=== PATIENT | female | born 1970 | race Caucasian/White ===

== ENCOUNTER 2024-08-07 17:44 | Inpatient (IN) | payer OTHER, SELFPAY ==
[2024-08-07] VITALS (12 sets, daily range): BP systolic 91–170; BP diastolic 65–100; BMI 37.6
[2024-08-07 11:23] LABS: % Basophils 0.5 % (0-2); % Eosinophils 1.3 % (0-6); % Immature Granulocytes 0.8 % (0-0.5); % Lymphocytes 18.7 % (20.5-51.1); % Monocytes 8.3 % (1.7-9.3); % Neutrophils 70.4 % (42.2-75.2); Absolute Basophils 0.1 10^3/uL (0-0.2); Absolute Eosinophils 0.2 10^3/uL (0-0.7); Absolute Immature Granulocytes 0.1 10^3/uL (0-0.05); Absolute Lymphocytes 2.8 10^3/uL (1.2-3.4); Absolute Monocytes 1.2 10^3/uL (0.1-0.6); Absolute Neutrophils 10.4 10^3/uL (1.4-6.5); Hematocrit 41.1 % (37.0-47.0); Hemoglobin 13.2 g/dL (12.0-16.0); Mean Corp Hgb Conc. 32.1 g/dL (33.0-37.0); Mean Corpuscular Hgb 23.7 pg (27.0-31.0); Mean Corpuscular Volume 73.8 fL (81.0-99.0); Mean Platelet Volume 9.9 fL (7.4-10.4); Nucleated Red Blood Cells % 0 %; Platelet Count 348 10^3/uL (130-400); Red Blood Cell Count 5.57 10^6/uL (4.20-5.40); Red Cell Dist. Width 19.2 % (11.5-14.5); White Blood Cell Count 14.7 10^3/uL (4.8-10.8)
[2024-08-07 11:26] LABS: Urine Albumin Trace (Neg - Trace); Urine Bilirubin Negative (Negative); Urine Character Clear (Clear); Urine Color Yellow; Urine Glucose 3+ (Negative); Urine Ketone Negative (Negative); Urine Leukocyte 2+ (Negative); Urine Nitrite Negative (Negative); Urine Occult Blood 4+ (Negative); Urine Urobilinogen Negative (Neg - 1+)
[2024-08-07 11:38] LABS: ALT (SGPT) 52 U/L (0-35); AST (SGOT) 41 U/L (14-36); Albumin 4.7 g/dl (3.5-5.0); Alkaline Phosphatase 131 U/L (38-126); Blood Urea Nitrogen 25 mg/dl (7-17); Calcium 10.3 mg/dl (8.4-10.2); Carbon Dioxide 25 mmol/L (22-30); Chloride 101 mmol/L (98-107); Glucose 160 mg/dl (70-99); Lipase 39 U/L (23-300); Potassium 4.7 mmol/L (3.5-5.1); Sodium 139 mmol/L (135-145); Total Bilirubin 0.6 mg/dl (0.2-1.3); Total Protein 7.4 g/dl (6.3-8.2); eGFR > 60.00
[2024-08-07 11:50] LABS: Urine Red Blood Cell 70-80 /HPF (0-2); Urine White Cell 30-40 /HPF (0-5)
[2024-08-07 11:51] LABS: Urine Bacteria Few (Negative)
--- NOTE | 2024-08-07 12:08 | ED.GENMED ---
History of Present Illness
General
Chief Complaint: Abdominal Symptoms
Source: patient
Exam Limitations: none
Time Seen by Provider: 08/07/24 11:25
Nursing documentation reviewed up to this point in time: agreed with
History of Present Illness
History of Present Illness:
pt is a 53 y/o F with h/o chronic pain on opiates, uti/kidney stones, gallstones
here with RLQ pain for a few days, low grade temp, nauesa, anorexia
says that she doesn't think this feels [facility]
it does wrap around tot he back but is in the RLQ and not RUQ
no vomiting, diarrhea
some mild dysuria/frequency
generalized fatigue, lack of energy, sleeping more
Past History
Past History
ED Past Medical History: CVA (X 2), HTN, Hypercholesterolemia, IDDM, Psychiatric (Anxiety), Other (MS, optic neuritis, uvetitis, GI bleeding, UTI, Chronic pain, chronic abd pain), Other (Trigeminal Neuralgia) and Other (Alkalosic spondylitis with
HlA B27 positive, Achilles tendinitis, positive JOHN)
ED Past Surgical History: Tonsilectomy
Social History
Tobacco: Non-smoker
Alcohol: None
Drug: None
Personal:
Living: with family
Employment: Not employed
Family History
Family History: Other (reviewed and non-contributory)
Review of Systems
Review of Systems
Allergies reviewed?: Yes
All Other Systems: Not applicable
Phy Exam
Physical Exam
Physical Exam:
GENERAL: Alert , in no apparent distress
EYE: pupils equal and reactive
NECK: Supple
ENT: o/p clr, mmm.
CARDIAC: Regular rate and rhythm .
LUNGS: Clear breath sounds bilaterally, no acute respiratory distress, no wheezes/rales/rhonchi
ABDOMEN: Soft, obese, RLQ and right flank mild tedner; RUQ not tender but then she had martinez's sign; no guarding, no rebound, mild cvat, normal bowel sounds
NEUROLOGICAL: Alert and oriented, no focal neuro deficits
SKIN: Warm and dry, skin intact.
MUSCULOSKELETAL: No edema, well perfused. neg brian's sign
PSYCH: Normal and appropriate interaction.
Course
Orders/Labs/Results
Orders:
Orders
08/07/24
RF Fluoroscopy, C-arm Routine
08/07/24 11:10
Complete Blood Count/With Diff Urgent
Comprehensive Metabolic Panel Urgent
Lipase Urgent
Urinalysis Reflex To Culture Urgent
Date Specimen was Collected: 08/07/24
Time Specimen was Collected: 11:00
Urine Microscopic Reflex Cult Urgent
Urine Culture Urgent
MAKENNA Source: U
Specimen Description:
Date Specimen was Collected: 08/07/24
Time Specimen was Collected: 11:00
08/07/24 12:02
CT Abd/Pel (IV only)-DH only Urgent
Comment:
Reason For Exam: RLQ pain, fever, nausea
0.9% Sodium Chloride 1000 ml [Nss] 1,000 ml IV BOLUS
HYDROmorphone [Dilaudid] 1 mg IV NOW STA
08/07/24 12:21
Ondansetron Injectable [Zofran] 4 mg IV NOW STA
08/07/24 13:23
Ketorolac [Toradol] 30 mg IV NOW STA
08/07/24 14:58
CefTRIAXone [Rocephin] 1,000 mg IV NOW STA
08/07/24 14:59
HYDROmorphone [Dilaudid] 1 mg IV NOW STA
08/07/24 Dinner
2000 calorie (17 carb) Diabetic
At Your Request: Full Participation
Does patient need a safe tray?: No
08/07/24 15:09
Sterile Water [Sterile Water For Injection] 10 ml .ROUTE .STK-MED ONE
08/07/24 15:43
HYDROmorphone [Dilaudid] 0.25 mg IV PACU-Q5MPRN PRN
HYDROmorphone [Dilaudid] 0.5 mg IV PACU-Q5MPRN PRN
Lidocaine HCl/Pf [Xylocaine-Mpf 1% Vial] 50 mg .ROUTE .STK-MED ONE
Meperidine [Demerol] 12.5 mg IV PACU-Q5MPRN PRN
Ondansetron Injectable [Zofran] 4 mg IV PACU-ONCEPRN PRN
Prochlorperazine [Compazine] 5 mg IV PACU-ONCEPRN PRN
Propofol [Diprivan] 20 ml .ROUTE .STK-MED
Notify MD As Directed
Notify physician if: for SDS patients with known or suspected sleep obstructive sleep apnea, monitor in the
PACU.
Notify MD for any apneic/desaturation episodes
O2 Therapy [RESP] Urgent
Titrate/Wean O2 to maintain O2 sat greater than (%): 92
Special Instructions: -Provide supplemental oxygen to achieve O2 sat of 92% or greater.
-After 15 min, may wean O2 and discontinue if patient is able to maintain O2 sat of 92%
or greater during recovery period.
If patient is a discharge home, without oxygen therapy, notify anestheiologist if
unable to maintain O2 SAT of 92% or greater on room air for MD clearance.
08/07/24 15:45
Fentanyl Citrate/Pf [Sublimaze] 100 mcg .ROUTE .STK-MED ONE
Midazolam HCl [Versed] 2 mg .ROUTE .STK-MED ONE
Normosol (Mult Electrolytes) [Normosol-R/Plasmalyte-A] 1,000 ml IV PER PROTOCOL
08/07/24 16:02
Succinylcholine Chloride [Succinylcholine] 200 mg .ROUTE .STK-MED ONE
08/07/24 16:10
Urinalysis Routine
Date Specimen was Collected: 08/07/24
Time Specimen was Collected: 16:19
Comment: URINE
Urine Microscopic Routine
Date Specimen was Collected: 08/07/24
Time Specimen was Collected: 16:19
Urine Culture Routine
MAKENNA Source: Urine
Specimen Description:
Obtained by: Cysto
Date Specimen was Collected: 08/07/24
Time Specimen was Collected: 16:19
Comment: URINE
08/07/24 16:17
Ondansetron Injectable [Zofran] 4 mg .ROUTE .STK-MED ONE
Rocuronium [place] [Rocuronium] 50 mg .ROUTE .STK-MED ONE
08/07/24 17:31
Admit/Transfer Patient As Directed
Co-Sign Provider:
Level of Care: Inpatient admission
Assign to:: Medical/Surgical
Physician / Group: derek driscoll
Diagnosis: uti,obstructin R ureter w mod R hydrurteronephrosis
Reason for Hospitalization: uti,obstructin R ureter w mod R hydrurteronephrosis
Expected length of stay greater than two midnights?: Yes
ELOS- Estimated Length of Stay in days: 3
I certify the patient meets the requirements for IP care: Yes
Code Status As Directed
Resuscitation Status: Full Code
08/07/24 17:37
PRN Pain Medication Management As Directed
May give lesser potent ordered pain med per pt: Yes
preference::
Protocol:: Medication orders for pain may be administered in a
manner that supports deferring to patient preference
when the pt is:
- Requesting an ordered lesser potent pain medication.
Least to most potent pain medications are defined
as: acetaminophen < NSAID < tramadol < opioids
(morphine, oxycodone, hydromorphone).
- Requesting a lesser dose of the same medication IF
ORDERED.
- Requesting a less intrusive route of administration
if both routes are prescribed by the provider (PO <
IV).
08/07/24 18:09
0.9% Sodium Chloride 1000 ml [Nss] 1,000 ml IV 100 mls/hr
Albuterol Nebs [Ventolin Nebules] 2.5 mg INH R Q4HPRN PRN
Alprazolam [Xanax] 1 mg PO BIDPRN PRN
CefTRIAXone [Rocephin] 1,000 mg IV Q24H
Dextrose 50%-Water [Dextrose 50% Syringe] 12.5 grams IV [id number] PRN
Diphenhydramine [Benadryl] 25 mg IV Q4HPRN PRN
Glucagon [GlucaGen] 1 mg IM PRN PRN
HYDROmorphone [Dilaudid] 1 mg IV Q4HPRN PRN
HydrALAZINE [Apresoline] 10 mg PO .BID-TID
Ondansetron Injectable [Zofran] 4 mg IV Q6HPRN PRN
Phenazopyridine HCl [Pyridium] 200 mg PO NOW STA
Phenazopyridine HCl [Pyridium] 200 mg PO TIDPRN PRN
oxycodone-acetaminophen 1 tablet PO QID
08/07/24 18:09
Activity As Directed
Activity Level: As Tolerated
Bedside Glucose Monitoring As Directed
Frequency: AC&HS
Additional Instructions:: Change to q6h if pt on TPN, tube feeding or not eating
Intake/ Output As Directed
Frequency: Per unit guidelines
Pneumatic Compression Sleeves As Directed
Type: Knee high
Vital Signs As Directed
Frequency: Per unit guidelines
DX Deep Vein Thrombosis Video Routine
08/07/24 20:00
Docusate W/Senna [Senokot-S] 1 tablet PO BID
Metoprolol Xl [Toprol Xl] 100 mg PO BID
08/07/24 22:00
Alprazolam [Xanax] 1 mg PO HS
Amlodipine [Norvasc] 10 mg PO HS
Aspirin Low Dose EC [Aspir Low (Enteric Coated)] 81 mg PO HS
Clopidogrel Bisulfate [Plavix] 75 mg PO HS
Duloxetine Delayed Release [Cymbalta Delayed Release] 60 mg PO HS
Losartan [Cozaar] 100 mg PO HS
Trazodone [Desyrel] 300 mg PO HS
08/08/24 06:00
Complete Blood Count/With Diff IN AM
Comprehensive Metabolic Panel IN AM
Glycohemoglobin (HgbA1c) IN AM
08/08/24 07:30
Insulin Aspart Corrective Low [Novolog Flexpen-Low Resistance] See Protocol SC AC
08/08/24 08:00
Polyethylene Glycol Powder [Miralax] 17 grams PO DAILY
08/09/24 06:00
Complete Blood Count/With Diff IN AM
Comprehensive Metabolic Panel IN AM
08/10/24 06:00
Complete Blood Count/With Diff IN AM
Comprehensive Metabolic Panel IN AM
Abnormal Lab Results
08/07/24 08/07/24 08/07/24
11:10 16:10 17:32
WBC 14.7 H 10^3/uL
(4.8-10.8)
RBC 5.57 H 10^6/uL
(4.20-5.40)
MCV 73.8 L fL
(81.0-99.0)
MCH 23.7 L pg
(27.0-31.0)
MCHC 32.1 L g/dL
(33.0-37.0)
RDW 19.2 H %
(11.5-14.5)
Abs Immat Gran (auto) 0.1 H 10^3/uL
(0-0.05)
Absolute Neuts (auto) 10.4 H 10^3/uL
(1.4-6.5)
Absolute Monos (auto) 1.2 H 10^3/uL
(0.1-0.6)
Immature Gran % 0.8 H %
(0-0.5)
Lymphocytes % 18.7 L %
(20.5-51.1)
BUN 25 H mg/dl
(7-17)
Glucose 160 H mg/dl
(70-99)
Calcium 10.3 H mg/dl
(8.4-10.2)
AST 41 H U/L
(14-36)
ALT 52 H U/L
(0-35)
Alkaline Phosphatase 131 H U/L
(38-126)
Urine Occult Blood 4+ A
(Negative)
Ur Occult Blood Reflex 4+ A
(Negative)
Ur Leukocyte Esterase 2+ A
(Negative)
Leukocyte Esterase Rfl 2+ A
(Negative)
Urine RBC 70-80 A /HPF 26-30 A /HPF
(0-2) (0-2)
Urine WBC 30-40 A /HPF
(0-5)
Urine WBC (Reflex) 30-40 A /HPF
(0-5)
Urine Bacteria Few A
(Negative)
Urine Bacteria (Reflex) Few A
(Negative)
Urine Glucose 3+ A Trace A
(Negative) (Negative)
POC Glucose 131 H mg/dl
(70-99)
08/07/24 11:10
08/07/24 11:10
Vital Signs
Initial and Last Documented VS:
Initial Vital Signs
Temp Pulse Resp BP Pulse Ox
99.2 F 80 16 170/100 98
08/07/24 10:57 08/07/24 10:57 08/07/24 10:57 08/07/24 10:57 08/07/24 10:57
Last Documented Vital Signs
Temp Pulse Resp BP Pulse Ox
97.7 F 78 18 149/78 96
08/07/24 18:03 08/07/24 18:03 08/07/24 18:03 08/07/24 18:03 08/07/24 18:03
MDM/Problems Addressed
Differential Diagnosis Includes:
appe, deacon, kidney infection
MDM/Problems Addressed:
carlos galina h/o MS, chornic pain on opiates, h/o kidney stones
RLQ pain to back for a few days, low grade temp, nausea
borderline temp 99.2, wbc 14.7, cr normal, urine leuk, blood, whites, bacteria; neg nitrite; ct shows 5 mm stone with mod hydro (mid right ureter stone);
pt in a fair amount of pain but not in septic shock
abx started
dr. gama from uro will take pt to OR
admit
*Critical Care Note
Total Time (30-74mins, 75-104mins- exclusive of procedures): Not Applicable
ED Attending Note
-
Portions of this chart may have been created with voice recognition software.� Occasional wrong word or��sound alike� substitutions may have occurred due to the inherent limitations of voice recognition software.
Discharge Plan
Departure
Patient Disposition: Admit
Date of Disposition: 08/07/24
Time of Disposition: 15:04
Admit to: Med/Surg
Presentation/result/management discussed w/ accepting MD/DO: Hospitalist
Condition: Fair
Covid-19: Not Applicable
Discharge Problem:
Obstruction, uropathy
Interventions
Interventions:
*Risk Screen - Suicide Last Done: 08/07/24 10:57
*General Assessment Last Done: 08/07/24 10:57
*Neglect/Abuse Screening Last Done: 08/07/24 10:57
ED- Fall Risk Assessment Last Done: 08/07/24 15:52
*ED COVID-19 Vaccine History Last Done: 08/07/24 15:52
*Nursing Disposition Last Done: 08/07/24 15:52
BD-Uqpzfi-Sndustafvo Assessment Last Done: 08/07/24 11:53
Discharge Date and Time
Discharge Date/Time: 08/07/24 15:53
[2024-08-07] MEDS: NSS 1000 IV ×2 (12:12→18:23)
[2024-08-07] MEDS: DILAUDID 1 MG IV ×3 (12:12→20:13)
[2024-08-07] MEDS: ZOFRAN 4 MG IV (12:25)
[2024-08-07] MEDS: TORADOL 30 MG IV (13:39)
[2024-08-07] MEDS: ROCEPHIN 1000 MG IV (15:12)
[2024-08-07 16:45] LABS: Urine Albumin Negative (Neg - Trace); Urine Bilirubin Negative (Negative); Urine Character Slightly Cloudy (Clear); Urine Color Straw; Urine Glucose Trace (Negative); Urine Ketone Negative (Negative); Urine Leukocyte 2+ (Negative); Urine Nitrite Negative (Negative); Urine Occult Blood 4+ (Negative); Urine Specific Gravity 1.005 (<1.030); Urine Urobilinogen Negative (Neg - 1+)
--- NOTE | 2024-08-07 16:46 | CONS.URO ---
Consultation
-
Performing Provider: Peffer
Reason for Consultation: ureteral stone, UTI, fever
Medical History
History of Present Illness
53F prior history of kidney stones, prior hx of needing operative intervention
here with RLQ pain for a few days, low grade temp and subj fever at home, nausea, anorexia
no vomiting, diarrhea
some mild dysuria/frequency
generalized fatigue, lack of energy, sleeping more
No hematuria
CT showed a 5mm mid ureteral stone
UA, low grade elevated temp, and leukocytosis concerning for possible associated UTI and developing sepsis
Taken to OR 08/07 for ureteral stent placement
Past Medical History
Past Medical History: Other (CVA (X 2), HTN, Hypercholesterolemia, IDDM, Psychiatric (Anxiety), Other (MS, optic neuritis, uvetitis, GI bleeding, UTI, Chronic pain, chronic abd pain), Other (Trigeminal Neuralgia) (Alkalosic spondylitis with HlA B27
positive, Achilles tendinitis, positive JOHN)
Past Surgical History: Tonsilectomy and Urological
Social History
Tobacco: Non-smoker
Alcohol: None
Drug: None
Personal:
Living: With Family
Family History
Family History: Reviewed & Not Pertinent
Allergies/Home Medications
Allergies
Allergy/AdvReac Type Severity Reaction Status Date / Time
phenytoin [From Dilantin] Allergy blood Verified 08/07/24 10:59
clots;pt
states 'i
can get it
but it has
to be
diluted
Quinolones Allergy Hives Verified 08/07/24 10:59
Home Medications
�Medication �Instructions �Recorded �Confirmed �Type
metoprolol succinate 100 mg 100 mg PO BID Blood pressure ##0 10/26/16 08/07/24 History
tablet,extended release 24 hr
alprazolam 1 mg tablet 1 mg PO HS Mental Health/Anxiety 11/27/18 08/07/24 History
duloxetine 60 mg capsule,delayed 60 mg PO HS Mental Health/Anxiety 11/27/18 08/07/24 History
release
metformin 1,000 mg tablet 1,000 mg PO BIDWMEAL Diabetes 11/27/18 08/07/24 History
hydralazine 10 mg tablet 10 mg PO .BID-TID 03/29/21 08/07/24 History
trazodone 150 mg tablet 300 mg PO HS Mental Health/Anxiety 03/29/21 08/07/24 History
amlodipine 10 mg tablet 10 mg PO HS 03/07/22 08/07/24 History
clopidogrel 75 mg tablet 75 mg PO HS 03/07/22 08/07/24 History
albuterol sulfate 2.5 mg/3 mL 2.5 mg inhalation R Q4HPRN PRN 08/07/24 08/07/24 History
(0.083 %) solution for nebulization sob/wheezing
alprazolam 1 mg tablet 1 mg PO BIDPRN PRN anxiety 08/07/24 08/07/24 History
aspirin 81 mg tablet,delayed 81 mg PO HS 08/07/24 08/07/24 History
release
docusate sodium 100 mg capsule 100 mg PO BID 08/07/24 08/07/24 History
(Stool Softener)
glipizide 10 mg tablet 10 mg PO BIDWMEAL 08/07/24 08/07/24 History
losartan 100 mg tablet 100 mg PO HS 08/07/24 08/07/24 History
qrkvqzvk-huo-SF 0.4 mg-calcium 162 1 tab PO DAILY 08/07/24 08/07/24 History
mg-iron 18 hv-jmncqcm-whesxn tablet
nitrofurantoin macrocrystal 50 mg 50 mg PO Q48H 08/07/24 08/07/24 History
capsule
oxycodone-acetaminophen 10 mg-325 1 tab PO Q6HPRN PRN moderate pain 08/07/24 08/07/24 History
mg tablet
polyethylene glycol 3350 17 gram 17 g PO DAILY 08/07/24 08/07/24 History
oral powder packet (Miralax)
semaglutide 2 mg/dose (8 mg/3 mL) 2 mg SC TH 08/07/24 08/07/24 History
subcutaneous pen injector (Ozempic)
Physical Exam
Vital Signs
Vital Signs
Temp Pulse Resp BP Pulse Ox
97.9 F 84 10 120/68 93
08/07/24 15:16 08/07/24 16:34 08/07/24 16:34 08/07/24 16:34 08/07/24 16:34
Lab / Testing Results
Laboratory Results
08/07/24 11:10
08/07/24 11:10
Physical Exam
General: Well Developed, Well Nourished and Other (mild discomfort)
Respiratory: Clear and Non Labored Respirations
GI: Soft and Non Tender
Genito-urinary: No Costovertebral Tend
Skin: Warm and Dry
Neuro: AO x 3
Psych: Calm and Intact Judgement
Assessment / Plan
-
53F with 5mm mid R ureteral stone
subjective fevers and leukocytosis, positive UA
- Taken to OR 08/07 for cystoscopy, R ureteral stent placement
- Significant purulent urine above stone was collected and sent for culture
- Continue IV abx pending culture
- Will need outpatient follow up for ureteroscopy to remove stone after discharge
[2024-08-07 16:57] LABS: Urine Bacteria Few (Negative); Urine Squamous Cell 0-2 /LPF (Few)
[2024-08-07 16:58] LABS: Urine Red Blood Cell 26-30 /HPF (0-2); Urine White Cell 30-40 /HPF (0-5)
--- NOTE | 2024-08-07 17:03 | HPS.HSE ---
Family Physician
-
Family Physician: Donald Plaza
Chief Complaint
-
Right lower quadrant abdominal pain, intermittent chills
History of Present Illness
53-year-old female from home complaining of right lower quadrant abdominal pain for the past week along with intermittent chills. The patient told the registered pharmacy technician she had just finished Keflex. She was noted to have an obstructing 5 mm
calculus in the mid right ureter with moderate right hydroureteronephrosis on CT. She is currently in PACU states she does feel very drowsy but she is oriented x 3. She complains of mild right lower quadrant abdominal pain and some mild itching
although there is no appreciated rash. She denies headache, fever, chills, chest pain, palpitations, shortness breath, cough, nausea, vomiting, diarrhea. She has past medical history of UTIs, renal calculi, chronic lumbar pain on chronic oral
opiates, multiple sclerosis, trigeminal neuralgia, HTN, obesity, DM 2, CVA x 2, anxiety, optic neuritis, uveitis, GI bleed, ankylosing spondylitis
Medical History
Past Medical History
Past Medical History: Reports Other
Additional Past Medical History:
UTIs renal calculi
chronic lumbar pain on chronic oral opiates
multiple sclerosis
trigeminal neuralgia
Hepatic steatosis, hepatomegaly
HTN
obesity
DM 2
CVA x 2
anxiety
optic neuritis
uveitis
GI bleed
ankylosing spondylitis
Past Surgical History: Reports Other
Additional Past Surgical History:
History of renal calculi with removals
Neuroma to foot removal
Tonsillectomy adenoidectomy
Social History
Tobacco: Non-smoker
Alcohol: None
Drug: None
Personal: Single
Living: With Family (Children)
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
Family History
Family History: Not pertinent
Allergies / Home Medications
Allergies reflects when Allergies were last updated in [employer].
Home Medications with original date entered in [employer]
Allergy/Medication List:
Allergies
Allergy/AdvReac Type Severity Reaction Status Date / Time
phenytoin [From Dilantin] Allergy blood Verified 08/07/24 10:59
clots;pt
states 'i
can get it
but it has
to be
diluted
Quinolones Allergy Hives Verified 08/07/24 10:59
Home Medications
metoprolol succinate 100 mg tablet,extended release 24 hr 100 mg PO BID Blood pressure ##0 10/26/16
alprazolam 1 mg tablet 1 mg PO HS Mental Health/Anxiety 11/27/18
duloxetine 60 mg capsule,delayed release 60 mg PO HS Mental Health/Anxiety 11/27/18
metformin 1,000 mg tablet 1,000 mg PO BIDWMEAL Diabetes 11/27/18
hydralazine 10 mg tablet 10 mg PO .BID-TID 03/29/21
trazodone 150 mg tablet 300 mg PO HS Mental Health/Anxiety 03/29/21
amlodipine 10 mg tablet 10 mg PO HS 03/07/22
clopidogrel 75 mg tablet 75 mg PO HS 03/07/22
albuterol sulfate 2.5 mg/3 mL (0.083 %) solution for nebulization 2.5 mg inhalation R Q4HPRN PRN sob/wheezing 08/07/24
alprazolam 1 mg tablet 1 mg PO BIDPRN PRN anxiety 08/07/24
aspirin 81 mg tablet,delayed release 81 mg PO HS 08/07/24
docusate sodium 100 mg capsule (Stool Softener) 100 mg PO BID 08/07/24
glipizide 10 mg tablet 10 mg PO BIDWMEAL 08/07/24
losartan 100 mg tablet 100 mg PO HS 08/07/24
gndjowib-xhn-XK 0.4 mg-calcium 162 mg-iron 18 zu-ycpyjvv-txzamu tablet 1 tab PO DAILY 08/07/24
nitrofurantoin macrocrystal 50 mg capsule 50 mg PO Q48H 08/07/24
oxycodone-acetaminophen 10 mg-325 mg tablet 1 tab PO QID 08/07/24
polyethylene glycol 3350 17 gram oral powder packet (Miralax) 17 g PO DAILY 08/07/24
semaglutide 2 mg/dose (8 mg/3 mL) subcutaneous pen injector (Ozempic) 2 mg SC TH 08/07/24
Review of Systems
-
History Source: Patient
A 12 point ROS was completed and negative except as noted: Yes
Constitutional: Denies Fever or Chills
EENT: Denies Sore Throat or Runny Nose
Respiratory: Denies Cough or Trouble Breathing
Cardiac: Denies Chest Pain or Palpitations
Abdomen/GI: Reports Abdominal Pain (Right lower quadrant) and Constipated; Denies Nausea, Vomiting or Diarrhea
: Denies Dysuria, Frequency, Flank Pain, Incontinence or Difficulty Voiding
Musculoskeletal: Denies Joint Pain or Edema
Skin: Reports Itching; Denies Rash
Neurological: Denies Dizzy, Headache or Weakness
Endocrine: Reports No Symptoms
Hematologic/Lymphatic: Reports No Symptoms
Psych: Reports Calm
Physical Exam
Vital Signs
Vital Signs
Temp Pulse Resp BP Pulse Ox
97.4 F 78 17 91/71 91
08/07/24 16:45 08/07/24 17:00 08/07/24 17:00 08/07/24 17:00 08/07/24 17:00
Physical Exam
General: Comfortable, Conversant, Pain (Mild pain right lower quadrant postop) and Obese; No Fever or Chills
HEENT: NormoCephalic, Anicteric, PERRLA and No Ptosis
Respiratory: Clear; No Wheezes, Rales or Rhonchi
Cardiac: S1/S2 and Regular Rhythm; No Murmur, Rub, Gallop or Peripheral Edema
Breast: Deferred by me
GI: Soft, Non Distended, Normal Bowel Sounds and Tender (Mild tenderness right lower quadrant)
Genito-urinary: Deferred by me
Musculoskeletal: No Clubbing, No Cyanosis and No Edema
Skin: Warm and Dry; No Rash or Jaundice
Neuro: AO x 3, No Motor Deficits, Nonfocal/grossly intact and No Sensory Deficits; No Slurred Speech, Facial Droop, Tremors or Sedated
Psych: Calm
Laboratory Results
-
08/07/24 11:10
08/07/24 11:10
Laboratory Results
Total Bilirubin 0.6 mg/dl (0.2-1.3) 08/07/24 11:10
AST 41 U/L (14-36) H 08/07/24 11:10
ALT 52 U/L (0-35) H 08/07/24 11:10
Alkaline Phosphatase 131 U/L (38-126) H 08/07/24 11:10
Lipase 39 U/L (23-300) 08/07/24 11:10
Data Reviewed
-
CT Scan: Report Reviewed by me
Lab Data: Labs Reviewed by me
Impression/Plan
-
Impression/plan:
Admit to [facility]
#UTI/obstructive uropathy 2/2 FIVE mm calculus mid right ureter with moderate right hydroureteronephrosis
#Hx UTIs, renal calculi with cystoscopies and removal
WBC 14.7, afebrile 97.4, 131/70
-Plan OR today for cystoscopy removal /ureteral stent placement
Stone was unable to be removed due to pus in the ureter per Dr. Camp patient will follow-up as outpatient for additional procedure
-Follow urine culture
-IV NSS 1 L given ER, continue IV NSS 100 cc an hour
-IV Rocephin
-Follow CBC, BMP
CT abdomen pelvis IV contrast only
1. Obstructive uropathy secondary to a 5 mm calculus in the mid right ureter causing moderate right hydroureteronephrosis.
2. Hepatosplenomegaly.
3. Hepatic steatosis.
4. Cholelithiasis.
5. Colonic diverticulosis
#Reported constipation
-Will place patient on MiraLAX daily and Senokot
#Transaminitis likely secondary to hepatomegaly on CT
#Hx hepatosplenomegaly on CT, hepatic steatosis
-Follow CMP
#HTN�benign multidrug regimen
BP 156/78 in PACU
-cont amlodipine 10 mg at bedtime, hydralazine 10 mg twice daily, losartan 100 mg p.o. at bedtime, metoprolol succinate 100 mg p.o. twice daily
#Multiple sclerosis hx
#DM 2
Accu-Cheks with SSI, check HgbA1c
-Hold metformin at 1000 mg twice daily patient was given IV contrast
-Patient takes Ozempic 2 mg subcu on
#CVA x 2
-Continue aspirin 81 mg at bedtime, Plavix 75 mg at bedtime
#Anxiety
-Continue duloxetine 60 mg at bedtime, alprazolam 1 mg twice daily as needed and 1 mg p.o. at bedtime
-Continue trazodone
#Chronic pain on chronic oral opiates/ trigeminal neuralgia
Takes as needed oxycodone/acetaminophen 10 mg�325 every 6 hours scheduled
-Patient follows with Dr. Marco Mccray pain management
#Obesity due to excess calorie consumption�BMI 37.6
Affects all aspects of care
Weight loss recommended, continue Ozempic outpatient
1800 ADA low-fat diet
#Psoriatic arthritis
-Patient states she follows with outpatient rheumatology she was due to start unknown injectable this past week but held it due to her flank pain and UTI
Other PMH:
Optic neuritis
Uveitis
GI bleed
Ankylosing spondylitis
DVT prophylaxis
SCDs
Full code
[2024-08-07 17:35] LABS: Glucose - Point of Care 131 mg/dl (70-99)
--- NOTE | 2024-08-07 17:57 | W.PN.UPDATE ---
Update Note
Progress Note Update
This is an addendum to the H&P written by Samantha Justice on 08/07/2024.� Patient seen and examined independently with NURSE'S ASSISTANT.
53-year-old female past medical history of chronic pain, nephrolithiasis, gallstones, CVA, hypertension, hypercholesteremia, diabetes, anxiety/depression, multiple sclerosis, optic neuritis, uveitis, general neurology, ankylosing spondylitis,
presenting for right lower quadrant pain for the past week associate with chills.
CT abdomen pelvis showed obstructive uropathy secondary to 5 mm calculus in the mid right ureter and moderate right hydroureteronephrosis.� Labs show leukocytosis.� Patient underwent right ureteral stent placement.
IV fluids.� Urine culture pending.� Ceftriaxone.� Pyridium for urinary symptoms.
--- NOTE | 2024-08-07 18:04 | PTCARENOTE ---
Patient admitted from Pacu post cystoscopy and right stent placement.The patient is alert and oriented but drowsy.She used the bathroom shortly after arrival and was able to void a moderate amount of urine without difficulty.After she returned to
her bed she requested pain medication and Pyridium.She is in her bed with the call jim in reach.
[2024-08-07] MEDS: TYLENOL 325 MG PO ×2 (18:22→21:28)
[2024-08-07] MEDS: ROXICODONE 10 MG PO ×2 (18:22→21:27)
[2024-08-07] MEDS: Pyridium 200 MG PO ×2 (18:25→18:47)
[2024-08-07] MEDS: TOPROL XL 100 MG PO (20:00)
[2024-08-07] MEDS: SENOKOT-S 1 TABLET PO (20:05)
[2024-08-07] MEDS: APRESOLINE 10 MG PO (20:05)
[2024-08-07] MEDS: XANAX 1 MG PO ×2 (21:26→22:33)
[2024-08-07] MEDS: CYMBALTA DELAYED RELEASE 60 MG PO (21:26)
[2024-08-07] MEDS: NORVASC 10 MG PO (21:26)
[2024-08-07] MEDS: DESYREL 300 MG PO (21:27)
[2024-08-07] MEDS: PLAVIX 75 MG PO (21:27)
[2024-08-07] MEDS: COZAAR 100 MG PO (21:27)
[2024-08-07] MEDS: ASPIR LOW (ENTERIC COATED) 81 MG PO (21:27)
[2024-08-07 21:28] LABS: Glucose - Point of Care 294 mg/dl (70-99)
[2024-08-08 04:10] VITALS: BP 109/67
[2024-08-08] MEDS: NSS 1000 IV ×2 (04:18→14:51)
[2024-08-08] MEDS: Pyridium 200 MG PO ×3 (04:19→22:03)
[2024-08-08] MEDS: DILAUDID 1 MG IV ×5 (04:19→22:57)
[2024-08-08] MEDS: DILAUDID 0.5 MG IV (05:51)
[2024-08-08 06:33] LABS: % Basophils 0.3 % (0-2); % Eosinophils 0.1 % (0-6); % Immature Granulocytes 0.7 % (0-0.5); % Lymphocytes 17.6 % (20.5-51.1); % Monocytes 7.6 % (1.7-9.3); % Neutrophils 73.7 % (42.2-75.2); Absolute Immature Granulocytes 0.1 10^3/uL (0-0.05); Absolute Lymphocytes 1.9 10^3/uL (1.2-3.4); Absolute Monocytes 0.8 10^3/uL (0.1-0.6); Absolute Neutrophils 8.1 10^3/uL (1.4-6.5); Hematocrit 34.8 % (37.0-47.0); Hemoglobin 11.2 g/dL (12.0-16.0); Mean Corp Hgb Conc. 32.2 g/dL (33.0-37.0); Mean Corpuscular Hgb 24.9 pg (27.0-31.0); Mean Corpuscular Volume 77.3 fL (81.0-99.0); Mean Platelet Volume 10.2 fL (7.4-10.4); Nucleated Red Blood Cells % 0 %; Platelet Count 299 10^3/uL (130-400); Red Cell Dist. Width 18.4 % (11.5-14.5)
[2024-08-08 07:05] LABS: ALT (SGPT) 35 U/L (0-35); AST (SGOT) 23 U/L (14-36); Albumin 3.8 g/dl (3.5-5.0); Alkaline Phosphatase 95 U/L (38-126); Blood Urea Nitrogen 26 mg/dl (7-17); Calcium 9.2 mg/dl (8.4-10.2); Carbon Dioxide 23 mmol/L (22-30); Chloride 104 mmol/L (98-107); Estimated Creatinine Clearance 84 ml/min; Glucose 158 mg/dl (70-99); Potassium 4.8 mmol/L (3.5-5.1); Sodium 138 mmol/L (135-145); Total Bilirubin 0.3 mg/dl (0.2-1.3); Total Protein 6.1 g/dl (6.3-8.2); eGFR > 60.00
[2024-08-08 07:08] LABS: Glucose - Point of Care 80 mg/dl (70-99)
[2024-08-08 07:16] VITALS: BP 127/59
[2024-08-08] MEDS: NOVOLOG FLEXPEN-LOW RESISTANCE SC (08:23)
[2024-08-08] MEDS: MIRALAX 17 GRAMS PO (08:25)
[2024-08-08] MEDS: TYLENOL 325 MG PO ×4 (08:26→21:54)
[2024-08-08] MEDS: ROXICODONE 10 MG PO ×4 (08:30→21:54)
[2024-08-08] MEDS: SENOKOT-S 1 TABLET PO ×2 (08:30→19:42)
[2024-08-08] MEDS: APRESOLINE 10 MG PO ×2 (08:30→19:49)
[2024-08-08] MEDS: TOPROL XL 100 MG PO ×2 (08:31→19:50)
[2024-08-08] MEDS: VENTOLIN NEBULES 2 MG INH (09:44)
[2024-08-08 11:32] VITALS: BP 122/72
--- NOTE | 2024-08-08 11:32 | W.PN.URO.CBU ---
Today's Communication / Plan
-
Continue abx
Tolterodine for bladder spasm
Assessment / Plan
-
53F with 5mm mid R ureteral stone
subjective fevers and leukocytosis, positive UA
- Taken to OR 08/07 for cystoscopy, R ureteral stent placement
- Significant purulent urine above stone was collected and sent for culture
- Continue IV abx pending culture
- Will need outpatient follow up for ureteroscopy to remove stone after discharge
- Added tolterodine for bladder spasms
- Continue pyridium TID PRN dysuria
Diagnosis
-
Date of Service: August 08, 2024
-
Patient Diagnosis:
R ureteral stone
Pyuria
UTI
Post Op s/p cystoscopy, R ureteral stent 08/07
Subjective
-
c/o bladder spasm when voiding
chronic back pain moderately controlled
Objective
-
Vital Signs
Temp Pulse Resp BP Pulse Ox
97.6 F 68 16 127/59 95
08/08/24 07:16 08/08/24 09:40 08/08/24 09:40 08/08/24 07:16 08/08/24 09:40
Intake and Output
08/07/24 08/08/24 08/09/24
06:59 06:59 06:59
Output Total 15
Balance -15 / -15
Output:
Urine, Voided
Other:
Number of approximated MODERATE 2
amounts of urine
Laboratory Results
08/08/24 05:52
08/08/24 05:52
Physical Exam
-
General - well developed, well nourished, no acute distress
Chest - unlabored
Neuro - AOx3
[2024-08-08 11:52] LABS: Glucose - Point of Care 177 mg/dl (70-99)
[2024-08-08] MEDS: DETROL LA 4 MG PO (12:46)
[2024-08-08 12:59] LABS: Glycohemoglobin (HgbA1c) 8.6 % (4.0-5.6)
[2024-08-08] MEDS: NOVOLOG FLEXPEN-LOW RESISTANCE 1 UNITS SC (13:14)
[2024-08-08] MEDS: XANAX 1 MG PO ×2 (13:21→21:54)
--- NOTE | 2024-08-08 13:25 | CHAP ---
Aparna TidwellKhang was gracious - said she's doing okay. Emotional support provided.
--- NOTE | 2024-08-08 14:57 | W.PN.HOSP.TC ---
Today's Communication/Plan
-
strep agalactiae uti
Discharge planning per Urology
Assessment / Plan
Assessment / Plan
53-year-old female with right lower quadrant pain and chills.
CT abdomen and pelvis-obstructive uropathy secondary to 5 mm calculus in the right mid ureter causing moderate right hydroureteronephrosis. Hepatosplenomegaly. Hepatic steatosis. Cholelithiasis. Colonic diverticulosis
CVS: S1-S2 normal
Chest: CTA B/L
Abdomen: Soft, mild lumbar area tenderness, right, Bowel sounds present
Extremities: No edema, normal pulses
ASSISTANT EDUCATION DIRECTOR: Non focal exam
# UTI/obstructive uropathy secondary to 5 mm calculus in the right mid ureter with moderate right hydronephrosis.
History of nephrolithiasis with cystoscopy and removal in the past
Status post cystoscopy and right ureteral stent placement by Dr. Camp 08/07/24
Follow urine cultures- Strep Agalactiae
Continue ceftriaxone
IV fluids
# Multidrug-resistant hypertension-amlodipine 10 Mg, hydralazine 10 mg BID, losartan 100 mg HS, metoprolol 100 mg BID
# Diabetes
Hold metformin given IV contrast
She is also on Ozempic 2 mg on
Glipizide 10 mg BID and metformin 100 bid as OP
Check hemoglobin A1c
Accu-Cheks and sliding scale coverage
restart lower dose of Glipizide 2.5 BID
# Chronic pain, opiate dependent. Also history of trigeminal neuralgia
As needed Percocet
Follows up with Dr. Mccray for pain management
# History of CVA in the past-continue aspirin, Plavix
# Constipation-bowel regimen
# Transaminitis hepatosplenomegaly and hepatic steatosis-Needs outpatient GI follow-up
# Cholelithiasis
# Diverticulosis
# Multiple sclerosis- Not o treatment
# Psoriatic arthritis/ankylosing spondylitis-Follows with rheumatology was due to start biologic-unclear details
# Anxiety-continue as needed Alprazolam, Duloxetine, Trazodone
# History of optic neuritis/History of uveitis
# Obesity with a BMI of 37.6-On Ozempic as outpatient
# History of GI bleed
# DVT prophylaxis-Lovenox
# Full code
Anticipated Discharge: Within 24 hours
Subjective/Interval History
-
Date of Service: August 08, 2024
Objective Data
-
Labs:
Laboratory Results
08/08/24
05:52
WBC 11.0 H
Hgb 11.2 L
Hct 34.8 L
Plt Count 299
Sodium 138
Potassium 4.8
Chloride 104
Carbon Dioxide 23
BUN 26 H
Creatinine 1.0
Glucose 158 H
Calcium 9.2
Total Bilirubin 0.3
AST 23
ALT 35
Alkaline Phosphatase 95
Vital Signs:
Vital Signs
Temp Pulse Resp BP Pulse Ox
98.3 F 72 16 122/72 95
08/08/24 11:32 08/08/24 11:32 08/08/24 11:32 08/08/24 11:32 08/08/24 11:32
I&O
08/07/24 08/08/24 08/09/24
06:59 06:59 06:59
Output Total 15 / 15
Balance -15 / -15
[2024-08-08 15:45] VITALS: BP 134/68
[2024-08-08] MEDS: ROCEPHIN 1000 MG IV (15:46)
[2024-08-08] MEDS: STERILE WATER FOR INJECTION 10 ML IV (15:46)
[2024-08-08 16:47] LABS: Glucose - Point of Care 206 mg/dl (70-99)
[2024-08-08] MEDS: GLUCOTROL 2.5 MG PO (18:28)
[2024-08-08] MEDS: LOVENOX 40 MG SC (18:29)
[2024-08-08] MEDS: NOVOLOG FLEXPEN-LOW RESISTANCE 2 UNITS SC (18:30)
[2024-08-08] MEDS: BENADRYL 25 MG IV ×2 (19:42→22:20)
[2024-08-08] MEDS: ZOFRAN 4 MG IV (20:04)
[2024-08-08 21:40] LABS: Glucose - Point of Care 158 mg/dl (70-99)
[2024-08-08] MEDS: CYMBALTA DELAYED RELEASE 60 MG PO (21:54)
[2024-08-08] MEDS: ASPIR LOW (ENTERIC COATED) 81 MG PO (21:54)
[2024-08-08] MEDS: NORVASC 10 MG PO (21:54)
[2024-08-08] MEDS: PLAVIX 75 MG PO (21:54)
[2024-08-08] MEDS: COZAAR 100 MG PO (21:54)
[2024-08-08] MEDS: DESYREL 300 MG PO (21:54)
[2024-08-08 23:05] VITALS: BP 157/81
[2024-08-09] MEDS: NSS 1000 IV (00:55)
[2024-08-09] MEDS: DILAUDID 1 MG IV ×2 (05:17→21:02)
[2024-08-09] MEDS: Pyridium 200 MG PO ×3 (05:17→22:14)
[2024-08-09 06:14] LABS: % Basophils 0.7 % (0-2); % Eosinophils 2.6 % (0-6); % Immature Granulocytes 0.9 % (0-0.5); % Lymphocytes 44.8 % (20.5-51.1); % Monocytes 7.1 % (1.7-9.3); % Neutrophils 43.9 % (42.2-75.2); Absolute Basophils 0.1 10^3/uL (0-0.2); Absolute Eosinophils 0.3 10^3/uL (0-0.7); Absolute Immature Granulocytes 0.1 10^3/uL (0-0.05); Absolute Lymphocytes 4.5 10^3/uL (1.2-3.4); Absolute Monocytes 0.7 10^3/uL (0.1-0.6); Absolute Neutrophils 4.4 10^3/uL (1.4-6.5); Hematocrit 37.2 % (37.0-47.0); Hemoglobin 11.6 g/dL (12.0-16.0); Mean Corp Hgb Conc. 31.2 g/dL (33.0-37.0); Mean Corpuscular Hgb 23.9 pg (27.0-31.0); Mean Corpuscular Volume 76.7 fL (81.0-99.0); Mean Platelet Volume 10.5 fL (7.4-10.4); Nucleated Red Blood Cells % 0 %; Platelet Count 323 10^3/uL (130-400); Red Blood Cell Count 4.85 10^6/uL (4.20-5.40); White Blood Cell Count 10.1 10^3/uL (4.8-10.8)
[2024-08-09 06:48] LABS: ALT (SGPT) 45 U/L (0-35); AST (SGOT) 35 U/L (14-36); Albumin 4.2 g/dl (3.5-5.0); Alkaline Phosphatase 93 U/L (38-126); Blood Urea Nitrogen 23 mg/dl (7-17); Calcium 9.7 mg/dl (8.4-10.2); Carbon Dioxide 25 mmol/L (22-30); Chloride 104 mmol/L (98-107); Estimated Creatinine Clearance 93 ml/min; Glucose 132 mg/dl (70-99); Potassium 5.1 mmol/L (3.5-5.1); Sodium 142 mmol/L (135-145); Total Bilirubin 0.4 mg/dl (0.2-1.3); Total Protein 6.6 g/dl (6.3-8.2); eGFR > 60.00
[2024-08-09] MEDS: NOVOLOG FLEXPEN-LOW RESISTANCE SC (07:40)
[2024-08-09 07:41] VITALS: BP 128/72
[2024-08-09 07:47] LABS: Glucose - Point of Care 134 mg/dl (70-99)
[2024-08-09] MEDS: TOPROL XL 100 MG PO ×2 (07:49→20:21)
[2024-08-09] MEDS: GLUCOTROL 2.5 MG PO (07:49)
[2024-08-09] MEDS: DETROL LA 4 MG PO (07:49)
[2024-08-09] MEDS: APRESOLINE 10 MG PO ×2 (07:49→20:21)
[2024-08-09] MEDS: TYLENOL 325 MG PO ×4 (07:49→22:14)
[2024-08-09] MEDS: SENOKOT-S 1 TABLET PO ×2 (07:50→20:21)
[2024-08-09] MEDS: ROXICODONE 10 MG PO ×4 (07:50→22:14)
[2024-08-09] MEDS: MIRALAX 17 GRAMS PO ×2 (07:50→17:47)
--- NOTE | 2024-08-09 08:58 | W.PN.URO.CBU ---
Today's Communication / Plan
-
Continue antibiotic course
Stopped tolterodine due to constipation
Follow up for ureteroscopy
Assessment / Plan
-
53F with 5mm mid R ureteral stone
subjective fevers and leukocytosis, positive UA
- Taken to OR 08/07 for cystoscopy, R ureteral stent placement
- Significant purulent urine above stone was collected and sent for culture
- Cultures growing strep - okay to transition to appropriate PO antibiotic for total 10 day course
- Will need outpatient follow up for ureteroscopy to remove stone after discharge - plan is for Aug 19
- Continue pyridium TID PRN dysuria
-Currently concerned about constipation and no BM for past 2 weeks - on bowel regimen
- Added tolterodine for bladder spasms yesterday but will stop this due to possibly exacerbating the constipation
Stable for discharge from [facility] when otherwise stable
Diagnosis
-
Date of Service: August 09, 2024
-
Patient Diagnosis:
R ureteral stone
Pyuria
UTI
Post Op s/p cystoscopy, R ureteral stent 08/07
Subjective
-
Constipation persistent
Some R flank pain
Objective
-
Vital Signs
Temp Pulse Resp BP Pulse Ox
98.4 F 68 15 128/72 92
08/09/24 07:41 08/09/24 07:41 08/09/24 07:41 08/09/24 07:41 08/09/24 07:41
Intake and Output
08/08/24 08/09/24 08/10/24
06:59 06:59 06:59
Intake Total 4120 / 4120
Output Total 15 15 800 / 800
Balance -15 / -15 3320 / 3320
Intake:
Oral fluids 1919 / 1919
IV fluids (Total) 2199 / 2199
Output:
Urine, Voided 800 / 800
Other:
Number of approximated SMALL 6
amounts of urine
Number of approximated MODERATE 2 4
amounts of urine
Laboratory Results
08/09/24 05:04
08/09/24 05:04
Physical Exam
-
General - well developed, well nourished, no acute distress
Chest - clear
Abdomen - soft, non-tender
Skin - warm & dry with no rash
Neuro - AOx3
[2024-08-09] MEDS: TORADOL 10 MG IV ×2 (10:33→20:20)
[2024-08-09] MEDS: DULCOLAX 10 MG RECTAL (10:33)
[2024-08-09] MEDS: NSS IV (11:39)
[2024-08-09] MEDS: CITROMA 300 ML PO (11:40)
--- NOTE | 2024-08-09 11:40 | W.PN.HOSP.TC ---
Today's Communication/Plan
-
Bowel regimen ordered
Stop IV Dilaudid-reviewed with the patient that it can make constipation worse
Stop IV fluids
Toradol ordered for pain as needed she is already on oxycodone
Assessment / Plan
Assessment / Plan
53-year-old female with right lower quadrant pain and chills.
CT abdomen and pelvis-obstructive uropathy secondary to 5 mm calculus in the right mid ureter causing moderate right hydroureteronephrosis. Hepatosplenomegaly. Hepatic steatosis. Cholelithiasis. Colonic diverticulosis
CVS: S1-S2 normal
Chest: CTA B/L
Abdomen: Soft, mild lumbar area tenderness, right, Bowel sounds present
Extremities: No edema, normal pulses
DRUM TESTER: Non focal exam
# UTI/obstructive uropathy secondary to 5 mm calculus in the right mid ureter with moderate right hydronephrosis.
History of nephrolithiasis with cystoscopy and removal in the past
Status post cystoscopy and right ureteral stent placement by Dr. Camp 08/07/24
Follow urine cultures- Strep Agalactiae
Continue ceftriaxone and switch to Augmentin at discharge
Stop IV fluids
10 more days of antibiotics per discussion with urology
# Multidrug-resistant hypertension-amlodipine 10 Mg, hydralazine 10 mg BID, losartan 100 mg HS, metoprolol 100 mg BID
# Diabetes
Hold metformin given IV contrast
She is also on Ozempic 2 mg on
Glipizide 10 mg BID and metformin 100 bid as OP
Check hemoglobin A1c
Accu-Cheks and sliding scale coverage
Now on lower dose of Glipizide 5 BID
# Constipation reported by the patient-on bowel regimen. Added mag citrate and also a suppository.
CT scan reviewed. No constipation reported there
# Chronic pain, opiate dependent. Also history of trigeminal neuralgia
On Percocet as outpatient.
Follows up with Dr. Mccray for pain management
# History of CVA in the past-continue aspirin, Plavix
# Constipation-bowel regimen
# Transaminitis hepatosplenomegaly and hepatic steatosis-Needs outpatient GI follow-up
# Cholelithiasis
# Diverticulosis
# Multiple sclerosis- Not o treatment
# Psoriatic arthritis/ankylosing spondylitis-Follows with rheumatology was due to start biologic-unclear details
# Anxiety-continue as needed Alprazolam, Duloxetine, Trazodone
# History of optic neuritis/History of uveitis
# Obesity with a BMI of 37.6-On Ozempic as outpatient
# History of GI bleed
# DVT prophylaxis-Lovenox
# Full code
Discussed with urology
Discussed with nursing
Anticipated Discharge: Within 24 hours
Subjective/Interval History
-
Date of Service: August 09, 2024
Objective Data
-
Labs:
Laboratory Results
08/09/24
05:04
WBC 10.1
Hgb 11.6 L
Hct 37.2
Plt Count 323
Sodium 142
Potassium 5.1
Chloride 104
Carbon Dioxide 25
BUN 23 H
Creatinine 0.9
Glucose 132 H
Calcium 9.7
Total Bilirubin 0.4
AST 35
ALT 45 H
Alkaline Phosphatase 93
Vital Signs:
Vital Signs
Temp Pulse Resp BP Pulse Ox
98.4 F 68 15 128/72 92
08/09/24 07:41 08/09/24 07:41 08/09/24 07:41 08/09/24 07:41 08/09/24 07:41
I&O
08/08/24 08/09/24 08/10/24
06:59 06:59 06:59
Intake Total 4120 / 4120
Output Total 800 / 800
Balance -15 15 3320 / 3320
--- NOTE | 2024-08-09 12:13 | CM ---
Met with pt at bedside
Pt reports she lives with her children (19yo, 2 16yo) in a 2 story home; 2 steps to enter, 10 steps to 2nd fl
Working FT, drives, independent
DME - none
SNF - denies past hx
HH - has had in past, unsure of agency
Has ride at discharge
PCP - [facility]
Pharm - [facility]
Plan - anticipate home no needs
[2024-08-09 12:19] LABS: Glucose - Point of Care 207 mg/dl (70-99)
[2024-08-09] MEDS: NOVOLOG FLEXPEN-LOW RESISTANCE 2 UNITS SC (13:15)
[2024-08-09] MEDS: XANAX 1 MG PO ×2 (13:21→22:13)
[2024-08-09] MEDS: ROCEPHIN 1000 MG IV (14:55)
[2024-08-09] MEDS: STERILE WATER FOR INJECTION 10 ML IV (14:55)
[2024-08-09 15:43] VITALS: BP 159/87
[2024-08-09 17:13] LABS: Glucose - Point of Care 154 mg/dl (70-99)
[2024-08-09] MEDS: NOVOLOG FLEXPEN-LOW RESISTANCE 1 UNITS SC (17:46)
[2024-08-09] MEDS: GLUCOTROL 5 MG PO (17:47)
[2024-08-09] MEDS: LOVENOX 40 MG SC (17:47)
[2024-08-09 20:20] VITALS: BP 178/110
[2024-08-09] MEDS: FLEET PHOSPHATE ENEMA-ADULT 135 ML RECTAL (21:00)
[2024-08-09 22:02] LABS: Glucose - Point of Care 177 mg/dl (70-99)
[2024-08-09] MEDS: PLAVIX 75 MG PO (22:13)
[2024-08-09] MEDS: NORVASC 10 MG PO (22:13)
[2024-08-09] MEDS: CYMBALTA DELAYED RELEASE 60 MG PO (22:13)
[2024-08-09] MEDS: ASPIR LOW (ENTERIC COATED) 81 MG PO (22:14)
[2024-08-09] MEDS: DESYREL 300 MG PO (22:14)
[2024-08-09] MEDS: COZAAR 100 MG PO (22:15)
[2024-08-09] MEDS: BENADRYL 25 MG IV (22:31)
--- NOTE | 2024-08-09 22:40 | PTCARENOTE ---
Around 1999 tech reports patient had called, tearful, stating she wanted to leave the hospital and felt as though no one cared about her pain. Spoke with patient shortly after and pt. stated she was in a lot of pain and asked why she was staying in
the hospital when she could 'manage the pain better at home,' and stated that the doctor had taken away 'all' of her pain medication. She also stated she was told she'd be given an enema for constipation. Pt. educated that her chronic pain
medications, Oxycodone, was still active and she had been receiving it throughout the day. Educated patient about current pain medication and plan of care. PRN Toradol utilized as ordered for 10 R flank pain without success, pt. still tearful and
hypertensive at 178/110 manual RUE. Scheduled BP medications give, house [facility] contacted, one time order for pain medication given and enema given with successful results. Pt. feeling much better ~1 hour later stating pain was bearable and felt
relieved at having a BM. Pt. did state that her medications can make her itchy at times and usually takes diphenhydramine 25mg PO PRN when it occurs. Red scratch mendez noted along LFA and B/L neck, house provider contacted and Benadryl given - see
JAN. BP rechecked @2330 and resulted at 138/75. Pt. comfortable and resting at time of writing, will monitor.
[2024-08-09 23:30] VITALS: BP 138/75
[2024-08-10] MEDS: TORADOL 10 MG IV ×2 (02:24→08:29)
[2024-08-10] MEDS: FLUSH (NSS) 2 FLUSH IV (02:24)
[2024-08-10 03:09] VITALS: BP 170/96
[2024-08-10 07:10] VITALS: BP 160/92
[2024-08-10 07:10] LABS: Glucose - Point of Care 139 mg/dl (70-99)
[2024-08-10 07:59] LABS: % Basophils 0.6 % (0-2); % Eosinophils 2.6 % (0-6); % Immature Granulocytes 0.8 % (0-0.5); % Lymphocytes 43.6 % (20.5-51.1); % Monocytes 8.1 % (1.7-9.3); % Neutrophils 44.3 % (42.2-75.2); Absolute Basophils 0.1 10^3/uL (0-0.2); Absolute Eosinophils 0.2 10^3/uL (0-0.7); Absolute Immature Granulocytes 0.1 10^3/uL (0-0.05); Absolute Lymphocytes 3.8 10^3/uL (1.2-3.4); Absolute Monocytes 0.7 10^3/uL (0.1-0.6); Absolute Neutrophils 3.9 10^3/uL (1.4-6.5); Hematocrit 37.4 % (37.0-47.0); Mean Corp Hgb Conc. 32.1 g/dL (33.0-37.0); Mean Corpuscular Hgb 24.4 pg (27.0-31.0); Mean Platelet Volume 10.3 fL (7.4-10.4); Nucleated Red Blood Cells % 0 %; Platelet Count 324 10^3/uL (130-400); Red Blood Cell Count 4.92 10^6/uL (4.20-5.40); Red Cell Dist. Width 18.8 % (11.5-14.5); White Blood Cell Count 8.8 10^3/uL (4.8-10.8)
[2024-08-10] MEDS: ROXICODONE 10 MG PO ×2 (08:21→12:33)
[2024-08-10] MEDS: TYLENOL 325 MG PO ×2 (08:21→12:34)
[2024-08-10] MEDS: TOPROL XL 100 MG PO (08:21)
[2024-08-10] MEDS: GLUCOTROL 5 MG PO (08:21)
[2024-08-10] MEDS: SENOKOT-S 1 TABLET PO (08:21)
[2024-08-10] MEDS: NOVOLOG FLEXPEN-LOW RESISTANCE SC (08:22)
[2024-08-10] MEDS: APRESOLINE 10 MG PO (08:22)
[2024-08-10] MEDS: MIRALAX PO (08:24)
[2024-08-10 08:43] LABS: ALT (SGPT) 40 U/L (0-35); AST (SGOT) 30 U/L (14-36); Albumin 3.9 g/dl (3.5-5.0); Alkaline Phosphatase 109 U/L (38-126); Blood Urea Nitrogen 22 mg/dl (7-17); Calcium 9.5 mg/dl (8.4-10.2); Carbon Dioxide 23 mmol/L (22-30); Chloride 103 mmol/L (98-107); Estimated Creatinine Clearance 105 ml/min; Glucose 149 mg/dl (70-99); Potassium 4.7 mmol/L (3.5-5.1); Sodium 140 mmol/L (135-145); Total Bilirubin 0.3 mg/dl (0.2-1.3); Total Protein 6.3 g/dl (6.3-8.2); eGFR > 60.00
--- NOTE | 2024-08-10 10:25 | W.PN.URO.CBU ---
Today's Communication / Plan
-
PO antibiotics
Follow up for ureteroscopy
Assessment / Plan
-
53F with 5mm mid R ureteral stone
subjective fevers and leukocytosis, positive UA
- Taken to OR 08/07 for cystoscopy, R ureteral stent placement
- Significant purulent urine above stone was collected and sent for culture
- Cultures growing strep/mixed - okay to transition to appropriate PO antibiotic for total 10 day course
- Will need outpatient follow up for ureteroscopy to remove stone after discharge - plan is for Aug 19
- Reviewed with patient the ureteroscopy procedure, post op course, and recovery. Reviewed benefits of surgery vs alternatives and risks including bleeding, infection, damage to ureter or nearby structures, need for further operations, incomplete
stone removal, UTI, and stent issues
- Can continue pyridium outpatient PRN - let her know about OTC formulation
Stable for discharge from [facility]
Follow up next week for ureteroscopy
Diagnosis
-
Date of Service: August 10, 2024
-
Patient Diagnosis:
R ureteral stone
Pyuria
UTI
Post Op s/p cystoscopy, R ureteral stent 08/07
Subjective
-
had BM yesterday
tolerating stent
Objective
-
Vital Signs
Temp Pulse Resp BP Pulse Ox
98.5 F 76 16 160/92 98
08/10/24 07:10 08/10/24 08:22 08/10/24 07:10 08/10/24 08:22 08/10/24 08:20
Intake and Output
08/09/24 08/10/24 08/11/24
06:59 06:59 06:59
Intake Total 4120 / 4120 2039
Output Total 800 / 800
Balance 3320 / 3320 2039
Intake:
Oral fluids 1919
IV fluids (Total) 2199
Output:
Urine, Voided 800 / 800
Other:
Number of approximated SMALL 6
amounts of urine
Number of approximated MODERATE 4 2
amounts of urine
Number of unmeasured liquid
stools
Rectum 1
Laboratory Results
08/10/24 05:15
08/10/24 05:15
Physical Exam
-
General - well developed, well nourished, no acute distress
Chest - unlabored
Skin - warm & dry
--- NOTE | 2024-08-10 11:47 | W.PN.HOSP.TC ---
Today's Communication/Plan
-
Discharge
Assessment / Plan
Assessment / Plan
53-year-old female with right lower quadrant pain and chills.
CT abdomen and pelvis-obstructive uropathy secondary to 5 mm calculus in the right mid ureter causing moderate right hydroureteronephrosis. Hepatosplenomegaly. Hepatic steatosis. Cholelithiasis. Colonic diverticulosis
CVS: S1-S2 normal
Chest: CTA B/L
Abdomen: Soft, mild lumbar area tenderness, right, Bowel sounds present
Extremities: No edema, normal pulses
# UTI/obstructive uropathy secondary to 5 mm calculus in the right mid ureter with moderate right hydronephrosis.
History of nephrolithiasis with cystoscopy and removal in the past
Status post cystoscopy and right ureteral stent placement by Dr. Camp 08/07/24
Follow urine cultures- Strep Agalactiae
Continue ceftriaxone and switch to Augmentin at discharge
Antibiotics per discussion with urology
# Multidrug-resistant hypertension-amlodipine 10 Mg, hydralazine 10 mg BID, losartan 100 mg HS, metoprolol 100 mg BID
# Diabetes
Hold metformin given IV contrast
She is also on Ozempic 2 mg on
Glipizide 10 mg BID and metformin 1000 bid as OP
Hemoglobin A1c 8.6
Accu-Cheks and sliding scale coverage
Now on lower dose of Glipizide 5 BID
# Constipation reported by the patient- Resolved. Had a BM after fleets
# Chronic pain, opiate dependent. Also history of trigeminal neuralgia
On Percocet as outpatient.
Follows up with Dr. Mccray for pain management
# History of CVA in the past-continue aspirin, Plavix
# Constipation-bowel regimen
# Transaminitis hepatosplenomegaly and hepatic steatosis-Needs outpatient GI follow-up
# Cholelithiasis
# Diverticulosis
# Multiple sclerosis- Not o treatment
# Psoriatic arthritis/ankylosing spondylitis-Follows with rheumatology was due to start biologic-unclear details
# Anxiety-continue as needed Alprazolam, Duloxetine, Trazodone
# History of optic neuritis/History of uveitis
# Obesity with a BMI of 37.6-On Ozempic as outpatient
# History of GI bleed
# DVT prophylaxis-Lovenox
# Full code
Discussed with urology, OK for discharge on AB
Discussed with nursing
Discharge time 37 min
Anticipated Discharge: Today
Subjective/Interval History
-
Date of Service: August 10, 2024
Objective Data
-
Labs:
Laboratory Results
08/10/24
05:15
WBC 8.8
Hgb 12.0
Hct 37.4
Plt Count 324
Sodium 140
Potassium 4.7
Chloride 103
Carbon Dioxide 23
BUN 22 H
Creatinine 0.8
Glucose 149 H
Calcium 9.5
Total Bilirubin 0.3
AST 30
ALT 40 H
Alkaline Phosphatase 109
Vital Signs:
Vital Signs
Temp Pulse Resp BP Pulse Ox
98.5 F 76 16 160/92 98
08/10/24 07:10 08/10/24 08:22 08/10/24 07:10 08/10/24 08:22 08/10/24 08:20
I&O
08/09/24 08/10/24 08/11/24
06:59 06:59 06:59
Intake Total 4120 / 4120 2039
Output Total 800 / 800
Balance 3320 / 3320 2039
--- NOTE | 2024-08-10 11:59 | W.DS.TRANS ---
Addendum entered and electronically signed by Teresa Laureano MD 08/10/24 15:54:
Dictation- [id number]
Original Note:
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
-
Discharge Instructions:
Discharge Diagnosis/Procedures UTI
Kidney stone
Hypertension
Diabetes
Constipation
Chronic pain
Fatty liver
Multiple sclerosis
Psoriatic arthritis
Anxiety
Diet Diabetic, Carb Controlled
Activity As tolerated
Driving Restrictions As prior to admission
Instructions:
Stand-Alone Forms:
Changes to Home Medications: Yes
Discharge Medications:
DC Medications w/original date entered in [employer]
metoprolol succinate 100 mg tablet,extended release 24 hr 100 mg PO BID Blood pressure ##0 10/26/16
alprazolam 1 mg tablet 1 mg PO HS Mental Health/Anxiety 11/27/18
duloxetine 60 mg capsule,delayed release 60 mg PO HS Mental Health/Anxiety 11/27/18
metformin 1,000 mg tablet 1,000 mg PO BIDWMEAL Diabetes 11/27/18
hydralazine 10 mg tablet 10 mg PO .BID-TID Blood Pressure 03/29/21
trazodone 150 mg tablet 300 mg PO HS Mental Health/Anxiety 03/29/21
amlodipine 10 mg tablet 10 mg PO HS Blood Pressure 03/07/22
clopidogrel 75 mg tablet 75 mg PO HS Blood Clot Prevention/Tx 03/07/22
albuterol sulfate 2.5 mg/3 mL (0.083 %) solution for nebulization 2.5 mg inhalation R Q4HPRN PRN sob/wheezing 08/07/24
alprazolam 1 mg tablet 1 mg PO BIDPRN PRN anxiety 08/07/24
aspirin 81 mg tablet,delayed release 81 mg PO HS Blood Clot Prevention/Tx 08/07/24
docusate sodium 100 mg capsule (Stool Softener) 100 mg PO BID Constipation 08/07/24
glipizide 10 mg tablet 10 mg PO BIDWMEAL Diabetes 08/07/24
losartan 100 mg tablet 100 mg PO HS Blood Pressure 08/07/24
jfmyboab-rex-KT 0.4 mg-calcium 162 mg-iron 18 tb-oggjwbn-okhufu tablet 1 tab PO DAILY Supplement 08/07/24
nitrofurantoin macrocrystal 50 mg capsule 50 mg PO Q48H Infection 08/07/24
oxycodone-acetaminophen 10 mg-325 mg tablet 1 tab PO QID Pain 08/07/24
polyethylene glycol 3350 17 gram oral powder packet (Miralax) 17 g PO DAILY Constipation 08/07/24
semaglutide 2 mg/dose (8 mg/3 mL) subcutaneous pen injector (Ozempic) 2 mg SC TH Diabetes 08/07/24
amoxicillin 875 mg-potassium clavulanate 125 mg tablet 1 tab PO Q12 Urinary issue #20 tabs 08/10/24
Home Medication Changes
Pending Results: No
--- NOTE | 2024-08-10 12:09 | CM ---
Pt for discharge today
Has ride home
Plan - home no needs
[2024-08-10] MEDS: AUGMENTIN 875 MG/125 MG 1 TABLET PO (12:33)
[2024-08-10 12:48] VITALS: BP 168/98
== END 2024-08-10 14:08 | disposition home or self-care (01) | DRG 661 ==
LOC: 2 SOUTH 17:44
PROVIDERS: Clinical Nurse Specialist Family Health; ADMITTING PHYSICIAN Hospitalist; ATTENDING PHYSICIAN Hospitalist; EMERGENCY PHYSICIAN Emergency Medicine; FAMILY PHYSICIAN Family Medicine; OTHER PHYSICIAN Urology
PROC: 0T768DZ Dilation of Right Ureter with Intraluminal Device, Via Natural or Artificial Opening Endoscopic (ICD-10-PCS; 2024-08-07)
DX: N13.6 Pyonephrosis (principal); B95.1 Streptococcus, group B, as the cause of diseases classified elsewhere; I10 Essential (primary) hypertension; E11.9 Type 2 diabetes mellitus without complications; K59.00 Constipation, unspecified; G89.29 Other chronic pain; K76.0 Fatty (change of) liver, not elsewhere classified; G35 Multiple sclerosis; L40.50 Arthropathic psoriasis, unspecified; F41.9 Anxiety disorder, unspecified; E66.09 Other obesity due to excess calories; N81.6 Rectocele; K80.20 Calculus of gallbladder without cholecystitis without obstruction; N81.10 Cystocele, unspecified; R16.2 Hepatomegaly with splenomegaly, not elsewhere classified; K57.30 Diverticulosis of large intestine without perforation or abscess without bleeding; I1A.0 Resistant hypertension; Z68.37 Body mass index [BMI] 37.0-37.9, adult; Z86.73 Personal history of transient ischemic attack (TIA), and cerebral infarction without residual deficits; Z79.82 Long term (current) use of aspirin; Z79.891 Long term (current) use of opiate analgesic
CPT/HCPCS: 74177; 76000; 80053; 81003; 81015; 82962; 83036; 83690; 85025; 87086; 94640; 96361; 96374; 96375; 96376; 99285; C2617; Q9967

== ENCOUNTER 2024-08-15 20:35 | Inpatient (IN) | payer OTHER, SELFPAY ==
[2024-08-15] VITALS (8 sets, daily range): BP systolic 129–209; BP diastolic 70–147; BMI 40.4
--- NOTE | 2024-08-15 16:38 | ED.GENMED ---
History of Present Illness
General
Chief Complaint: Fever
Source: patient
Exam Limitations: none
Time Seen by Provider: 08/15/24 16:37
Nursing documentation reviewed up to this point in time: agreed with
History of Present Illness
History of Present Illness:
53 yr old female with past medical history of MS chronic UTIs diabetes hypertension hyperlipidemia trigeminal neuralgia presents to the ER for evaluation. Patient was recently at August 07 and discharged 5 days ago on August 10 for
obstructive uropathy. Patient was seen by urology at that time had a cystoscopy with right stent placement. Incidentally she also had infection at that time with purulent urine. Pt was d/c home on Augmentin.
Patient reports since yesterday however she has had a lot of pain in her right flank that radiates to her right groin. She is very nauseous and was vomiting. She does have a children low-grade temperature and feels very cold.
Past History
Past History
ED Past Medical History: CVA (X 2), HTN, Hypercholesterolemia, IDDM, Psychiatric (Anxiety), Other (MS, optic neuritis, uvetitis, GI bleeding, UTI, Chronic pain, chronic abd pain), Other (Trigeminal Neuralgia) and Other (Alkalosic spondylitis with
HlA B27 positive, Achilles tendinitis, positive JOHN)
ED Past Surgical History: Tonsilectomy
Social History
Tobacco: Non-smoker
Alcohol: None
Drug: None
Personal:
Living: with family
Employment: Not employed
Family History
Family History: Other (reviewed and non-contributory)
Review of Systems
Review of Systems
Allergies reviewed?: Yes
All Other Systems: ROS reviewed and negative except as documented in HPI and ROS
Constitutional: Reports fever and chills
EENT: Reports no symptoms
Respiratory: Reports no symptoms
Cardiac: Reports no symptoms
ABD/GI: Reports nausea, vomiting and other (pt radiating from right flank to right groin )
: Reports flank pain
Musculoskeletal: Reports back pain (right flank pain )
Skin: Reports no symptoms
Neurological: Reports no symptoms
Psychiatric: Reports no symptoms
Phy Exam
General Physical Exam
General Presentation: mild distress
General age: appears stated age
General Skin: warm and dry
General Habitus: normal
Sepsis
Sepsis Screening
Sepsis Assessment: Sepsis
Sepsis Screen
Sepsis Screen: Sepsis
Date: 08/15/24
Time: 20:19
Course
Orders/Labs/Results
Orders:
Orders
08/15/24 16:45
IV Insert/Care/Rem.- Treatment PRN
0.9% Sodium Chloride 1000 ml [Nss] 1,000 ml IV BOLUS
08/15/24 16:57
HYDROmorphone [Dilaudid] 1 mg IV NOW STA
08/15/24 17:16
Complete Blood Count/With Diff Urgent
Comprehensive Metabolic Panel Urgent
Lactic Acid Q4H
Comment: CANCEL 2nd LACTIC ACID IF 1st LACTIC ACID IS LESS THAN 2
Blood Culture Routine
MAKENNA Source: Blood/Venous
Specimen Description:
Blood Culture Urgent
MAKENNA Source: Blood/Venous
Specimen Description:
08/15/24 17:24
UA Reflex to Culture [Urinalysis Reflex To Culture] Urgent
Date Specimen was Collected: 08/15/24
Time Specimen was Collected: 17:19
Urine Microscopic Reflex Cult Urgent
Urine Culture Urgent
MAKENNA Source: U
Specimen Description:
Date Specimen was Collected: 08/15/24
Time Specimen was Collected: 17:19
08/15/24 18:11
CT Abd/pel Without Iv Or Oral Urgent
Comment:
Reason For Exam: right flank pain +stent fever
08/15/24 18:16
Cefepime HCl [Maxipime] 1,000 mg IV NOW STA
09/29/24 18:19
0.9% Sodium Chloride 1000 ml [Nss] 1,000 ml IV BOLUS
Acetaminophen [Tylenol] 1,000 mg PO NOW STA
08/15/24 18:38
Sterile Water [Sterile Water For Injection] 10 ml .ROUTE .STK-MED ONE
08/15/24 18:48
HYDROmorphone [Dilaudid] 1 mg IV NOW STA
08/15/24 20:12
Howard [Howard Placement- Treatment] ONCE
Reason for insertion: Outlet obstruction
08/15/24 20:45
Lactic Acid Q4H
Comment: CANCEL 2nd LACTIC ACID IF 1st LACTIC ACID IS LESS THAN 2
Abnormal Lab Results
08/15/24 08/15/24
17:16 17:24
WBC 19.7 H 10^3/uL
(4.8-10.8)
MCV 73.0 L fL
(81.0-99.0)
MCH 24.0 L pg
(27.0-31.0)
MCHC 32.9 L g/dL
(33.0-37.0)
RDW 18.7 H %
(11.5-14.5)
Abs Immat Gran (auto) 0.2 H 10^3/uL
(0-0.05)
Absolute Neuts (auto) 14.8 H 10^3/uL
(1.4-6.5)
Absolute Monos (auto) 2.0 H 10^3/uL
(0.1-0.6)
Immature Gran % 1.1 H %
(0-0.5)
Lymphocytes % 12.5 L %
(20.5-51.1)
Monocytes % 10.0 H %
(1.7-9.3)
Carbon Dioxide 19 L mmol/L
(22-30)
Glucose 214 H mg/dl
(70-99)
Lactic Acid 2.2 H mmol/L
(0.7-2.0)
Ur Occult Blood Reflex 4+ A
(Negative)
Leukocyte Esterase Rfl 2+ A
(Negative)
Urine WBC (Reflex) >100 A /HPF
(0-5)
Urine Glucose 2+ A
(Negative)
Urine Albumin (Reflex) 2+ A
(Neg - Trace)
08/15/24 17:16
08/15/24 17:16
Vital Signs
Initial and Last Documented VS:
Initial Vital Signs
Temp Pulse Resp BP Pulse Ox
99.0 F 109 21 209/127 99
08/15/24 16:27 08/15/24 16:27 08/15/24 16:27 08/15/24 16:27 08/15/24 16:27
Last Documented Vital Signs
Temp Pulse Resp BP Pulse Ox
99.0 F 110 18 171/81 96
08/15/24 16:27 08/15/24 18:35 08/15/24 18:35 08/15/24 18:35 08/15/24 17:45
Job Interviewer consulted with Physician
Job Interviewer consulted with physician?: Yes
Name of Physician Consulted: william
MDM/Problems Addressed
Differential Diagnosis Includes:
Not limited to pyelonephritis sepsis
MDM/Problems Addressed:
Patient as discussed is a 53-year-old female status post obstructive uropathy with stent placement, just discharged August 10. She had purulent urine at the time of stent placement was discharged on Augmentin. Since yesterday patient complains
of fever chills right flank pain rating to right groin. Patient arrives febrile tachycardic with an elevated white count 19.7 lactic acid 2.2.
Patient was given septic fluids along with IV cefepime. Case reviewed with ED physician along with DR Pendleton will need to be admitted.
CAT scan shows that the right ureteral stent is present with superior pigtail at the right UVJ and inferior pigtail of the left inferior bladder lumen there is a 4.5 mm calculus adjacent to the proximal pigtail. There is moderate diffuse right
calyceal dilatation with dilation of the right renal pelvis and right ureter extending to the level of the distal right ureter. There is perinephric fat stranding edema which is slightly increased on previous CT
As discussed with urology Dr. Pendleton will place a howard catheter. Will keep n.p.o. for possible re- position of stent tomorrow. Pt admitted to the hospital service. Discussed with patient findings and plan. HR improved , pt feeling better.
Chronic conditions affecting care:
Recent renal stone
*Radiology
Radiology exam reviewed: radiology read reviewed
*Pulse Oximetry
Patient hypoxic: no
*Critical Care Note
Total Time (30-74mins, 75-104mins- exclusive of procedures): Not Applicable
Patient Management
Discussion with other providers: Information Assurance Manager (DR Pendleton )
ED Attending Note
-
Portions of this chart may have been created with voice recognition software.� Occasional wrong word or��sound alike� substitutions may have occurred due to the inherent limitations of voice recognition software.
Discharge Plan
Departure
Patient Disposition: Admit
Date of Disposition: 08/15/24
Time of Disposition: 20:06
Admit to: Med/Surg
Admit to doctor: hospitalist
Presentation/result/management discussed w/ accepting MD/DO: Hospitalist
Discharge Problem:
Pyelonephritis, infected stone, urosepsis
Prescriptions:
No Action
metoprolol succinate 100 MG tablet extended release 24 hr
100 mg PO BID Qty: 0
alprazolam 1 MG tablet
1 mg PO HS
Patient Comments:
08/15/2024: last filled 07/26/24, 90 tabs for 30 days from [facility]
metformin 1,000 MG tablet
1,000 mg PO BIDWMEAL
duloxetine 60 MG capsule,delayed release(/EC)
60 mg PO HS
trazodone 150 MG tablet
300 mg PO HS
clopidogrel 75 MG tablet
75 mg PO HS
amlodipine 10 MG tablet
10 mg PO HS
polyethylene glycol 3350 [Miralax] 17 gram Powder In Packet
17 g PO DAILY
alprazolam 1 mg tablet
1 mg PO BIDPRN PRN (Reason: anxiety)
Patient Comments:
08/15/2024: last filled 07/26/24, 90 tabs for 30 days from [facility]
glipizide 10 mg tablet
10 mg PO BIDWMEAL
aspirin 81 mg Tablet,Delayed Release (Dr/Ec)
81 mg PO HS
oxycodone-acetaminophen 10-325 mg tablet
1 tab PO QID
Patient Comments:
08/15/2024: last filled 07/15/24, 120 tabs for 30 days from [facility]
docusate sodium [Stool Softener] 100 mg Capsule
100 mg PO BID
losartan 100 mg tablet
100 mg PO HS
eo-hey-CO-Xw-Dh-qgvoity-lutein 0.4-162-18 mg Tablet
1 tab PO DAILY
Ozempic 2 mg/dose (8 mg/3 mL) pen injector
2 mg SC TH
albuterol sulfate 2.5 mg /3 mL (0.083 %) solution for nebulization
2.5 mg inhalation R Q4HPRN PRN (Reason: sob/wheezing)
hydralazine 25 mg Tablet
25 mg PO TID
amoxicillin-pot clavulanate 875-125 mg tablet
1 tab PO Q12H
Referrals:
Donald Plaza DO [Family Provider] -
Interventions
Interventions:
*Risk Screen - Suicide Last Done: 08/15/24 17:27
*General Assessment Last Done: 08/15/24 17:27
*Neglect/Abuse Screening Last Done: 08/15/24 17:27
ED- Fall Risk Assessment Last Done: 08/15/24 20:08
*ED COVID-19 Vaccine History Last Done: 08/15/24 17:27
ED- Neurological Assessment Last Done: 08/15/24 17:53
ED-Skin Assessment Last Done: 08/15/24 18:06
Discharge Date and Time
Print Language: GRENADIAN
[2024-08-15] MEDS: DILAUDID 1 MG IV ×2 (17:17→19:02)
[2024-08-15] MEDS: NSS 1000 IV ×2 (17:18→18:36)
[2024-08-15 17:29] LABS: % Basophils 0.3 % (0-2); % Immature Granulocytes 1.1 % (0-0.5); % Lymphocytes 12.5 % (20.5-51.1); % Neutrophils 75.1 % (42.2-75.2); Absolute Basophils 0.1 10^3/uL (0-0.2); Absolute Eosinophils 0.2 10^3/uL (0-0.7); Absolute Immature Granulocytes 0.2 10^3/uL (0-0.05); Absolute Lymphocytes 2.5 10^3/uL (1.2-3.4); Absolute Neutrophils 14.8 10^3/uL (1.4-6.5); Hematocrit 37.1 % (37.0-47.0); Hemoglobin 12.2 g/dL (12.0-16.0); Mean Corp Hgb Conc. 32.9 g/dL (33.0-37.0); Mean Platelet Volume 9.8 fL (7.4-10.4); Nucleated Red Blood Cells % 0 %; Platelet Count 328 10^3/uL (130-400); Red Blood Cell Count 5.08 10^6/uL (4.20-5.40); Red Cell Dist. Width 18.7 % (11.5-14.5); White Blood Cell Count 19.7 10^3/uL (4.8-10.8)
[2024-08-15 17:36] LABS: Urine Albumin 2+ (Neg - Trace); Urine Bilirubin Negative (Negative); Urine Character Clear (Clear); Urine Color Yellow; Urine Glucose 2+ (Negative); Urine Ketone Negative (Negative); Urine Leukocyte 2+ (Negative); Urine Nitrite Negative (Negative); Urine Occult Blood 4+ (Negative); Urine Specific Gravity 1.015 (<1.030); Urine Urobilinogen Negative (Neg - 1+)
[2024-08-15 17:50] LABS: Lactic Acid 2.2 mmol/L (0.7-2.0)
[2024-08-15 17:51] LABS: Urine White Cell >100 /HPF (0-5)
[2024-08-15 17:52] LABS: ALT (SGPT) 31 U/L (0-35); AST (SGOT) 24 U/L (14-36); Albumin 4.5 g/dl (3.5-5.0); Alkaline Phosphatase 121 U/L (38-126); Blood Urea Nitrogen 17 mg/dl (7-17); Calcium 9.9 mg/dl (8.4-10.2); Carbon Dioxide 19 mmol/L (22-30); Chloride 104 mmol/L (98-107); Estimated Creatinine Clearance 105 ml/min; Glucose 214 mg/dl (70-99); Potassium 4.5 mmol/L (3.5-5.1); Sodium 139 mmol/L (135-145); Total Bilirubin 0.6 mg/dl (0.2-1.3); Total Protein 7.3 g/dl (6.3-8.2); eGFR > 60.00
[2024-08-15] MEDS: TYLENOL 1000 MG PO (18:40)
[2024-08-15] MEDS: MAXIPIME 1000 MG IV (18:41)
--- NOTE | 2024-08-15 19:00 | EDRN ---
Report received, patient asking for more pain meds, had some ordered and gave so patient could go to CT
--- NOTE | 2024-08-15 20:09 | EDRN ---
Patient feeling warm, asked for me to set up her fan she has in her bag
[2024-08-15] MEDS: DILAUDID 0.5 MG IV (20:30)
--- NOTE | 2024-08-15 20:31 | HPS.HSE ---
Family Physician
-
Family Physician: Donald Plaza
Chief Complaint
-
Flank pain / Chills
History of Present Illness
Patient is a 53y F with PMH significant for chronic pain syndrome, hypertension and recent hospitalization for ureteral stone requiring R ureteral stent placement who presents to ED complaining of R flank pain, fevers / chills and N/V. Patient
was recently admitted to 08/07 - 08/10. On 08/07 she underwent ureteroscopy with stent placement to the R ureter. She was treated with abx and transitioned to PO Augmentin on discharge - which she remains on at present. Her urine culture from
08/07 grew Group B strep.
Patient states that she was having some R flank discomfort at the time of discharge; however, her symptoms have significantly increased over the past 2-3 days.
Patient reports increased pain in the R flank and abdomen. She has mild dysuria. She has developed shaking chills and N/V in the past 24 hours - prompting her to present to the ED for further evaluation.
Medical History
Past Medical History
Past Medical History: Reports Other
Additional Past Medical History:
UTIs renal calculi
Chronic lumbar pain on chronic oral opiates
Multiple sclerosis
Trigeminal neuralgia
Hepatic steatosis, hepatomegaly
Hypertension
Obesity
DM 2
ASCVD / CVA x 2
Anxiety
Optic neuritis / Uveitis
Ankylosing spondylitis
Past Surgical History: Reports Other
Additional Past Surgical History:
History of renal calculi with removals
Neuroma to foot removal
Tonsillectomy adenoidectomy
Social History
Tobacco: Non-smoker
Alcohol: None
Drug: None
Personal: Single
Living: With Family (Children)
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
Family History
Family History: Not pertinent
Allergies / Home Medications
Allergies reflects when Allergies were last updated in [facility].
Home Medications with original date entered in [facility]
Allergy/Medication List:
Allergies
Allergy/AdvReac Type Severity Reaction Status Date / Time
phenytoin [From Dilantin] Allergy blood Verified 08/07/24 10:59
clots;pt
states 'i
can get it
but it has
to be
diluted
Quinolones Allergy Hives Verified 08/07/24 10:59
Home Medications
metoprolol succinate 100 mg tablet,extended release 24 hr 100 mg PO BID Blood pressure ##0 10/26/16
alprazolam 1 mg tablet 1 mg PO HS Mental Health/Anxiety 11/27/18
duloxetine 60 mg capsule,delayed release 60 mg PO HS Mental Health/Anxiety 11/27/18
metformin 1,000 mg tablet 1,000 mg PO BIDWMEAL Diabetes 11/27/18
trazodone 150 mg tablet 300 mg PO HS Mental Health/Anxiety 03/29/21
amlodipine 10 mg tablet 10 mg PO HS Blood Pressure 03/07/22
clopidogrel 75 mg tablet 75 mg PO HS Blood Clot Prevention/Tx 03/07/22
albuterol sulfate 2.5 mg/3 mL (0.083 %) solution for nebulization 2.5 mg inhalation R Q4HPRN PRN sob/wheezing 08/07/24
alprazolam 1 mg tablet 1 mg PO BIDPRN PRN anxiety 08/07/24
aspirin 81 mg tablet,delayed release 81 mg PO HS Blood Clot Prevention/Tx 08/07/24
docusate sodium 100 mg capsule (Stool Softener) 100 mg PO BID Constipation 08/07/24
glipizide 10 mg tablet 10 mg PO BIDWMEAL Diabetes 08/07/24
losartan 100 mg tablet 100 mg PO HS Blood Pressure 08/07/24
mcnwdpzb-uhd-IM 0.4 mg-calcium 162 mg-iron 18 ia-jnxgbly-qnujhd tablet 1 tab PO DAILY Supplement 08/07/24
oxycodone-acetaminophen 10 mg-325 mg tablet 1 tab PO QID Pain 08/07/24
polyethylene glycol 3350 17 gram oral powder packet (Miralax) 17 g PO DAILY Constipation 08/07/24
semaglutide 2 mg/dose (8 mg/3 mL) subcutaneous pen injector (Ozempic) 2 mg SC TH Diabetes 08/07/24
amoxicillin 875 mg-potassium clavulanate 125 mg tablet 1 tab PO Q12H Urinary issue 08/15/24
hydralazine 25 mg tablet 25 mg PO TID 08/15/24
Review of Systems
-
History Source: Patient
A 12 point ROS was completed and negative except as noted: Yes
Constitutional: Reports Fever, Fatigue and Chills
EENT: Denies Sore Throat
Respiratory: Denies Cough or Trouble Breathing
Cardiac: Denies Chest Pain or Palpitations
Abdomen/GI: Reports Abdominal Pain, Nausea and Vomiting; Denies Diarrhea or Constipated
: Reports Dysuria and Flank Pain; Denies Frequency
Musculoskeletal: Denies Joint Pain or Edema
Neurological: Denies Dizzy or Headache
Psych: Denies Depression or Anxiety
Physical Exam
Vital Signs
Vital Signs
Temp Pulse Resp BP Pulse Ox
99.0 F 110 18 171/81 96
08/15/24 16:27 08/15/24 18:35 08/15/24 18:35 08/15/24 18:35 08/15/24 17:45
Physical Exam
General: Other (53y F in mild distress due to pain / discomfort.)
HEENT: Moist mucous membranes, PERRLA and Other (Thick neck.)
Respiratory: Clear; No Wheezes, Rales or Rhonchi
Cardiac: S1/S2 and Tachycardia; No Murmur
GI: Other (Obese. Pos R sided tenderness and voluntary guarding. Pos BS.)
Genito-urinary: Other (Pos R CVAT)
Musculoskeletal: No Clubbing, No Cyanosis and No Edema
Neuro: AO x 3
Laboratory Results
-
08/15/24 17:16
08/15/24 17:16
Laboratory Results
Lactic Acid 2.2 mmol/L (0.7-2.0) H 08/15/24 17:16
Total Bilirubin 0.6 mg/dl (0.2-1.3) 08/15/24 17:16
AST 24 U/L (14-36) 08/15/24 17:16
ALT 31 U/L (0-35) 08/15/24 17:16
Alkaline Phosphatase 121 U/L (38-126) 08/15/24 17:16
Impression/Plan
-
A/P: Patient is a 53y F with PMH significant for chronic pain syndrome, hypertension and DM-II who presents to ED complaining of R abdominal pain and flank pain with fever / chills, N/V at home.
Right Pyelonephritis
Sepsis secondary to the above
- Admit for further evaluation and treatment.
- Patient presents with leukocytosis and tachycardia with UA, symptoms and imaging c/w urinary infection.
- CT shows stent in good position - though some hydronephrosis is appreciated.
- IV abx with cefepime pending repeat culture data.
- IVFs, Flomax, supportive care including pain control and antiemetics.
- Urology evaluation for additional recommendations.
- Follow for clinical improvement.
Chronic Pain Syndrome
Chronic Opioid Dependence
- Chronic source of pain is reportedly lumbar DDD.
- Followed as an outpatient by Dr. Mccray.
- Continue oxycodone PRN moderate pain.
- Add Dilaudid for acute / severe pain.
- Titrate to lowest effective dosing as acute issues improve.
Benign Hypertension
- Multidrug regimen for hypertension.
- BP elevated in the ED - likely due to pain / discomfort.
- Continue usual outpatient medications with holding parameters.
DM-II
- Stable. Hold PO medication acutely.
- Follow glucose and cover with SSI as needed.
- A1C during recent admission was 8.6%.
ASCVD / Prior CVA
- No current focal symptoms or complaints.
- Continue ASA daily - hold Plavix acutely in the event that she requires additional Urologic intervention.
- Continue BP control as noted above.
Multiple Sclerosis
- Chronic / stable. Not on active treatment.
- Follow-up with Neurology as an outpatient.
Anxiety / Depression
- Stable. Continue HS trazodone and duloxetine.
- Ativan PRN for now. Caution with chronic combination of opioids and BZDs.
- Follow-up with outpatient providers aftert discharge.
Obesity due to excess calories
- Affects all aspects of care.
- Encourage healthy diet and increased activity with goal of weight loss.
DVT Prophylaxis: SCDs
Code Status: Full
--- NOTE | 2024-08-15 20:41 | EDRN ---
Dr. Baker in at bedside working on admission, talked to patient about Howard, she requested pain meds prior to the howard going in, Dr. Baker ordered more pain medication which was ordered and given prior to Howard. Howard placed without difficulty and
draining. Dr. Baker did not feel patient needed repeat lactic at 2044 and states can be re-checked in the morning, orders in and waiting on bed assignment
--- NOTE | 2024-08-15 22:16 | EDRN ---
Patient called the maintenance shop clerk from her cell phone because she couldn't find her call jim, went into room, showed her where call jim was and made sure she could find it so she can call, patient asking about going upstairs, informed her not sure
when she will move, waiting on a room to be ready, she also asked about night time meds and pain meds, informed her this RN would look into her admitting orders to see if we can get her the night time meds ordered.
[2024-08-15] MEDS: ASPIR LOW (ENTERIC COATED) 81 MG PO (22:56)
[2024-08-15] MEDS: ROXICODONE 10 MG PO (22:56)
[2024-08-15] MEDS: NORVASC 10 MG PO (22:56)
[2024-08-15] MEDS: DESYREL 300 MG PO (22:57)
[2024-08-15] MEDS: XANAX 1 MG PO (23:30)
--- NOTE | 2024-08-15 23:40 | EDRN ---
Gave patient what was ordered for night time meds along with PRN pain medication, she is very upset by that is all she is getting, states she got more meds last time she was here and we needed to talk to Dr. Baker about this. Explained to her that
there is other pain meds however they are ordered at a certain time and it isn't time for the Dilaudid, however I gave her 10mg Oxycodone and 300mg of trazadone as ordered at night and for prn pain, I spoke with Dr. Baker, states he ordered her pain
meds for PRN and her normal pain meds, which should cover. Patient insisting on getting her xanax, so patient was provided with the 1mg Xanax that was ordered. Patient had been upset again due to the door being closed, which is done for patient
privacy, and asked to speak to charge nurse, charge nurse spoke to patient as did myself again, patient aware they are working on cleaning her room upstairs.
[2024-08-16] VITALS (8 sets, daily range): BP systolic 117–173; BP diastolic 63–91; BMI 37.8
[2024-08-16] MEDS: CYMBALTA DELAYED RELEASE 60 MG PO ×2 (00:51→20:53)
[2024-08-16] MEDS: COZAAR 100 MG PO ×2 (00:52→20:55)
[2024-08-16] MEDS: NSS 1000 IV ×3 (00:53→15:37)
[2024-08-16] MEDS: ZOFRAN 4 MG IV ×2 (00:53→22:21)
[2024-08-16] MEDS: DILAUDID 0.5 MG IV ×2 (00:54→06:03)
[2024-08-16 00:59] LABS: Glucose - Point of Care 179 mg/dl (70-99)
--- NOTE | 2024-08-16 01:47 | PTCARENOTE ---
pt is aaox3, pt had howard placed in ed. ivf and pain meds administered. pt oriented to room w/ call jim in reach.
[2024-08-16 02:03] LABS: Lactic Acid 0.8 mmol/L (0.7-2.0)
[2024-08-16] MEDS: STERILE WATER FOR INJECTION 10 ML IV ×3 (02:53→18:45)
[2024-08-16] MEDS: MAXIPIME 2000 MG IV ×3 (02:54→18:45)
[2024-08-16 05:55] LABS: Glucose - Point of Care 196 mg/dl (70-99)
--- NOTE | 2024-08-16 06:00 | PTCARENOTE ---
pt given pain meds when she arrived to the floor last night. pt slept all night woke up c/p pain gave prn Dilaudid 0.5mg and fell back asleep/
[2024-08-16] MEDS: NOVOLOG FLEXPEN-LOW RESISTANCE 1 UNITS SC (06:37)
[2024-08-16 07:39] LABS: Glucose - Point of Care 183 mg/dl (70-99)
[2024-08-16 07:59] LABS: Hematocrit 34.8 % (37.0-47.0); Mean Corp Hgb Conc. 31.6 g/dL (33.0-37.0); Mean Platelet Volume 10.3 fL (7.4-10.4); Platelet Count 277 10^3/uL (130-400); Red Blood Cell Count 4.58 10^6/uL (4.20-5.40); Red Cell Dist. Width 18.9 % (11.5-14.5); White Blood Cell Count 16.1 10^3/uL (4.8-10.8)
[2024-08-16 08:22] LABS: Blood Urea Nitrogen 14 mg/dl (7-17); Carbon Dioxide 20 mmol/L (22-30); Chloride 104 mmol/L (98-107); Estimated Creatinine Clearance 93 ml/min; Glucose 188 mg/dl (70-99); Potassium 4.2 mmol/L (3.5-5.1); Sodium 138 mmol/L (135-145); eGFR > 60.00
[2024-08-16] MEDS: FLOMAX 0.4 MG PO (08:48)
[2024-08-16] MEDS: MIRALAX 17 GRAMS PO (08:48)
[2024-08-16] MEDS: COLACE 100 MG PO ×2 (08:48→20:54)
[2024-08-16] MEDS: TOPROL XL 100 MG PO ×2 (08:56→20:53)
[2024-08-16] MEDS: TORADOL 30 MG IV ×3 (08:56→23:48)
[2024-08-16] MEDS: DILAUDID 1 MG IV ×5 (09:15→22:15)
--- NOTE | 2024-08-16 10:53 | W.PN.HOSP.TC ---
Today's Communication/Plan
-
c/w IVF for sepsis
c/w cefepime, add IV ampicillin ( based on prior cultures)
Add probiotics
f/w cultures
NPO on 08/17 for OR by urology
Add PRN hydralazine
Assessment / Plan
Assessment / Plan
Physical Exam
General: Other (53y F in mild distress due to pain / discomfort.)
HEENT: dry mucous membranes, PERRLA and Other (Thick neck.)
Respiratory: Clear; No Wheezes, Rales or Rhonchi
Cardiac: S1/S2
GI: not distended. Pos R sided tenderness)
Genito-urinary: Other (Pos R CVAT)
Musculoskeletal: No Clubbing, No Cyanosis and No Edema
Neuro: AO x 3, she followed commands
Psych: calm , no agitation
Patient is a 53y F with PMH significant for chronic pain syndrome, hypertension and DM-II who presents to ED complaining of R abdominal pain and flank pain with fever / chills, N/V at home.
# Acute right Pyelonephritis
Sepsis with UTI, tachycardia, lactic acidosis, leukocytosis. No hypotension
No fevers this morning, Lactic acid normalized
c/w IV Cefepime
f/w blood and urine cultures
Last urine culture was streptococcus agalactiae, will add ampicillin
ok to c/w empiric cefepime
d/w Urology , plan to take to OR after treating acute septic phase
Appreciate urology help
# Chronic Pain Syndrome
Chronic Opioid Dependence
- Chronic source of pain is reportedly lumbar DDD.
- Followed as an outpatient by Dr. Mccray.
- Continue oxycodone PRN moderate pain.
- Add Dilaudid for acute / severe pain.
- Titrate to lowest effective dosing as acute issues improve.
Benign Hypertension
HTN urgency
- Multidrug regimen for hypertension.
- BP elevated in the ED - likely due to pain / discomfort.
- Continue usual outpatient medications with holding parameters. Will add PRN oral hydralazine
DM-II
- Stable. Hold PO medication acutely.
- Follow glucose and cover with SSI as needed.
- A1C during recent admission was 8.6%.
ASCVD / Prior CVA
- No current focal symptoms or complaints.
- Continue ASA daily - hold Plavix acutely in the event that she requires additional Urologic intervention.
- Continue BP control as noted above.
Multiple Sclerosis
- Chronic / stable. Not on active treatment.
- Follow-up with Neurology as an outpatient.
Anxiety / Depression
- Stable. Continue HS trazodone and duloxetine.
- Ativan PRN for now. Caution with chronic combination of opioids and BZDs.
- Follow-up with outpatient providers aftert discharge.
Obesity due to excess calories
- Affects all aspects of care.
- Encourage healthy diet and increased activity with goal of weight loss.
DVT Prophylaxis: SCDs
Code Status: Full
Total time spent to see the patient, examine the patient on the floor, review data and lab results, discuss treatment plan with patient, nursing staff around 55 minutes
Anticipated Discharge: > 48 hours
Subjective/Interval History
-
Date of Service: August 16, 2024
No sob
No chest pain less flank pain
Objective Data
-
Labs:
Laboratory Results
08/16/24
06:49
WBC 16.1 H
Hgb 11.0 L
Hct 34.8 L
Plt Count 277
Sodium 138
Potassium 4.2
Chloride 104
Carbon Dioxide 20 L
BUN 14
Creatinine 0.9
Glucose 188 H
Calcium 9.0
Vital Signs:
Vital Signs
Temp Pulse Resp BP Pulse Ox
100.2 F 104 16 117/65 91
08/16/24 08:00 08/16/24 08:00 08/16/24 08:00 08/16/24 08:00 08/16/24 08:00
I&O
08/15/24 08/16/24 08/17/24
06:59 06:59 06:59
Intake Total 750 / 750
Output Total 800 / 800
Balance -50 / -50
--- NOTE | 2024-08-16 11:02 | CON.MD ---
Consultation - Medical
-
see dictated note
pt presented last week with stone and UTI/bacteremia
stent placed
has had recurrent pain and low grade fevers at home
presented to ER- no fevers- but elevated WBC
ct showed persistent hydro and ureteral dilation
this am- still with pain
low grade temp
wbc down
cx's pending
ct shows stent at upj or prox ureter
plan
reviewed with dr gama
reviewed options with pt
plan to continue hydration/iv antibx and proceed to OR tomorrow for possible stone removal and stent replacement
risks of delay/possibly not being able to get stone if sig infx seen intra-op etc all reviewed- other risks and benefits reviewed
pt would like to proceed with this plan
[2024-08-16 11:28] LABS: Glucose - Point of Care 144 mg/dl (70-99)
[2024-08-16] MEDS: NOVOLOG FLEXPEN-LOW RESISTANCE SC (11:32)
[2024-08-16] MEDS: AMPICILLIN 104 MG IV ×3 (12:21→23:48)
--- NOTE | 2024-08-16 15:03 | CM ---
partnership development manager reviewed patient's chart and met with patient and patient lives with her children in a 2 story home, with 2 steps to enter, patient is independent with adl's and ambulation, no dme. Patient drives.
Pharmacy: [facility]
PCP: Dr Plaza
Plan; Home with family when stable.
[2024-08-16] MEDS: XANAX 1 MG PO (15:38)
[2024-08-16 17:04] LABS: Glucose - Point of Care 212 mg/dl (70-99)
[2024-08-16] MEDS: NOVOLOG FLEXPEN-LOW RESISTANCE 2 UNITS SC ×2 (18:43→23:49)
[2024-08-16] MEDS: FLUSH (NSS) 1 FLUSH IV (18:46)
[2024-08-16] MEDS: ASPIR LOW (ENTERIC COATED) 81 MG PO (20:52)
[2024-08-16] MEDS: DESYREL 300 MG PO (20:54)
[2024-08-16] MEDS: NORVASC 10 MG PO (20:55)
[2024-08-16] MEDS: TYLENOL 650 MG PO (21:06)
[2024-08-16] MEDS: ROXICODONE 10 MG PO (21:06)
[2024-08-16 21:44] LABS: Glucose - Point of Care 206 mg/dl (70-99)
[2024-08-16 23:48] LABS: Glucose - Point of Care 204 mg/dl (70-99)
[2024-08-17] VITALS (14 sets, daily range): BP systolic 95–165; BP diastolic 36–95
[2024-08-17] MEDS: MAXIPIME 2000 MG IV ×2 (02:37→19:59)
[2024-08-17] MEDS: STERILE WATER FOR INJECTION 10 ML IV ×2 (02:37→19:59)
--- NOTE | 2024-08-17 03:19 | PTCARENOTE ---
pt c/o pain - administered see JAN. pt will be alseep wake up ask for pain meds then go right back to sleep.
[2024-08-17] MEDS: DILAUDID 1 MG IV ×5 (03:41→22:28)
[2024-08-17] MEDS: NSS 1000 IV ×2 (05:56→17:56)
[2024-08-17] MEDS: AMPICILLIN 104 MG IV (05:56)
[2024-08-17] MEDS: TORADOL 30 MG IV ×3 (06:02→22:28)
[2024-08-17 06:31] LABS: Glucose - Point of Care 162 mg/dl (70-99)
[2024-08-17] MEDS: NOVOLOG FLEXPEN-LOW RESISTANCE 1 UNITS SC ×2 (06:33→15:45)
[2024-08-17] MEDS: XANAX 1 MG PO (06:35)
--- NOTE | 2024-08-17 07:40 | W.PN.UPDATE ---
Update Note
Progress Note Update
pt re-evaluated this am
afebrile/blood cx's negative
plan for OR today for stent excahnge and possible ureteroscopy/stone extraction
risks (including inability to treat stone and post op sepsis), benefits and alternatives reviewed
consent signed
[2024-08-17 07:55] LABS: Hematocrit 32.6 % (37.0-47.0); Hemoglobin 10.3 g/dL (12.0-16.0); Mean Corp Hgb Conc. 31.6 g/dL (33.0-37.0); Mean Corpuscular Hgb 24.2 pg (27.0-31.0); Mean Corpuscular Volume 76.7 fL (81.0-99.0); Mean Platelet Volume 10.8 fL (7.4-10.4); Platelet Count 256 10^3/uL (130-400); Red Blood Cell Count 4.25 10^6/uL (4.20-5.40); Red Cell Dist. Width 18.9 % (11.5-14.5)
[2024-08-17] MEDS: FLOMAX 0.4 MG PO (08:13)
[2024-08-17] MEDS: TOPROL XL 100 MG PO ×2 (08:13→20:06)
[2024-08-17 08:41] LABS: ALT (SGPT) 33 U/L (0-35); AST (SGOT) 32 U/L (14-36); Albumin 3.4 g/dl (3.5-5.0); Alkaline Phosphatase 135 U/L (38-126); Blood Urea Nitrogen 20 mg/dl (7-17); Calcium 8.9 mg/dl (8.4-10.2); Carbon Dioxide 20 mmol/L (22-30); Chloride 106 mmol/L (98-107); Estimated Creatinine Clearance 84 ml/min; Glucose 159 mg/dl (70-99); Magnesium 1.7 mg/dl (1.6-2.3); Potassium 4.4 mmol/L (3.5-5.1); Sodium 139 mmol/L (135-145); Total Bilirubin 0.5 mg/dl (0.2-1.3); Total Protein 5.8 g/dl (6.3-8.2); eGFR > 60.00
--- NOTE | 2024-08-17 09:52 | W.PN.HOSP.TC ---
Addendum entered and electronically signed by Roge Schilling MD 08/17/24 12:57:
Addendum
Discussed with Dr. Pendleton. Successful stone extraction today. Urine was sent from the ER for repeat culture. Last urine culture showed yeast. Given Diflucan intravenously. Discussed with urology, recommended ID consultation, appreciate ID input.
End
Original Note:
Today's Communication/Plan
-
plan for OR today for stent exchange and possible ureteroscopy/stone extraction
c/w IVF, IV ABx
Assessment / Plan
Assessment / Plan
Physical Exam
General: Other (53y F in mild distress due to pain / discomfort.)
HEENT: dry mucous membranes, PERRLA and Other (Thick neck.)
Respiratory: Clear; No Wheezes, Rales or Rhonchi
Cardiac: S1/S2
GI: not distended. Pos R sided tenderness)
Genito-urinary: Other (Pos R CVAT)
Musculoskeletal: No Clubbing, No Cyanosis and No Edema
Neuro: AO x 3, she followed commands
Psych: calm , no agitation
Patient is a 53y F with PMH significant for chronic pain syndrome, hypertension and DM-II who presents to ED complaining of R abdominal pain and flank pain with fever / chills, N/V at home.
# Acute right Pyelonephritis
Sepsis with UTI, tachycardia, lactic acidosis, leukocytosis. No hypotension
No fevers this morning, Lactic acid normalized
c/w IV Cefepime
No growth on blood and urine cultures
Last urine culture was streptococcus agalactiae, added IV ampicillin
ok to c/w empiric cefepime
WBC is coming down
d/w Urology , plan for OR today for stent exchange and possible ureteroscopy/stone extraction
Appreciate urology help
# Chronic Pain Syndrome
Chronic Opioid Dependence
- Chronic source of pain is reportedly lumbar DDD.
- Followed as an outpatient by Dr. Mccray.
- Continue oxycodone PRN moderate pain.
- Added Dilaudid for acute / severe pain.
- Titrate to lowest effective dosing as acute issues improve.
Benign Hypertension
HTN urgency
- Multidrug regimen for hypertension.
- BP elevated in the ED - likely due to pain / discomfort.
- Continue usual outpatient medications with holding parameters. Will add PRN oral hydralazine
DM-II
- Stable. Hold PO medication acutely.
- Follow glucose and cover with SSI as needed.
- A1C during recent admission was 8.6%.
ASCVD / Prior CVA
- No current focal symptoms or complaints.
- Continue ASA daily - hold Plavix acutely in the event that she requires additional Urologic intervention.
- Continue BP control as noted above.
Multiple Sclerosis
- Chronic / stable. Not on active treatment.
- Follow-up with Neurology as an outpatient.
Anxiety / Depression
- Stable. Continue HS trazodone and duloxetine.
- Ativan PRN for now. Caution with chronic combination of opioids and BZDs.
- Follow-up with outpatient providers aftert discharge.
Obesity due to excess calories
- Affects all aspects of care.
- Encourage healthy diet and increased activity with goal of weight loss.
DVT Prophylaxis: SCDs
Code Status: Full
Total time spent to see the patient, examine the patient on the floor, review data and lab results, discuss treatment plan with patient, urologist, nursing staff around 55 minutes
Anticipated Discharge: 24 - 48 hours
Subjective/Interval History
-
Date of Service: August 17, 2024
No chest pain
No sob
Right flank pain
Objective Data
-
Labs:
Laboratory Results
08/17/24
06:29
WBC 14.0 H
Hgb 10.3 L
Hct 32.6 L
Plt Count 256
Sodium 139
Potassium 4.4
Chloride 106
Carbon Dioxide 20 L
BUN 20 H
Creatinine 1.0
Glucose 159 H
Calcium 8.9
Total Bilirubin 0.5
AST 32
ALT 33
Alkaline Phosphatase 135 H
Vital Signs:
Vital Signs
Temp Pulse Resp BP Pulse Ox
98.2 F 90 20 113/89 90
08/17/24 07:15 08/17/24 07:15 08/17/24 07:15 08/17/24 07:15 08/17/24 07:15
I&O
08/16/24 08/17/24 08/18/24
06:59 06:59 06:59
Intake Total 750 / 750 3952 / 3952
Output Total 800 / 800 1200 / 1200
Balance -50 / -50 2752 / 2752
[2024-08-17] MEDS: MAXIPIME IV (10:53)
[2024-08-17] MEDS: STERILE WATER FOR INJECTION IV (11:00)
[2024-08-17] MEDS: AMPICILLIN IV (11:00)
--- NOTE | 2024-08-17 11:25 | CM ---
Home no needs when stable.
Plan; Home at discharge.
[2024-08-17 11:36] LABS: Glucose - Point of Care 162 mg/dl (70-99)
--- NOTE | 2024-08-17 11:37 | W.IMMPOSTOP ---
Surgical Immed Post Op Note
-
Primary Surgeon:
pilo
Assisting Surgeon:
Pre-op Diagnosis:
right ureteral stone/UTI
Post-op Diagnosis:
same
Procedure Performed:
cysto/right retrograde/stone extraction/stent
Anesthesia Type:
gen
Specimen / Cultures:
stone and right renal pelvis cx submitted
Estimated Blood Loss:
2cc
Complications:
none
Operative Findings:
stent and howard replaced
[2024-08-17] MEDS: NSS IV ×2 (14:26→14:27)
[2024-08-17] MEDS: COLACE 100 MG PO ×2 (14:28→20:04)
[2024-08-17] MEDS: MIRALAX 17 GRAMS PO (14:28)
[2024-08-17 14:40] LABS: Glucose - Point of Care 184 mg/dl (70-99)
--- NOTE | 2024-08-17 14:47 | CON.ID ---
Addendum entered and electronically signed by Jaki Sheridan MD 08/17/24 17:37:
I personally performed a history and physical exam of the patient and discussed management with the resident. I reviewed the resident's note and agree with the documented findings and plan of care HPI/CC with the following additions/corrections:
agree with HPI, histories and ROS
Physical Exam
Constitutional: Mild distress and Obese
Cardiovascular: Regular Rate and S1/S2; Negative Murmur, Rub or Gallop
Pulmonary: Clear to asucultation BL; Negative Wheezes, Rales or Rhonchi
Gastrointestinal: Soft, Non Tender, Nondistended
Genito-Urinary: Hsu with hematuria, no suprapubic Tenderness, + CVA Tenderness
Extremities: Negative Edema
Psychological: Calm
Labs reviewed as below:
A&P
Pyelonephritis
Recent UTI due to GBS
S/p Cystoscopy, right retrograde pyelogram, right ureteroscopy with stone extraction, stent replacement
- urine culture from after removal/replacement of obstructing stone may be more revealing
- 25K yeast in the urine noted, lab to ID the isolate
- EKG to reassess qtc
- agree with fluconazole - adjusted doses of xanaz and trazodone - decreased by about 1/2, explained to patient that she will still have about the same effective dose
- agree with cefepime which also covers GBS, no need for ampicillin - stopped
- patient asks about candidemia, even if she is candidemic her prognosis is good, reassurance given
AW
Original Note:
Consultation
-
Date/Time Consultation Requested: 08/17/2024, 12:53 PM
Date/Time Consultation Performed: 07/18/2024, 4:45 PM
Requesting Provider: Roge Schilling MD
Performing Provider: Jennifer Gray MD for Jaki Sheridan MD
Reason for Consultation: UTI/pyelonephritis.
Chief Complaint / Past History
Chief Complaint
Flank pain, nausea, vomiting x 3 days
History of Present Illness
53 yr old F with PMHx significant for of MS, chronic UTIs, diabetes, hypertension, hyperlipidemia, trigeminal neuralgia presents to the hospital for pain in the right flank that radiates into her groin. Her right flank pain was associated with
nausea and vomiting. She also had a low-grade temperature and reportedly felt very cold before arriving to the emergency room. Upon admission she also had dysuria, chills which prompted her ER visit. Patient was recently hospitalized on July
for obstructive uropathy, she was seen by her urologist, received right ureteral stent placement during which she was also incidentally found to have purulent urine. Her urine cultures were positive for strep agalactiae and she received IV
ceftriaxone during the hospitalization eventually switched to p.o. Augmentin and discharged home on August 10. Upon arrival to the hospital,
After she was admitted to the hospital, urology was consulted and her urines were sent for cultures. Patient was afebrile, with stable vital signs. WBC count-19.7 on 08/15--14.0 on 08/17. Hemoglobin-10.3, decreased MCV-microcytic anemia, left shift
upon arrival to the hospital. Low carbon dioxide at 20 L, elevated blood urea nitrogen at 20, lactic acid-2.2 on 08/15, resolved on 08/16-0.8, alkaline phosphatase elevated-33. Urine cultures were positive for yeast. Urology obtained a CT abdomen
and pelvis that was consistent with pyelonephritis with perinephric fat stranding and edema, or renal calculus. Hence urology performed a stent and stone removal today. Initially she was started on cefepime and ampicillin, and upon urine cultures
turning positive for yeast she was switched to Diflucan. Patient stent and Hsu were replaced.
History of multiple UTIs-Briana albicans in 2015, strep agalactiae-on 03/04/2016, 07/08, 08/07/2024. During this hospitalization her urine culture turned to be positive for yeast. She is treated with cephalexin, ceftriaxone, Augmentin for her
recurrent UTIs in the past.
Past History
Past Medical History: Other (UTIs renal calculi Chronic lumbar pain on chronic oral opiates Multiple sclerosis Trigeminal neuralgia Hepatic steatosis, hepatomegaly Hypertension Obesity DM 2 ASCVD / CVA x 2 Anxiety Optic neuritis / Uveitis Ankylosing
spondylitis)
Past Surgical History: Other (History of renal calculi with removals Neuroma to foot removal Tonsillectomy adenoidectomy)
Allergy History:
phenytoin [From Dilantin] Allergy (Verified 08/07/24 10:59)
blood clots;pt states 'i can get it but it has to be diluted
Quinolones Allergy (Verified 08/07/24 10:59)
Hives
Medications Reviewed: Yes
Social History
Tobacco: Non-Smoker
Alcohol: None
Drug: None
Living: With Family
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
Family History
Family History: Not Pertinent
Review of Systems
Review of Systems
General: Negative Fever, Chills or Change in Appetite
Cardiovascular: Negative Chest Pain, Dyspnea or Palpitations
Respiratory: Negative Dyspnea, Cough or Sputum Production
Genital / Urological: Dysuria (Improving.) and Flank Pain
Endocrine: Negative Weakness or Fatigue
Skin / Hair / Nails: Negative Rash
Neurological: Negative Headache or Dizziness
Psychological: Negative Sleep Changes
Vital Signs
Temp Pulse Resp BP Pulse Ox
98.1 F 79 18 133/74 91
08/17/24 14:00 08/17/24 14:00 08/17/24 14:00 08/17/24 14:00 08/17/24 14:00
Physical Exam
Physical Exam
Constitutional: Comfortable and Obese
Cardiovascular: Regular Rate and S1/S2; Negative Murmur, Rub or Gallop
Pulmonary: Clear; Negative Wheezes, Rales or Rhonchi
Gastrointestinal: Soft, Non Tender and Other (Could not appreciate distention.)
Genito-Urinary: Hsu (Hemorrhagic collection in the Hsu bag.), Suprapubic Tenderness (On gentle palpation.) and CVA Tenderness (On gentle palpation.)
Extremities: Negative Edema
Skin: Warm
Neurological: Awake
Psychological: Calm
Lab / Diagnostic Study Results
08/17/24 06:29
08/17/24 06:29
Abs Immat Gran (auto) 0.2 10^3/uL (0-0.05) H 08/15/24 17:16
Absolute Neuts (auto) 14.8 10^3/uL (1.4-6.5) H 08/15/24 17:16
Absolute Lymphs (auto) 2.5 10^3/uL (1.2-3.4) 08/15/24 17:16
Absolute Monos (auto) 2.0 10^3/uL (0.1-0.6) H 08/15/24 17:16
Absolute Basos (auto) 0.1 10^3/uL (0-0.2) 08/15/24 17:16
Immature Gran % 1.1 % (0-0.5) H 08/15/24 17:16
Neutrophils % 75.1 % (42.2-75.2) 08/15/24 17:16
Lymphocytes % 12.5 % (20.5-51.1) L 08/15/24 17:16
Monocytes % 10.0 % (1.7-9.3) H 08/15/24 17:16
Eosinophils % 1.0 % (0-6) 08/15/24 17:16
Basophils % 0.3 % (0-2) 08/15/24 17:16
Lactic Acid 0.8 mmol/L (0.7-2.0) 08/16/24 01:34
Microbiology Results
Micro:
08/17/24 11:00 Urine Culture - Pending
Urine
08/15/24 17:24 Urine Culture - Preliminary
Urine Yeast
08/15/24 17:16 Blood Culture - Preliminary
Blood/Venous No Growth in 24 hours- Final report to follow
08/15/24 17:16 Blood Culture - Preliminary
Blood/Venous No Growth in 24 hours- Final report to follow
Assessment / Plan
Assessment-
Subjective-improving flank pain, lower abdominal pain. Resolved with nausea.
Objective- WBC count-19.7 on 08/15--14.0 on 08/17. Hemoglobin-10.3, decreased MCV-microcytic anemia, left shift upon arrival to the hospital. Low carbon dioxide at 20 L, elevated blood urea nitrogen at 20, lactic acid-2.2 on 08/15, resolved on
08/16-0.8, alkaline phosphatase elevated-33. Urine cultures were positive for yeast-25,000 CFU. Blood cultures no growth in [address] abdomen evident for pyelonephritis, patient was on ampicillin, cefepime and a single dose of fluconazole given.
Single dose of gentamicin also given before the procedure.
Plan-
Pyelonephritis-
Urine cultures were positive for yeast-25,000 colony-forming units. Repeat urine culture obtained today before the procedure.
Patient has undergone stent change, Hsu change and stone retrieval in the a.m. today. Feeling much better after the procedure.
Even though there were no 100,000 colony-forming units, due to her multiple urological procedures I recommend treating her with fluconazole. Fluconazole 200 mg oral once a day added. QTc monitoring with an EKG in the a.m. tomorrow.
Patient is on multiple medications that can interact with fluconazole and cause QT prolongation. Fluconazole can increase the serum concentrations of oxycodone and alprazolam. She is also on ondansetron and trazodone which can increase QT
prolongation.
Hence added an urgent EKG for baseline QTc evaluation before administration of fluconazole.
Stop ampicillin. Continue cefepime.
ID will continue to follow closely.
[2024-08-17 16:31] LABS: Glucose - Point of Care 281 mg/dl (70-99)
[2024-08-17] MEDS: XANAX PO (17:39)
[2024-08-17] MEDS: NOVOLOG FLEXPEN-LOW RESISTANCE 3 UNITS SC (17:44)
[2024-08-17] MEDS: XANAX 0.5 MG PO (18:40)
--- NOTE | 2024-08-17 18:40 | PTCARENOTE ---
Patient anxious, upset and crying after consult with infectious disease physician today. Patient expresses concern for her health and hospitalization. Patient medicated with prn Xanax and emotional support provided. Call hernán in reach. Will report
to night filler RN.
[2024-08-17] MEDS: ROXICODONE 10 MG PO (20:21)
[2024-08-17] MEDS: NORVASC 10 MG PO (21:24)
[2024-08-17] MEDS: ASPIR LOW (ENTERIC COATED) 81 MG PO (21:27)
[2024-08-17] MEDS: DESYREL 150 MG PO (21:27)
[2024-08-17] MEDS: CYMBALTA DELAYED RELEASE 60 MG PO (21:27)
[2024-08-17] MEDS: COZAAR 100 MG PO (21:27)
[2024-08-17 21:40] LABS: Glucose - Point of Care 289 mg/dl (70-99)
--- NOTE | 2024-08-17 22:11 | VATNOTE ---
LATE ENTRY-WHILE ASSESSING AND RESTARTING PTS PERIPHERAL IV, PT VERY EMOTIONAL, UPSET AND VERBAL WITH COMPLAINTS OF HER CARE A PATIENT FROM HER ADMISSION IN THE ED TO THE CURRENT TIME. PT ALSO STATED;' I FEEL FOR MY SAFETY AND THE CARE I AM BEING
PROVIDED WILL BE COMPROMISED IF I VOICE ANY COMPLAINTS.' SUGGESTED TO PATIENT SHE SPEAK WITH THE [employer] AND PT AGREED. NOTIFIED PCN AND NURSING [employer] OF PATIENTS MANY CONCERNS.
[2024-08-18] MEDS: STERILE WATER FOR INJECTION 10 ML IV ×2 (01:00→09:01)
[2024-08-18] MEDS: NSS 1000 IV (01:01)
[2024-08-18] MEDS: MAXIPIME 2000 MG IV ×2 (01:01→09:01)
[2024-08-18] MEDS: DILAUDID 1 MG IV ×5 (03:15→21:18)
[2024-08-18 03:37] VITALS: BP 132/63
[2024-08-18] MEDS: XANAX 0.5 MG PO ×3 (04:34→21:17)
[2024-08-18 07:15] VITALS: BP 136/59
[2024-08-18 07:24] LABS: Hematocrit 35.3 % (37.0-47.0); Hemoglobin 11.6 g/dL (12.0-16.0); Mean Corp Hgb Conc. 32.9 g/dL (33.0-37.0); Mean Corpuscular Hgb 24.3 pg (27.0-31.0); Mean Corpuscular Volume 73.8 fL (81.0-99.0); Mean Platelet Volume 10.1 fL (7.4-10.4); Platelet Count 266 10^3/uL (130-400); Red Blood Cell Count 4.78 10^6/uL (4.20-5.40); Red Cell Dist. Width 18.6 % (11.5-14.5); White Blood Cell Count 18.7 10^3/uL (4.8-10.8)
[2024-08-18 07:28] LABS: Glucose - Point of Care 143 mg/dl (70-99)
[2024-08-18] MEDS: NOVOLOG FLEXPEN-LOW RESISTANCE SC ×2 (07:37→16:27)
[2024-08-18] MEDS: COLACE 100 MG PO ×2 (07:59→20:25)
[2024-08-18] MEDS: TOPROL XL 100 MG PO ×2 (08:00→20:25)
[2024-08-18] MEDS: MIRALAX 17 GRAMS PO (08:00)
[2024-08-18] MEDS: DIFLUCAN 200 MG PO ×2 (08:00→13:48)
[2024-08-18 08:32] LABS: Blood Urea Nitrogen 21 mg/dl (7-17); Calcium 9.8 mg/dl (8.4-10.2); Carbon Dioxide 14 mmol/L (22-30); Chloride 106 mmol/L (98-107); Estimated Creatinine Clearance 93 ml/min; Glucose 160 mg/dl (70-99); Sodium 138 mmol/L (135-145); eGFR > 60.00
[2024-08-18] MEDS: TYLENOL 650 MG PO (08:42)
[2024-08-18] MEDS: NSS IV (08:44)
--- NOTE | 2024-08-18 08:46 | PTCARENOTE ---
Pt c/o feeling flushed and 'on fire'. Temp 100.2. Pt also concerned about her elevated WBC count today compared to yesterday. Dr. Schilling aware and spoke with pt. Tylenol 650mg po given for pt comfort and slight temp. Will continue to monitor.
[2024-08-18] MEDS: ZOFRAN 4 MG IV (09:00)
--- NOTE | 2024-08-18 10:02 | W.PN.HOSP.TC ---
Today's Communication/Plan
-
Continue with antibiotic
Give Lantus
Check beta- hydroxybutyrate level with borderline acidosis
Assessment / Plan
Assessment / Plan
Physical Exam
General: Other (53y F in mild distress due to pain / discomfort.)
HEENT: dry mucous membranes, PERRLA and Other (Thick neck.)
Respiratory: Clear; No Wheezes, Rales or Rhonchi
Cardiac: S1/S2
GI: not distended.
Genito-urinary: No hematuria noted.
Musculoskeletal: No Clubbing, No Cyanosis and No Edema
Neuro: AO x 3, she followed commands
Psych: calm , no agitation
Patient is a 53y F with PMH significant for chronic pain syndrome, hypertension and DM-II who presents to ED complaining of R abdominal pain and flank pain with fever / chills, N/V at home.
# Acute right Pyelonephritis
Sepsis with UTI, tachycardia, lactic acidosis, leukocytosis. No hypotension
Temp at 100.2 this morning, given Tylenol
Lactic acid normalized
WBC went up this morning after removing the stone
c/w IV Cefepime
No growth on blood
Urine showing karen albicans, re-testing urine from OR also
Last urine culture was streptococcus agalactiae, Given IV ampicillin
Started on Fluconazole on 08/17. EKG stable QT
Appreciate urology & ID help
# Chronic Pain Syndrome
Chronic Opioid Dependence
- Chronic source of pain is reportedly lumbar DDD.
- Followed as an outpatient by Dr. Mccray.
- Continue oxycodone PRN moderate pain.
- Added Dilaudid for acute / severe pain.
- Titrate to lowest effective dosing as acute issues improve.
Benign Hypertension
HTN urgency
- Multidrug regimen for hypertension.
- BP elevated in the ED - likely due to pain / discomfort.
- Continue usual outpatient medications with holding parameters. Added PRN oral hydralazine
# anion gap metabolic acidosis,
Uncontrolled blood glucose due to infection
Check Beta- hydroxybutyrate level in urine
Will give Lantus to provide better glucose control
DM-II
- Stable. Hold PO medication acutely.
- Follow glucose and cover with SSI as needed.
- A1C during recent admission was 8.6%.
ASCVD / Prior CVA
- No current focal symptoms or complaints.
- Continue ASA daily - hold Plavix acutely in the event that she requires additional Urologic intervention.
- Continue BP control as noted above.
Multiple Sclerosis
- Chronic / stable. Not on active treatment.
- Follow-up with Neurology as an outpatient.
Anxiety / Depression
- Stable. Continue HS trazodone and duloxetine.
- Ativan PRN for now. Caution with chronic combination of opioids and BZDs.
- Follow-up with outpatient providers aftert discharge.
Obesity due to excess calories
- Affects all aspects of care.
- Encourage healthy diet and increased activity with goal of weight loss.
DVT Prophylaxis: SCDs
Code Status: Full
Total time spent to see the patient, examine the patient on the floor, review data and lab results, discuss treatment plan with patient, urologist, nursing staff around 55 minutes
Anticipated Discharge: > 48 hours
Subjective/Interval History
-
Date of Service: August 18, 2024
No chest pain
No sob
She does not feel better, still aches, unwell
Objective Data
-
Labs:
Laboratory Results
08/18/24
07:14
WBC 18.7 H
Hgb 11.6 L
Hct 35.3 L
Plt Count 266
Sodium 138
Potassium 5.0
Chloride 106
Carbon Dioxide 14 L*
BUN 21 H
Creatinine 0.9
Glucose 160 H
Calcium 9.8
Vital Signs:
Vital Signs
Temp Pulse Resp BP Pulse Ox
100.2 F 103 20 136/59 98
08/18/24 08:40 08/18/24 08:00 08/18/24 07:15 08/18/24 08:00 08/18/24 08:28
I&O
08/17/24 08/18/24 08/19/24
06:59 06:59 06:59
Intake Total 3952 / 3952 3540 / 3540
Output Total 1200 / 1200 3250 / 3250
Balance 2752 / 2752 290 / 290
[2024-08-18 11:00] VITALS: BP 104/55
[2024-08-18 11:51] LABS: Glucose - Point of Care 222 mg/dl (70-99)
[2024-08-18] MEDS: NOVOLOG FLEXPEN-LOW RESISTANCE 2 UNITS SC (11:57)
--- NOTE | 2024-08-18 12:20 | CM ---
Chart reviewed and plan remains for patient to return to home at discharge.
Plan; Home when stable.
[2024-08-18] MEDS: ROXICODONE 10 MG PO ×2 (13:02→18:48)
--- NOTE | 2024-08-18 13:13 | W.PN.UPDATE ---
Update Note
Progress Note Update
I saw and evaluated the patient. I reviewed the resident�s seperately documented note and agree with findings and plan as documented in the resident�s note with the following additions/corrections
SOAP
S:
afebrile
bp stable
'this morning was the worst Jocelyn felt since all this started'
ongoing flank pain
although not documented on the [facility] [place], Dr Pendleton's op note confirms she was given a dose of fluconazole perioperatively (note OR uses a seperate charting system)
O:
VSS
Physical Exam
Constitutional: NAD
Cardiovascular: Regular Rate and S1/S2; Negative Murmur, Rub or Gallop
Pulmonary: Clear to auscultation BL; Negative Wheezes, Rales or Rhonchi
Gastrointestinal: Soft, Non Tender, Nondistended
Genito-Urinary: Hsu with hematuria, no suprapubic Tenderness, + CVA Tenderness
Extremities: Negative Edema
Psychological: Calm
WBC 18/7
hgb 11.6
plt 266
na 138
Co2 now 14
08/15 urine culture 25K c albicans
08/17 urine culture from R renal pelvis: 100K yeast
QTc 437
AP
Pyelonephritis
Recent UTI due to GBS
S/p Cystoscopy, right retrograde pyelogram, right ureteroscopy with stone extraction, stent replacement 08/17
- urine culture from renal pelvis with 100K yeast consistent with pyelonephritis
- 25K yeast in the peripheral urine before obstruction moved noted, c albicans
- blood cultures remain no growth to date
- QTc remains acceptable
- continue fluconazole doubled dose today to 400 mg given progressive acidosis - adjusted doses of xanaz and trazodone yesterday- decreased by about 1/2, explained to patient that she will still have about the same effective dose, follow for sedation
- stopped cefepime GBS coverage was initially planned 08/07-08/20; feel that patient has already completed a 12 day course which is adequate and repeat cultures without strep
AW
[2024-08-18] MEDS: LANTUS 0.15 UNITS SC (13:15)
--- NOTE | 2024-08-18 13:43 | W.PN.ID1 ---
Date of Service
Date of Service: August 18, 2024
Today's Communication
Stop cefepime.
Fluconazole dose to 400 mg once a day.
EKG for QT prolongation in the a.m. tomorrow.
Assessment / Plan
Assessment-
Subjective-improving flank pain, lower abdominal pain. Resolved with nausea.
Objective- WBC count-19.7 on 08/15--14.0 on 08/17, at 18.2 on 08/18. Hemoglobin-10.3, decreased MCV-microcytic anemia, left shift upon arrival to the hospital. Low carbon dioxide at 20 L, worsened to 14-as of today, suspect some acidosis. Elevated
blood urea nitrogen at 20, lactic acid-2.2 on 08/15, resolved on 08/16-0.8, alkaline phosphatase elevated-33. Urine cultures were positive for yeast-25,000 CFU.
Repeat urine cultures from right renal pelvis 100,000 colony-forming units of yeast
Blood cultures no growth in [address] abdomen evident for pyelonephritis, patient was on ampicillin, cefepime and a single dose of fluconazole given.
Single dose of gentamicin also given before the procedure.
Plan-
Pyelonephritis-
Urine cultures were positive for yeast-25,000 colony-forming units. Repeat urine culture obtained today before the procedure.
Patient has undergone stent change, Hsu change and stone retrieval in the a.m. today. Feeling much better after the procedure.
Even though there were no 100,000 colony-forming units, due to her multiple urological procedures I recommend treating her with fluconazole. Fluconazole 200 mg oral once a day changed to 400 mg once a day. QTc interval within normal limits.
Patient is on multiple medications that can interact with fluconazole and cause QT prolongation. Fluconazole can increase the serum concentrations of oxycodone and alprazolam. She is also on ondansetron and trazodone which can increase QT
prolongation.
Hence added an urgent EKG for baseline QTc evaluation before administration of fluconazole.
Cefepime course finished for 12 days. Stop cefepime,
ID will continue to follow closely.
Chief Complaint
-: Other
Subjective / Review of Systems
Still have some flank pain and abdominal pain. Also states that she was short of breath and feels better on oxygen.
Review of Systems: Fever, Chills, No Headache, No Pharyngitis, No Cough, No Chest Pain, No Palpitations, No Nausea, No Dysuria, No Joint Pain and No Skin Rash
Vital Signs / Physical Exam
Vital Signs
Vital Signs
Temp Pulse Resp BP Pulse Ox
98.4 F 89 14 104/55 92
08/18/24 11:00 08/18/24 11:00 08/18/24 11:00 08/18/24 11:00 08/18/24 12:09
Physical Exam
Constitutional: Acutely Ill and Obese
Cardiovascular: Regular Rate and S1/S2; Negative Murmur, Rub or Gallop
Pulmonary: Clear; Negative Wheezes, Rales or Rhonchi
Gastrointestinal: Other (Patient refused.)
Genito-Urinary: Hsu and Other (Hemorrhagic collection in the bag)
Extremities: Negative Edema
Skin: Warm
Neurological: Awake and Alert
Psychological: Calm
Objective Data
Lab Data
Lab Results
08/18/24 07:14
08/18/24 07:14
Estimated Creat Clear 93 ml/min 08/18/24 07:14
Lactic Acid 0.8 mmol/L (0.7-2.0) 08/16/24 01:34
Total Bilirubin 0.5 mg/dl (0.2-1.3) 08/17/24 06:29
AST 32 U/L (14-36) 08/17/24 06:29
ALT 33 U/L (0-35) 08/17/24 06:29
Alkaline Phosphatase 135 U/L (38-126) H 08/17/24 06:29
Most recent labs reviewed.
Micro Results:
08/17/24 11:00 Urine Culture - Preliminary
Urine Yeast
08/15/24 17:24 Urine Culture - Final
Urine Briana albicans
08/15/24 17:16 Blood Culture - Preliminary
Blood/Venous No Growth in 48 hours- Final report to follow
08/15/24 17:16 Blood Culture - Preliminary
Blood/Venous No Growth in 48 hours- Final report to follow
[2024-08-18 14:12] LABS: B-Hydroxybutyrate 0.08 mmol/L (0.02-0.27)
--- NOTE | 2024-08-18 14:13 | PN.CDI ---
CDI
- -
CDI:
Physician Documentation Request
Admit Date: 08/15/24 20:35
Dear Doctor Helder
Patent presented on 08/07/24 with obstructing stone. She was taken to OR (08/07)and a right ureteral stent was placed.
Patient presented on 08/15 with sepsis/UTI. On 08/17 patient was taken to OR for cystoscopy, right retrograde pyelogram, right ureteroscopy with stone extraction and stent replacement.
Please clarify if a relationship exist between these conditions:
Yes, sepsis/uti is related to/associated with/due to ureteral stent (from 08/07).
No, sepsis is not related to/associated with/due to ureteral stent.
Unable to determine
Use of terms such as suspected, likely, concern for, or probable (associated with a specific diagnosis that is being evaluated, monitored, or treated as if it exists) are acceptable and can be coded in the inpatient setting, when documented at the
time of discharge.
Thank you,
Saira Barker RN, BSN
CDI Specialist
Senath text
Please use your independent medical judgment in providing your response.
[2024-08-18 15:05] VITALS: BP 120/62
[2024-08-18 16:25] LABS: Glucose - Point of Care 140 mg/dl (70-99)
[2024-08-18 19:17] VITALS: BP 151/79
[2024-08-18] MEDS: CYMBALTA DELAYED RELEASE 60 MG PO (21:07)
[2024-08-18] MEDS: NORVASC 10 MG PO (21:07)
[2024-08-18] MEDS: ASPIR LOW (ENTERIC COATED) 81 MG PO (21:07)
[2024-08-18] MEDS: COZAAR 100 MG PO (21:07)
[2024-08-18] MEDS: DESYREL 150 MG PO (21:08)
[2024-08-18 21:26] LABS: Glucose - Point of Care 191 mg/dl (70-99)
[2024-08-18 23:03] VITALS: BP 117/78
--- NOTE | 2024-08-19 00:15 | PTCARENOTE ---
Pt pulseox 85% on 2L nc. Pt put on 6L nc. pt desating to 75%. Respiratory at bedside, pt put on 10L midflow. Pt sating 95%. susanne De La Cruz notified and at bedside. Labs and neb treatment ordered. CXR ordered for AM. Will continue with current plan.
[2024-08-19] MEDS: DILAUDID 1 MG IV ×4 (00:20→22:30)
[2024-08-19 01:43] LABS: COVID-19 Antigen Negative (Negative)
[2024-08-19] MEDS: VENTOLIN NEBULES 2.5 MG INH (01:58)
[2024-08-19 02:04] LABS: Hematocrit 28.4 % (37.0-47.0); Hemoglobin 9.3 g/dL (12.0-16.0); Mean Corp Hgb Conc. 32.7 g/dL (33.0-37.0); Mean Corpuscular Hgb 24.4 pg (27.0-31.0); Mean Corpuscular Volume 74.5 fL (81.0-99.0); Mean Platelet Volume 9.9 fL (7.4-10.4); Platelet Count 283 10^3/uL (130-400); Red Blood Cell Count 3.81 10^6/uL (4.20-5.40); Red Cell Dist. Width 18.6 % (11.5-14.5); White Blood Cell Count 16.6 10^3/uL (4.8-10.8)
[2024-08-19 02:28] LABS: Blood Urea Nitrogen 18 mg/dl (7-17); Calcium 9.2 mg/dl (8.4-10.2); Carbon Dioxide 21 mmol/L (22-30); Chloride 103 mmol/L (98-107); Estimated Creatinine Clearance 93 ml/min; Glucose 142 mg/dl (70-99); Potassium 4.1 mmol/L (3.5-5.1); Sodium 135 mmol/L (135-145); eGFR > 60.00
--- NOTE | 2024-08-19 02:32 | W.PN.UPDATE ---
Update Note
Progress Note Update
RN notified [employer] patient oxygen level dropped to 86% on 6L, RT placed her on Midflow now sat at 94%
Patient seen and evaluated, Patient denies any shortness of breath, or chest pain,117/78, HR 90, 18, 98.2, O2 sat 97% on Midflow, IRIZARRY (baseline). AAOx3, Conversant, Lungs diminished, obese, Hsu in place, hematuria noted, per nursing, hematuria is
there since post stent placement. Checked Covid it is negative, labs done noted hgb drop to 9.3 from 11.6, Notified Urologist vacuum evaporation operator, no further intervention at this moment.
Hypoxia likely due to hematuria, anemia, or Narcotics.
Will add CBC in AM, Chest Xray in AM.
[2024-08-19 03:31] VITALS: BP 121/66
[2024-08-19 07:00] VITALS: BP 133/74
[2024-08-19 07:39] LABS: Glucose - Point of Care 116 mg/dl (70-99)
[2024-08-19] MEDS: NOVOLOG FLEXPEN-HIGH RESISTANCE 1 UNITS SC ×3 (08:12→17:10)
[2024-08-19] MEDS: COLACE 100 MG PO ×2 (08:12→20:14)
[2024-08-19] MEDS: DIFLUCAN 400 MG PO (08:12)
[2024-08-19] MEDS: ROXICODONE 10 MG PO ×2 (08:13→14:24)
[2024-08-19] MEDS: MIRALAX 17 GRAMS PO (08:13)
[2024-08-19] MEDS: TOPROL XL 100 MG PO ×2 (08:14→20:24)
--- NOTE | 2024-08-19 08:23 | W.PN.HOSP.TC ---
Today's Communication/Plan
-
EKG is stable
Encourage IS, wan down O2
Assessment / Plan
Assessment / Plan
Physical Exam
General: Other (53y F in mild distress due to pain / discomfort.)
HEENT: dry mucous membranes, PERRLA and Other (Thick neck.)
Respiratory: Clear; No Wheezes, Rales or Rhonchi
Cardiac: S1/S2
GI: not distended.
Genito-urinary: No hematuria noted.
Musculoskeletal: No Clubbing, No Cyanosis and No Edema
Neuro: AO x 3, she followed commands
Psych: calm , no agitation
Patient is a 53y F with PMH significant for chronic pain syndrome, hypertension and DM-II who presents to ED complaining of R abdominal pain and flank pain with fever / chills, N/V at home.
# Acute right Pyelonephritis
Sepsis with UTI, tachycardia, lactic acidosis, leukocytosis. No hypotension
Afebrile this morning
WBC is coming down
cefepime was stopped
Fluconazole 400 mg QD
Lactic acid normalize
No growth on blood culture
Urine showing karen albicans, re-testing urine showing same
Last urine culture was streptococcus agalactiae, Given IV ampicillin
Started on Fluconazole on 08/17. EKG 11/19 stable QT
Appreciate urology & ID help
# Acute blood loss anemia due to hematuria
monitor
No hypotension
No gross hematuria noted
# Acute hypoxic respiratory insufficiency due to atelectasis
Out of bed protocol
Chest x ray, atelectasis
Encourage incentive spirometry
Wean down nasal O2
# Chronic Pain Syndrome
Chronic Opioid Dependence
- Chronic source of pain is reportedly lumbar DDD.
- Followed as an outpatient by Dr. Mccray.
- Continue oxycodone PRN moderate pain.
- Added Dilaudid for acute / severe pain.
- Titrate to lowest effective dosing as acute issues improve.
Benign Hypertension
HTN urgency
- Multidrug regimen for hypertension.
- BP elevated in the ED - likely due to pain / discomfort.
- Continue usual outpatient medications with holding parameters. Added PRN oral hydralazine
# anion gap metabolic acidosis,
seems to resolve
Holding metformin
Normal Beta- hydroxybutyrate level
c/w Lantus, change to high dose ISS
Consult hematology nurse educator.
DM-II
- Stable. Hold PO medication acutely.
- Follow glucose and cover with SSI as needed.
- A1C during recent admission was 8.6%.
Will benefit from Lantus
ASCVD / Prior CVA
- No current focal symptoms or complaints.
- Continue ASA daily -
Held Plavix acutely in the event that she requires additional Urologic intervention. will ask urology if ok to resume
- Continue BP control as noted above.
Multiple Sclerosis
- Chronic / stable. Not on active treatment.
- Follow-up with Neurology as an outpatient.
Anxiety / Depression
- Stable. Continue HS trazodone and duloxetine.
- Ativan PRN for now. Caution with chronic combination of opioids and BZDs.
- Follow-up with outpatient providers after discharge.
Obesity due to excess calories
- Affects all aspects of care.
- Encourage healthy diet and increased activity with goal of weight loss.
DVT Prophylaxis: SCDs
Code Status: Full
Total time spent to see the patient, examine the patient on the floor, review data and lab results, discuss treatment plan with patient, urologist, nursing staff around 55 minutes
Anticipated Discharge: Within 24 hours
Subjective/Interval History
-
Date of Service: August 19, 2024
No abd pain
Hypoxia over night
Objective Data
-
Labs:
Laboratory Results
08/19/24 08/19/24
01:57 06:00
WBC 16.6 H Pending
Hgb 9.3 L Pending
Hct 28.4 L Pending
Plt Count 283 Pending
Sodium 135
Potassium 4.1
Chloride 103
Carbon Dioxide 21 L
BUN 18 H
Creatinine 0.9
Glucose 142 H
Calcium 9.2
Vital Signs:
Vital Signs
Temp Pulse Resp BP Pulse Ox
97.9 F 81 18 121/66 97
08/19/24 03:31 08/19/24 03:31 08/19/24 03:31 08/19/24 03:31 08/19/24 06:25
I&O
08/18/24 08/19/24 08/20/24
06:59 06:59 06:59
Intake Total 3540 / 3540 1180 / 1180
Output Total 3250 / 3250 3850 / 3850
Balance 290 / 290 -2670 / -2670
[2024-08-19 09:01] LABS: Hematocrit 31.8 % (37.0-47.0); Hemoglobin 10.1 g/dL (12.0-16.0); Mean Corp Hgb Conc. 31.8 g/dL (33.0-37.0); Mean Corpuscular Hgb 24.5 pg (27.0-31.0); Platelet Count 310 10^3/uL (130-400); Red Blood Cell Count 4.13 10^6/uL (4.20-5.40); Red Cell Dist. Width 18.6 % (11.5-14.5); White Blood Cell Count 13.7 10^3/uL (4.8-10.8)
[2024-08-19] MEDS: LANTUS 0.15 UNITS SC (09:07)
--- NOTE | 2024-08-19 09:09 | PTCARENOTE ---
Pt assisted OOB this am into the bathroom to brush teeth and then pt sat in the chair for breakfast. Incentive spirometry discussed with pt by Dr. Schilling and this nurse on use and pt demonstrated how to use. Pt encouraged to sit in the chair this am
as long as possible and to continue to move around to help lungs inflate and hopefully be able to wean off O2. Pt was at 5L of midflow before getting OOB, but pt now on 2L and pox is 92%. Will continue to monitor pt's progress.
--- NOTE | 2024-08-19 09:23 | W.PN.ID1 ---
Addendum entered and electronically signed by Jaki Sheridan MD 08/19/24 16:44:
I saw and evaluated the patient. I reviewed the resident�s note and agree with findings and plan as documented in the resident�s note with the following additions/exceptions:
SOAP
S:
afebrile
bp stable
'I feel better'
flank pain much improved
O:
VSS
Physical Exam
Constitutional: NAD
Cardiovascular: Regular Rate and S1/S2; Negative Murmur, Rub or Gallop
Pulmonary: Clear to auscultation BL; Negative Wheezes, Rales or Rhonchi
Gastrointestinal: Soft, Non Tender, Nondistended
Genito-Urinary: Hsu with hematuria, no suprapubic Tenderness, resolved CVA Tenderness
Psychological: Calm
Labs reviewed:
08/15 urine culture 25K c albicans
08/17 urine culture from R renal pelvis: c albicans
QTc 436
AP
Pyelonephritis
Recent UTI due to GBS
S/p Cystoscopy, right retrograde pyelogram, right ureteroscopy with stone extraction, stent replacement 08/17
- urine culture from renal pelvis with 100K yeast consistent with pyelonephritis
- 25K yeast in the peripheral urine before obstruction moved noted, c albicans
- blood cultures remain no growth to date
- QTc remains acceptable
- continue fluconazole 400 mg PO qday x14 days, if stent removed after completion of therapy, would give a dose of fluconazole on am of procedure
Transient overnight hypoxemia in obese female with heroic snoring per family, querry bettina. suggest outpatient follow up with sleep medicine.
AW
Original Note:
Date of Service
Date of Service: August 19, 2024
Today's Communication
Fluconazole 400 mg-day 2.
Assessment / Plan
Assessment-
Subjective-improving flank pain, lower abdominal pain. Resolved with nausea.
Objective- WBC count-19.7 on 08/15--14.0 on 08/17, at 18.2 on 08/18, 13.1 as of today.. Hemoglobin-10.3, decreased MCV-microcytic anemia, left shift upon arrival to the hospital. Low carbon dioxide at 21, acidosis improved from yesterday (CO2-14).
Elevated blood urea nitrogen at 20, lactic acid-2.2 on 08/15, resolved on 08/16-0.8, alkaline phosphatase elevated-33. Urine cultures were positive for yeast-25,000 CFU.
Repeat urine cultures from right renal pelvis 100,000 colony-forming units of yeast
Blood cultures no growth in [address] abdomen evident for pyelonephritis, patient was on ampicillin, cefepime and a single dose of fluconazole given.
Single dose of gentamicin also given before the procedure.
Plan-
Pyelonephritis-
Urine cultures were positive for yeast-25,000 colony-forming units. Repeat urine culture obtained today before the procedure.
Patient has undergone stent change, Hsu change and stone retrieval in the a.m. today. Feeling much better after the procedure.
Even though there were no 100,000 colony-forming units, due to her multiple urological procedures I recommend treating her with fluconazole. Fluconazole 400 mg once a day-day 2. QTc interval within normal limits.
Patient is on multiple medications that can interact with fluconazole and cause QT prolongation. Fluconazole can increase the serum concentrations of oxycodone and alprazolam. She is also on ondansetron and trazodone which can increase QT
prolongation.
Hence added an urgent EKG for baseline QTc evaluation before administration of fluconazole.
Cefepime course finished for 12 days. Stop cefepime,
ID will continue to follow closely.
Chief Complaint
-: Other
Subjective / Review of Systems
An episode of fever overnight, patient was hypoxic on 6 L nasal cannula flow with a saturation of 86%, and was switched to mid flow nasal cannula at 6 L and saturation improved to 94%. Today, when I was on bedside she was on low-flow nasal cannula
at 2 L.
She reports to have flank pain that improved to 3-/10. Still radiating into her abdomen and suprapubic area.
Review of Systems: No Fever, No Chills, No Chest Pain, No Palpitations, Abdominal Pain and Nausea
Vital Signs / Physical Exam
Vital Signs
Vital Signs
Temp Pulse Resp BP Pulse Ox
97.9 F 82 18 133/74 92
08/19/24 07:00 08/19/24 07:00 08/19/24 07:00 08/19/24 07:00 08/19/24 08:20
Physical Exam
Constitutional: Comfortable and Obese
Cardiovascular: Regular Rate and S1/S2; Negative Murmur, Rub or Gallop
Pulmonary: Clear; Negative Wheezes, Rales or Rhonchi
Gastrointestinal: Soft, Tender (To gentle palpation on right lower quadrant.) and Normal Bowel Sounds
Genito-Urinary: Hsu, Suprapubic Tenderness and Hematuria
Extremities: Negative Edema
Neurological: Awake and Alert
Psychological: Calm
Objective Data
Lab Data
Lab Results
08/19/24 08:39
08/19/24 01:57
Estimated Creat Clear 93 ml/min 08/19/24 01:57
Lactic Acid 0.8 mmol/L (0.7-2.0) 08/16/24 01:34
Total Bilirubin 0.5 mg/dl (0.2-1.3) 08/17/24 06:29
AST 32 U/L (14-36) 08/17/24 06:29
ALT 33 U/L (0-35) 08/17/24 06:29
Alkaline Phosphatase 135 U/L (38-126) H 08/17/24 06:29
Most recent labs reviewed.
Chest X-Ray: Image Reviewed and Report Reviewed
CT Scan: Image Reviewed and Report Reviewed
Microbiology: Report Reviewed
Micro Results:
08/17/24 11:00 Urine Culture - Final
Urine Briana albicans
08/15/24 17:16 Blood Culture - Preliminary
Blood/Venous No Growth in 72 hours- Final report to follow
08/15/24 17:16 Blood Culture - Preliminary
Blood/Venous No Growth in 72 hours- Final report to follow
08/15/24 17:24 Urine Culture - Final
Urine Briana albicans
Retrograde pyelogram report reviewed.
--- NOTE | 2024-08-19 10:08 | PN.CDI ---
Addendum entered and electronically signed by Roge Schilling MD 08/19/24 11:54:
Acute hypoxic respiratory failure/ insufficiency due to atelectasis
Original Note:
CDI
- -
CDI:
Physician Documentation Request
Admit Date: 08/15/24 20:35
Dear Doctor Tonie,
08/19 Nurses note state 'Pt pulse ox 85% on 2L nc. Pt put on 6L nc. pt desating to 75%. Respiratory at bedside, pt put on 10L midflow. Pt sating 95%.'
08/19 hospitalist progress note 'Hypoxia over night '
Please clarify which of the following accurately represents the patient's respiratory status:
Acute respiratory failure (please indicate type )
Hypoxia Only
Other
Additional information for Respiratory Failure:
Recognized criteria for Respiratory Failure (Source: [facility] Sep 2013)
ABGs: (1 or more) Symptoms Please indicate type if known
1. p)2 <60 or RA SPO2 <91% on RA 1. Tachypnea, SOB, dyspnea Hypoxic
2. pCO2 50 and pH <7.35 2. Use of accessory muscles Hypercapnic
3. pO2 decrease of pCO2 increase by 3. Pallor or cyanosis Hypoxic and Hypercapnic
10 mmHg from baseline if known 4. Anxiety or restlessness Unable to determine
5. Unable to speak in full sentences
Supplemental O2 of > 40% (5LPM) Intubation is not required
Use of terms such as suspected, likely, concern for, or probable (associated with a specific diagnosis that is being evaluated, monitored, or treated as if it exists) are acceptable and can be coded in the inpatient setting, when documented at the
time of discharge.
Thank you,
Saira Barker RN, BSN
CDI Specialist
tiger text
Please use your independent medical judgment in providing your response.
--- NOTE | 2024-08-19 10:46 | PN.CDI ---
Addendum entered and electronically signed by Roge Schilling MD 08/19/24 11:55:
Yes, sepsis is related to/associated with/due to karen albicans.
Original Note:
CDI
- -
CDI:
Physician Documentation Request
Admit Date: 08/15/24 20:35
Dear Doctor Tonie,
Progress notes state 'Sepsis with UTI, tachycardia, lactic acidosis, leukocytosis.'
Urine cultures grow karen albicans x 2
Please clarify if a relationship exist between these conditions:
Yes, sepsis is related to/associated with/due to karen albicans.
No,sepsis is not related to/associated with/due to karen albicans
Unable to determine
Use of terms such as suspected, likely, concern for, or probable (associated with a specific diagnosis that is being evaluated, monitored, or treated as if it exists) are acceptable and can be coded in the inpatient setting, when documented at the
time of discharge.
Thank you,
Saira Barker RN, BSN
CDI Specialist
tiger text
Please use your independent medical judgment in providing your response.
[2024-08-19 11:00] VITALS: BP 122/64
[2024-08-19 11:40] LABS: Glucose - Point of Care 139 mg/dl (70-99)
--- NOTE | 2024-08-19 14:48 | PN.DE.MGMTRT ---
Insulin Management
- -
08/19/2024: Diabetes Management Consult
53 year old female with PMH: HTN, T2DM, chronic pain syndrome, who presents to the ED with Right abdominal pain and flank pain with fever / chills, N/V due to Acute right Pyelonephritis/Sepsis with UTI. was taking Glipizide 5 mg BID, Metformin 1000
BID and Ozempic 2mg Q
A1C 8.6% on 07/08, Cr 0.9, eGFR>60
Pt awake, A/O x3, resting in bed, able to discuss diabetes mgt. Family at bedside.
States she does not know if she has a glucose monitor or not and has not been monitoring her blood sugars at home.
She is also unable to report the exact dose of glipizide that she has been taking since discharge from the last hospitalization.
Chart review indicates pt was discharged home on Glipizide 5mg BID, pt thinks hse is taking 10mg BID.
Discussed current A1C and implications of uncontrolled blood sugars as it relates to chronic diabetes related complications.
Her current diabetes regimen includes Lantus 15 units in AM that was started 08/18 and high corrective insulin with meals.
Her Metformin and Glipizide held on admission.
glucose stable and in range, premeal 116 to 140, with a 2AM glucose of 142(V)
Will make no changes to current regimen. Cont Lantus 15 units in AM and High corrective.
Will followup in AM and assess need to resume glipizide at lower dose of 2.5 mg if needed.
Attempted to provide insulin and glucose monitor instructions and pt was not motivated or interested in receiving diabetes education at this time.
Will try again tomorrow. Updates given to pt's Nurse
Diabetes History
- -
Type of Diabetes: 2 requiring insulin
Pre-Admission Diabetes Regimen
08/19/24
01:57
Creatinine 0.9
Insulin Pump Settings
IP Diabetes Regimen
08/18/24 08/18/24 08/19/24
16:24 21:08 01:57
Glucose 142 H
POC Glucose 140 H 191 H
08/19/24 08/19/24
07:37 11:38
Glucose
POC Glucose 116 H 139 H
Patient Education
[2024-08-19 15:42] VITALS: BP 132/68
--- NOTE | 2024-08-19 15:49 | CM ---
Home no needs when stable.
Plan; Home no needs.
[2024-08-19 16:34] LABS: Glucose - Point of Care 144 mg/dl (70-99)
--- NOTE | 2024-08-19 17:44 | W.PN.URO.CBU ---
Today's Communication / Plan
-
Remove howard
Antifungal per ID
Assessment / Plan
-
53F admitted with recurrent sepsis/pyelonephritis following initial stent placement
s/p ureteroscopy on 08/17 to remove stone and stent replaced
Followed by ID for candiduria
- Continue antifungal course per ID recs
- Dose of fluconazole at time of stent removal per ID
- Mild hematuria persistent but improved today. Howard catheter removed
- Stable for discharge from urology standpoint tomorrow
- Okay to resume antiplatelet 08/20
- Outpatient follow up with Dr. Pendleton for stent removal
Diagnosis
-
Date of Service: August 19, 2024
-
Patient Diagnosis:
R ureteral stone
sepsis
s/p ureteroscopy and stent exchange 08/17/24
Subjective
-
feeling better today
hematuria improving
Objective
-
Vital Signs
Temp Pulse Resp BP Pulse Ox
97.7 F 68 20 132/68 94
08/19/24 15:42 08/19/24 15:42 08/19/24 15:42 08/19/24 15:42 08/19/24 15:42
Intake and Output
08/18/24 08/19/24 08/20/24
06:59 06:59 06:59
Intake Total 3540 / 3540 1180 / 1180
Output Total 3250 / 3250 3850 / 3850
Balance 290 / 290 -2670 / -2670
Intake:
Oral fluids 1440 / 1440 1180 / 1180
IV fluids (Total) 1350 / 1350
Normosol 150 / 150
IV piggybacks 750 / 750
Output:
Urine, Howard 3250 / 3250 3850 / 3850
Laboratory Results
08/19/24 08:39
08/19/24 01:57
Physical Exam
-
General - well developed, well nourished, no acute distress
Chest - clear bilaterally
Abdomen - soft, non-tender
Howard in place, light red urine no clots
[2024-08-19] MEDS: Pyridium 200 MG PO (18:16)
[2024-08-19] MEDS: XANAX 0.5 MG PO (18:16)
--- NOTE | 2024-08-19 18:28 | PTCARENOTE ---
Hsu cath removed without difficulty. Pt instructed on measuring urine when going in the bathroom. Pt c/o 'a lot of pain'. Pt encouraged to not use Dilaudid since it affects her breathing status and she was quite hypoxic last night. Pt has done so
well ambulating in the halls today and sitting in the chair for meals. Pt said, ' I feel like I'm being punished.' Stated that I was not punishing her, I am just trying to prevent any further breathing issues for her. Stated, 'You have done so well
today. You are off the O2 and using your IS.' Pt medicated with Dilaudid 1 mg IV as requested. Encouraged continued IS use.
[2024-08-19 19:39] VITALS: BP 130/70
[2024-08-19] MEDS: ASPIR LOW (ENTERIC COATED) 81 MG PO (20:48)
[2024-08-19] MEDS: COZAAR 100 MG PO (20:49)
[2024-08-19] MEDS: CYMBALTA DELAYED RELEASE 60 MG PO (20:49)
[2024-08-19] MEDS: DESYREL 150 MG PO (20:49)
[2024-08-19] MEDS: NORVASC 10 MG PO (20:49)
[2024-08-19 21:27] LABS: Glucose - Point of Care 193 mg/dl (70-99)
[2024-08-19 23:00] VITALS: BP 147/73
[2024-08-20] MEDS: DILAUDID 1 MG IV (02:55)
[2024-08-20] MEDS: XANAX 0.5 MG PO (02:56)
[2024-08-20 03:22] VITALS: BP 153/81
[2024-08-20 07:30] VITALS: BP 138/81
--- NOTE | 2024-08-20 08:10 | W.PN.URO.CBU ---
Addendum entered and electronically signed by Davion Camp MD 08/25/24 10:05:
The sepsis on admission is likely associated with distal migration of previously placed ureteral stent, along with prior infection and antibiotic use
Original Note:
Today's Communication / Plan
-
Continue antifungal per ID
Outpatient stent removal
Assessment / Plan
-
53F admitted with recurrent sepsis/pyelonephritis following initial stent placement
s/p ureteroscopy on 08/17 to remove stone and stent replaced
Followed by ID for candiduria
- Continue antifungal course per ID recs
- Dose of fluconazole at time of stent removal per ID
- Mild hematuria persistent but without clots after howard removal yesterday
- Stable for discharge from urology standpoint today
- Okay to resume antiplatelet
- Outpatient follow up with Dr. Pendleton for stent removal
Diagnosis
-
Date of Service: August 20, 2024
-
Patient Diagnosis:
R ureteral stone
sepsis
s/p ureteroscopy and stent exchange 08/17/24
Subjective
-
some persistent hematuria but without clots
Objective
-
Vital Signs
Temp Pulse Resp BP Pulse Ox
97.8 F 78 16 138/81 93
08/20/24 07:30 08/20/24 07:30 08/20/24 07:30 08/20/24 07:30 08/20/24 07:30
Intake and Output
08/19/24 08/20/24 08/21/24
06:59 06:59 06:59
Intake Total 1180 / 1180 360 / 360
Output Total 3850 / 3850 2475 / 2475
Balance -2670 / -2670 -2114 / -2114
Intake:
Oral fluids 1180 / 1180 360 / 360
Output:
Urine, Howard 3850 / 3850 1475 / 1475
Urine, Voided 1000 / 1000
Laboratory Results
08/19/24 08:39
08/19/24 01:57
Physical Exam
-
General - well developed, well nourished, no acute distress
Chest - clear
Abdomen - soft, non-tender
Skin - warm & dry with no rash
Neuro - AOx3
[2024-08-20 08:29] LABS: Glucose - Point of Care 159 mg/dl (70-99)
[2024-08-20] MEDS: NOVOLOG FLEXPEN-HIGH RESISTANCE 2 UNITS SC (08:29)
[2024-08-20] MEDS: DIFLUCAN 400 MG PO (08:30)
[2024-08-20] MEDS: COLACE 100 MG PO (08:30)
[2024-08-20] MEDS: TOPROL XL 100 MG PO (08:31)
[2024-08-20] MEDS: LANTUS 0.15 UNITS SC (08:31)
[2024-08-20] MEDS: MIRALAX PO (08:32)
--- NOTE | 2024-08-20 08:52 | W.PN.HOSP.TC ---
Addendum entered and electronically signed by Roge Schilling MD 08/20/24 15:38:
Addendum
Patient was given work note, to return to work on 08/30/24 as she requested.
End
Original Note:
Today's Communication/Plan
-
Discharge today
Assessment / Plan
Assessment / Plan
Physical Exam
General: Other (53y F in mild distress due to pain / discomfort.)
HEENT: dry mucous membranes, PERRLA and Other (Thick neck.)
Respiratory: Clear; No Wheezes, Rales or Rhonchi
Cardiac: S1/S2
GI: not distended.
Genito-urinary: No hematuria noted.
Musculoskeletal: No Clubbing, No Cyanosis and No Edema
Neuro: AO x 3, she followed commands
Psych: calm , no agitation
Patient is a 53y F with PMH significant for chronic pain syndrome, hypertension and DM-II who presents to ED complaining of R abdominal pain and flank pain with fever / chills, N/V at home.
# Acute right Pyelonephritis
Sepsis with UTI, tachycardia, lactic acidosis, leukocytosis. No hypotension
Afebrile
Sepsis resolved, good stable vital signs.
WBC is coming down
cefepime was stopped
Fluconazole 400 mg QD
Lactic acid normalize
No growth on blood culture
Urine showing karen albicans, re-testing urine showing same
Last urine culture was streptococcus agalactiae, Given IV ampicillin
Started on Fluconazole on 08/17. EKG 11/19 stable QT. Per ID doctor : continue fluconazole 400 mg PO qday x14 days, if stent removed after completion of therapy, would give a dose of fluconazole on am of procedure.
I d/w urologist Dr Camp ok to dc and f/w office for stentremoval.
Appreciate urology & ID help
# Acute blood loss anemia due to hematuria
monitored
HGB around 10 upon dc.
No hypotension
No gross hematuria noted
# Acute hypoxic respiratory insufficiency due to atelectasis
Resolved.
Chest x ray, atelectasis
Encourage incentive spirometry
# Chronic Pain Syndrome
Chronic Opioid Dependence
- Chronic source of pain is reportedly lumbar DDD.
- Followed as an outpatient by Dr. Mccray.
- Continue oxycodone PRN moderate pain.
- Added Dilaudid for acute / severe pain.
Benign Hypertension
HTN urgency, resolved.
- Multidrug regimen for hypertension.
- BP elevated in the ED - likely due to pain / discomfort.
- Continue usual outpatient medications with holding parameters. Added PRN oral hydralazine
# anion gap metabolic acidosis,
Resolving.
Holding metformin
Normal Beta- hydroxybutyrate level
c/w Lantus, changed to high dose ISS
Consulted informatics educator.
DM-II
- Stable. Hold PO medication acutely.
- Follow glucose and cover with SSI as needed.
- A1C during recent admission was 8.6%.
Will benefit from Lantus
ASCVD / Prior CVA
- No current focal symptoms or complaints.
- Continue ASA daily -
Held Plavix acutely in the event that she requires additional Urologic intervention. will ask urology if ok to resume
- Continue BP control as noted above.
Multiple Sclerosis
- Chronic / stable. Not on active treatment.
- Follow-up with Neurology as an outpatient.
Anxiety / Depression
- Stable. Continue HS trazodone and duloxetine.
- Ativan PRN for now. Caution with chronic combination of opioids and BZDs.
- Follow-up with outpatient providers after discharge.
Obesity due to excess calories
- Affects all aspects of care.
- Encourage healthy diet and increased activity with goal of weight loss.
DVT Prophylaxis: SCDs
Code Status: Full
Total discharge time spent to see the patient, examine the patient on the floor, review data and lab results, discuss discharge plan with patient, urologist, nursing staff around 65 minutes
Anticipated Discharge: Today
Subjective/Interval History
-
Date of Service: August 20, 2024
No flank pain
No fever
No chest pain
No hypoxia
Objective Data
-
Vital Signs:
Vital Signs
Temp Pulse Resp BP Pulse Ox
97.8 F 78 16 138/81 93
08/20/24 07:30 08/20/24 07:30 08/20/24 07:30 08/20/24 07:30 08/20/24 07:30
I&O
08/19/24 08/20/24 08/21/24
06:59 06:59 06:59
Intake Total 1180 / 1180 360 / 360
Output Total 3850 / 3850 2475 / 2475
Balance -2670 / -0 -2114 / -2114
--- NOTE | 2024-08-20 09:47 | W.PN.ID1 ---
Addendum entered and electronically signed by Reema Poe MD 08/20/24 16:43:
I saw and evaluated the patient. I reviewed the resident�s note and agree with findings and plan as documented in the resident�s note except pt should be discharged on oral fluconazole (not cefepime as written).
A/P:
Pyelonephritis
Recent UTI due to GBS
S/p Cystoscopy, right retrograde pyelogram, right ureteroscopy with stone extraction, stent replacement 08/17
- urine culture from renal pelvis with 100K yeast consistent with pyelonephritis
- 25K yeast in the peripheral urine before obstruction moved noted, c albicans
- blood cultures remain no growth to date
- QTc remains acceptable
- continue fluconazole 400 mg PO qday x14 days through 08/31/24.
- if stent removed after completion of therapy, give a dose of fluconazole on am of procedure
Original Note:
Date of Service
Date of Service: August 20, 2024
Today's Communication
Continue oral cefepime through 08/31/2024.
Stable for discharge from ID perspective.
Assessment / Plan
Assessment-
Subjective-improving flank pain, lower abdominal pain. Resolved with nausea.
Objective- WBC count-19.7 on 08/15--14.0 on 08/17, at 18.2 on 08/18, 13.1 as of today.. Hemoglobin-10.3, decreased MCV-microcytic anemia, left shift upon arrival to the hospital. Low carbon dioxide at 21, acidosis improved from yesterday (CO2-14).
Elevated blood urea nitrogen at 20, lactic acid-2.2 on 08/15, resolved on 08/16-0.8, alkaline phosphatase elevated-33. Urine cultures were positive for yeast-25,000 CFU.
Repeat urine cultures from right renal pelvis 100,000 colony-forming units of yeast
Blood cultures no growth in [address] abdomen evident for pyelonephritis, patient was on ampicillin, cefepime and a single dose of fluconazole given.
Single dose of gentamicin also given before the procedure.
Plan-
Pyelonephritis-
Urine cultures were positive for yeast-25,000 colony-forming units. Repeat urine culture obtained today before the procedure.
Patient has undergone stent change, Hsu change and stone retrieval in the a.m. today. Feeling much better after the procedure.
Even though there were no 100,000 colony-forming units, due to her multiple urological procedures I recommend treating her with fluconazole. Fluconazole 400 mg once a day-day 2. QTc interval within normal limits.
Patient is on multiple medications that can interact with fluconazole and cause QT prolongation. Fluconazole can increase the serum concentrations of oxycodone and alprazolam. She is also on ondansetron and trazodone which can increase QT
prolongation.
Hence added an urgent EKG for baseline QTc evaluation before administration of fluconazole.
Cefepime course finished for 12 days - to be stopped on 08/31/24.
Chief Complaint
-: Other
Subjective / Review of Systems
Review of Systems: No Fever, No Chills, No Headache, No Cough, No Palpitations, No Abdominal Pain, No Nausea, No Diarrhea, No Dysuria and No Skin Rash
Vital Signs / Physical Exam
Vital Signs
Vital Signs
Temp Pulse Resp BP Pulse Ox
97.8 F 78 16 138/81 93
08/20/24 07:30 08/20/24 07:30 08/20/24 07:30 08/20/24 07:30 08/20/24 07:30
Physical Exam
Constitutional: No Acute Distress and Obese
Cardiovascular: Regular Rate and S1/S2; Negative Murmur, Rub or Gallop
Pulmonary: Clear; Negative Wheezes, Rales or Rhonchi
Gastrointestinal: Soft, Non Tender, Non Distended and Normal Bowel Sounds
Genito-Urinary: Hsu; Negative Suprapubic Tenderness or CVA Tenderness
Extremities: Negative Edema
Skin: Warm
Neurological: Awake
Objective Data
Lab Data
Lab Results
08/19/24 08:39
08/19/24 01:57
Estimated Creat Clear 93 ml/min 08/19/24 01:57
Lactic Acid 0.8 mmol/L (0.7-2.0) 08/16/24 01:34
Total Bilirubin 0.5 mg/dl (0.2-1.3) 08/17/24 06:29
AST 32 U/L (14-36) 08/17/24 06:29
ALT 33 U/L (0-35) 08/17/24 06:29
Alkaline Phosphatase 135 U/L (38-126) H 08/17/24 06:29
Most recent labs reviewed.
Chest X-Ray: Image Reviewed and Report Reviewed
CT Scan: Image Reviewed and Report Reviewed
Microbiology: Report Reviewed
Micro Results:
08/15/24 17:16 Blood Culture - Preliminary
Blood/Venous No Growth in 4 days- Final report to follow
08/15/24 17:16 Blood Culture - Preliminary
Blood/Venous No Growth in 4 days- Final report to follow
08/17/24 11:00 Urine Culture - Final
Urine Briana albicans
08/15/24 17:24 Urine Culture - Final
Urine Briana albicans
Retrograde pyelogram report reviewed.
[2024-08-20] MEDS: ROXICODONE 10 MG PO (10:08)
[2024-08-20 11:08] VITALS: BP 153/82
--- NOTE | 2024-08-20 11:15 | PN.DE ---
Diabetes Education
- -
08/20/2024: Diabetes Education:
Met with Elena this morning at bedside for Glucose monitor and Insulin instructions.
Elena has chronic T2DM but has not been checking her blood sugars nor taking her diabetes medications. Her current A1C is 8.6%
Provided with the Contour Next Ez glucose meter. Reviewed proper testing technique for obtaining a blood glucose sample, new testing pattern given BID and expected results as noted in take home education booklet. Discussed action of long acting
insulins as well as symptoms and treatment of hypoglycemia.
Aware to inject Long acting insulin in abdomen or outer thigh, rotating sites. Aware to store insulin pens that are not in use in the refrigerator. Instructions with good return demonstration using the glucometer and insulin pen were noted and
result of 332 mg/dl 1 hour after breakfast noted.
Discussed importance of checking blood sugars 2x/day to assess food/medication effect on her BS, reducing CHO intake and being active.
Elena was provided with information and handout on outpt education classes.
A dietary consult was placed for her to receive dietary counseling for a diabetic diet.
Will need RX for test strips and lancets for the Contour Next Ez glucometer, testing 2x/day, and Glargine as well as BD Aidee pen needles at discharge.
All supplies have been added to her ambulatory orders.
--- NOTE | 2024-08-20 11:25 | CM ---
Home no needs.
Plan; Home no needs.
[2024-08-20] MEDS: NOVOLOG FLEXPEN-HIGH RESISTANCE 4 UNITS SC (12:55)
[2024-08-20 12:56] LABS: Glucose - Point of Care 201 mg/dl (70-99)
--- NOTE | 2024-08-20 14:30 | W.DCSUMMARY ---
Discharge Summary
Discharge Data
Date of Admission: 08/15/24
Date of Discharge: 08/20/24
-
Pending Results: No
Hospital Course
53 years old female presented with abdominal pain, vomiting, low grade fever and chills. Patient was found to have sepsis and right pyelonephritis. Patient had Cystoscopy, right ureteral stent placement, right ureteral stone manipulation on
08/07/[address] Camp for right ureteral stone and UTI. Scan of the abdomen & pelvis showed that right ureteral stent was not present, with superior pigtail at the right ureteropelvic junction and inferior pigtail within the left inferior bladder
lumen, 4.5 mm calculus adjacent to the proximal pigtail, moderate diffuse right calyceal dilation with mild dilation of the right renal pelvis and of the right ureter extending to the level of the distal right ureter. Patient received intravenous
antibiotics. She was evaluated by urologist. She had significant right flank pain and was given pain medicine. Patient was taken to the OR she had stone removal with exchange of stent by Dr. Diaz on 08/17/2024. She tolerated procedure well.
Repeat urine culture was consistent with Briana albicans infection. Blood culture did not show any growth. She was evaluated by infectious disease doctor. Patient was given fluconazole therapy. QT interval remained stable on EKG. She was
advised to cut back on her sedative/narcotic to avoid oversedation caused by fluconazole, she verbalized understanding. Patient did not have recurrent fever. Leukocytosis started to come down. Hyperglycemia was managed with insulin therapy.
hardware supplies sales representative was consulted. Patient was started on long-acting insulin Lantus. Hemoglobin A1c was 8.6 in July,. Patient was noticed to have metabolic acidosis, metformin was stopped. Patient had transient hypoxemia secondary to
atelectasis due to acute illness, use of pain medication/opioid and limited mobility in the hospital. She was encouraged to use incentive spirometry and hypoxia resolved. Chest radiography did not show infiltrate or pleural effusion. Patient was
encouraged to ambulate and out of bed protocol implemented. She remained hemodynamically stable and was discharged home in a stable condition. Patient was given instructions regarding use of fluconazole. She was instructed to follow-up with
urology for stent removal.
Discharge Plan
-
Patient Disposition: Home (Routine Discharge)
Discharge Diagnosis/Procedures: Recurrent sepsis/pyelonephritis following initial stent placement, right side. S/p ureteroscopy on 08/17 to remove stone and stent replaced. Take fluconazole daily for 12 days ) keep two tables to be used on day of
stent removal and next day only.
Date of admission to the hospital: August 15, 2024
Date of discharge from the hospital: August 20, 2024
Diet: As tolerated and Diabetic, Carb Controlled
Activity Restrictions/Additional Instructions:
Call the urology office at [phone] to schedule stent removal with Dr. Pendleton
Take a final dose of the antifungal medication 1-2 hours prior to the stent removal procedure
Referrals:
Donald Plaza DO [Family Provider] -
Sanjiv Pendleton Jr., MD [Active] - in one week
Prescriptions:
New
(DME) Contour Next Test Strips Strip
Qty: 60 0RF
Rx Instructions:
Pt Testing 2 times a day
(DME) lancets [Microlet Lancet] Misc
Qty: 60 0RF
Rx Instructions:
Pt testing 2 times a day
(DME) pen needle, diabetic [BD Ultra-Fine Aidee Pen Needle] 32 gauge x 5/32' Needle
Qty: 30 0RF
Rx Instructions:
TAKE LANTUS DAILY AT BEDTIME
fluconazole 200 mg Tablet
400 mg PO DAILY Qty: 14 0RF
insulin glargine [Lantus Solostar U-100 Insulin] 100 unit/mL (3 mL) insulin pen
15 unit SC DAILY Qty: 15 0RF
Continued
metoprolol succinate 100 MG tablet extended release 24 hr
100 mg PO BID Qty: 0
duloxetine 60 MG capsule,delayed release(DR/EC)
60 mg PO HS
clopidogrel 75 MG tablet
75 mg PO HS
amlodipine 10 MG tablet
10 mg PO HS
polyethylene glycol 3350 [Miralax] 17 gram Powder In Packet
17 g PO DAILY
glipizide 10 mg tablet
10 mg PO BIDWMEAL
aspirin 81 mg Tablet,Delayed Release (Dr/Ec)
81 mg PO HS
oxycodone-acetaminophen 10-325 mg tablet
1 tab PO QID
Patient Comments:
08/15/2024: last filled 07/15/24, 120 tabs for 30 days from [facility]
docusate sodium [Stool Softener] 100 mg Capsule
100 mg PO BID
losartan 100 mg tablet
100 mg PO HS
lc-zck-IG-Fx-Hm-hhdgogo-lutein 0.4-162-18 mg Tablet
1 tab PO DAILY
Ozempic 2 mg/dose (8 mg/3 mL) pen injector
2 mg SC TH
albuterol sulfate 2.5 mg /3 mL (0.083 %) solution for nebulization
2.5 mg inhalation R Q4HPRN PRN (Reason: sob/wheezing)
hydralazine 25 mg Tablet
25 mg PO TID
Changed
alprazolam 1 MG tablet
0.5 mg PO HS Qty: 0 0RF
Patient Comments:
08/15/2024: last filled 07/26/24, 90 tabs for 30 days from [facility]
alprazolam 1 mg tablet
0.5 mg PO BIDPRN PRN (Reason: anxiety) Qty: 0 0RF
Patient Comments:
08/15/2024: last filled 07/26/24, 90 tabs for 30 days from [facility]
trazodone 150 MG tablet
150 mg PO HS Qty: 0 0RF
Discontinued
metformin 1,000 MG tablet
1,000 mg PO BIDWMEAL
amoxicillin-pot clavulanate 875-125 mg tablet
1 tab PO Q12H
Discharge Orders:
Discharge Patient (As Directed); Ordered 08/20/24
Ordered By: Roge Schilling
Discharge Date and Time
Print Language: ECUADOREAN
[2024-08-21 15:32] LABS: Stone Analysis Mass 76 mg
--- NOTE | 2024-08-25 10:02 | PN.CDI ---
CDI
- -
CDI:
Physician Documentation Request
Admit Date: 08/15/24 20:35
Dear Doctor Zoë,
Patent presented on 08/07/24 with obstructing stone. She was taken to OR (08/07)and a right ureteral stent was placed.
Patient presented on 08/15 with sepsis/UTI. On 08/17 patient was taken to OR for cystoscopy, right retrograde pyelogram, right ureteroscopy with stone extraction and stent replacement.
Please clarify if a relationship exist between these conditions:
Yes, sepsis/uti is related to/associated with/due to ureteral stent (from 08/07).
No, sepsis is not related to/associated with/due to ureteral stent.
Unable to determine
Use of terms such as suspected, likely, concern for, or probable (associated with a specific diagnosis that is being evaluated, monitored, or treated as if it exists) are acceptable and can be coded in the inpatient setting, when documented at the
time of discharge.
Thank you,
Saira Barker RN, BSN
CDI Specialist
[place] text
Please use your independent medical judgment in providing your response.
== END 2024-08-20 15:39 | disposition home or self-care (01) | DRG 659 ==
LOC: 4 WEST ACU 20:35
PROVIDERS: Nurse Practitioner; Nurse Practitioner Gerontology; ADMITTING PHYSICIAN Hospitalist; ATTENDING PHYSICIAN Internal Medicine; CONSULT PHYSICIAN Specialist; CONSULT PHYSICIAN Student in an Organized Health Care Education/Training Program; EMERGENCY PHYSICIAN Student in an Organized Health Care Education/Training Program; FAMILY PHYSICIAN Family Medicine
PROC: 0TP98DZ Removal of Intraluminal Device from Ureter, Via Natural or Artificial Opening Endoscopic (ICD-10-PCS; 2024-08-17)
PROC: 0TC68ZZ Extirpation of Matter from Right Ureter, Via Natural or Artificial Opening Endoscopic (ICD-10-PCS; 2024-08-17)
PROC: 0T768DZ Dilation of Right Ureter with Intraluminal Device, Via Natural or Artificial Opening Endoscopic (ICD-10-PCS; 2024-08-17)
PROC: 0T9B70Z Drainage of Bladder with Drainage Device, Via Natural or Artificial Opening (ICD-10-PCS; 2024-08-17)
DX: T83.592A Infection and inflammatory reaction due to indwelling ureteral stent, initial encounter (principal); B37.7 Candidal sepsis; J96.01 Acute respiratory failure with hypoxia; F11.20 Opioid dependence, uncomplicated; N13.6 Pyonephrosis; E87.20 Acidosis, unspecified; J98.11 Atelectasis; Z68.41 Body mass index [BMI] 40.0-44.9, adult; D62 Acute posthemorrhagic anemia; K76.0 Fatty (change of) liver, not elsewhere classified; D50.9 Iron deficiency anemia, unspecified; E11.65 Type 2 diabetes mellitus with hyperglycemia; E66.01 Morbid (severe) obesity due to excess calories; F32.A Depression, unspecified; G35 Multiple sclerosis; I10 Essential (primary) hypertension; M45.9 Ankylosing spondylitis of unspecified sites in spine; R16.0 Hepatomegaly, not elsewhere classified; Y73.2 Prosthetic and other implants, materials and accessory gastroenterology and urology devices associated with adverse incidents; E78.00 Pure hypercholesterolemia, unspecified; F41.9 Anxiety disorder, unspecified; G50.0 Trigeminal neuralgia; G89.4 Chronic pain syndrome; I25.10 Atherosclerotic heart disease of native coronary artery without angina pectoris; Z79.82 Long term (current) use of aspirin; Z79.84 Long term (current) use of oral hypoglycemic drugs; Z79.899 Other long term (current) drug therapy; Z87.440 Personal history of urinary (tract) infections; Z87.442 Personal history of urinary calculi; Z86.73 Personal history of transient ischemic attack (TIA), and cerebral infarction without residual deficits; Z87.19 Personal history of other diseases of the digestive system
CPT/HCPCS: 51702; 71045; 74176; 74420; 76000; 80048; 80053; 81003; 81015; 82010; 82365; 82962; 83605; 83735; 85025; 85027; 87040; 87086; 87811; 93005; 94640; 96361; 96374; 96375; 99285; C1758; C1894; C2617

== ENCOUNTER 2024-09-10 23:36 | Inpatient (IN) | payer OTHER, SELFPAY ==
[2024-09-10 19:02] VITALS: BP 194/106
[2024-09-10 19:29] LABS: % Basophils 0.4 % (0-2); % Eosinophils 1.6 % (0-6); % Immature Granulocytes 0.7 % (0-0.5); % Monocytes 7.3 % (1.7-9.3); Absolute Basophils 0.1 10^3/uL (0-0.2); Absolute Eosinophils 0.3 10^3/uL (0-0.7); Absolute Immature Granulocytes 0.1 10^3/uL (0-0.05); Absolute Monocytes 1.1 10^3/uL (0.1-0.6); Absolute Neutrophils 10.7 10^3/uL (1.4-6.5); Hemoglobin 12.8 g/dL (12.0-16.0); Mean Corp Hgb Conc. 33.7 g/dL (33.0-37.0); Mean Corpuscular Hgb 25.4 pg (27.0-31.0); Mean Corpuscular Volume 75.5 fL (81.0-99.0); Mean Platelet Volume 9.8 fL (7.4-10.4); Nucleated Red Blood Cells % 0 %; Platelet Count 315 10^3/uL (130-400); Red Blood Cell Count 5.03 10^6/uL (4.20-5.40); Red Cell Dist. Width 17.5 % (11.5-14.5); White Blood Cell Count 15.2 10^3/uL (4.8-10.8)
[2024-09-10 19:43] LABS: Lactic Acid 1.8 mmol/L (0.7-2.0)
[2024-09-10 19:48] LABS: ALT (SGPT) 27 U/L (0-35); AST (SGOT) 27 U/L (14-36); Albumin 4.8 g/dl (3.5-5.0); Alkaline Phosphatase 140 U/L (38-126); Blood Urea Nitrogen 21 mg/dl (7-17); Calcium 10.2 mg/dl (8.4-10.2); Carbon Dioxide 21 mmol/L (22-30); Chloride 101 mmol/L (98-107); Glucose 140 mg/dl (70-99); Potassium 4.2 mmol/L (3.5-5.1); Sodium 139 mmol/L (135-145); Total Bilirubin 0.5 mg/dl (0.2-1.3); Total Protein 7.9 g/dl (6.3-8.2); eGFR > 60.00
[2024-09-10 19:55] LABS: COVID-19 Antigen Negative (Negative)
[2024-09-10 19:56] LABS: Urine Albumin Negative (Neg - Trace); Urine Bilirubin Negative (Negative); Urine Character Clear (Clear); Urine Color Yellow; Urine Glucose Negative (Negative); Urine Ketone Negative (Negative); Urine Leukocyte 2+ (Negative); Urine Nitrite Negative (Negative); Urine Occult Blood Negative (Negative); Urine Urobilinogen Negative (Neg - 1+)
[2024-09-10 20:10] LABS: Urine White Cell 16-20 /HPF (0-5)
[2024-09-10 20:12] LABS: Urine Red Blood Cell None Seen /HPF (0-2)
--- NOTE | 2024-09-10 20:16 | ED.GENMED ---
History of Present Illness
General
Chief Complaint: Fever
Source: patient
Exam Limitations: none
Time Seen by Provider: 09/10/24 20:02
History of Present Illness
History of Present Illness:
This is a 53 year old female that comes in with c/o fever today of 101. States that she just did not feel good all day. States that she was discharged about 1-2 weeks ago after having urosepsis. States that she had surgery for a kidney stone and had
a stent and the stent was removed. States that she is on prophylactic Nitrofurantoin. States that she had a fever of 101 today with chills, abd pain, nausea and a headache. States that she does have urinary burning. Denies any chest pain, SOB,
vomiting, diarrhea, dizziness.
Past History
Past History
ED Past Medical History: CVA (X 2), GERD, HTN, Hypercholesterolemia, IDDM, Psychiatric (Anxiety, Depression), Other (MS, optic neuritis, uvetitis, GI bleeding, UTI, Chronic pain, chronic abd pain, Trigeminal Neuralgia, Sleep apnea, Hemorrhoids,
Renal calculus,), Other (Trigeminal Neuralgia) and Other (Alkalosic spondylitis with HlA B27 positive, Achilles tendinitis, positive JOHN)
ED Past Surgical History: Tonsilectomy and Urological (Lithotripsy with stent and then removal right ureter)
Social History
Tobacco: Non-smoker
Alcohol: None
Drug: None
Personal:
Living: with family
Employment: Not employed
Family History
Family History: Other (reviewed and non-contributory)
Review of Systems
Review of Systems
All Other Systems: ROS reviewed and negative except as documented in HPI and ROS
Constitutional: Reports fever and chills
EENT: Reports no symptoms
Respiratory: Reports no symptoms; Denies cough or trouble breathing
Cardiac: Reports no symptoms; Denies chest pain
ABD/GI: Reports abdominal pain and nausea; Denies vomiting or diarrhea
: Reports dysuria; Denies frequency or urgency
Musculoskeletal: Reports no symptoms
Skin: Reports no symptoms
Neurological: Reports headache; Denies dizzy
Psychiatric: Reports no symptoms
Phy Exam
General Physical Exam
General Presentation: no apparent distress
General age: appears stated age
General Skin: warm and dry
General Habitus: normal
General Mental: alert
General Hydration: appears well hydrated
ENT Exam
ENT Exam: TM's normal, pharynx normal and neck supple
Eye Exam
Eye Exam: EOMI
Cardiovascular Exam
Cardiovascular Exam: regular rate/rhythm, no edema, no murmur and normal peripheral pulses
Pulmonary Exam
Pulmonary Exam: lungs clear, no respiratory distress, no rales, chest non tender, no crackles, no rhonchi, no wheezing and no cough
Gastrointestinal Exam
Gastrointestinal Exam: normal bowel sounds, soft, no organomegaly, no pulsatile mass, non distended and tender (Right upper quadrant tenderness with palpation)
Musculoskeletal Exam
Musculoskeletal Exam: full ROM and no edema
Skin Exam
Skin Exam: normal color, warm/dry, no rash and no petechia
Psychiatric Exam
Psychiatric Exam: normal mood/affect
Course
Orders/Labs/Results
Orders:
Orders
09/10/24 19:15
COVID-19 Antigen Urgent
Source: Nasal Swab
Complete Blood Count/With Diff Urgent
Comprehensive Metabolic Panel Urgent
Lactic Acid Urgent
Influenza A+B Rapid Molecular Urgent
MAKENNA Source: Nasal Swab
Specimen Description:
09/10/24 19:24
Urinalysis Reflex To Culture Urgent
Date Specimen was Collected: 09/10/24
Time Specimen was Collected: 19:19
Urine Microscopic Reflex Cult Urgent
Urine Culture Urgent
MAKENNA Source: U
Specimen Description:
Date Specimen was Collected: 09/10/24
Time Specimen was Collected: 19:19
09/10/24 20:15
0.9% Sodium Chloride 1000 ml [Nss] 1,000 ml IV BOLUS
Pantoprazole [Protonix IV] 40 mg IV NOW STA
US Abdomen Complete/Upper Urgent
Comment:
Reason For Exam: Right upper abd pain
09/10/24 20:17
CefTRIAXone [Rocephin] 1,000 mg IV NOW STA
09/10/24 20:27
Ondansetron Injectable [Zofran] 4 mg IV NOW STA
09/10/24 20:50
HYDROmorphone [Dilaudid] 0.5 mg .ROUTE .STK-MED ONE
09/10/24 20:51
HYDROmorphone [Dilaudid] 0.5 mg IV NOW STA
09/10/24 22:28
CR Chest - 2 Views Urgent
Comment:
Reason For Exam: Fever
09/10/24 22:30
HYDROmorphone [Dilaudid] 1 mg IV NOW STA
09/10/24 23:00
Flush (0.9% Sodium Chloride) [Flush (Nss)] See Dose Instructions IV PER PROTOCOL
09/10/24 23:05
Albuterol Nebs [Ventolin Nebules] 2.5 mg INH R Q4HPRN PRN
Alprazolam [Xanax] 0.5 mg PO BIDPRN PRN
Ondansetron Injectable [Zofran] 4 mg .ROUTE .STK-MED ONE
09/10/24 23:07
Admit/Transfer Patient As Directed
Co-Sign Provider:
Level of Care: Inpatient admission
Assign to:: Medical/Surgical
Physician / Group: Hospitalist
Diagnosis: Fever
Reason for Hospitalization: pyelonephritis
Expected length of stay greater than two midnights?: Yes
ELOS- Estimated Length of Stay in days: 2
I certify the patient meets the requirements for IP care: Yes
PRN Pain Medication Management As Directed
May give lesser potent ordered pain med per pt: Yes
preference::
Protocol:: Medication orders for pain may be administered in a
manner that supports deferring to patient preference
when the pt is:
- Requesting an ordered lesser potent pain medication.
Least to most potent pain medications are defined
as: acetaminophen < NSAID < tramadol < opioids
(morphine, oxycodone, hydromorphone).
- Requesting a lesser dose of the same medication IF
ORDERED.
- Requesting a less intrusive route of administration
if both routes are prescribed by the provider (PO <
IV).
09/10/24 23:08
Code Status As Directed
Resuscitation Status: Full Code
09/10/24 23:11
Ondansetron Injectable [Zofran] 4 mg IV NOW STA
09/10/24 23:24
CT Abd/pelvis W Iv Cont Urgent
Comment:
Reason For Exam: fever, abd pain, rectal bl eval for colitis/divert
09/11/24 00:42
Acetaminophen [Tylenol] 650 mg PO Q4HPRN PRN
Bisacodyl [Dulcolax] 10 mg RECTAL [id number] PRN
Docusate W/Senna [Senokot-S] 1 tablet PO BIDPRN PRN
Metoclopramide [Reglan] 10 mg IV Q6HPRN PRN
Morphine Sulfate 2 mg IV Q4HPRN PRN
Oxycodone [Roxicodone] 10 mg PO Q4HPRN PRN
Polyethylene Glycol Powder [Miralax] 17 grams PO DAILYPRN PRN
09/11/24 00:42
Activity As Directed
Activity Level: As Tolerated
Bedside Glucose Monitoring As Directed
Frequency: AC&HS
Vital Signs As Directed
Frequency: Per unit guidelines
DX Deep Vein Thrombosis Video Routine
09/11/24 06:00
Basic Metabolic Panel IN AM
Complete Blood Count/No Diff IN AM
09/11/24 07:30
Insulin Aspart Corrective Low [Novolog Flexpen-Low Resistance] See Protocol SC AC
09/11/24 08:00
GlipiZIDE [Glucotrol] 5 mg PO BID@0800,1700
Metoprolol Xl [Toprol Xl] 100 mg PO BID
09/11/24 Dinner
1800 calorie (15 carb) Diabetic
At Your Request: Full Participation
09/11/24 18:00
Enoxaparin Sodium [Lovenox] 40 mg SC QPM
09/11/24 22:00
Alprazolam [Xanax] 0.5 mg PO HS
Aspirin Low Dose EC [Aspir Low (Enteric Coated)] 81 mg PO HS
Clopidogrel Bisulfate [Plavix] 75 mg PO HS
Duloxetine Delayed Release [Cymbalta Delayed Release] 60 mg PO HS
Insulin Glargine Lantus [Lantus] 10 units Subcutaneous Insulin Syringe [Syringe-Insulin] 0 unit SC HS
Losartan [Cozaar] 100 mg PO HS
Trazodone [Desyrel] 300 mg PO HS
Abnormal Lab Results
09/10/24 09/10/24
19:15 19:24
WBC 15.2 H 10^3/uL
(4.8-10.8)
MCV 75.5 L fL
(81.0-99.0)
MCH 25.4 L pg
(27.0-31.0)
RDW 17.5 H %
(11.5-14.5)
Abs Immat Gran (auto) 0.1 H 10^3/uL
(0-0.05)
Absolute Neuts (auto) 10.7 H 10^3/uL
(1.4-6.5)
Absolute Monos (auto) 1.1 H 10^3/uL
(0.1-0.6)
Immature Gran % 0.7 H %
(0-0.5)
Lymphocytes % 20.0 L %
(20.5-51.1)
Carbon Dioxide 21 L mmol/L
(22-30)
BUN 21 H mg/dl
(7-17)
Glucose 140 H mg/dl
(70-99)
Alkaline Phosphatase 140 H U/L
(38-126)
Leukocyte Esterase Rfl 2+ A
(Negative)
Urine WBC (Reflex) 16-20 A /HPF
(0-5)
09/10/24 19:15
09/10/24 19:15
Leukocytosis, Anemia, Carbon dioxide slightly low. Dehydration. Hyperglycemia. Alk phos elevation. Urine questionable for infection. Lactic acid normal at 1.8, COVID and Influenza negative.
Vital Signs
Initial and Last Documented VS:
Initial Vital Signs
Temp Pulse Resp BP Pulse Ox
98.5 F 96 18 194/106 98
09/10/24 19:02 09/10/24 19:02 09/10/24 19:02 09/10/24 19:02 09/10/24 19:02
Last Documented Vital Signs
Temp Pulse Resp BP Pulse Ox
98.1 F 90 20 152/101 96
09/11/24 00:30 09/11/24 00:30 09/11/24 00:30 09/11/24 00:30 09/11/24 00:30
MDM/Problems Addressed
Differential Diagnosis Includes:
Gallbladder disease, UTI,
MDM/Problems Addressed:
This is a 53 year old female that comes in with c/o fever. States that this started today and that she was here about 1-2 weeks ago with Urosepsis.
Will check labs. get urine and US. Will give IV fluids
Back into see patient. States that she still does not feel good. States that she has abd pain. Explained that her blood work shows that her WBC are elevated but her lactic acid is normal. COVID and flu negative US shows gallstones and sludge but no
wall thickening or ductal dilation. Will admit patient for further evaluation. Hospitalist notified.
Chronic conditions affecting care:
UTI,
Acute Exacerbation and/or Progression of Chronic Illness:
UTI
*Radiology
Radiology exam reviewed: preliminary read by ED provider (Chest negative for any acute disease. ) and radiology read reviewed (US-Cholelithiasis without sonographic evidence for acute cholecystitis. Increased echogenicity in the liver, compatible
with hepatocellular disease, which most commonly related to fatty infiltration of the liver. Hepatosplenomegaly. )
*Pulse Oximetry
Patient hypoxic: no
*EKG
Interpreted by ED Provider?: NA
Rate: EKG- N/A
*Wafer Abrading Machine Tender Interpretation
Rate: Wafer Abrading Machine Tender- N/A
*Critical Care Note
Total Time (30-74mins, 75-104mins- exclusive of procedures): Not Applicable
ED Attending Note
-
Portions of this chart may have been created with voice recognition software.� Occasional wrong word or��sound alike� substitutions may have occurred due to the inherent limitations of voice recognition software.
Discharge Plan
Departure
Patient Disposition: Admit
Date of Disposition: 09/10/24
Time of Disposition: 22:32
Admit to: Med/Surg
Presentation/result/management discussed w/ accepting MD/DO: Hospitalist
Patient with high blood pressure during this ER visit?: Yes
Condition: Good
Covid-19: Negative COVID-19
Discharge Problem:
Abdominal pain, Fever
Interventions
Interventions:
*Risk Screen - Suicide Last Done: 09/10/24 19:02
*General Assessment Last Done: 09/10/24 19:02
*Neglect/Abuse Screening Last Done: 09/10/24 19:02
*ED COVID-19 Vaccine History Last Done: 09/11/24 00:35
*Nursing Disposition Last Done: 09/11/24 00:33
ED- Neurological Assessment Last Done: 09/10/24 22:17
ED-Skin Assessment Last Done: 09/10/24 22:17
Discharge Date and Time
Discharge Date/Time: 09/11/24 00:33
[2024-09-10 20:20] VITALS: BP 163/96
[2024-09-10] MEDS: NSS 1000 IV (20:42)
[2024-09-10] MEDS: PROTONIX IV 40 MG IV (20:43)
[2024-09-10] MEDS: ROCEPHIN 1000 MG IV (20:43)
[2024-09-10] MEDS: ZOFRAN 4 MG IV ×2 (20:50→23:11)
[2024-09-10] MEDS: DILAUDID 0.5 MG IV (20:51)
--- NOTE | 2024-09-10 22:49 | HPS.HSE ---
Family Physician
-
Family Physician: Donald Plaza
Chief Complaint
-
Rigors chills and abdominal pain
History of Present Illness
This is a 53-year-old female was past medical history of hypertension, obesity, CAD status post stenting, diabetes on Lantus and glipizide, chronic pain on chronic opioids, and nephrolithiasis complicated by UTI and sepsis who presents to the
emergency department with a 1 day history of chills abdominal pain and dysuria.
Patient's past medical history significant for episode of nephrolithiasis complicated by UTI and was admitted to the hospital in late July. At the time she was found to have obstructing stone and Briana albicans infection. Patient had
urology place a stent on the right ureter and had a stone extraction. She ultimately completed a 14-day course of fluconazole. She had a stent removed 1 week ago. She reports generally feeling fatigued since starting walking this weekend.
However she arose this morning with chills, nausea without vomiting, and right-sided abdominal pain. She reports some mild burning sensation with urination. She denies any cough, shortness of breath, dyspnea on exertion. She felt constipated and
took a laxative and had a episode of loose stools that was bloody (history of hemorrhoids). She denies prior history of inflammatory bowel disease, diverticulitis.
In the emergency department she had a temp of 99.4, blood pressure initially 160/90, pulse 88 with 100% saturation room air. He had a white count of 15,000. Electrolytes BUN/creatinine were within normal limits. LFTs within normal limits.
Abdominal ultrasound shows cholelithiasis without cholecystitis. COVID-19 and influenza testing were negative. UA showed leukocytosis and pyuria. Negative nitrites. No blood.
Medical History
Past Medical History
Past Medical History: Reports CAD, HTN, Hypercholesterolemia and IDDM
Additional Past Medical History:
Chronic pain
TIA/CVA
Past Surgical History: Reports Tonsilectomy
Social History
Tobacco: Non-smoker
Alcohol: None
Drug: None
Personal:
Living: With Family
Employment: Employed
Family History
Family History: Not pertinent
Allergies / Home Medications
Allergies reflects when Allergies were last updated in [email or web address].
Home Medications with original date entered in [email or web address]
Allergy/Medication List:
Allergies
Allergy/AdvReac Type Severity Reaction Status Date / Time
phenytoin [From Dilantin] Allergy blood Verified 08/07/24 10:59
clots;pt
states 'i
can get it
but it has
to be
diluted
Quinolones Allergy Hives Verified 08/07/24 10:59
Home Medications
metoprolol succinate 100 mg tablet,extended release 24 hr 100 mg PO BID Blood pressure ##0 10/26/16
duloxetine 60 mg capsule,delayed release 60 mg PO HS Mental Health/Anxiety 11/27/18
amlodipine 10 mg tablet 10 mg PO HS Blood Pressure 03/07/22
clopidogrel 75 mg tablet 75 mg PO HS Blood Clot Prevention/Tx 03/07/22
albuterol sulfate 2.5 mg/3 mL (0.083 %) solution for nebulization 2.5 mg inhalation R Q4HPRN PRN sob/wheezing 08/07/24
aspirin 81 mg tablet,delayed release 81 mg PO HS Blood Clot Prevention/Tx 08/07/24
docusate sodium 100 mg capsule (Stool Softener) 100 mg PO BID Constipation 08/07/24
glipizide 10 mg tablet 10 mg PO BIDWMEAL Diabetes 08/07/24
losartan 100 mg tablet 100 mg PO HS Blood Pressure 08/07/24
vurmetzu-xpk-LO 0.4 mg-calcium 162 mg-iron 18 vy-dlhyyas-gdcvpg tablet 1 tab PO DAILY Supplement 08/07/24
oxycodone-acetaminophen 10 mg-325 mg tablet 1 tab PO Q6HPRN PRN moderate pain 08/07/24
polyethylene glycol 3350 17 gram oral powder packet (Miralax) 17 g PO DAILY Constipation 08/07/24
semaglutide 2 mg/dose (8 mg/3 mL) subcutaneous pen injector (Ozempic) 2 mg SC TH Diabetes 08/07/24
hydralazine 25 mg tablet 25 mg PO BID 08/15/24
alprazolam 1 mg tablet 0.5 mg (1/2 x 1 mg) PO BIDPRN PRN anxiety #0 tabs 08/20/24
alprazolam 1 mg tablet 0.5 mg (1/2 x 1 mg) PO HS Mental Health/Anxiety #0 tabs 08/20/24
glucagon 1 mg/0.2 mL subcutaneous auto-injector (Gvoke HypoPen 2-Pack) 1 mg SC PRN PRN low blood sugar 09/10/24
insulin glargine 100 unit/mL (3 mL) subcutaneous pen (Lantus Solostar U-100 Insulin) 10 unit SC HS 09/10/24
trazodone 150 mg tablet 300 mg PO HS Mental Health/Anxiety 09/10/24
Review of Systems
-
History Source: Patient
Constitutional: Reports Chills
EENT: Reports No Symptoms
Respiratory: Reports No Symptoms
Cardiac: Reports No Symptoms
Abdomen/GI: Reports Abdominal Pain and Nausea
: Reports Dysuria and Frequency
Musculoskeletal: Reports No Symptoms
Skin: Reports No Symptoms
Neurological: Reports No Symptoms
Endocrine: Reports No Symptoms
Hematologic/Lymphatic: Reports No Symptoms
Psych: Reports No Symptoms
Physical Exam
Vital Signs
Vital Signs
Temp Pulse Resp BP Pulse Ox
99.4 F 88 11 163/96 100
09/10/24 22:16 09/10/24 22:15 09/10/24 22:15 09/10/24 20:20 09/10/24 22:15
Physical Exam
General: Well Developed and Well Nourished
HEENT: NormoCephalic, Anicteric, Atraumatic, PERRLA and [place] Conjunctivae
Respiratory: Clear
Cardiac: S1/S2 and Regular Rhythm
Breast: Deferred by me
GI: Soft, Non Tender, Non Distended and Normal Bowel Sounds
Rectal: Deferred by Provider
Genito-urinary: No costovertebral tender
Musculoskeletal: No Clubbing, No Cyanosis and No Edema
Skin: Warm
Neuro: AO x 3
Hematologic/Lymphatic: No Lymphadenopathy
Psych: Calm
Laboratory Results
-
09/10/24 19:15
09/10/24 19:15
Laboratory Results
Lactic Acid 1.8 mmol/L (0.7-2.0) 09/10/24 19:15
Total Bilirubin 0.5 mg/dl (0.2-1.3) 09/10/24 19:15
AST 27 U/L (14-36) 09/10/24 19:15
ALT 27 U/L (0-35) 09/10/24 19:15
Alkaline Phosphatase 140 U/L (38-126) H 09/10/24 19:15
Data Reviewed
-
Ultrasound: Image Personally Visualized and interpreted
Lab Data: Labs Reviewed by me
Old Records: Reviewed
Impression/Plan
-
IMPRESSION:
53 Female coming in with abdominal pain, chills, fever and mild dysuria and frequency. U/A with pyuria and LE and no nitrites. Concern for briana uti recurrence. Negative abd u/s, negative COVID and influenza.
PLAN:
1. Fever - Source not entirely clear but concern for briana uti. Stent removed 1 week ago and no current evidence of stones (no blood, no flank pain and normal renal function). No respiratory symptoms. Lactic acid is negative. BP reduced after
dilaudid in ED.
- admit to telemetry
- blood and urine cultures sent
- started ceftriaxone in ED empirically
- CT abd/pelvis with iv contrast -> proctitis but no evidence of diverticulitis, cholecystitis or pyelonephritis, no hydronephrosis
- consider consult ID given urine findings and possible systemic symptoms for possibly early antifungal given h/o briana uti
2. DM II
- off metformin, continue lantus 10 hs and glipizide bid ac
- sliding scale achs
3. HTN - on losartan 100, metoprolol succinate 100 bid, norvasc and hydralazine bid
- continue losartan with hold parameters
- continue metprolol with hold parameters
- hold hydralazine and amlodipine
4. Pain Management - in addition to chronic pain, has so far unexplained abdominal pain
- acetaminophen prn
- oxycodone 10mg q6 prn per home
- morphine 2mg iv prn for severe pain
- continue duloxetine
5. h/o TIA
- on aspirin/clopidogrel
- bp control
DVT PPX - lovenox sq
Code Status - Full Code
[2024-09-10] MEDS: DILAUDID 1 MG IV (23:12)
[2024-09-11 00:30] VITALS: BP 152/101; BMI 36.6
[2024-09-11] MEDS: XANAX 0.5 MG PO ×2 (01:35→21:43)
[2024-09-11] MEDS: SENOKOT-S 1 TABLET PO (01:35)
[2024-09-11] MEDS: DESYREL 300 MG PO ×2 (01:35→21:27)
[2024-09-11] MEDS: TOPROL XL 100 MG PO ×3 (01:35→20:20)
[2024-09-11] MEDS: ROXICODONE 10 MG PO ×3 (01:36→11:08)
[2024-09-11] MEDS: MORPHINE SULFATE 2 MG IV ×2 (03:06→18:16)
[2024-09-11] MEDS: MIRALAX 17 GRAMS PO (06:13)
[2024-09-11 07:55] VITALS: BP 116/54
[2024-09-11 08:27] LABS: Hematocrit 34.2 % (37.0-47.0); Hemoglobin 11.3 g/dL (12.0-16.0); Mean Corpuscular Hgb 25.3 pg (27.0-31.0); Mean Corpuscular Volume 76.7 fL (81.0-99.0); Mean Platelet Volume 10.3 fL (7.4-10.4); Platelet Count 269 10^3/uL (130-400); Red Blood Cell Count 4.46 10^6/uL (4.20-5.40); Red Cell Dist. Width 17.4 % (11.5-14.5); White Blood Cell Count 10.2 10^3/uL (4.8-10.8)
[2024-09-11 08:34] VITALS: BP 116/54
[2024-09-11] MEDS: TYLENOL 650 MG PO (09:30)
[2024-09-11] MEDS: NOVOLOG FLEXPEN-LOW RESISTANCE SC ×2 (09:33→12:41)
[2024-09-11 09:35] LABS: Glucose - Point of Care 114 mg/dl (70-99)
[2024-09-11] MEDS: GLUCOTROL 5 MG PO ×2 (09:36→18:10)
[2024-09-11 09:46] LABS: Blood Urea Nitrogen 16 mg/dl (7-17); Calcium 9.7 mg/dl (8.4-10.2); Carbon Dioxide 22 mmol/L (22-30); Chloride 102 mmol/L (98-107); Estimated Creatinine Clearance 118 ml/min; Glucose 128 mg/dl (70-99); Potassium 4.2 mmol/L (3.5-5.1); Sodium 137 mmol/L (135-145); eGFR > 60.00
--- NOTE | 2024-09-11 12:06 | CON.ID ---
Consultation
-
Date/Time Consultation Requested: 09/11/2024 0912
Date/Time Consultation Performed: 09/11/2024 1207
Requesting Provider: Dr. Andrea
Performing Provider: Dr. Ayala
Reason for Consultation: Complicated urinary tract infection
Chief Complaint / Past History
Chief Complaint
Flank pain, nausea, vomiting x 3 days
History of Present Illness
Elena Quiñonez is a 53-year-old female being evaluated at the request Dr. Andrea in regards to urinary tract infection. History is obtained from chart review, along with patient interview.
The patient is known to the Infectious Diseases service, having been seen in late July for complicated urinary tract infection and pyelonephritis.. She was discharged to home on 08/20/2024, to continue with a 14-day course of Diflucan, which
would continue through 08/31/2024.
She presents back to the emergency room on 09/10 complaining of fever to 101 degrees, and noting she did not feel well all day. She admits to chills, abdominal pain, nausea and headache, but denies dysuria.
Workup in the emergency room revealed a leukocytosis. Cultures were obtained, and the patient was placed on empiric antibiotics (ceftriaxone). Infectious Diseases is asked to comment upon further antimicrobial management.
Additional reviewed history indicate the patient recently has had group B strep, along with Briana albicans recovered from the urine.
The patient reports that she had her ureteral stent removed last week by Dr. Pendleton. She denies any dysuria, but does admit to occasional pressure. She also notes that the night before last she developed abdominal discomfort and felt significantly
constipated. This finally was relieved with MiraLAX. She has been on q. other day Macrodantin as prescribed by one of her urologist.
Past History
Additional Past Medical History:
Hx CVA x 2
GERD
HTN
Dyslipidemia
IDDM
Anxiety/depression
Multiple sclerosis
Optic neuritis
Hx GI bleed
Chronic pain syndrome
Trigeminal neuralgia
Sleep apnea
Ankylosing spondylitis
Additional Past Surgical History:
Tonsillectomy
Lithotripsy
Foot neuroma removal
Allergy History:
phenytoin [From Dilantin] Allergy (Verified 08/07/24 10:59)
blood clots;pt states 'i can get it but it has to be diluted
Quinolones Allergy (Verified 08/07/24 10:59)
Hives
Medications Reviewed: Yes
Current Antibiotics:
Ceftriaxone 1 g every 24 hours
Social History
Tobacco: Non-Smoker
Alcohol: None
Drug: None
Living: With Family
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
Family History
Family History: Not Pertinent
Review of Systems
Vital Signs
Temp Pulse Resp BP Pulse Ox
98.1 F 84 14 116/54 92
09/11/24 07:55 09/11/24 09:37 09/11/24 07:55 09/11/24 09:37 09/11/24 07:55
Physical Exam
Physical Exam
Constitutional: No Acute Distress, Comfortable and Non-toxic
Eyes: No Conjunctival Hemorrhage and Sclera Anicteric
Oral: No Thrush and No Ulcers
Cardiovascular: Regular Rate and S1/S2; Negative S3/S4
Pulmonary: Clear; Negative Wheezes, Rales or Rhonchi
Gastrointestinal: Soft, Non Tender, Non Distended, Normal Bowel Sounds, No Rebound and No Guarding
Extremities: Negative Edema, Cyanosis or Erythema
Neurological: Awake and Alert
Psychological: Calm
.
Lab / Diagnostic Study Results
09/11/24 07:40
09/11/24 07:40
Abs Immat Gran (auto) 0.1 10^3/uL (0-0.05) H 09/10/24 19:15
Absolute Neuts (auto) 10.7 10^3/uL (1.4-6.5) H 09/10/24 19:15
Absolute Lymphs (auto) 3.0 10^3/uL (1.2-3.4) 09/10/24 19:15
Absolute Monos (auto) 1.1 10^3/uL (0.1-0.6) H 09/10/24 19:15
Absolute Basos (auto) 0.1 10^3/uL (0-0.2) 09/10/24 19:15
Immature Gran % 0.7 % (0-0.5) H 09/10/24 19:15
Neutrophils % 70.0 % (42.2-75.2) 09/10/24 19:15
Lymphocytes % 20.0 % (20.5-51.1) L 09/10/24 19:15
Monocytes % 7.3 % (1.7-9.3) 09/10/24 19:15
Eosinophils % 1.6 % (0-6) 09/10/24 19:15
Basophils % 0.4 % (0-2) 09/10/24 19:15
Lactic Acid 1.8 mmol/L (0.7-2.0) 09/10/24 19:15
Ur Squamous Epith Cells 3-5 /LPF (Few) 09/10/24 19:24
Microbiology Results
Micro:
09/10/24 19:24 Urine Culture - Pending
Urine
09/10/24 19:15 Influenza Types A & B (GABY) - Final
Nasal Swab Negative for Influenza A & B, NAAT
Negative results must be combined with clinical observations
and patient history.
Nucleic Acid Amplification test (NAAT)performed on the
[employer] platform.
Imaging:
09/10/2024 CT abdomen/pelvis with IV contrast: Findings suspicious for mild proctitis. Additional findings include cholelithiasis, small right renal simple cyst and subcentimeter low-attenuation splenic lesions too small to characterize.
Assessment / Plan
Abdominal pain.
Suspected urinary tract infection
Leukocytosis; improved
Hx CVA x 2
GERD
HTN
Dyslipidemia
IDDM
Anxiety/depression
Multiple sclerosis
Optic neuritis
Hx GI bleed
Chronic pain syndrome
Trigeminal neuralgia
Sleep apnea
Ankylosing spondylitis
Recommendations:
Continue with empiric ceftriaxone for the present.
Leukocytosis present on admission now improved/resolved.
Await urine culture.
Monitor white count and temperature curve.
Further recommendations as additional data is returned.
[2024-09-11] MEDS: DILAUDID 0.25 MG IV ×2 (12:10→21:20)
[2024-09-11] MEDS: REGLAN 10 MG IV ×2 (12:15→18:16)
[2024-09-11 12:16] LABS: Glucose - Point of Care 149 mg/dl (70-99)
--- NOTE | 2024-09-11 13:40 | W.PN.HOSP.TC ---
Today's Communication/Plan
-
empiric abx
f/u cultures from urine
enema
Assessment / Plan
Assessment / Plan
Physical Exam
General: Well Developed and Well Nourished
HEENT: NormoCephalic, Anicteric, Atraumatic, PERRLA and [place] Conjunctivae
Respiratory: Clear
Cardiac: S1/S2 and Regular Rhythm
Breast: Deferred by me
GI: Soft, Non Tender, mild rlq tenderness although unremarkable on imaging;
Rectal: Deferred by Provider
Genito-urinary: No costovertebral tender
Musculoskeletal: No Clubbing, No Cyanosis and No Edema
Skin: Warm
Neuro: AO x 3
Hematologic/Lymphatic: No Lymphadenopathy
Psych: Calm
IMPRESSION:
53 Female coming in with abdominal pain, chills, fever and mild dysuria and frequency. U/A with pyuria and LE and no nitrites. Concern for karen uti recurrence. Negative abd u/s, negative COVID and influenza.
PLAN:
# Suspected UTI, recurrent with candiduria
-cont empiric abx
-f/u cultures
-ID consulted
#Rectal blood
-most likely hemorrhoids
-monitor cbc
-f/u outpatient
#Proctitis
#Constipation
-enema today
#DM II
- off metformin, continue lantus 10 hs and glipizide bid ac
- sliding scale achs
# Leukocytosis most
� Most likely reactive
# HTN - on losartan 100, metoprolol succinate 100 bid, norvasc and hydralazine bid
- continue losartan with hold parameters
- continue metprolol with hold parameters
- hold hydralazine and amlodipine
#Pain Management - in addition to chronic pain, has so far unexplained abdominal pain
- acetaminophen prn
- oxycodone 10mg q6 prn per home
- morphine 2mg iv prn for severe pain
- continue duloxetine
5. h/o TIA
- on aspirin/clopidogrel
- bp control
DVT PPX - lovenox sq
Code Status - Full Code
Anticipated Discharge: 24 - 48 hours
Subjective/Interval History
-
Date of Service: September 11, 2024
mild rlq tenderness
Objective Data
-
Labs:
Laboratory Results
09/11/24
07:40
WBC 10.2
Hgb 11.3 L
Hct 34.2 L
Plt Count 269
Sodium 137
Potassium 4.2
Chloride 102
Carbon Dioxide 22
BUN 16
Creatinine 0.7
Glucose 128 H
Calcium 9.7
Vital Signs:
Vital Signs
Temp Pulse Resp BP Pulse Ox
98.1 F 84 14 116/54 92
09/11/24 07:55 09/11/24 09:37 09/11/24 07:55 09/11/24 09:37 09/11/24 07:55
Review of Systems
-
History Source: Patient
All other systems: Not reviewed unless documented
Data Reviewed
-
CT Scan: Image personally visualized and interpreted and Report Reviewed by me
Labs: Labs Reviewed by me
[2024-09-11 15:00] VITALS: BP 132/65
[2024-09-11 17:06] LABS: Glucose - Point of Care 154 mg/dl (70-99)
--- NOTE | 2024-09-11 17:51 | CM ---
Patient seen at bedside
IA complete
Dx: fever
Lives in a 2 story home with children, 1 step to enter, flight of steps to 2nd floor
PLOF: Independent, at times uses a walker as she states has MS
DME: walker
[facility] VN in past, no SNF
PCP: Donald Plaza
Pharmacy: [facility]
PLAN: home, currently no needs anticipated
[2024-09-11] MEDS: LOVENOX 40 MG SC (18:08)
[2024-09-11 18:15] LABS: Glucose - Point of Care 196 mg/dl (70-99)
[2024-09-11] MEDS: NOVOLOG FLEXPEN-LOW RESISTANCE 1 UNITS SC (18:45)
[2024-09-11] MEDS: STERILE WATER FOR INJECTION 10 ML IV (20:18)
[2024-09-11] MEDS: ROCEPHIN 1000 MG IV (20:18)
[2024-09-11] MEDS: ASPIR LOW (ENTERIC COATED) 81 MG PO (21:26)
[2024-09-11] MEDS: COZAAR 100 MG PO (21:26)
[2024-09-11] MEDS: PLAVIX 75 MG PO (21:27)
[2024-09-11] MEDS: CYMBALTA DELAYED RELEASE 60 MG PO (21:27)
[2024-09-11 21:37] LABS: Glucose - Point of Care 177 mg/dl (70-99)
[2024-09-11] MEDS: LANTUS 0.1 UNITS SC (21:43)
[2024-09-11 23:47] VITALS: BP 120/63
[2024-09-12 07:35] LABS: Hemoglobin 11.5 g/dL (12.0-16.0); Mean Corp Hgb Conc. 32.9 g/dL (33.0-37.0); Mean Corpuscular Hgb 25.4 pg (27.0-31.0); Mean Corpuscular Volume 77.4 fL (81.0-99.0); Mean Platelet Volume 10.1 fL (7.4-10.4); Platelet Count 253 10^3/uL (130-400); Red Blood Cell Count 4.52 10^6/uL (4.20-5.40); Red Cell Dist. Width 17.4 % (11.5-14.5); White Blood Cell Count 9.2 10^3/uL (4.8-10.8)
[2024-09-12 07:46] LABS: Glucose - Point of Care 156 mg/dl (70-99)
[2024-09-12 07:55] VITALS: BP 135/63
[2024-09-12 08:10] LABS: Blood Urea Nitrogen 18 mg/dl (7-17); Calcium 9.9 mg/dl (8.4-10.2); Carbon Dioxide 23 mmol/L (22-30); Chloride 103 mmol/L (98-107); Estimated Creatinine Clearance 103 ml/min; Glucose 156 mg/dl (70-99); Potassium 4.2 mmol/L (3.5-5.1); Sodium 141 mmol/L (135-145); eGFR > 60.00
[2024-09-12] MEDS: MIRALAX 17 GRAMS PO (08:36)
[2024-09-12] MEDS: SENOKOT-S 1 TABLET PO (08:36)
[2024-09-12] MEDS: ROXICODONE 10 MG PO ×2 (08:36→14:20)
[2024-09-12] MEDS: XANAX 0.5 MG PO (08:36)
[2024-09-12] MEDS: TOPROL XL 100 MG PO (08:37)
[2024-09-12] MEDS: GLUCOTROL 5 MG PO (08:37)
[2024-09-12] MEDS: NOVOLOG FLEXPEN-LOW RESISTANCE 1 UNITS SC (08:37)
[2024-09-12] MEDS: FLUSH (NSS) 1 FLUSH IV (08:38)
[2024-09-12] MEDS: MORPHINE SULFATE 2 MG IV (11:43)
[2024-09-12] MEDS: DULCOLAX 10 MG RECTAL (12:00)
--- NOTE | 2024-09-12 12:24 | VATNOTE ---
Pt c/o stinging at IV site since she received morphine through her IV. No redness or swelling noted. Advised pt that a new IV line should be placed and the old one removed at this time. Pt declined IV restart. Applied heat to site, pt verbalized
relief.
[2024-09-12 13:23] LABS: Glucose - Point of Care 113 mg/dl (70-99)
[2024-09-12] MEDS: NOVOLOG FLEXPEN-LOW RESISTANCE SC (13:30)
--- NOTE | 2024-09-12 13:50 | W.PN.HOSP.TC ---
Addendum entered and electronically signed by Atilio Andrea MD 09/12/24 14:57:
[id number]
Original Note:
Today's Communication/Plan
-
cultures negative - dc abx
f/u outpatient pcp
cbc outpatient
pain control
Assessment / Plan
Assessment / Plan
Physical Exam
General: Well Developed and Well Nourished
HEENT: NormoCephalic, Anicteric, Atraumatic, PERRLA and [place] Conjunctivae
Respiratory: Clear
Cardiac: S1/S2 and Regular Rhythm
Breast: Deferred by me
GI: Soft, Non Tender, mild rlq tenderness although unremarkable on imaging;
Rectal: Deferred by Provider
Genito-urinary: No costovertebral tender
Musculoskeletal: No Clubbing, No Cyanosis and No Edema
Skin: Warm
Neuro: AO x 3
Hematologic/Lymphatic: No Lymphadenopathy
Psych: Calm
IMPRESSION:
53 Female coming in with abdominal pain, chills, fever and mild dysuria and frequency. U/A with pyuria and LE and no nitrites. Concern for karen uti recurrence. Negative abd u/s, negative COVID and influenza.
PLAN:
#Abd pain
-appears to be muscular
-ct imaging negative
-ua negative
-f/u outpatient
#?Rectal blood with enema
-as per nurse, patient�is on her menstrual cycle, suspect this is contributory
-monitor cbc
-f/u outpatient
-cbc stable
#Proctitis
#Constipation
-Status post enema
� Resolved
#DM II
- off metformin, continue lantus 10 hs and glipizide bid ac
- sliding scale achs
# Leukocytosis most
� Most likely reactive
# HTN - on losartan 100, metoprolol succinate 100 bid, norvasc and hydralazine bid
- continue losartan with hold parameters
- continue metprolol with hold parameters
- hold hydralazine and amlodipine
#Pain Management - in addition to chronic pain
-abd pain - appears to be muscular; ct imaging unremarkable for occult pathology
- acetaminophen prn
- oxycodone 10mg q6 prn per home
- morphine 2mg iv prn for severe pain
- continue duloxetine
5. h/o TIA
- on aspirin/clopidogrel
- bp control
DVT PPX - lovenox sq
Code Status - Full Code
More than 30 minutes spent in discharge including
Final examination of the patient
Summarizing hospital stay
Instructions for continuing care to all relevant caregivers
Preparation of discharge records, prescriptions, and referral forms
Total time spent (35 in minutes):
Anticipated Discharge: Today
Subjective/Interval History
-
Date of Service: September 12, 2024
No acute events
Objective Data
-
Labs:
Laboratory Results
09/12/24
06:45
WBC 9.2
Hgb 11.5 L
Hct 35.0 L
Plt Count 253
Sodium 141
Potassium 4.2
Chloride 103
Carbon Dioxide 23
BUN 18 H
Creatinine 0.8
Glucose 156 H
Calcium 9.9
Vital Signs:
Vital Signs
Temp Pulse Resp BP Pulse Ox
97.5 F 80 18 135/63 94
09/12/24 07:55 09/12/24 08:37 09/12/24 07:55 09/12/24 08:37 09/12/24 08:30
I&O
09/11/24 09/12/24 09/13/24
06:59 06:59 06:59
Intake Total 1080 / 1080
Balance 1080 / 1080
Review of Systems
-
History Source: Patient
All other systems: Not reviewed unless documented
Data Reviewed
-
CT Scan: Image personally visualized and interpreted and Report Reviewed by me
Labs: Labs Reviewed by me
--- NOTE | 2024-09-12 14:00 | W.DS.TRANS ---
DC Summary - [employer]
-
Discharge Instructions:
Discharge Diagnosis/Procedures Abdominal pain, muscle skeletal
Constipation
Diet Low Residue,Low Fiber,Low Cholesterol,Low Fat
Activity As tolerated
Blood Work cbc in 3-5 days
Instructions:
Stand-Alone Forms:
Changes to Home Medications: No
Discharge Medications:
DC Medications w/original date entered in [employer]
metoprolol succinate 100 mg tablet,extended release 24 hr 100 mg PO BID Blood pressure ##0 10/26/16
duloxetine 60 mg capsule,delayed release 60 mg PO HS Mental Health/Anxiety 11/27/18
amlodipine 10 mg tablet 10 mg PO HS Blood Pressure 03/07/22
clopidogrel 75 mg tablet 75 mg PO HS Blood Clot Prevention/Tx 03/07/22
albuterol sulfate 2.5 mg/3 mL (0.083 %) solution for nebulization 2.5 mg inhalation R Q4HPRN PRN sob/wheezing 08/07/24
aspirin 81 mg tablet,delayed release 81 mg PO HS Blood Clot Prevention/Tx 08/07/24
docusate sodium 100 mg capsule (Stool Softener) 100 mg PO BID Constipation 08/07/24
glipizide 10 mg tablet 10 mg PO BIDWMEAL Diabetes 08/07/24
losartan 100 mg tablet 100 mg PO HS Blood Pressure 08/07/24
nbvdlfsa-ngj-GL 0.4 mg-calcium 162 mg-iron 18 xq-[id number]-[id number] tablet 1 tab PO DAILY Supplement 08/07/24
oxycodone-acetaminophen 10 mg-325 mg tablet 1 tab PO Q6HPRN PRN moderate pain 08/07/24
polyethylene glycol 3350 17 gram oral powder packet (Miralax) 17 g PO DAILY Constipation 08/07/24
semaglutide 2 mg/dose (8 mg/3 mL) subcutaneous pen injector (Ozempic) 2 mg SC TH Diabetes 08/07/24
hydralazine 25 mg tablet 25 mg PO BID Blood Pressure 08/15/24
alprazolam 1 mg tablet 0.5 mg (1/2 x 1 mg) PO BIDPRN PRN anxiety #0 tabs 08/20/24
alprazolam 1 mg tablet 0.5 mg (1/2 x 1 mg) PO HS Mental Health/Anxiety #0 tabs 08/20/24
glucagon 1 mg/0.2 mL subcutaneous auto-injector (Gvoke HypoPen 2-Pack) 1 mg SC PRN PRN low blood sugar 09/10/24
insulin glargine 100 unit/mL (3 mL) subcutaneous pen (Lantus Solostar U-100 Insulin) 10 unit SC HS Diabetes 09/10/24
trazodone 150 mg tablet 300 mg PO HS Mental Health/Anxiety 09/10/24
Home Medication Changes
na
Pending Results: No
[2024-09-12 15:46] VITALS: BP 161/90
[2024-09-12 16:37] VITALS: BP 155/88
== END 2024-09-12 17:08 | disposition home or self-care (01) | DRG 563 ==
LOC: 4 EAST ACU 23:36
PROVIDERS: Emergency Medicine; Student in an Organized Health Care Education/Training Program; ADMITTING PHYSICIAN Internal Medicine; ATTENDING PHYSICIAN Internal Medicine; CONSULT PHYSICIAN Internal Medicine Infectious Disease; EMERGENCY PHYSICIAN Student in an Organized Health Care Education/Training Program; FAMILY PHYSICIAN Family Medicine
DX: S39.011A Strain of muscle, fascia and tendon of abdomen, initial encounter (principal); N39.0 Urinary tract infection, site not specified; I10 Essential (primary) hypertension; I25.10 Atherosclerotic heart disease of native coronary artery without angina pectoris; E11.9 Type 2 diabetes mellitus without complications; E78.00 Pure hypercholesterolemia, unspecified; G89.4 Chronic pain syndrome; G50.0 Trigeminal neuralgia; G47.30 Sleep apnea, unspecified; G35 Multiple sclerosis; F32.A Depression, unspecified; F41.9 Anxiety disorder, unspecified; K21.9 Gastro-esophageal reflux disease without esophagitis; K59.00 Constipation, unspecified; K64.9 Unspecified hemorrhoids; K62.89 Other specified diseases of anus and rectum; D72.829 Elevated white blood cell count, unspecified; X58.XXXA Exposure to other specified factors, initial encounter; E66.9 Obesity, unspecified; Z68.36 Body mass index [BMI] 36.0-36.9, adult; Z79.4 Long term (current) use of insulin; Z88.8 Allergy status to other drugs, medicaments and biological substances; Z79.02 Long term (current) use of antithrombotics/antiplatelets; Z79.82 Long term (current) use of aspirin; Z79.85 Long-term (current) use of injectable non-insulin antidiabetic drugs; Z11.52 Encounter for screening for COVID-19; Z95.5 Presence of coronary angioplasty implant and graft; Z79.84 Long term (current) use of oral hypoglycemic drugs; Z87.442 Personal history of urinary calculi; Z86.73 Personal history of transient ischemic attack (TIA), and cerebral infarction without residual deficits; Z79.891 Long term (current) use of opiate analgesic; Z79.899 Other long term (current) drug therapy
CPT/HCPCS: 71046; 74177; 76700; 80048; 80053; 81003; 81015; 82962; 83605; 85025; 85027; 87086; 87502; 87811; 96361; 96374; 96375; 96376; 99285; Q9967

== ENCOUNTER → 2025-02-03 15:01 | Outpatient (REF) | payer OTHER, SELFPAY | LOC: HWRAD 15:01 | PROVIDERS: ATTENDING PHYSICIAN Urology; FAMILY PHYSICIAN Family Medicine; REFERRING PHYSICIAN Physician Assistant Surgical | DX: Z87.440 Personal history of urinary (tract) infections (principal); R10.9 Unspecified abdominal pain | CPT/HCPCS: 73564; 76775 ==

== ENCOUNTER 2025-04-02 01:55 | Inpatient (IN) | payer OTHER, SELFPAY ==
[2025-04-01] VITALS (9 sets, daily range): BP systolic 159–205; BP diastolic 95–116; BMI 40.1
[2025-04-01 21:03] LABS: % Basophils 0.6 % (0-2); % Eosinophils 1.8 % (0-6); % Immature Granulocytes 1.1 % (0-0.5); % Lymphocytes 34.7 % (20.5-51.1); % Monocytes 8.5 % (1.7-9.3); % Neutrophils 53.3 % (42.2-75.2); Absolute Basophils 0.1 10^3/uL (0-0.2); Absolute Eosinophils 0.2 10^3/uL (0-0.7); Absolute Immature Granulocytes 0.1 10^3/uL (0-0.05); Absolute Lymphocytes 4.2 10^3/uL (1.2-3.4); Absolute Neutrophils 6.4 10^3/uL (1.4-6.5); Hematocrit 37.5 % (37.0-47.0); Hemoglobin 12.8 g/dL (12.0-16.0); Mean Corp Hgb Conc. 34.1 g/dL (33.0-37.0); Mean Corpuscular Hgb 27.6 pg (27.0-31.0); Mean Platelet Volume 9.7 fL (7.4-10.4); Nucleated Red Blood Cells % 0 %; Platelet Count 285 10^3/uL (130-400); Red Blood Cell Count 4.63 10^6/uL (4.20-5.40)
[2025-04-01 21:23] LABS: ALT (SGPT) 46 U/L (0-35); AST (SGOT) 32 U/L (14-36); Albumin 4.5 g/dl (3.5-5.0); Alkaline Phosphatase 152 U/L (38-126); Blood Urea Nitrogen 19 mg/dl (7-17); Carbon Dioxide 22 mmol/L (22-30); Chloride 103 mmol/L (98-107); Estimated Creatinine Clearance > 125 ml/min; Glucose 317 mg/dl (70-99); Potassium 4.2 mmol/L (3.5-5.1); Sodium 136 mmol/L (135-145); Total Bilirubin 0.3 mg/dl (0.2-1.3); Total Protein 7.4 g/dl (6.3-8.2); eGFR > 60.00
[2025-04-01 21:34] LABS: Urine Albumin 1+ (Neg - Trace); Urine Bilirubin Negative (Negative); Urine Character Clear (Clear); Urine Color Yellow; Urine Glucose 4+ (Negative); Urine Ketone Negative (Negative); Urine Leukocyte 1+ (Negative); Urine Nitrite Negative (Negative); Urine Occult Blood Negative (Negative); Urine Urobilinogen Negative (Neg - 1+)
[2025-04-01 21:39] LABS: Troponin I 0.045 ng/ml
[2025-04-01 21:42] LABS: Urine Bacteria Few (Negative); Urine Red Blood Cell 0-2 /HPF (0-2)
--- NOTE | 2025-04-01 22:14 | ED.GENMED ---
History of Present Illness
General
Chief Complaint: Chest Pain
Source: patient
Time Seen by Provider: 04/01/25 21:54
History of Present Illness
History of Present Illness:
This patient is a 54-year-old female presents emergency department complaints of bilateral breast pain that is been going on and off for the last few days. 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
'felt fine'. However, when she got back home, she noted the breast pain again and it seemed to be worse, associated with also being present in her back. She does not recall experiencing this in the past. She describes the pain as 'throbbing', and
is intermittent without specific provoking or relieving factors. The pain is not changed with position or a deep breath. She denies personal or family history of DVT, recent immobilization, recent trauma, recent surgery. She denies dyspnea,
vomiting, fever, chills. She does feel slightly nauseous. She denies abdominal pain, mid to lower back pain, leg swelling. Patient also mentions that she noticed frequent urination today without dysuria or hematuria, flank pain or fever.
Past History
Past History
ED Past Medical History: CVA (X 2), GERD, HTN, IDDM, Psychiatric (Anxiety, Depression), Other (MS, optic neuritis, uveitis, GI bleeding, UTI, Chronic pain, chronic abd pain, Trigeminal Neuralgia, Sleep apnea, Hemorrhoids, Renal calculus,) and Other
(Alkalosic spondylitis with HlA B27 positive, Achilles tendinitis, positive JOHN)
ED Past Surgical History: Tonsilectomy and Urological (Lithotripsy with stent and then removal right ureter)
Social History
Tobacco: Non-smoker
Alcohol: None
Drug: None
Personal:
Living: with family
Employment: Employed
Family History
Family History: Other (reviewed and non-contributory)
Phy Exam
Physical Exam
Physical Exam:
GENERAL: Alert , in no apparent distress
EYE: pupils equal and reactive
NECK: Supple, no significant adenopathy.
ENT: o/p clr, mmm.
CARDIAC: Regular rate and rhythm .
LUNGS: Clear breath sounds bilaterally, no acute respiratory distress, no wheezes/rales/rhonchi
ABDOMEN: Soft, without focal tenderness, no r/g, no cvat
NEUROLOGICAL: Alert and oriented, no focal neuro deficits
SKIN: Warm and dry, skin intact.
MUSCULOSKELETAL: No edema, well perfused.
PSYCH: Normal and appropriate interaction but somewhat anxious.
Scores
Heart Score for Chest Pain Patients
STEMI patient?: Not applicable
Course
Orders/Labs/Results
Orders:
Orders
04/01/25 20:31
EKG [Electrocardiogram (*1)] Urgent
Reason for Study: Chest Pain
04/01/25 20:32
EKG- Treatment ONCE
04/01/25 20:42
Cardiac Monitoring- Treatment ONCE
IV Insert/Care/Rem.- Treatment PRN
O2 Therapy [RESP] Urgent
Titrate/Wean O2 to maintain O2 sat greater than (%): 90
Special Instructions: Maintain sats >/=90%
Pulse Ox/spot Check [RESP] Urgent
Quantity: 1
Special Instructions: ON ROOM AIR
04/01/25 20:56
Complete Blood Count/With Diff Urgent
Comprehensive Metabolic Panel Urgent
Troponin I Urgent
04/01/25 21:29
Urinalysis Reflex To Culture Urgent
Date Specimen was Collected: 04/01/25
Time Specimen was Collected: 21:27
Urine Microscopic Reflex Cult Urgent
Urine Culture Urgent
MAKENNA Source: U
Specimen Description:
Date Specimen was Collected: 04/01/25
Time Specimen was Collected: 21:27
04/01/25 22:01
EKG- Treatment ONCE
04/01/25 22:12
CT Chest Angio W/wo Iv Contras Stat
Comment:
Reason For Exam: cp radiating to back, consider dissection
Metoprolol [Lopressor] 5 mg IV NOW STA
04/01/25 22:13
Lorazepam [Ativan] 1 mg IV NOW STA
04/01/25 23:07
Aspirin 325 mg PO NOW STA
04/01/25 23:20
Morphine Sulfate 4 mg IV NOW STA
04/02/25 00:40
Troponin I Urgent
04/02/25 01:17
Heparin 4,000 units IV NOW STA
Nursing to Place Non Medication Order As Directed
Physician Order: PTT 6 hours after initial start of Heparin infusion
Above order entered?: Yes
04/02/25 01:19
Admit/Transfer Patient As Directed
Co-Sign Provider:
Level of Care: Inpatient admission
Assign to:: IVU
Physician / Group: Bart
Diagnosis: NSTEMI / ACS
Reason for Hospitalization: NSTEMI / ACS
Expected length of stay greater than two midnights?: Yes
ELOS- Estimated Length of Stay in days: 3
I certify the patient meets the requirements for IP care: Yes
PRN Pain Medication Management As Directed
May give lesser potent ordered pain med per pt: Yes
preference::
Protocol:: Medication orders for pain may be administered in a
manner that supports deferring to patient preference
when the pt is:
- Requesting an ordered lesser potent pain medication.
Least to most potent pain medications are defined
as: acetaminophen < NSAID < tramadol < opioids
(morphine, oxycodone, hydromorphone).
- Requesting a lesser dose of the same medication IF
ORDERED.
- Requesting a less intrusive route of administration
if both routes are prescribed by the provider (PO <
IV).
04/02/25 01:22
Code Status As Directed
Resuscitation Status: Full Code
04/02/25 01:24
PTT Urgent
Comment: Obtain baseline before beginning heparin infusion if not already collected
04/02/25 01:30
Heparin 89969 Units/250 ml 25,000 units in 250 ml IV PER PROTOCOL
Weight to be used for heparin protocol in kilograms (kg):: 116.1
Protocol:: Cardiac Tx/Acute Coronary
PTT Goal Range to be used:: PTT 73 to 111 seconds
Order type:: Initial
INITIAL Infusion Dose (UNITS/KG/hr) & then follow protocol:: 12 units/kg/hr
Infusion Dose in UNITS/hr & then follow protocol (UNITS/hr):: 1,000
INFUSION RATE in mL/hr & then follow protocol (mL/hr):: 10
PTT less than or equal to 64 seconds:: Increase rate by 200 units/hr (+ 2 mL/hr)
PTT 64.1 to 72.9 seconds:: Increase rate by 100 units/hr (+ 1 mL/hr)
PTT 73 to 111 seconds:: Target Range. No change in rate.
PTT 111.1 to 130.9 seconds:: Decrease rate by 100 units/hr (- 1 mL/hr)
PTT 131 to 199.9 seconds:: HOLD for 1 hr. Then decrease rate by 200 units/hr (- 2 mL/hr)
PTT greater than or equal to 200 seconds:: HOLD for 2 hrs & Notify Provider. Then decrease by 200 units/hr (-
2 mL/hr)
Lab follow-up:: Each change, PTT q6h until 2 consecutive are therapeutic. Then PTT
daily.
04/02/25 01:57
Morphine Sulfate 2 mg IV Q4HPRN PRN
04/02/25 02:00
Flush (0.9% Sodium Chloride) [Flush (Nss)] See Dose Instructions IV PER PROTOCOL
04/02/25 02:39
Acetaminophen [Tylenol] 650 mg PO Q4HPRN PRN
Albuterol Nebs [Ventolin Nebules] 2.5 mg INH R Q4HPRN PRN
Alprazolam [Xanax] 0.5 mg PO Q6HPRN PRN
Dextrose 50%-Water [Dextrose 50% Syringe] 12.5 grams IV [id number] PRN
Glucagon [GlucaGen] 1 mg IM PRN PRN
Nitroglycerin Sublingual [Nitrostat (Sublingual)] 0.4 mg SL [id number] PRN
Ondansetron Injectable [Zofran] 4 mg IV Q6HPRN PRN
Polyethylene Glycol Powder [Miralax] 17 grams PO DAILY PRN
04/02/25 02:39
CARDIOLOGY CONSULT Routine
Consulting Provider: Myles Ortiz
Was physician already notified: No
Reason for consult: NSTEMI / ACS
Consult Notification Routine
Specialty to Notify: Cardiology
Date consulting provider notified: 04/02/25
Time consulting provider notified: 07:23
Notified:: Provider
Activity As Directed
Activity Level: Ambulate
With Assistance
Bedside Glucose Monitoring As Directed
Frequency: AC&HS
Additional Instructions:: Change to q6h if pt on TPN, tube feeding or not eating
EKG with chest pain [ECG as needed] As Directed
ECG as needed for:: Chest Pain
I/O [Intake/ Output] As Directed
Frequency: Per unit guidelines
Vital Signs As Directed
Frequency: Per unit guidelines
Weight As Directed
Frequency: Daily
Oxygen Therapy [O2 Therapy] [RESP] Routine
Titrate/Wean O2 to maintain O2 sat greater than (%): 94
04/02/25 04:06
Troponin I Q6H
04/02/25 06:00
EKG [Electrocardiogram (*1)] IN AM
Reason for Study: Chest Pain
04/02/25 07:30
Insulin Aspart Corrective Mod [Novolog Flexpen-Moderate Resistance] See Protocol SC AC
04/02/25 08:00
HydrALAZINE [Apresoline] 25 mg PO BID
Metoprolol Xl [Toprol Xl] 100 mg PO BID
Pantoprazole [Protonix IV] 40 mg IV DAILY
04/02/25 08:13
Troponin I Q6H
04/02/25 08:40
Basic Metabolic Panel IN AM
Cardiovascular Evaluation IN AM
Complete Blood Count/No Diff Urgent
Comment: Obtain baseline before beginning heparin infusion if not already collected
Glycohemoglobin (HgbA1c) IN AM
04/02/25 15:33
Troponin I Q6H
04/02/25 22:00
Amlodipine [Norvasc] 10 mg PO HS
Aspirin Low Dose EC [Aspir Low (Enteric Coated)] 81 mg PO HS
Duloxetine Delayed Release [Cymbalta Delayed Release] 60 mg PO HS
Losartan [Cozaar] 100 mg PO HS
Trazodone [Desyrel] 300 mg PO HS
insulin glargine [Lantus Solostar U-100 Insulin] 15 unit SC HS
04/04/25 01:00
Complete Blood Count/No Diff Q2D
Comment: Notify if platelet count is <130,000 or decreases by 50% from baseline
Abnormal Lab Results
04/01/25 04/01/25 04/02/25
20:56 21:29 00:40
WBC 12.0 H 10^3/uL
(4.8-10.8)
Abs Immat Gran (auto) 0.1 H 10^3/uL
(0-0.05)
Absolute Lymphs (auto) 4.2 H 10^3/uL
(1.2-3.4)
Absolute Monos (auto) 1.0 H 10^3/uL
(0.1-0.6)
Immature Gran % 1.1 H %
(0-0.5)
APTT
BUN 19 H mg/dl
(7-17)
Glucose 317 H mg/dl
(70-99)
ALT 46 H U/L
(0-35)
Alkaline Phosphatase 152 H U/L
(38-126)
Troponin I 0.045 H* ng/ml 0.073 H* D ng/ml
Leukocyte Esterase Rfl 1+ A
(Negative)
Urine WBC (Reflex) 11-15 A /HPF
(0-5)
Urine Bacteria (Reflex) Few A
(Negative)
Urine Glucose 4+ A
(Negative)
Urine Albumin (Reflex) 1+ A
(Neg - Trace)
04/02/25
01:24
WBC
Abs Immat Gran (auto)
Absolute Lymphs (auto)
Absolute Monos (auto)
Immature Gran %
APTT 36.3 H Sec
(23.4-35.0)
BUN
Glucose
ALT
Alkaline Phosphatase
Troponin I
Leukocyte Esterase Rfl
Urine WBC (Reflex)
Urine Bacteria (Reflex)
Urine Glucose
Urine Albumin (Reflex)
04/01/25 20:56
04/01/25 20:56
Vital Signs
Initial and Last Documented VS:
Initial Vital Signs
Temp Pulse Resp BP Pulse Ox
98.6 F 90 24 194/116 96
04/01/25 20:34 04/01/25 20:34 04/01/25 20:34 04/01/25 20:34 04/01/25 20:34
Last Documented Vital Signs
Temp Pulse Resp BP Pulse Ox
97.6 F 104 18 109/54 96
04/05/25 16:21 04/05/25 13:45 04/05/25 16:21 04/05/25 13:33 04/05/25 16:21
*Critical Care Note
Total Time (30-74mins, 75-104mins- exclusive of procedures): 32
Update Note
Update Note:
Patient presents to the Emergency Department with __chest pain
Number and Complexity of Problems Addressed at the Encounter
� Chronic conditions affecting care:
� Acute Exacerbation and/or Progression of Chronic Illness:
� Differential Diagnosis includes: But not limited to ACS, dissection, PE, musculoskeletal pain, pleurisy, etc. etc.
Amount and/or Complexity of Data to be Reviewed and Analyzed
� I performed an independent evaluation of and my interpretation is:
EKG: Read by me, normal sinus rhythm, left axis deviation, no acute ischemia noted
CT: Vision... No intramural hematoma or penetrating atherosclerotic ulcer. No thoracic aortic aneurysm or acute aortic dissection. No central PE. No thoracic aortic aneurysm or acute aortic dissection. Clear lungs.
Incidentals calcified coronary atherosclerosis
Xrays:
Laboratory Studies: Nonspecific leukocytosis, hyperglycemia without associated acidosis, nonspecific mild LFT elevation. Troponin elevation at 0.045. Nonspecific UA, not convincing for infection
Other:
� Review of other/old records reveals: Discharge summary from August 2024 reviewed patient admitted with abdominal pain which was thought to be musculoskeletal in etiology associated with constipation
� Clinical information was obtained by an independent historian:
� Prescriptions/Medications Considered but not given: Consider giving aspirin now however will pause until CT ruled out dissection
� Further testing considered but not performed:
Risk of Complications and/or Morbidity or Mortality of Patient Management
� Social determinants of health affecting care:
� Discussion with other providers (PCP, Hospitalists, Consultants, etc):
� Escalation of care including admission/observation vs risk of discharge considered: When I first entered the room, patient was reporting that she was feeling increasing pain. ECG was promptly obtained which does not show acute
ischemia. Over approximately 10 to 15 minutes, pain gradually resolved. Team alerted regarding stat CTA that was ordered. At patient request we will give a dose of Ativan for her feelings of anxiety at this time. Blood pressure addressed with
Lopressor here. Will continue to monitor closely.
1123am Pt's ct neg for pe/dissection. Asa ordered. ECG X2 without acute ischemic changes. Pain very intermittent. Repeat trop ordered. Given risk factors, athersclerosis noted on ct, trop etc will admit for continued monitoring, cards c/s,
possible nonemergent cath.
12:09 AM patient pain-free, resting comfortably on her phone. Long discussion with patient regarding plan for admission, serial troponins, close monitoring, etc. She is in agreement. Case discussed with Dr. Katz via [place] text.
ED Attending Note
-
Portions of this chart may have been created with voice recognition software.� Occasional wrong word or��sound alike� substitutions may have occurred due to the inherent limitations of voice recognition software.
Discharge Plan
Departure
Patient Disposition: Admit
Date of Disposition: 04/02/25
Time of Disposition: 00:10
Admit to: Telemetry
Admit to doctor: bart
Presentation/result/management discussed w/ accepting MD/DO: Hospitalist
Discharge Problem:
Chest pain
Interventions
Interventions:
*Risk Screen - Suicide Last Done: 04/01/25 20:34
*General Assessment Last Done: 04/01/25 22:24
*Neglect/Abuse Screening Last Done: 04/01/25 20:34
*ED- Fall Risk Assessment Last Done: 04/01/25 22:24
*ED COVID-19 Vaccine History Last Done: 04/02/25 02:47
*Nursing Disposition Last Done: 04/02/25 02:45
ED- Cardiac Assessment Last Done: 04/01/25 22:08
Discharge Date and Time
Discharge Date/Time: 04/02/25 02:46
[2025-04-01] MEDS: ATIVAN 1 MG IV (23:03)
[2025-04-01] MEDS: ASPIRIN 325 MG PO (23:24)
[2025-04-01] MEDS: MORPHINE SULFATE 4 MG IV (23:27)
[2025-04-01] MEDS: LOPRESSOR 5 MG IV (23:39)
[2025-04-02] VITALS (22 sets, daily range): BP systolic 118–178; BP diastolic 48–131; BMI 42.6
[2025-04-02 01:12] LABS: Troponin I 0.073 ng/ml
--- NOTE | 2025-04-02 01:24 | HPS.HSE ---
Family Physician
-
Family Physician: NO INTERVIEW UNKNOWN
Chief Complaint
-
Chest Pain
History of Present Illness
Patient is a 54y F with PMH significant for hypertension, DM-II and obesity who presents to ED complaining of chest pain. Patient states that she has been having intermittent chest pain for the past 2-3 days. Pain is in the center of the chest
with radiation to the upper back. Associated dyspnea and nausea. No emesis. No fevers / chills. No palpitations. Patient denies any prior history of similar symptoms.
Today her pain seemed more severe and she presented to the ED for further evaluation.
Patient states that pain is not brought on by activity / exertion, eating / drinking, etc.
At the time of my evaluation in the ED she is having no pain.
Patient has prior h/o CVA and is chronically maintained on ASA and Plavix.
Medical History
Past Medical History
Past Medical History: Reports Other
Additional Past Medical History:
Nephrolithiasis
Chronic lumbar pain on chronic oral opiates
Multiple sclerosis
Trigeminal neuralgia
Hepatic steatosis, hepatomegaly
Hypertension
Obesity
DM-II
ASCVD / CVA x 2
Anxiety
Optic neuritis / Uveitis
Ankylosing spondylitis
Past Surgical History: Reports Other
Additional Past Surgical History:
History of renal calculi with removals
Neuroma to foot removal
Tonsillectomy adenoidectomy
Social History
Tobacco: Non-smoker
Alcohol: None
Drug: None
Personal: Single
Living: With Family (Children)
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
Family History
Family History: Not pertinent
Allergies / Home Medications
Allergies reflects when Allergies were last updated in [employer].
Home Medications with original date entered in [employer]
Allergy/Medication List:
Allergies
Allergy/AdvReac Type Severity Reaction Status Date / Time
phenytoin [From Dilantin] Allergy blood Verified 08/07/24 10:59
clots;pt
states 'i
can get it
but it has
to be
diluted
Quinolones Allergy Hives Verified 08/07/24 10:59
Home Medications
metoprolol succinate 100 mg tablet,extended release 24 hr 100 mg PO BID Blood pressure ##0 10/26/16
duloxetine 60 mg capsule,delayed release 60 mg PO HS Mental Health/Anxiety 11/27/18
amlodipine 10 mg tablet 10 mg PO HS Blood Pressure 03/07/22
clopidogrel 75 mg tablet 75 mg PO HS Blood Clot Prevention/Tx 03/07/22
albuterol sulfate 2.5 mg/3 mL (0.083 %) solution for nebulization 2.5 mg inhalation R Q4HPRN PRN sob/wheezing 08/07/24
aspirin 81 mg tablet,delayed release 81 mg PO HS Blood Clot Prevention/Tx 08/07/24
docusate sodium 100 mg capsule (Stool Softener) 100 mg PO BID Constipation 08/07/24
glipizide 10 mg tablet 10 mg PO BID Diabetes 08/07/24
losartan 100 mg tablet 100 mg PO HS Blood Pressure 08/07/24
oxycodone-acetaminophen 10 mg-325 mg tablet 1 tab PO Q6HPRN PRN moderate pain 08/07/24
polyethylene glycol 3350 17 gram oral powder packet (Miralax) 17 g PO DAILY PRN Constipation 08/07/24
hydralazine 25 mg tablet 25 mg PO BID Blood Pressure 08/15/24
alprazolam 1 mg tablet 0.5 mg (1/2 x 1 mg) PO HS Mental Health/Anxiety #0 tabs 08/20/24
glucagon 1 mg/0.2 mL subcutaneous auto-injector (Gvoke HypoPen 2-Pack) 1 mg SC PRN PRN low blood sugar 09/10/24
insulin glargine 100 unit/mL (3 mL) subcutaneous pen (Lantus Solostar U-100 Insulin) 15 unit SC HS Diabetes 09/10/24
trazodone 150 mg tablet 300 mg PO HS Mental Health/Anxiety 09/10/24
Review of Systems
-
History Source: Patient
A 12 point ROS was completed and negative except as noted: Yes
Constitutional: Denies Fever or Chills
Respiratory: Reports Trouble Breathing; Denies Cough
Cardiac: Reports Chest Pain; Denies Palpitations
Abdomen/GI: Reports Nausea; Denies Abdominal Pain, Vomiting or Diarrhea
: Denies Dysuria or Flank Pain
Musculoskeletal: Reports Other (Upper Back Pain); Denies Joint Pain or Edema
Neurological: Denies Dizzy or Headache
Psych: Denies Depression
Physical Exam
Vital Signs
Vital Signs
Temp Pulse Resp BP Pulse Ox
98.6 F 96 18 159/96 96
04/01/25 20:34 04/01/25 23:39 04/01/25 23:39 04/01/25 23:39 04/01/25 23:39
Physical Exam
General: Other (Obese 54y F in mild distress due to anxiety.)
HEENT: Moist mucous membranes, PERRLA and Other (Thick neck.)
Respiratory: Clear; No Wheezes, Rales or Rhonchi
Cardiac: S1/S2 and Regular Rhythm; No Murmur
GI: Soft, Non Tender, Non Distended and Normal Bowel Sounds
Musculoskeletal: No Clubbing, No Cyanosis and No Edema
Neuro: AO x 3
Laboratory Results
-
04/01/25 20:56
Laboratory Results
Total Bilirubin 0.3 mg/dl (0.2-1.3) 04/01/25 20:56
AST 32 U/L (14-36) 04/01/25 20:56
ALT 46 U/L (0-35) H 04/01/25 20:56
Alkaline Phosphatase 152 U/L (38-126) H 04/01/25 20:56
Troponin I 0.073 ng/ml H* D 04/02/25 00:40
Impression/Plan
-
A/P: Patient is a 54y F with PMH significant for hypertension, DM-II and prior CVA who presents to ED complaining of chest pain x 2-3 days.
NSTEMI / ACS
ASCVD
- Admit to IVU for further evaluation and treatment.
- EKG with non-specific T wave changes in the lateral leads compared to prior.
- Initial troponin 0.045 and increased to 0.073 on second set.
- Having intermittent pain here in the ED.
- Begin IV heparin.
- Continue ASA. Hold Plavix acutely given DM / pending further evaluation.
- Follow troponin to peak. Monitor for changes in symptoms.
- Cardiology evaluation for additional recommendations.
Hypertensive Emergency
- Possible that chest discomfort is mediated by marked BP elevation (or vice versa).
- Initial BP = 205/115 with active pain. Now 160/90 and pain free.
- Continue usual multidrug regimen for BP control.
- Adjust regimen as needed - consider nitroglycerin infusion if pain recurs / BP increases.
DM-II
- Uncontrolled - likely due to acute stress / ACS as noted above.
- No anion gap elevation / evidence for DKA.
- Continue basal insulin + SSI as needed.
- Update A1C.
- Adjust regimen for improved glycemic control.
Chronic Pain Syndrome
Chronic Opioid Dependence
- Chronic low back - not similar to current symptoms.
- IV morphine for now for acute pain.
- Resume usual med regimen (PRN oxycodone) on discharge.
Anxiety / Depression
- Continue usual home med regimen including trazodone / duloxetine.
- Alprazolam PRN.
Morbid Obesity due to excess calories
- Affects all aspects of care.
- Encourage healthy diet and increased activity as able for goal of weight loss.
DVT Prophylaxis: On IV Heparin
Code Status: Full
[2025-04-02] MEDS: HEPARIN 25000 UNITS/250 ML IV ×2 (01:40→23:18)
[2025-04-02] MEDS: HEPARIN 4000 UNITS IV (01:40)
[2025-04-02 01:41] LABS: APTT 36.3 Sec (23.4-35.0)
[2025-04-02] MEDS: NITROSTAT (SUBLINGUAL) 0.4 MG SL (02:55)
[2025-04-02] MEDS: NITROGLYCERIN PREMIX 250 IV (03:02)
--- NOTE | 2025-04-02 03:18 | PTCARENOTE ---
received the patient from the ED. AAOx3. tearful; anxious. on arrival patient states chest pain- 03/26. middle chest; radiating to her upper back. assisted patient to bed. SR on tele with PVCs-80s. bp elevated. patient then suddenly developed 08/26
chest pain. grabbing her chest. tearful. b/l upper chest, radiating to her upper back. EKG completed. sublingual nitro given- cp relief- 03/26. nitro gtt started per order.
at this time, patient states improved pain. 02/24. her lower back hurts- chronic lumbar pain. anxious as well- requesting xanax- see jan. orders placed by [facility] REPORT DEVELOPER.
[2025-04-02] MEDS: XANAX 1 MG PO ×4 (03:30→22:12)
[2025-04-02] MEDS: MORPHINE SULFATE 2 MG IV ×3 (03:31→18:37)
[2025-04-02 05:10] LABS: Troponin I 0.236 ng/ml
[2025-04-02] MEDS: APRESOLINE 25 MG PO ×2 (07:58→20:36)
[2025-04-02] MEDS: TOPROL XL 100 MG PO ×2 (07:59→20:36)
--- NOTE | 2025-04-02 07:59 | CON.CAR ---
Addendum entered and electronically signed by Zuleima Garcia DO 04/02/25 12:21:
I saw and examined the patient.
The State Editor's note was reviewed and I agree with the note.
Comment: Patient was seen and examined with cardiac nurse practitioner. Elena is a 54-year-old female with a past medical history of hypertension requiring multi agent regimen, uncontrolled type 2 diabetes mellitus, sleep apnea diagnosed years ago
untreated, multiple sclerosis previously followed by Dr. Mykel Cruz although not recently, trigeminal neuralgia, ankylosing spondylitis/inflammatory arthritis followed by Dr. Lopez and chronic pain followed by pain management who is a lifelong
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 She has a history of TIA years ago at [facility] and has been on aspirin and Plavix since this event. She does not routinely follow with cardiology although may have seen
someone years ago. She states several days of intermittent chest discomfort which became severe prompting ER visit. Blood pressure on admission 194/116 mmHg, pulse 90. Pulse ox 96%. She was given IV Lopressor and ultimately started on a
nitroglycerin drip with improved chest pain symptoms while in the emergency department.
-Lab work: WBC 12, hemoglobin 12.8, platelets 285,000. Sodium 139, potassium 4.2, BUN/creatinine 15/0.6. Hemoglobin A1c 8.3%. AST 32, ALT 46, alkaline phosphatase 152. Initial troponin 0.45 and currently 0.355. proBNP 3710. Total cholesterol
255, triglycerides 247, LDL 140, HDL 61
-Twelve-lead EKG Normal sinus rhythm with left atrial enlargement and LVH with lateral ST-T wave changes
-CTA of her chest 04/01/2025 with no pulmonary embolism or aortic dissection/pathology. There is moderate to severe coronary artery calcification noted. Minimal calcific atherosclerotic changes of the thoracic aorta. Upper abdomen, celiac and SMA
arteries are patent. Mild subsegmental atelectasis/scarring of the lung bases. No pneumothorax or pulmonary masses. 4 mm nodule right middle lobe present on study in 2016. Minimal pericardial fluid with no significant pericardial effusion. No
pleural effusion. Fatty liver infiltration with splenomegaly.
GEN: No distress, awake, Ox3, emotional and crying during our visit
HEENT: mmm
LUNGS: CTA, no wheezes/rales
CV: Reg, S1/S2, no murmur or rub
ABD: Obese, nontender, positive bowel sounds
EXT: No edema
NEURO: Gross non-focal
Plan:
54-year-old female with multiple cardiac risk factors presenting with chest pain consistent with non-ST elevation myocardial infarct in the setting of hypertensive urgency
NSTEMI
- Currently chest pain-free on IV nitroglycerin with improved blood pressure trends
- Will continue multiagent blood pressure regimen with goal normotension
- Continue aspirin
- Continue IV heparin gtt
- Patient was on Plavix prehospitalization for history of TIA years ago. Multivessel coronary disease noted on CTA and will hold Plavix at this point pending cardiac catheterization tentatively planned 04/04/2023 or sooner if needed. Last
dose of Plavix was 04/01/2025
- Bedside 2D echocardiogram preliminary reviewed with normal biventricular size and systolic function with moderate to severe LVH without obstruction. Mild hypokinesis of the distal anterior, anterolateral martinez. Prominent pericardial fat pad with
no significant pericardial effusion. Official report to follow.
- proBNP 3710�will give Lasix 40 mg IV x 1 and monitor response
- Patient has history of 'statin intolerance' however given presentation will start atorvastatin 20 mg daily. Can consider PCSK9 inhibitor as an outpatient. Goal LDL less than 70 mg/dL, goal triglycerides less than 150 mg/dL
- Trend cardiac troponin to peak
- Monitor on telemetry; serial EKGs
-Tentative left heart catheterization 04/04/2025, sooner if needed
Hypertension on multiagent regimen presented with hypertensive urgency
- Echocardiogram with at least moderate LVH and concentric pattern
-Blood pressures better on IV nitroglycerin
- Optimize antihypertensive therapy
- Goal normotension
Mixed hyperlipidemia
- See above plan
Uncontrolled diabetes mellitus with hemoglobin A1c 8.3%
- Dietary modifications and blood pressure goals reviewed. Goal normoglycemia
- Diabetic nurse practitioner consulted
- Will assess cost for eventual SGLT2 inhibitor
-Probable sleep apnea with no recent testing, briefly discussed outpatient evaluation which can be arranged at time of discharge
-Inflammatory arthritis followed by rheumatology�noted
-Chronic pain followed by pain management�defer to primary
-History of multiple sclerosis not currently on medical therapy and has been stable
-History of TIA�no active issues. Aggressive risk factor reduction.
Original Note:
Consultation
Consultation Request
Date/Time Consultation Requested: 04/02/2025, 0239
Date/Time Consultation Performed: 04/02/2025, 0800
Requesting Provider: Dr. Baker
Performing Provider: GERMAIN Begum for Dr Garcia
Reason for Consultation: chest pain
Medical History
-
Chief Complaint: Chest pain
History of Present Illness:
54-year-old female with past medical history of hypertension, type 2 diabetes, hyperlipidemia, CVA/TIA x 2, sleep apnea, obesity, UTIs, multiple sclerosis, trigeminal neuralgia, ankylosing spondylitis, chronic pain syndrome, presents to ED04/01/2025
with 2 to 3-day history of left-sided chest pain radiating to upper back with associated mild nausea. Pain described as sharp radiating from left breast into back, lasting a few minutes, coming and going throughout the day. Pain was worse on day
of presentation so presented to ED. Chest pain-free in ED. Is chronically on aspirin and Plavix for history of CVA, which patient reports was a TIA and was seen at [facility] at the time.. Was hypertensive on presentation. Started on heparin
and nitro gtts. Rec'd ASA 325 mg in ED as well as IV metoprolol and morphine.
At time of TIA saw a 8th grade mathematics teacher at [facility] x 1 and wore a Holter monitor but did not follow-up and unsure of result.
Outpatient cardiovascular medications include aspirin and Plavix, amlodipine 10 mg daily, Toprol 100 mg twice daily, losartan 100 mg daily, hydralazine 25 mg twice daily
ED workup:
Troponin 0.045�0 0.073�0.[address].
CT angiography pending
EKG: Normal sinus rhythm left axis deviation/left anterior fascicular block
WBC 12.0, hemoglobin 12.8, platelet 285, BUN/creatinine 19/0.6, K4.2, NA 136, glucose 317, ALT 46, AST 32, FLP pending
PMH:
Hypertension
Obesity
DM-II
ASCVD / CVA x 2
Anxiety
Optic neuritis / Uveitis
Ankylosing spondylitis
Nephrolithiasis
Chronic lumbar pain on chronic oral opiates
Multiple sclerosis
Trigeminal neuralgia
Hepatic steatosis
hepatomegaly
Past Medical History
Past Medical History: Other (as above)
Past Surgical History: Other (Renal calculi with stone removal, tonsillectomy, adenectomy, neuroma to foot removal)
Social History
Tobacco: Non-Smoker
Alcohol: None
Personal: Single (Single mom with 3 teenage girls)
Living: With Family
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
Allergies / Home Medications
Allergy/AdvReac Type Severity Reaction Status Date / Time
phenytoin [From Dilantin] Allergy blood Verified 08/07/24 10:59
clots;pt
states 'i
can get it
but it has
to be
diluted
Quinolones Allergy Hives Verified 08/07/24 10:59
�Medication �Instructions �Recorded �Confirmed �Type
metoprolol succinate 100 mg 100 mg PO BID Blood pressure ##0 10/26/16 04/01/25 History
tablet,extended release 24 hr
duloxetine 60 mg capsule,delayed 60 mg PO HS Mental Health/Anxiety 11/27/18 04/01/25 History
release
amlodipine 10 mg tablet 10 mg PO HS Blood Pressure 03/07/22 04/01/25 History
clopidogrel 75 mg tablet 75 mg PO HS Blood Clot 03/07/22 04/01/25 History
Prevention/Tx
albuterol sulfate 2.5 mg/3 mL 2.5 mg inhalation R Q4HPRN PRN 08/07/24 04/01/25 History
(0.083 %) solution for nebulization sob/wheezing
aspirin 81 mg tablet,delayed 81 mg PO HS Blood Clot 08/07/24 04/01/25 History
release Prevention/Tx
docusate sodium 100 mg capsule 100 mg PO BID Constipation 08/07/24 04/01/25 History
(Stool Softener)
glipizide 10 mg tablet 10 mg PO BID Diabetes 08/07/24 04/01/25 History
losartan 100 mg tablet 100 mg PO HS Blood Pressure 08/07/24 04/01/25 History
oxycodone-acetaminophen 10 mg-325 1 tab PO Q6HPRN PRN moderate pain 08/07/24 04/01/25 History
mg tablet
polyethylene glycol 3350 17 gram 17 g PO DAILY PRN Constipation 08/07/24 04/01/25 History
oral powder packet (Miralax)
hydralazine 25 mg tablet 25 mg PO BID Blood Pressure 08/15/24 04/01/25 History
glucagon 1 mg/0.2 mL subcutaneous 1 mg SC PRN PRN low blood sugar 09/10/24 04/01/25 History
auto-injector (Gvoke HypoPen
2-Pack)
insulin glargine 100 unit/mL (3 15 unit SC HS Diabetes 09/10/24 04/01/25 History
mL) subcutaneous pen (Lantus
Solostar U-100 Insulin)
trazodone 150 mg tablet 300 mg PO HS Mental Health/Anxiety 09/10/24 04/01/25 History
alprazolam 1 mg tablet 1 mg PO TID PRN anxiety 04/02/25 04/02/25 History
Review of Systems
-
History Source: Patient
All other systems: Negative unless noted
Physical Exam
Vital Signs
Temp Pulse Resp BP Pulse Ox
98.1 F 92 18 130/66 94
04/02/25 07:47 04/02/25 07:47 04/02/25 07:47 04/02/25 07:47 04/02/25 07:47
GEN: No distress, awake, Ox3
HEENT: supple, anicteric, mmm
LUNGS: CTA, no wheezes/rales
CV: Reg, S1/S2, no murmur
ABD: soft, BS+, NT/ND
EXT: No edema
NEURO: Gross non-focal
SKIN: No rash
Lab Results
Troponin I 0.236 ng/ml H* D 04/02/25 04:06
Impression / Plan
-
PCP: Donald Plaza
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
Impression:
chest pain
troponin elevated
Type 2 diabetes mellitus
Hyperlipidemia, intolerant of multiple statin
Hypertension
History of CVA/TIA
Multiple sclerosis, not on medication
Trigeminal neuralgia, not active
Chronic lumbar pain on chronic oral opiates
Anxiety
Obesity
sleep apnea
Nephrolithiasis
Holter monitor in past at time of TIA, results unknown
Plan:
54-year-old female with history of hypertension, type 2 diabetes, hyperlipidemia, CVA/TIA, sleep apnea, obesity, UTIs, multiple sclerosis, trigeminal neuralgia, ankylosing spondylitis, chronic pain syndrome, presents to ED04/01/2025 with 2 to 3-day
history of left-sided chest pain radiating to upper back with associated mild nausea. Pain described as sharp radiating from left breast into back, lasting a few minutes, coming and going throughout the day. Is chronically on aspirin and Plavix
for history of CVA/TIA. Was hypertensive on presentation. Started on heparin and nitro gtts. Rec'd ASA 325 mg in ED as well as IV metoprolol and morphine.
Troponin mildly elevated and trending up, current 0.236. EKG normal sinus rhythm, ? STdepression lat leads. Chest pain-free on nitro and heparin.
NSTEMI
-cont trend trop and EKGs
-will need cardiac cath, timing depending on trop trend and symptoms
-keep NPO for now pending next trop
-risk factors CAD: DM, HTN, obesity, TIA/CVA
-cont Heparin
-cont NTG gtt for pain and BP control
-cont usual ASA, Plavix, beta mookie
-intolerant multiple statins in outpt setting
-cont outpt antihypertensives amlodipine 10 mg daily, Toprol 100 mg twice daily, losartan 100 mg daily, hydralazine 25 mg twice daily
-check echo
-check proBNP and FLP with next labs
-CT angiography checked in ED -pending
-eventual outpt f/u with cardiology
Data Reviewed
-
EKG: Tracing Personally Visualized and interpreted
Labs: Labs Reviewed by me
[2025-04-02] MEDS: PROTONIX IV 40 MG IV (08:00)
[2025-04-02] MEDS: NSS (PRESERVATIVE FREE) 10 ML IV (08:01)
[2025-04-02] MEDS: TYLENOL 650 MG PO ×2 (08:01→14:05)
[2025-04-02 08:33] LABS: APTT 41.6 Sec (23.4-35.0)
[2025-04-02 08:55] LABS: Hematocrit 38.1 % (37.0-47.0); Hemoglobin 12.8 g/dL (12.0-16.0); Mean Corp Hgb Conc. 33.6 g/dL (33.0-37.0); Mean Corpuscular Volume 80.4 fL (81.0-99.0); Mean Platelet Volume 9.8 fL (7.4-10.4); Platelet Count 294 10^3/uL (130-400); Red Blood Cell Count 4.74 10^6/uL (4.20-5.40); Red Cell Dist. Width 13.8 % (11.5-14.5); White Blood Cell Count 12.2 10^3/uL (4.8-10.8)
[2025-04-02 09:00] LABS: Troponin I 0.355 ng/ml
[2025-04-02 09:14] LABS: Glycohemoglobin (HgbA1c) 8.3 % (4.0-5.6)
[2025-04-02 09:15] LABS: NT-proBNP 3710 pg/ml
[2025-04-02 09:21] LABS: Blood Urea Nitrogen 15 mg/dl (7-17); Carbon Dioxide 26 mmol/L (22-30); Chloride 103 mmol/L (98-107); Estimated Creatinine Clearance > 125 ml/min; Glucose 195 mg/dl (70-99); HDL Cholesterol 61 mg/dl; LDL Cholesterol, Calculated 140 mg/dl; Potassium 4.2 mmol/L (3.5-5.1); Sodium 139 mmol/L (135-145); Total Cholesterol 255 mg/dl (50-199); Triglyceride 274 mg/dl (10-149); Very Low Density Lipoprotein 54 mg/dl (0-30); eGFR > 60.00
--- NOTE | 2025-04-02 09:22 | W.PN.HOSP.TC ---
Today's Communication/Plan
-
Follow-up troponin
Echo
Cardiology evaluation
Follow blood sugars
Add Anusol and PPI
Assessment / Plan
Assessment / Plan
54-year-old female with chest pain for the past couple of days waxes and wanes
CTA chest-no aneurysm or dissection. Calcified coronary atherosclerosis
Awake alert pain-free no
Cardiovascular system S1-S2 appreciated
Chest clear to auscultation
Abdomen soft and nontender
No pedal edema
# Non-STEMI/ACS
Coronary atherosclerosis on CT
EKG with nonspecific ST-T changes
Intermittent chest pain in the ER
Continue IV heparin
Continue aspirin. Holding Plavix.
Discussed the patient regarding coronary atherosclerosis on CT and the importance of being on a statin -see below.
Continue losartan, metoprolol
Troponin trending up. Follow until it peaks
May need heart catheterization
Echo
Cardiology evaluation
# Hypertensive emergency
Multidrug-resistant hypertension
Initially BP was 205/115 mmHg
Continue amlodipine, hydralazine, losartan, metoprolol
If not controlled consider adding Aldactone long-term
Currently on nitroglycerin
# Diabetes hemoglobin A1c- pending
Continue Lantus insulin 15 units, Accu-Cheks and sliding scale coverage
Restart Glipizide if sugars go up. May need to hold while n.p.o.
# History of CVA-continue aspirin, Holding Plavix
She saw a senior national account manager at [facility] x and wore a Holter monitor but did not follow-up and unsure of result.
Intolerant of multiple statins causing myalgias. She is not sure which ones were tried
I called Dr. Plaza's office another physician group is on-call for their office.
She is willing to try a statin which has not been tried in the past
# Abnormal urinalysis-has a lot of squamous cells but she has increased frequency and cultures and start ceftriaxone
# Multiple sclerosis/Optic neuritis- Not on treatment. No active symptoms
# Psoriatic arthritis/ankylosing spondylitis-Follows with rheumatology ( ) was due to start biologic ( Cosentyx) - Never started as she had Sepsis in the past and afraid.
# Anxiety and Depression-continue duloxetine, alprazolam, trazodone
# History of iron deficiency anemia, she follows up with Dr. Bauman
# History of GI bleed
Diverticulosis
GERD- Takes PPI HS not on med list add it
EGD 11/28/2018-normal duodenum, antral erythema, no lesions in the esophagus. Biopsies moderate chronic inactive gastritis negative for H. pylori.
Colonoscopy 04/23/2022-diverticulosis in the sigmoid colon and ascending colon. Internal hemorrhoids.
Had some bright red blood on Friday-possibly hemorrhoidal-add Anusol suppository and watch while on heparin
Follows up with Dr. Justino Hu as OP ( [facility])
She is not sure if she has had another colonoscopy there since 2021.
# Trigeminal neuralgia/chronic pain opiate dependent-Follows up with Dr. Mccray for pain management-continue as needed Percocet
# History of nephrolithiasis with stent placement in the past
# H/O Uveitis- Not active now.
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
# Cholelithiasis
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 States that she is not on any PAP machines
# Obesity with a BMI 42-was on Ozempic as outpatient,did not work. She was advised to start Mounjaro but she never started-Weight loss recommended.
# DVT Prophylaxis- Heparin
# Full Code
Called PCP office .
Time spent over 54 min
Part of this note was created using voice recognition system. Occasional wrong word or��sound alike� substitutions may have inadvertently occurred due to the inherent limitations of voice recognition software. If noted kindly bring it to my
attention for correction.
Anticipated Discharge: > 48 hours
Subjective/Interval History
-
Date of Service: April 02, 2025
Objective Data
-
Labs:
Laboratory Results
04/01/25 04/02/25 04/02/25
20:56 01:24 08:13
WBC
Hgb
Hct
Plt Count
APTT 36.3 H 41.6 H
Sodium 136
Potassium 4.2
Chloride 103
Carbon Dioxide 22
BUN 19 H
Creatinine 0.6
Glucose 317 H
Calcium 10.0
Total Bilirubin 0.3
AST 32
ALT 46 H
Alkaline Phosphatase 152 H
04/02/25 04/02/25
08:40 15:15
WBC 12.2 H
Hgb 12.8
Hct 38.1
Plt Count 294
APTT Pending
Sodium 139
Potassium 4.2
Chloride 103
Carbon Dioxide 26
BUN 15
Creatinine 0.6
Glucose 195 H
Calcium 10.0
Total Bilirubin
AST
ALT
Alkaline Phosphatase
Vital Signs:
Vital Signs
Temp Pulse Resp BP Pulse Ox
98.1 F 102 18 130/66 94
04/02/25 07:47 04/02/25 07:59 04/02/25 07:47 04/02/25 07:59 04/02/25 07:47
[2025-04-02] MEDS: NOVOLOG FLEXPEN-MODERATE RESISTANCE 1 UNITS SC (09:38)
[2025-04-02] MEDS: ROCEPHIN 1000 MG IV (11:13)
[2025-04-02] MEDS: COLACE 100 MG PO ×2 (11:14→20:36)
[2025-04-02] MEDS: SENOKOT 17.2 MG PO ×2 (11:14→20:36)
[2025-04-02] MEDS: STERILE WATER FOR INJECTION 10 ML IV (11:14)
[2025-04-02] MEDS: ANUSOL HC 25 MG RECTAL ×2 (11:14→20:55)
--- NOTE | 2025-04-02 11:25 | W.PN.UPDATE ---
Update Note
Progress Note Update
Patient made n.p.o. after midnight 04/04/2025 with plan for cardiac catheterization. Sent [place] text to the nursing supervisor byproducts to add to cath schedule for Friday.
--- NOTE | 2025-04-02 12:00 | PTCARENOTE ---
Received pt at change of shift resting in bed. pt appears anxious and tearful and requesting PRN Xanax--see JAN. NSR w/ PVC's on the monitor. HR 80-90s. Nitro gtt at 5mcg/min and Heparin gtt at 10mL/hr. AM labs obtained and Troponin trending up, at
0.355. Lorena Chau, CHILD CARE COUNSELOR, made aware. Pt denies chest pain or SOB. pt c/o headache 03/26 and back pain 06/26. PRN Tylenol and Morphine given as ordered-- see MAR. Pt informed to call for assistance to bathroom. Call jim within reach.
[2025-04-02] MEDS: LASIX 40 MG IV (12:35)
[2025-04-02 12:42] LABS: Glucose - Point of Care 144 mg/dl (70-99)
[2025-04-02] MEDS: NOVOLOG FLEXPEN-MODERATE RESISTANCE SC (13:26)
--- NOTE | 2025-04-02 14:00 | PTCARENOTE ---
Pt states 'The Morphine didn't do anything' and still reports back pain as an /. Pt also reports charley horses. Sridevi Mooer MD made aware. Magnesium and Roxicodone ordered.
[2025-04-02] MEDS: MAGNESIUM OXIDE 500 MG PO (14:05)
[2025-04-02] MEDS: ROXICODONE 10 MG PO ×2 (14:48→20:37)
--- NOTE | 2025-04-02 14:55 | PTCARENOTE ---
patient called out, weepy, doesnot understand what is going on with her. sat with patient, answered questions, and offered emotional support. xanax po given as ordered. also patient usually takes oxycodone 10/325 po for pain at home, TT
Sridevi, ordered oxycodone as patient takes at home , given as ordered.
[2025-04-02 16:06] LABS: APTT 41.6 Sec (23.4-35.0)
[2025-04-02 16:17] LABS: Troponin I 0.284 ng/ml
[2025-04-02 16:45] LABS: Glucose - Point of Care 246 mg/dl (70-99)
[2025-04-02] MEDS: NOVOLOG FLEXPEN-MODERATE RESISTANCE 3 UNITS SC (16:46)
[2025-04-02] MEDS: ZOFRAN 4 MG IV (18:21)
[2025-04-02] MEDS: LIPITOR 20 MG PO (18:22)
--- NOTE | 2025-04-02 19:40 | PTCARENOTE ---
Received pt @ change of shift. AAOx3. VSS-- NSR w/ BBB and PVCs on monitor. Heparin gtt running @ 1400 units/hr and nitro running @ 5 mcg/hr (0.8 mL/hr) through left arm IV. Denies chest pain @ this time, but does have back pain (chronic) and
verbalizes being very scared and nervous. RN discussed with pt about taking one day @ a time and willingness to sit and talk with the pt if that's what she wants. Requested to ambulate down the neely. RN agreed as long as pt felt stable on feet. Pt
agreed. Discussed plan of care for evening. Pt verbalizes understanding. Call jim within reach.
[2025-04-02] MEDS: TYLENOL 325 MG PO (20:37)
[2025-04-02 21:17] LABS: Glucose - Point of Care 212 mg/dl (70-99)
[2025-04-02] MEDS: COZAAR 100 MG PO (22:09)
[2025-04-02] MEDS: ASPIR LOW (ENTERIC COATED) 81 MG PO (22:11)
[2025-04-02] MEDS: CYMBALTA DELAYED RELEASE 60 MG PO (22:11)
[2025-04-02] MEDS: NORVASC 10 MG PO (22:11)
[2025-04-02] MEDS: DESYREL 300 MG PO (22:12)
[2025-04-02] MEDS: LANTUS 0.15 UNITS SC (22:13)
[2025-04-03] VITALS (13 sets, daily range): BP systolic 69–127; BP diastolic 37–83; BMI 42.0
[2025-04-03] MEDS: ROXICODONE 10 MG PO ×3 (05:53→20:57)
[2025-04-03] MEDS: XANAX 1 MG PO ×3 (05:54→19:51)
[2025-04-03] MEDS: TYLENOL 325 MG PO ×2 (05:54→13:00)
[2025-04-03 06:00] LABS: APTT 75.8 Sec (23.4-35.0)
[2025-04-03 06:38] LABS: Blood Urea Nitrogen 24 mg/dl (7-17); Calcium 9.3 mg/dl (8.4-10.2); Carbon Dioxide 21 mmol/L (22-30); Chloride 103 mmol/L (98-107); Estimated Creatinine Clearance 61 ml/min; Glucose 228 mg/dl (70-99); Magnesium 1.7 mg/dl (1.6-2.3); Potassium 4.4 mmol/L (3.5-5.1); Sodium 137 mmol/L (135-145); eGFR 49.17
--- NOTE | 2025-04-03 09:12 | W.PN.CARDCBS ---
Today's Communication / Plan
-
IV nitroglycerin stopped
Held losartan, hydralazine and metoprolol.
Will monitor blood pressure trends closely and add back therapy as able avoiding hypotension. Keep MAP greater than 65
No further Lasix
Repeat labs in the morning to reassess renal function.
N.p.o. after midnight for tentative left heart catheterization if renal function allows
Impression / Plan
-
PCP: Donald Plaza
no previous operations architect
Impression:
chest pain
troponin elevated
Type 2 diabetes mellitus
Hyperlipidemia, intolerant of multiple statin
Hypertension
History of CVA/TIA
Multiple sclerosis, not on medication
Trigeminal neuralgia, not active
Chronic lumbar pain on chronic oral opiates
Anxiety
Obesity
sleep apnea
Nephrolithiasis
Plan:
54-year-old female with multiple cardiac risk factors presenting with chest pain consistent with non-ST elevation myocardial infarct in the setting of hypertensive urgency
NSTEMI
- Chest pain-free with low blood pressures this morning now off IV nitroglycerin with increased creatinine, 1.3
- Blood pressure is now low previously requiring multiagent blood pressure regimen As an outpatient
-Will hold antihypertensive therapy and monitor blood pressure trends
-Brisk diuresis following Lasix 40 mg IV x 1. No further diuresis [proBNP 3710]
-Increased creatinine likely multifactorial with lower blood pressure trends, Lasix and recent dye exposure with CTA done in ER
- Continue aspirin
- Continue IV heparin gtt
- Patient was on Plavix prehospitalization for history of TIA years ago. Multivessel coronary disease noted on CTA and will hold Plavix at this point pending cardiac catheterization tentatively planned 04/04/2023 or sooner if needed. Last
dose of Plavix was 04/01/2025
- Bedside 2D echocardiogram preliminary reviewed with normal biventricular size and systolic function with moderate to severe LVH without obstruction.Mild anterolateral hypokinesis. Prominent pericardial fat pad with no significant pericardial
effusion.
- Patient has history of 'statin intolerance' however given presentation will start atorvastatin 20 mg daily. Can consider PCSK9 inhibitor as an outpatient. Goal LDL less than 70 mg/dL, goal triglycerides less than 150 mg/dL
- Trend cardiac troponin to peak
- Monitor on telemetry; serial EKGs
-Tentative left heart catheterization 04/04/2025, if renal function allows
Hypertension on multiagent regimen presented with hypertensive urgency
- Echocardiogram with at least moderate LVH and concentric pattern
-Blood pressures now low/mildly hypotensive
- Goal normotension
Mixed hyperlipidemia
- See above plan
Uncontrolled diabetes mellitus with hemoglobin A1c 8.3%
- Dietary modifications and blood pressure goals reviewed. Goal normoglycemia
- Diabetic nurse practitioner consulted
- Will assess cost for eventual SGLT2 inhibitor
-Probable sleep apnea with no recent testing, briefly discussed outpatient evaluation which can be arranged at time of discharge
-Inflammatory arthritis followed by rheumatology�noted
-Chronic pain followed by pain management�defer to primary
-History of multiple sclerosis not currently on medical therapy and has been stable
-History of TIA�no active issues. Aggressive risk factor reduction.
Progress Note - Human Resources Manager
Subjective
Date of Service: April 03, 2025
Seen and examined. No chest pain and breathing feels better.
Objective
Labs:
04/02/25 08:40
04/03/25 05:20
Labs
Hgb 12.8 g/dL (12.0-16.0) 04/02/25 08:40
Hct 38.1 % (37.0-47.0) 04/02/25 08:40
Plt Count 294 10^3/uL (130-400) 04/02/25 08:40
APTT 75.8 Sec (23.4-35.0) H 04/03/25 05:20
Sodium 137 mmol/L (135-145) 04/03/25 05:20
Potassium 4.4 mmol/L (3.5-5.1) 04/03/25 05:20
BUN 24 mg/dl (7-17) H 04/03/25 05:20
Creatinine 1.3 mg/dL (0.6-1.0) H 04/03/25 05:20
Glucose 228 mg/dl (70-99) H 04/03/25 05:20
Troponins
04/01/25 04/02/25 04/02/25
20:56 00:40 04:06
Troponin I 0.045 H* 0.073 H* D 0.236 H* D
04/02/25 04/02/25
08:13 15:33
Troponin I 0.355 H* D 0.284 H*
Vital Signs and I&O:
Vital Signs
Temp Pulse Resp BP Pulse Ox
98.2 F 78 20 127/80 91
04/03/25 07:45 04/03/25 06:00 04/03/25 07:45 04/03/25 05:14 04/03/25 07:45
Vital Signs
Temp Pulse Resp BP Pulse Ox
98.2 F 78 20 127/80 91
04/03/25 07:45 04/03/25 06:00 04/03/25 07:45 04/03/25 05:14 04/03/25 07:45
Intake & Output
04/01/25 04/02/25 04/03/25 04/04/25
06:59 06:59 06:59 06:59
Output Total 1500 / 1500
Balance -1500 / -1500
Physical Exam
Physical Exam
GEN: No distress, awake, Ox3
HEENT: mmm
LUNGS: CTA, no wheezes/rales
CV: Reg, S1/S2, no murmur or rub
ABD: Obese, nontender, positive bowel sounds
EXT: No edema
NEURO: Gross non-focal
[2025-04-03 09:48] LABS: Glucose - Point of Care 163 mg/dl (70-99)
[2025-04-03] MEDS: NOVOLOG FLEXPEN-MODERATE RESISTANCE 1 UNITS SC ×2 (09:48→11:51)
[2025-04-03] MEDS: NSS (PRESERVATIVE FREE) 10 ML IV (09:49)
[2025-04-03] MEDS: APRESOLINE PO (10:00)
[2025-04-03] MEDS: ANUSOL HC RECTAL ×2 (10:04→19:48)
[2025-04-03] MEDS: COLACE 100 MG PO ×2 (10:04→19:49)
[2025-04-03] MEDS: MIRALAX PO (10:05)
[2025-04-03] MEDS: SENOKOT 17.2 MG PO ×2 (10:05→19:50)
[2025-04-03] MEDS: PROTONIX IV 40 MG IV (10:05)
[2025-04-03] MEDS: ROCEPHIN 1000 MG IV (10:06)
[2025-04-03] MEDS: STERILE WATER FOR INJECTION 10 ML IV (10:06)
--- NOTE | 2025-04-03 10:10 | PTCARENOTE ---
received patient this am, very lethargic but arousable, BP 80/52, repeated BP 86/49, turned off IV nitroglycerin, Dr. Kahn aware. Cr. 1.3, held several medications as ordered. IV heparin @ 1600units/hr via left forearm.
--- NOTE | 2025-04-03 10:22 | W.PN.HOSP.TC ---
Today's Communication/Plan
-
Hold further Lasix and losartan tonight
Hold amlodipine
Cut back on beta-blockers and add parameters to beta-blockers and hydralazine
Follow creatinine tomorrow
Add NovoLog AC
Hold glipizide in the setting of elevated creat
Assessment / Plan
Assessment / Plan
54-year-old female with chest pain for the past couple of days waxes and wanes
CTA chest-no aneurysm or dissection. Calcified coronary atherosclerosis
Echo 04/02/2025-technically difficult study. Normal LV size mild concentric LVH. EF 55%. Normal RV size and systolic function with increased RV wall thickness. Thickened mitral valve with trivial MR. Trace TR. Pulmonary artery pressure 18 mmHg.
Prominent anterior fat pad with thickened pericardium. No pericardial effusion.
Denies any chest pain or shortness of breath
Awake alert pain-free no
Cardiovascular system S1-S2 appreciated
Chest clear to auscultation
Abdomen soft and nontender
No pedal edema
# Non-STEMI/ACS
Coronary atherosclerosis on CT
EKG with nonspecific ST-T changes
Intermittent chest pain in the ER
Continue IV heparin
Continue aspirin. Holding Plavix.
Discussed the patient regarding coronary atherosclerosis on CT and the importance of being on a statin -see below.
Continue metoprolol, Hold Losartan
Troponin peaked at 0.35
May need heart catheterization, once creat better ( possible friday)
Echo as above
Cardiology following
# ALTAGRACIA- Hold off on further Lasix. Hold losartan tonight. Avoid hypotension and fluctuation in blood pressure.
# Hypertensive emergency
Multidrug-resistant hypertension
Initially BP was 205/115 mmHg on admission.
Was on amlodipine, hydralazine, losartan, metoprolol as outpatient
Hold losartan and amlodipine. Decrease metoprolol dosing because of hypotension
Placed parameters to hold hydralazine and metoprolol
Nursing to notify if blood pressure goes above 145 mmHg to resume some of her antihypertensives
Stopped nitroglycerin
# Diabetes hemoglobin A1c- 8.3
Continue Lantus insulin 15 units, Accu-Cheks and sliding scale coverage
Hold glipizide in the setting of ALTAGRACIA.
Add NovoLog 3 units AC
# History of CVA-continue aspirin, Holding Plavix
She saw a senior operations manager at [place] [id number] and wore a Holter monitor but did not follow-up and unsure of result.
Intolerant of multiple statins causing myalgias. She is not sure which ones were tried
I called Dr. Plaza's office another physician group is on-call for their office.
She is willing to try a statin which has not been tried in the past
# Abnormal urinalysis-has a lot of squamous cells but she has increased frequency and cultures and started ceftriaxone
# Multiple sclerosis/Optic neuritis- Not on treatment. No active symptoms
# Psoriatic arthritis/ankylosing spondylitis-Follows with rheumatology ( ) was due to start biologic ( Cosentyx) - Never started as she had Sepsis in the past and afraid.
# Anxiety and Depression-Continue duloxetine, alprazolam, trazodone
# History of iron deficiency anemia, she follows up with Dr. Bauman
# History of GI bleed
Diverticulosis
GERD- Takes PPI HS not on med list add it
EGD 11/28/2018-normal duodenum, antral erythema, no lesions in the esophagus. Biopsies moderate chronic inactive gastritis negative for H. pylori.
Colonoscopy 04/23/2022-diverticulosis in the sigmoid colon and ascending colon. Internal hemorrhoids.
Had some bright red blood on Friday-possibly hemorrhoidal-add Anusol suppository and watch while on heparin
Follows up with Dr. Justino Hu as OP ( [facility])
She is not sure if she has had another colonoscopy there since 2021.
# Trigeminal neuralgia/chronic pain opiate dependent-Follows up with Dr. Mccray for pain management-continue as needed Percocet
# History of nephrolithiasis with stent placement in the past
# H/O Uveitis- Not active now.
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
# Cholelithiasis
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 States that she is not on any PAP machines
# Obesity with a BMI 42-was on Ozempic as outpatient,did not work. She was advised to start Mounjaro but she never started-Weight loss recommended.
# DVT Prophylaxis- Heparin
# Full Code
D/W RN at bed side
Time spent over 50 min
Part of this note was created using voice recognition system. Occasional wrong word or��sound alike� substitutions may have inadvertently occurred due to the inherent limitations of voice recognition software. If noted kindly bring it to my
attention for correction.
Anticipated Discharge: 24 - 48 hours
Subjective/Interval History
-
Date of Service: April 03, 2025
Objective Data
-
Labs:
Laboratory Results
04/02/25 04/03/25 04/03/25
22:25 05:20 11:20
APTT 46.0 H 75.8 H Pending
Sodium 137
Potassium 4.4
Chloride 103
Carbon Dioxide 21 L
BUN 24 H
Creatinine 1.3 H
Glucose 228 H
Calcium 9.3
Vital Signs:
Vital Signs
Temp Pulse Resp BP Pulse Ox
98.2 F 76 20 93/54 91
04/03/25 07:45 04/03/25 10:00 04/03/25 07:45 04/03/25 10:00 04/03/25 07:45
I&O
04/02/25 04/03/25 04/04/25
06:59 06:59 06:59
Output Total 1500 / 1500
Balance -1500 / -1500
[2025-04-03] MEDS: TOPROL XL PO (10:46)
[2025-04-03] MEDS: TOPROL XL 50 MG PO (10:52)
[2025-04-03] MEDS: MAGNESIUM OXIDE 500 MG PO (10:52)
[2025-04-03 11:49] LABS: Glucose - Point of Care 182 mg/dl (70-99)
[2025-04-03] MEDS: NOVOLOG FLEXPEN 3 UNITS SC ×2 (11:50→17:17)
[2025-04-03 12:12] LABS: APTT 65.2 Sec (23.4-35.0)
[2025-04-03] MEDS: HEPARIN 25000 UNITS/250 ML IV (14:49)
--- NOTE | 2025-04-03 15:00 | PTCARENOTE ---
patient called out c/o lower back pain oxycodone po given as ordered.
--- NOTE | 2025-04-03 15:00 | PTCARENOTE ---
patient called out c/o anxiety, Xanax po given as ordered.
[2025-04-03] MEDS: MORPHINE SULFATE 2 MG IV (16:05)
[2025-04-03] MEDS: FLUSH (NSS) 1 FLUSH IV (16:06)
--- NOTE | 2025-04-03 16:07 | PTCARENOTE ---
patient c/o severe lower back pain, morphine IV given as ordered.
[2025-04-03 17:17] LABS: Glucose - Point of Care 251 mg/dl (70-99)
[2025-04-03] MEDS: NOVOLOG FLEXPEN-MODERATE RESISTANCE 5 UNITS SC (17:17)
[2025-04-03] MEDS: LIPITOR 20 MG PO (17:51)
[2025-04-03] MEDS: NSS 500 IV (18:10)
--- NOTE | 2025-04-03 18:31 | PTCARENOTE ---
Dr. Kahn wanted updated on BP, gave 500cc of NSS bolus slowly as ordered.
[2025-04-03 18:47] LABS: APTT 57.6 Sec (23.4-35.0)
--- NOTE | 2025-04-03 20:35 | PTCARENOTE ---
Answered pt's call light at change of shift, pt crying/sobbing and asking for 'IV anxiety medications'. Pt anxious about procedure in the morning and post procedure activities. 1:1 time spent with pt, education regarding medications and scheduled
procedure given, Po xanax and dayan medications given. Pt able to relax and in agreement with POC. Remains SR on the monitor, HR 80's. Denies any chest pain/dizziness or SOB. Heparin infusing at 1900 unit/hour via left wrist IV. Call jim within
reach.
[2025-04-03 20:56] LABS: Glucose - Point of Care 243 mg/dl (70-99)
[2025-04-03] MEDS: CYMBALTA DELAYED RELEASE 60 MG PO (20:56)
[2025-04-03] MEDS: ASPIR LOW (ENTERIC COATED) 81 MG PO (20:56)
[2025-04-03] MEDS: DESYREL 300 MG PO (20:57)
[2025-04-03] MEDS: LANTUS 0.15 UNITS SC (21:00)
[2025-04-03] MEDS: BENADRYL 12.5 MG IV (22:33)
[2025-04-04] VITALS (13 sets, daily range): BP systolic 107–158; BP diastolic 76–124; BMI 42.4
[2025-04-04 01:14] LABS: Hematocrit 35.1 % (37.0-47.0); Hemoglobin 11.8 g/dL (12.0-16.0); Mean Corp Hgb Conc. 33.6 g/dL (33.0-37.0); Mean Corpuscular Hgb 27.4 pg (27.0-31.0); Mean Corpuscular Volume 81.6 fL (81.0-99.0); Mean Platelet Volume 9.9 fL (7.4-10.4); Platelet Count 261 10^3/uL (130-400); Red Cell Dist. Width 13.7 % (11.5-14.5); White Blood Cell Count 12.7 10^3/uL (4.8-10.8)
[2025-04-04 01:21] LABS: APTT 70.9 Sec (23.4-35.0)
[2025-04-04 01:37] LABS: Blood Urea Nitrogen 29 mg/dl (7-17); Calcium 9.5 mg/dl (8.4-10.2); Carbon Dioxide 25 mmol/L (22-30); Chloride 104 mmol/L (98-107); Estimated Creatinine Clearance 79 ml/min; Glucose 190 mg/dl (70-99); Magnesium 1.8 mg/dl (1.6-2.3); Potassium 4.3 mmol/L (3.5-5.1); Sodium 137 mmol/L (135-145); eGFR > 60.00
--- NOTE | 2025-04-04 04:46 | W.PN.UPDATE ---
Update Note
Progress Note Update
PT C/O OF SEVERE ITCHING OVER WHOLE BODY. NO RASHES. BENADRYL IV ORDERED
[2025-04-04] MEDS: BENADRYL 12.5 MG IV (04:57)
[2025-04-04] MEDS: HEPARIN 25000 UNITS/250 ML IV ×2 (04:58→18:54)
[2025-04-04 05:15] LABS: Glucose - Point of Care 218 mg/dl (70-99)
[2025-04-04] MEDS: COLACE 100 MG PO ×2 (08:03→19:28)
[2025-04-04] MEDS: SENOKOT 17.2 MG PO ×2 (08:03→19:28)
[2025-04-04] MEDS: MAGNESIUM OXIDE 500 MG PO (08:04)
[2025-04-04] MEDS: FLUSH (NSS) 1 FLUSH IV (08:04)
[2025-04-04] MEDS: PROTONIX IV 40 MG IV (08:04)
[2025-04-04] MEDS: NSS (PRESERVATIVE FREE) 10 ML IV (08:04)
--- NOTE | 2025-04-04 08:18 | PN.DE.MGMTRT ---
Insulin Management
- -
04/04/2025: Diabetes Management Consult
54 year old female well known to me from prior hospital visit. PMH: HTN, T2DM, chronic pain syndrome, who presents to the ED with chest pain--> NSTEMI/ACS.
Pt is awake, A/O x3, resting in bed, very emotional and anxious about upcoming procedure, able to discuss diabetes mgt.
Was taking Metformin 1000 mg BID, Glipizide 10 mg BID and Lantus 15 units @ HS prior to admission. Tried taking Ozempic but states it didn't work so she stopped taking it. Was also taking Jardiance, also stopped taking due to recurrent UTIs and
yeast infections.
States she is now using a CGM- Candice for Glucose monitoring and that she has been taking her diabetes medications daily but agrees that she hasn't been doing much in terms of exercise and Nutrition. A1C 8.3%, Cr 1.0, eGFR>60. NPO for [facility] today.
Her current diabetes regimen includes Lantus 15 units, NovoLog 3 units AC and moderate corrective insulin with meals.
Her Metformin and Glipizide were held on admission due to ALTAGRACIA, Cr was 1.3 yesterday.
She is noted for Hyperglycemia, FBG 218 this AM, premeal 163 to 251, requiring up to 5 units of corrective insulin with meals.
Will increase NovoLog to 6 units AC and Lantus to 18 units @ HS. cont moderate corrective insulin with meals.
Will cont to follow and assess kidney function prior to resuming glipizide and Metformin 48 hrs post Cath.
Discussed current A1C and implications of uncontrolled blood sugars as it relates to short and half-way diabetes related complications. Emphasized importance of exercise, following a diabetic meal plan, close OP followup with PCP and diabetes
education classes. will consult dietitian for dietary counseling
Diabetes History
- -
Type of Diabetes: 2 requiring insulin
Pre-Admission Diabetes Regimen
04/04/25
01:00
Creatinine 1.0
Lab Results
Hemoglobin A1c 8.3 % (4.0-5.6) H 04/02/25 08:40
Insulin Pump Settings
IP Diabetes Regimen
04/03/25 04/03/25 04/03/25
09:47 11:48 17:15
Glucose
POC Glucose 163 H 182 H 251 H
04/03/25 04/04/25 04/04/25
20:54 01:00 05:13
Glucose 190 H
POC Glucose 243 H 218 H
Meal type: Dinner
Meal type: Breakfast
Amount consumed: 100%
Amount consumed: 90%
Amount consumed: 90%
Patient Education
[2025-04-04] MEDS: NOVOLOG FLEXPEN SC ×2 (08:37→13:37)
[2025-04-04] MEDS: NOVOLOG FLEXPEN-MODERATE RESISTANCE 3 UNITS SC (08:38)
--- NOTE | 2025-04-04 09:14 | W.PN.HOSP.TC ---
Today's Communication/Plan
-
Cath
Continue to hold antihypertensives and Lasix
Assessment / Plan
Assessment / Plan
54-year-old female with chest pain for the past couple of days waxes and wanes
CTA chest-no aneurysm or dissection. Calcified coronary atherosclerosis
Echo 04/02/2025-technically difficult study. Normal LV size mild concentric LVH. EF 55%. Normal RV size and systolic function with increased RV wall thickness. Thickened mitral valve with trivial MR. Trace TR. Pulmonary artery pressure 18 mmHg.
Prominent anterior fat pad with thickened pericardium. No pericardial effusion.
Denies any chest pain or shortness of breath
Very anxious about what can happen next
Cardiovascular system S1-S2 appreciated
Chest clear to auscultation
Abdomen soft and nontender
No pedal edema
# Non-STEMI/ACS
Coronary atherosclerosis on CT
EKG with nonspecific ST-T changes
Intermittent chest pain in the ER
Continue IV heparin till cath
Continue aspirin. Holding Plavix.
Discussed the patient regarding coronary atherosclerosis on CT and the importance of being on a statin -see below.
Hold metoprolol, Hold Losartan
Troponin peaked at 0.35
Cardiac cath planned for today 04/04/25
Echo as above
Cardiology following
# ALTAGRACIA- Hold off on further Lasix. Hold fluctuation in blood pressure. Creatinine improved
# Hypertensive emergency
Multidrug-resistant hypertension
Initially BP was 205/115 mmHg on admission.
Was on amlodipine, hydralazine, losartan, metoprolol as outpatient
Hold all antihypertensives because of hypotension
Off nitroglycerin drip
# Diabetes hemoglobin A1c- 8.3
Continue Lantus insulin 15 units, Accu-Cheks and sliding scale coverage
Hold glipizide in the setting of ALTAGRACIA and n.p.o. status.
Lantus increased to 18 units and NovoLog to 6 units now
Patient prefers to go back on glipizide once she is home along with Lantus
# History of CVA-continue aspirin, Holding Plavix
She saw a tie layer at [facility] x 1 and wore a Holter monitor but did not follow-up and unsure of result.
Intolerant of multiple statins causing myalgias. She is not sure which ones were tried
She is willing to try a statin which has not been tried in the past
Started on Lipitor 20 mg
# Abnormal urinalysis-has a lot of squamous cells but she has increased frequency and cultures and started ceftriaxone. Cx neg stop AB
# Multiple sclerosis/Optic neuritis- Not on treatment. No active symptoms
# Psoriatic arthritis/ankylosing spondylitis-Follows with rheumatology ( ) was due to start biologic ( Cosentyx) - Never started as she had Sepsis in the past and afraid.
# Anxiety and Depression-Continue duloxetine, alprazolam, trazodone
# History of iron deficiency anemia, she follows up with Dr. Bauman
# History of GI bleed
Diverticulosis
GERD- Takes PPI HS not on med list add it
EGD 11/28/2018-normal duodenum, antral erythema, no lesions in the esophagus. Biopsies moderate chronic inactive gastritis negative for H. pylori.
Colonoscopy 04/23/2022-diverticulosis in the sigmoid colon and ascending colon. Internal hemorrhoids.
Had some bright red blood on Friday-possibly hemorrhoidal-add Anusol suppository and watch while on heparin
Follows up with Dr. Justino Hu as OP ( [facility])
She is not sure if she has had another colonoscopy there since 2021.
# Trigeminal neuralgia/chronic pain opiate dependent-Follows up with Dr. Mccray for pain management-continue as needed Percocet
# History of nephrolithiasis with stent placement in the past
# H/O Uveitis- Not active now.
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 Patient made aware
# Cholelithiasis
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 States that she is not on any PAP machines
# Obesity with a BMI 42-was on Ozempic as outpatient,did not work. She was advised to start Mounjaro but she never started-Weight loss recommended.
# DVT Prophylaxis- Heparin
# Full Code
D/W RN at bed side
Patient is extremely anxious and emotionally upset about what will happen next. I asked if I can communicate with any of her family members and she declined. Emotional support provided.
Part of this note was created using voice recognition system. Occasional wrong word or��sound alike� substitutions may have inadvertently occurred due to the inherent limitations of voice recognition software. If noted kindly bring it to my
attention for correction.
Anticipated Discharge: Within 24 hours
Subjective/Interval History
-
Date of Service: April 04, 2025
Objective Data
-
Labs:
Laboratory Results
04/04/25 04/04/25
01:00 08:35
WBC 12.7 H
Hgb 11.8 L
Hct 35.1 L
Plt Count 261
APTT 70.9 H Pending
Sodium 137
Potassium 4.3
Chloride 104
Carbon Dioxide 25
BUN 29 H
Creatinine 1.0
Glucose 190 H
Calcium 9.5
Vital Signs:
Vital Signs
Temp Pulse Resp BP Pulse Ox
97.8 F 90 20 107/89 93
04/04/25 07:46 04/04/25 04:25 04/04/25 07:46 04/04/25 04:25 04/04/25 07:46
I&O
04/03/25 04/04/25 04/05/25
06:59 06:59 06:59
Intake Total 1646 / 1646
Output Total 1500 / 1500 1450 / 1450
Balance -1500 / -1500 196 / 196
[2025-04-04] MEDS: MIRALAX PO (09:19)
[2025-04-04] MEDS: ANUSOL HC RECTAL ×2 (09:19→19:28)
[2025-04-04 09:37] LABS: APTT 62.9 Sec (23.4-35.0)
[2025-04-04] MEDS: XANAX 1 MG PO ×2 (09:43→15:45)
[2025-04-04] MEDS: ROXICODONE 10 MG PO ×3 (09:43→19:27)
[2025-04-04] MEDS: TYLENOL 325 MG PO ×2 (09:44→15:45)
--- NOTE | 2025-04-04 10:00 | PTCARENOTE ---
Received pt at change of shift. Appears anxious and tearful. pt requested PRN Xanax. pt c/o back pain 05/26. Roxicodone/tylenol given per order--see MAR for further details. NSR with PVC's on the monitor. HR in the 80's. Denies chest pain or SOB. Pt
NPO since midnight for cath procedure today. Call jim within reach.
[2025-04-04] MEDS: ROCEPHIN 1000 MG IV (10:49)
[2025-04-04] MEDS: STERILE WATER FOR INJECTION 10 ML IV (10:50)
--- NOTE | 2025-04-04 11:01 | CM ---
Pricing on Farxiga and Jardiance are covered under the patient's [employer] PP at $12 copay for a 30 day supply. Patient does qualify for the $0 copay card. I will put it in her red discharge folder.
--- NOTE | 2025-04-04 12:43 | PTCARENOTE ---
04/04/2025
I met with Elena to review diabetes management.
She is inpatient for cardiac catheterization later today. Has had T2D for a few years, has been on MOUNJARO for a few weeks and was not educated to change diet. She tried to get into an [facility] in the past but the wait was too long. She
states her glucose has been very high lately, also feeling a lot of stress so was giving herself a double dose of Lantus and not taking Glipizide before meals.
I educated on physiology of T2D, organ damage, managing with medications, monitoring BG, nutrition, activity, sleep and managing stress. I reinforced signs of hyperglycemia, hypoglycemia and hypoglycemia protocol; BS parameters and recommended HbA1c
goals, glucometer and CGM instructions, glucose tracker, medic alert bracelet and outpatient DSME program. Written material provided.
She has the Candice 2 CGM, reviewed the prashant and discussed her time in range between 70-180 is 17% and the goal is 70% or more, she is 48% of time between 181-240 mg/dL and 34% > 240 mg/dL. Her EAG for 90 days is 186 and 30 days is 239.
I educated on mechanism of action and proper timing of Mounaro, Metformin, Glipizide and Lantus. Educated on proper insulin administration, storage, onset/peak/duration, and site rotation for Lantus. Educated on short acting versus long acting
insulin, proper timing of short acting insulin if prescribed in the future. Encouraged Elena to administer her own injections with RN supervision while admitted.
I educated and reviewed using Contour Next glucometer, member acknowledged understanding with a self demonstration of checking BS. Provided her with a Contour Next sample kit and informed her we will order test strips and lancets.
Discussed normal target glucose ranges and a monitoring schedule 15 minutes before each meal when prescribed Novolog, and preprandial AM and 1-2 hours after meals, and at bedtime or as recommended by MD.
Encouraged patient to follow up with his PCP for post d/c appointment and to monitor medication and blood glucose levels. Provided list of endocrinologists, podiatrists, opthalmologists if desired, to contact insurance company to verify in
network status. Requested prescription sent to pharmacy for test strips and lancets for back up SMBG. Patient verbalized understanding.
[2025-04-04 13:48] LABS: ACT-LR - POC 203 Seconds (116-155)
--- NOTE | 2025-04-04 14:16 | CONSULT.CT ---
Consultation
-
Date/Time Consultation Requested: 04/02 1406
Date/Time Consultation Performed: 04/02 1600
Requesting Provider: Caroline GROVES
Performing Provider: Alanna GROVES
Reason for Consultation: CABG eval
Patient History
Physicians
Family Physician: Donald Plaza
Outpatient Obgyn Nurse: None
Inpatient Obgyn Nurse: Radha Dotson
History of Present Illness
54 y/o female with PMHx of anxiety, CVA on plavix, HTN, DM II, and obesity p/w chest pair for the past 2-3 days. CP was associated with SOB and nausea. On 04/02 her CP worsen which prompted the ER visit. upon admission, patient was found to be
hypertensive SBP 190s. She was started NTG gtt which controlled the CP and BP. Today patient received a LHC which revealed MVD and CT surgery was consulted for surgical evaluation.
Past Medical History
Past Medical History: Other
Nephrolithiasis
Chronic lumbar pain on chronic oral opiates
Multiple sclerosis
Trigeminal neuralgia
Hepatic steatosis, hepatomegaly
Hypertension
Obesity
DM-II
ASCVD / CVA x 2 on plavix
Anxiety
Optic neuritis / Uveitis
Ankylosing spondylitis
HLA- B +
Past Surgical History
Past Surgical History: Other
History of renal calculi with removals
Neuroma to foot removal
Tonsillectomy adenoidectomy
Family History
Mother: Still Living
Father: Still Living
Family Medical History: CAD (Maternal grandparents)
Social History
Alcohol: None
Drug: None
Tobacco: Non-Smoker
Personal:
Living: With Family
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
Allergies
Allergy/AdvReac Type Severity Reaction Status Date / Time
phenytoin [From Dilantin] Allergy blood Verified 08/07/24 10:59
clots;pt
states 'i
can get it
but it has
to be
diluted
Quinolones Allergy Hives Verified 08/07/24 10:59
Home Medications
�Medication �Instructions �Recorded �Confirmed �Type
metoprolol succinate 100 mg 100 mg PO BID Blood pressure ##0 10/26/16 04/01/25 History
tablet,extended release 24 hr
duloxetine 60 mg capsule,delayed 60 mg PO HS Mental Health/Anxiety 11/27/18 04/01/25 History
release
amlodipine 10 mg tablet 10 mg PO HS Blood Pressure 03/07/22 04/01/25 History
clopidogrel 75 mg tablet 75 mg PO HS Blood Clot 03/07/22 04/01/25 History
Prevention/Tx
albuterol sulfate 2.5 mg/3 mL 2.5 mg inhalation R Q4HPRN PRN 08/07/24 04/01/25 History
(0.083 %) solution for nebulization sob/wheezing
aspirin 81 mg tablet,delayed 81 mg PO HS Blood Clot 08/07/24 04/01/25 History
release Prevention/Tx
docusate sodium 100 mg capsule 100 mg PO BID Constipation 08/07/24 04/01/25 History
(Stool Softener)
glipizide 10 mg tablet 10 mg PO BID Diabetes 08/07/24 04/01/25 History
losartan 100 mg tablet 100 mg PO HS Blood Pressure 08/07/24 04/01/25 History
oxycodone-acetaminophen 10 mg-325 1 tab PO Q6HPRN PRN moderate pain 08/07/24 04/01/25 History
mg tablet
polyethylene glycol 3350 17 gram 17 g PO DAILY PRN Constipation 08/07/24 04/01/25 History
oral powder packet (Miralax)
hydralazine 25 mg tablet 25 mg PO BID Blood Pressure 08/15/24 04/01/25 History
glucagon 1 mg/0.2 mL subcutaneous 1 mg SC PRN PRN low blood sugar 09/10/24 04/01/25 History
auto-injector (Gvoke HypoPen
2-Pack)
insulin glargine 100 unit/mL (3 15 unit SC HS Diabetes 09/10/24 04/01/25 History
mL) subcutaneous pen (Lantus
Solostar U-100 Insulin)
trazodone 150 mg tablet 300 mg PO HS Mental Health/Anxiety 09/10/24 04/01/25 History
alprazolam 1 mg tablet 1 mg PO TID PRN anxiety 04/02/25 04/02/25 History
oxycodone-acetaminophen 10 mg-325 1 tab PO Q4H PRN back pain 04/02/25 04/02/25 History
mg tablet
Review of Systems
-
History Source: Patient and Family
General: Reports No Symptoms
HEENT: Reports No Symptoms
Respiratory: Reports No Symptoms
Cardiac: Reports Chest Pain and Other ('boob pain')
Abdomen/GI: Reports No Symptoms
: Reports No Symptoms
Musculoskeletal: Reports No Symptoms
Skin: Reports No Symptoms
Neurological: Reports No Symptoms
Vascular: Reports No Symptoms
Physical Exam
Vital Signs
Temp 98.2 F 04/04/25 14:01
Temp route: Oral 04/04/25 14:01
Pulse 90 04/04/25 09:15
Rhythm: Normal sinus rhythm 04/04/25 07:45
With- Bundle Branch Block Confi 04/03/25 23:16
Resp Rate 20 04/04/25 14:01
Blood pressure 141/83 04/04/25 07:46
Blood pressure extremity used: Left upper arm 04/04/25 14:01
Position: Lying 04/04/25 14:01
MAP (cuff-Cody Monitor) 97 04/04/25 07:46
Calculated MAP (manual cuff) 120 04/01/25 21:04
SaO2 94 04/04/25 14:01
Oxygen Mode of Delivery Room air 04/04/25 14:01
Acceptable pain level during hospitalization? 0 04/01/25 20:34
Can the patient verbally communicate their pain? Yes 04/04/25 10:44
Pain scale rating: Asleep 04/04/25 10:44
Actual Weight 112 kg 04/04/25 05:08
Body Mass Index (BMI) 42.4 04/04/25 05:08
Labs
04/04/25 01:00
04/04/25 01:00
APTT 62.9 Sec (23.4-35.0) H 04/04/25 08:35
Hemoglobin A1c 8.3 % (4.0-5.6) H 04/02/25 08:40
Troponin I 0.284 ng/ml H* 04/02/25 15:33
Ruf-S-Mkcfkocxgyq Pept 3710 pg/ml 04/02/25 08:40
Urinalysis
Urine Color Yellow 04/01/25 21:29
Urine Clarity Clear (Clear) 04/01/25 21:29
Urine pH 6.0 (5.0-9.0) 04/01/25 21:29
Ur Specific [place] 1.020 (<1.030) 04/01/25 21:29
Urine Ketones Negative (Negative) 04/01/25 21:29
Ur Occult Blood Reflex Negative (Negative) 04/01/25 21:
Urine Bilirubin Negative (Negative) 04/01/25 21:29
Leukocyte Esterase Rfl 1+ (Negative) A 04/01/25 21:29
Urine RBC 0-2 /HPF (0-2) 04/01/25 21:29
Urine WBC (Reflex) 11-15 /HPF (0-5) A 04/01/25 21:29
Ur Squamous Epith Cells 11-15 /LPF (Few) 04/01/25 21:29
Urine Bacteria (Reflex) Few (Negative) A 04/01/25 21:
Urine Glucose 4+ (Negative) A 04/01/25 21:29
Urine Albumin (Reflex) 1+ (Neg - Trace) A 04/01/25 21:29
Exam
General: Well Developed and Well Nourished
HEENT: Normocephalic
Respiratory: Clear
Cardiac: S1/S2
GI: Other (Obese)
Rectal: Deferred by Provider
Skin: Warm
Neuro: AO x 3
Extremities: Pulses
Lymph: No Lymphadenopathy
Psych: Calm
Assessment / Plan
-
54 y/o female with PMHx listed above presented with CP. LHC reveal MVD and CT was consulted for surgical evaluation.
#CAD
#NSTEMI
-Patient's case will be discussed with attending physician. Further details regarding surgical timing intervention will be determined after attending physicians full evaluation
-Routine preoperative cardiothoracic surgery orders will be initiated.
-STS risk stratification score will be calculated after preoperative testing is complete
-Continue heparin gtt per cardiology
- last dose of plavix 04/01
# History of CVA
-continue aspirin, Holding Plavix
# Diabetes
- Hemoglobin A1c- 8.3
- DM management call out operator following
--- NOTE | 2025-04-04 14:30 | PTCARENOTE ---
pt back from lab rep. Right radial site with TR band in place and C.D.I. No hematoma or bleeding at this time. Positive radial pulse. Pt instructed of limb restrictions. pt verbalizes understanding. Call jim within reach.
--- NOTE | 2025-04-04 14:37 | CM ---
Chart reviewed. Patient is independent of ADLS, lives with her daughters 19 and 17 in a 2 STH, 1 MODESTA, 0 DME. Plan is for the patient to return home. CM to follow
--- NOTE | 2025-04-04 16:00 | ITS.CL.CATH ---
Teacher Vocal - Catheterization
Cardiac Catheterization
Procedure Report:
LEFT HEART CATHETERIZATION
Date of Procedure: April 04, 2025
Referring: Dr. Zuleima Garcia
PROCEDURES:
1. Left heart catheterization with coronary and single-plane left ventriculography
INDICATION: This is a 54-year-old female with a past medical history notable for multidrug resistant hypertension, poorly controlled diabetes mellitus, sleep apnea, and trigeminal neuralgia/ankylosing spondylitis, inflammatory arthritis. She has a
reported history of a TIA at [facility] many years ago and has been on aspirin and Plavix since that event. She does not routinely follow with cardiology. She was admitted to [facility] with several days of intermittent
substernal chest discomfort and her serial troponin became modestly elevated peaking at 0.355 ng/mL. She is now referred for coronary angiography.
ACCESS: Right radial artery, 6 Liberian sheath
HEMODYNAMICS : (mmHg)
AO (s/d) : 132/86
LV (s/d) : 164/9
LVEDP : 15
CORONARY FINDINGS
DOMINANCE: Right
LEFT MAIN: Normal
LEFT ANTERIOR DESCENDING: The LAD arises normally from the left main. The LAD has a long 50-60% stenosis beyond the first diagonal branch and focal 70% stenosis in the mid vessel. The distal LAD wraps around the apex. The only sizable diagonal
branch arises from the proximal third of the LAD and has a long 80% proximal stenosis.
CIRCUMFLEX: The circumflex is a moderate caliber nondominant vessel. The first obtuse marginal branch is occluded proximally and fills via left to left collaterals.
RIGHT CORONARY ARTERY: The right coronary artery is a large-caliber dominant vessel. Diagnostic JR4, AR mod, and AL-1 catheters were unable to cannulate the origin of the RCA. A 6 Liberian AR-1 guide catheter was required to cannulate the origin of
the right coronary artery. Angiography through the AR-1 guide catheter revealed an 80% ostial stenosis. There are diffuse luminal irregularities in the proximal and mid right coronary artery but no high-grade focal obstructive stenosis. The PDA
has a 70% stenosis at its origin. The posterolateral branch bifurcates and the more medial branch is 100% occluded filling via faint right to right collaterals
VENTRICULOGRAPHY: Left ventriculography is performed in an HERNANDEZ projection. There is mild anterolateral hypokinesis with a visually estimated ejection fraction of 50%
SEDATION: 57 minutes of procedural sedation was utilized. An independent medical radiation dosimetrist was present to assist with and help manage the patient's level of consciousness and physiologic status.
RADIATION SUMMARY: Fluoro Time (min): 15.8, Dose (mGy): 975, DAP (Gy.cm2) : 75.4
Closure Device: TR band
CONCLUSIONS
1. Multivessel coronary artery disease as described above. The LAD has a long 50-60% stenosis beyond the first diagonal branch and focal 70% stenosis in the mid distal vessel. The large first obtuse marginal branch is occluded and fills via left
to left collaterals. There is an 80% stenosis at the ostium of the dominant right coronary artery and 70% stenosis at the the origin of the PDA. The posterolateral branch is 100% occluded filling via faint right to right collaterals.
2. Preserved LV systolic function with anterolateral hypokinesis
RECOMMENDATIONS
1. Consult CT surgery given the patient's multivessel coronary artery disease and diabetes
Copy to: Dr. Zuleima Garcia
[2025-04-04] MEDS: NOVOLOG FLEXPEN-MODERATE RESISTANCE SC (16:08)
[2025-04-04 16:45] LABS: Glucose - Point of Care 171 mg/dl (70-99)
[2025-04-04] MEDS: NOVOLOG FLEXPEN 6 UNITS SC (16:47)
[2025-04-04] MEDS: NOVOLOG FLEXPEN-MODERATE RESISTANCE 1 UNITS SC (16:47)
[2025-04-04] MEDS: LIPITOR 80 MG PO (17:45)
--- NOTE | 2025-04-04 19:03 | PTCARENOTE ---
restarted IV heparin at 2200units/hr as per Kelly MEIER.
[2025-04-04] MEDS: MIRALAX 17 GRAMS PO (19:35)
[2025-04-04 21:21] LABS: Glucose - Point of Care 182 mg/dl (70-99)
[2025-04-04] MEDS: DESYREL 300 MG PO (21:22)
[2025-04-04] MEDS: CYMBALTA DELAYED RELEASE 60 MG PO (21:22)
[2025-04-04] MEDS: ASPIR LOW (ENTERIC COATED) 81 MG PO (21:22)
[2025-04-04] MEDS: XANAX 2 MG PO (21:22)
[2025-04-04] MEDS: LANTUS 0.18 UNITS SC (21:23)
--- NOTE | 2025-04-04 23:25 | PTCARENOTE ---
Pt rec'd at shift change weepy, stating ' how to people handle going for this surgery knowing they can , I can't leave my kids'. Emotional and positive support given to pt. Pt requested Xanax at HS after reporting not having had a good sleep last
night. Right radial site dry with good pulse, limb restrictions reviewed.
[2025-04-05] VITALS (8 sets, daily range): BP systolic 89–148; BP diastolic 51–84; BMI 42.5
[2025-04-05] MEDS: HEPARIN 25000 UNITS/250 ML IV ×3 (00:11→22:33)
[2025-04-05 02:59] LABS: Hematocrit 34.5 % (37.0-47.0); Hemoglobin 11.4 g/dL (12.0-16.0); Mean Corpuscular Hgb 27.3 pg (27.0-31.0); Mean Corpuscular Volume 82.5 fL (81.0-99.0); Mean Platelet Volume 10.2 fL (7.4-10.4); Platelet Count 255 10^3/uL (130-400); Red Blood Cell Count 4.18 10^6/uL (4.20-5.40); Red Cell Dist. Width 13.8 % (11.5-14.5); White Blood Cell Count 11.3 10^3/uL (4.8-10.8)
[2025-04-05 03:06] LABS: INR 0.99; PT 13.6 Sec (11.4-14.6)
[2025-04-05 03:08] LABS: APTT 76.5 Sec (23.4-35.0)
[2025-04-05 03:23] LABS: ALT (SGPT) 52 U/L (0-35); AST (SGOT) 40 U/L (14-36); Albumin 4.1 g/dl (3.5-5.0); Alkaline Phosphatase 110 U/L (38-126); Blood Urea Nitrogen 20 mg/dl (7-17); Calcium 9.7 mg/dl (8.4-10.2); Carbon Dioxide 27 mmol/L (22-30); Chloride 103 mmol/L (98-107); Direct Bilirubin 0.1 mg/dl (0.0-0.4); Estimated Creatinine Clearance 89 ml/min; Glucose 179 mg/dl (70-99); Potassium 4.2 mmol/L (3.5-5.1); Sodium 137 mmol/L (135-145); Total Bilirubin 0.4 mg/dl (0.2-1.3); Total Protein 6.8 g/dl (6.3-8.2); eGFR > 60.00
[2025-04-05] MEDS: NSS 250 IV (03:41)
--- NOTE | 2025-04-05 03:51 | PTCARENOTE ---
Pt awoken for ptt and am labs. b/p 90's systolic. Pt stated 'can't you just call anesthesia and put me to sleep until after the surgery'. Pt requested dose of Benadryl however when order obtained and brought into room pt was asleep. dose held for
now. IVF bolus infusing at this time.
[2025-04-05 06:40] LABS: HCO3 26.5 mmol/L (21-28); O2 Saturation % 92.8 % (94-98); PCO2 40 mmHg (32-35); PO2 67 mmHg (83-108); pH 7.43 (7.35-7.45)
--- NOTE | 2025-04-05 08:00 | PTCARENOTE ---
Assumed care at 0700. Patient sleeping soundly. NSR, VSS, appears comfortable. Heparin infusing per MAR, call jim in reach
[2025-04-05] MEDS: PROTONIX IV 40 MG IV (08:17)
[2025-04-05] MEDS: NSS (PRESERVATIVE FREE) 10 ML IV (08:17)
[2025-04-05] MEDS: COLACE 100 MG PO ×2 (08:18→20:47)
[2025-04-05] MEDS: MIRALAX 17 GRAMS PO ×2 (08:18→20:47)
[2025-04-05] MEDS: SENOKOT 17.2 MG PO ×2 (08:18→20:47)
[2025-04-05] MEDS: MAGNESIUM OXIDE 500 MG PO (08:18)
[2025-04-05 08:23] LABS: Glucose - Point of Care 177 mg/dl (70-99)
[2025-04-05] MEDS: NOVOLOG FLEXPEN 6 UNITS SC ×2 (08:30→13:23)
[2025-04-05] MEDS: NOVOLOG FLEXPEN-MODERATE RESISTANCE 1 UNITS SC (08:30)
--- NOTE | 2025-04-05 08:43 | PN.DE.MGMTRT ---
Insulin Management
- -
04/05/2025: Diabetes Management Consult Follow up
Patient admitted 04/01 with chest pain--> NSTEMI/ACS. PMH: HTN, T2DM, chronic pain syndrome.
Pt is awake, A/O x3, resting in bed, very emotional and anxious about upcoming procedure, able to discuss diabetes mgt.
Was taking Metformin 1000 mg BID, Glipizide 10 mg BID and Lantus 15 units @ HS prior to admission. Tried taking Ozempic but states it didn't work so she stopped taking it. Was also taking Jardiance, also stopped taking due to recurrent UTIs and
yeast infections.
States she is now using a CGM- Candice for Glucose monitoring and that she has been taking her diabetes medications daily but agrees that she hasn't been doing much in terms of exercise and Nutrition. A1C 8.3%, Cr 1.0, eGFR>60.
Her Metformin and Glipizide were held on admission due to ALTAGRACIA.
Glucose range 171 to 218. Received 18 units lantus @ hs. Fasting glucose 177.
Cr .9, eGFR >60 today. Will increase NovoLog to 8 units AC and Lantus to 20 units @ HS. cont moderate corrective insulin with meals.
As patient is requiring increased doses of insulin will not resume glipizide at this time.
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 Emphasized importance of exercise, following a diabetic meal plan, close OP followup with PCP and diabetes
education classes. will consult dietitian for dietary counseling.
Discussed with nurse
Will follow
Diabetes History
- -
Type of Diabetes: 2 requiring insulin
Pre-Admission Diabetes Regimen
04/05/25
02:30
Creatinine 0.9
Lab Results
Hemoglobin A1c 8.3 % (4.0-5.6) H 04/02/25 08:40
Insulin Pump Settings
IP Diabetes Regimen
04/04/25 04/04/25 04/05/25
16:43 21:19 02:30
Glucose 179 H
POC Glucose 171 H 182 H
04/05/25
08:22
Glucose
POC Glucose 177 H
Meal type: Dinner
Amount consumed: 90%
Patient Education
--- NOTE | 2025-04-05 09:01 | W.PN.CARDCBS ---
Addendum entered and electronically signed by Teddy Nichols MD 04/05/25 10:21:
I saw and examined the patient.
The ACETYLENE TORCH BURNER or PA's note was reviewed and I agree with the note.
Comment: General: Well developed, well nourished in NAD.
Neck: Supple, no JVD, HJR, carotids +2 B/L, no bruits bilaterally.
Heart: Non displaced PMI, RRR, no murmurs, No S3, S4, no rubs.
Lungs: Clear to auscultation bilaterally, no wheeze, rhonchi, rubs bilaterally,
normal expiratory phase.
Extremities: No clubbing, cyanosis or edema bilaterally.
Neuro: Grossly nonfocal, awake, alert and oriented x3.
Stable cardiology status and awaiting CABG. Continue IV heparin. Plavix washout underway. Discussed with patient and nursing in detail
Original Note:
Today's Communication / Plan
-
CABG eval underway. plavix washout
continue asa, IV heparin, statin
antiHTN mgmt
diabetic mgmt
Impression / Plan
-
PCP: Donald Plaza
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
Impression:
Chest pain
NSTEMI
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
Type 2 diabetes mellitus
Hyperlipidemia, intolerant of multiple statin
Hypertensive urgency
History of CVA/TIA
Multiple sclerosis, not on medication
Trigeminal neuralgia, not active
Chronic lumbar pain on chronic oral opiates
Anxiety
Obesity
sleep apnea
Nephrolithiasis
Echo 04/02/2025: TDS, EF 55%, mild anterolateral wall hypokinesis, increased RV wall thickness, trivial MR, PASP 18 mmHg, prominent anterior fat pad with thickened pericardium, no effusion
Plan:
-54-year-old female with multiple cardiac risk factors presenting with chest pain consistent with non-ST elevation myocardial infarct in the setting of hypertensive urgency.
-peak trop 0.355
-chest pain free
-echo with preserved EF, mild anterolateral wall hypokinesis
-Brisk diuresis following Lasix 40 mg IV x 1 with bump in Cr to 1.3, now normalized. No further diuresis at this time [proBNP 3710]
-Continue aspirin, IV heparin gtt. plavix washout (was on chronically for history of remote TIA), last dose 04/01.
-CT surgical eval ongoing, likely for CABG later this week
-CUS today
-she is concerned about post op pain mgmt as is chronically on oxycodone and follows with pain mgmt
-continue HTN mgmt. currently on regimen of norvasc 10mg HS, hydralazine 25mg BID, cozaar 100mg HS, toprol 50mg BID. BPs have improved from admission
-hgbA1c 8.3%. discussed need for strict diabetic control moving forward. appreciate diabetic mgmt. SGLT2 inhibitor affordable to patient, would consider initiation post op as well as possible GLP-1
-Patient has history of 'statin intolerance' however given presentation will retrial on lipitor 80mg HS. Can consider PCSK9 inhibitor as an outpatient. Goal LDL less than 70 mg/dL, goal triglycerides less than 150 mg/dL
-Probable sleep apnea with no recent testing, briefly discussed outpatient evaluation which can be arranged at time of discharge
-d/w CT surgery
Progress Note - Manual Arts Therapist
Subjective
Date of Service: April 05, 2025
denies CP, SOB overnight
Objective
Labs:
04/05/25 02:30
04/05/25 02:30
Labs
Hgb 11.4 g/dL (12.0-16.0) L 04/05/25 02:30
Hct 34.5 % (37.0-47.0) L 04/05/25 02:30
Plt Count 255 10^3/uL (130-400) 04/05/25 02:30
PT 13.6 Sec (11.4-14.6) 04/05/25 02:30
INR 0.99 04/05/25 02:30
APTT 76.5 Sec (23.4-35.0) H 04/05/25 02:30
APTT Cancelled 04/05/25 02:30
Sodium 137 mmol/L (135-145) 04/05/25 02:30
Potassium 4.2 mmol/L (3.5-5.1) 04/05/25 02:30
BUN 20 mg/dl (7-17) H 04/05/25 02:30
Creatinine 0.9 mg/dL (0.6-1.0) 04/05/25 02:30
Glucose 179 mg/dl (70-99) H 04/05/25 02:30
Troponins
04/02/25
15:33
Troponin I 0.284 H*
Vital Signs and I&O:
Vital Signs
Temp Pulse Resp BP Pulse Ox
97.8 F 102 20 101/63 97
04/05/25 02:24 04/05/25 08:30 04/05/25 02:24 04/05/25 08:16 04/05/25 08:36
Vital Signs
Temp Pulse Resp BP Pulse Ox
97.8 F 102 20 101/63 97
04/05/25 02:24 04/05/25 08:30 04/05/25 02:24 04/05/25 08:16 04/05/25 08:36
Intake & Output
04/03/25 04/04/25 04/05/25 04/06/25
07:59 07:59 07:59 07:59
Intake Total 1646 / 1646 550 / 550
Output Total 1500 / 1500 1450 / 1450 1350 / 1350
Balance -1500 / -1500 196 / 196 -800 / -800
Physical Exam
Physical Exam
GEN: No distress, awake, alert, oriented x3. obese
HEENT: supple, anicteric, mmm, eomi
LUNGS: CTA B/L, no wheezes/rales
CV: Reg, S1/S2, no murmur
ABD: soft, BS+, NT/ND
EXT: No cyanosis, clubbing, edema
NEURO: Gross non-focal
SKIN: Warm, pink, dry. No rash. R wrist site c/d/i, soft
[2025-04-05 10:18] LABS: APTT 94.5 Sec (23.4-35.0)
[2025-04-05] MEDS: XANAX 2 MG PO ×3 (10:29→21:29)
[2025-04-05] MEDS: ROXICODONE 10 MG PO ×2 (10:29→16:13)
--- NOTE | 2025-04-05 11:22 | CM ---
Chart reviewed. Patient is independent of ADLS, lives with her children in a 2 STH, 1 MODESTA, 0 DME. Patient is being evaluated for CT Surgery. Plan is for the patient to return home with CT Transitional RN. CM to follow
[2025-04-05] MEDS: ANUSOL HC 25 MG RECTAL (11:39)
[2025-04-05] MEDS: NOVOLOG FLEXPEN-MODERATE RESISTANCE SC (13:23)
[2025-04-05 13:30] LABS: Glucose - Point of Care 202 mg/dl (70-99)
--- NOTE | 2025-04-05 14:57 | W.PN.HOSP.TC ---
Today's Communication/Plan
-
CTS eval for CABG
Assessment / Plan
Assessment / Plan
54-year-old female with chest pain for the past couple of days waxes and wanes
CTA chest-no aneurysm or dissection. Calcified coronary atherosclerosis
Echo 04/02/2025-technically difficult study. Normal LV size mild concentric LVH. EF 55%. Normal RV size and systolic function with increased RV wall thickness. Thickened mitral valve with trivial MR. Trace TR. Pulmonary artery pressure 18 mmHg.
Prominent anterior fat pad with thickened pericardium. No pericardial effusion.
Denies any chest pain or shortness of breath
Cardiovascular system S1-S2 appreciated
Chest clear to auscultation
Abdomen soft and nontender
No pedal edema
# Non-STEMI/ACS
Coronary atherosclerosis on CT
EKG with nonspecific ST-T changes
Intermittent chest pain in the ER
Continue IV heparin till cath
Continue aspirin. Holding Plavix.
Hold metoprolol, Hold Losartan
Troponin peaked at 0.35
Cardiac cath 04/04/25 with multivessel disease.
Echo as above
Plan for CABG after Plavix wash out
Holding Plavix since admission
CTS consulted.
# ALTAGRACIA- Hold off on further Lasix. Hold fluctuation in blood pressure. Creatinine improved
# Hypertensive emergency on admission
Multidrug-resistant hypertension
Initially BP was 205/115 mmHg on admission.
Was on amlodipine, hydralazine, losartan, metoprolol as outpatient
Hold all antihypertensives because of hypotension
Off nitroglycerin drip
# Diabetes hemoglobin A1c- 8.3
Continue Lantus insulin 15 units, Novolog Accu-Cheks and sliding scale coverage
Hold glipizide .
Lantus increased to 20 units and NovoLog to 8 units now
# History of CVA-continue aspirin, Holding Plavix since admission
She saw a failure analysis technician at [place] [id number] and wore a Holter monitor but did not follow-up and unsure of result.
Intolerant of multiple statins causing myalgias. She is not sure which ones were tried
She is willing to try a statin which has not been tried in the past
Started on Lipitor 80 mg
# Abnormal urinalysis-has a lot of squamous cells but she has increased frequency and cultures and started ceftriaxone. Cx neg stop AB
# Multiple sclerosis/Optic neuritis- Not on treatment. No active symptoms
# Psoriatic arthritis/ankylosing spondylitis-Follows with rheumatology ( ) was due to start biologic ( Cosentyx) - Never started as she had Sepsis in the past and afraid.
# Anxiety and Depression-Continue duloxetine, alprazolam, trazodone
# History of iron deficiency anemia, she follows up with Dr. Bauman
# History of GI bleed
Diverticulosis
GERD- Takes PPI HS not on med list add it
EGD 11/28/2018-normal duodenum, antral erythema, no lesions in the esophagus. Biopsies moderate chronic inactive gastritis negative for H. pylori.
Colonoscopy 04/23/2022-diverticulosis in the sigmoid colon and ascending colon. Internal hemorrhoids.
Had some bright red blood on Friday-possibly hemorrhoidal-add Anusol suppository and watch while on heparin
Follows up with Dr. Justino Hu as OP ( [facility])
She is not sure if she has had another colonoscopy there since 2021.
# Trigeminal neuralgia/chronic pain opiate dependent-Follows up with Dr. Mccray for pain management-continue as needed Percocet
# History of nephrolithiasis with stent placement in the past
# H/O Uveitis- Not active now.
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 Patient made aware
# Cholelithiasis
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 States that she is not on any PAP machines
# Obesity with a BMI 42-was on Ozempic as outpatient,did not work. She was advised to start Mounjaro but she never started-Weight loss recommended.
# DVT Prophylaxis- Heparin
# Full Code
D/W RN
Part of this note was created using voice recognition system. Occasional wrong word or��sound alike� substitutions may have inadvertently occurred due to the inherent limitations of voice recognition software. If noted kindly bring it to my
attention for correction.
Anticipated Discharge: > 48 hours
Subjective/Interval History
-
Date of Service: April 05, 2025
Objective Data
-
Labs:
Laboratory Results
04/05/25 04/05/25 04/05/25
02:30 06:29 09:48
WBC 11.3 H
Hgb 11.4 L
Hct 34.5 L
Plt Count 255
PT 13.6
INR 0.99
APTT 76.5 H 94.5 H
HCO3 26.5
Sodium 137
Potassium 4.2
Chloride 103
Carbon Dioxide 27
BUN 20 H
Creatinine 0.9
Glucose 179 H
Calcium 9.7
Total Bilirubin 0.4
AST 40 H
ALT 52 H
Alkaline Phosphatase 110
Vital Signs:
Vital Signs
Temp Pulse Resp BP Pulse Ox
97.6 F 104 16 109/54 97
04/05/25 08:30 04/05/25 13:45 04/05/25 08:30 04/05/25 13:33 04/05/25 08:36
I&O
04/04/25 04/05/25 04/06/25
06:59 06:59 06:59
Intake Total 1646 / 1646 550 / 550
Output Total 1450 / 1450 1350 / 1350 600 / 600
Balance 196 / 196 -800 / -800 -600 / -600
--- NOTE | 2025-04-05 16:03 | W.PN.UPDATE ---
Update Note
Progress Note Update
CARDIAC SURGERY ATTENDING:
I had a long conversation at the bedside with Elena Quiñonez this afternoon. Her parents were both present via FaceTime. We reviewed her coronary pathology, discussed the proposed CABG procedure in great detail, reviewed the periprocedural risks
(including, but not limited to, , stroke, NH, arrhythmia, PNA, ALTAGRACIA/F, bleeding, and infection), discussed expected in-hospital postprocedural course, and reviewed the expected outpatient recovery. All questions were answered to the best of my
abilities. The patient is agreeable to proceed. I have tentatively scheduled her for surgical intervention this coming , 04/07/2025.
I anticipate EUCEDA to LAD, I will evaluate her first diagonal branch to determine suitability for bypass at the time of surgery, but based on catheterization images this vessel looks quite small. I anticipated graft to the first obtuse marginal
branch of her left circumflex which is currently a [employer]IOR [employer] ENGINEER and fills via left to left collaterals. I also anticipated graft to her RPDA. Likewise I will also investigate her R PLB branches. I anticipate these 2 will be too small to accommodate bypass
at their surgically accessible locations. I will perform concurrent exclusion of her left atrial appendage.
Thank you for the opportunity to participate in the care of this patient.
Georges Ty MD
[phone]
[2025-04-05 16:52] LABS: Glucose - Point of Care 254 mg/dl (70-99)
[2025-04-05] MEDS: NOVOLOG FLEXPEN 8 UNITS SC (16:52)
[2025-04-05] MEDS: NOVOLOG FLEXPEN-MODERATE RESISTANCE 5 UNITS SC (16:52)
[2025-04-05] MEDS: LIPITOR 80 MG PO (17:34)
[2025-04-05] MEDS: ANUSOL HC RECTAL (21:29)
[2025-04-05] MEDS: DESYREL 300 MG PO (21:29)
[2025-04-05] MEDS: CYMBALTA DELAYED RELEASE 60 MG PO (21:29)
[2025-04-05] MEDS: ASPIR LOW (ENTERIC COATED) 81 MG PO (21:29)
[2025-04-05] MEDS: LANTUS 0.2 UNITS SC (21:32)
[2025-04-05 21:33] LABS: Glucose - Point of Care 189 mg/dl (70-99)
[2025-04-05] MEDS: BENADRYL 25 MG PO (22:26)
[2025-04-06] VITALS (8 sets, daily range): BP systolic 110–154; BP diastolic 68–85; BMI 42.4
--- NOTE | 2025-04-06 00:37 | PTCARENOTE ---
Pt rec'd at change of shift with family at bedside. OOB ambulating in neely without c/o cp or sob. Heparin gtt therapeutic. Pt requested Benadryl at HS for itching. order obtained from House PRACTICE MANAGER. When dose brought to room pt complained that Benadryl
was po not IV. Pt stated 'that's not going to help me sleep. I need it IV so I can sleep because I'm having surgery on and tomorrow is the last day before that happens and I'm to nervous.'
Pt stated ' If I can't sleep will you get it IV then'
Emotional and educational support given.
--- NOTE | 2025-04-06 05:46 | PTCARENOTE ---
Pt oob to br, wt obtained. urine kamron in color. no complaints at present. falling asleep while nurse at bedside doing VS. Sinus on telemetry
[2025-04-06 06:11] LABS: APTT 117.3 Sec (23.4-35.0)
--- NOTE | 2025-04-06 07:25 | PTCARENOTE ---
Heparin gtt running at 2100 units/hr, the patient is sound asleep.
--- NOTE | 2025-04-06 09:15 | PN.DE.MGMTRT ---
Insulin Management
- -
04/06/2025: Diabetes Management Consult Follow up
Patient admitted 04/01 with chest pain--> NSTEMI/ACS. PMH: HTN, T2DM, chronic pain syndrome.
Pt is awake, A/O x3, resting in bed, very emotional and anxious about upcoming procedure, able to discuss diabetes mgt.
Was taking Metformin 1000 mg BID, Glipizide 10 mg BID and Lantus 15 units @ HS prior to admission. Tried taking Ozempic but states it didn't work so she stopped taking it. Was also taking Jardiance, also stopped taking due to recurrent UTIs and
yeast infections.
States she is now using a CGM- Candice for Glucose monitoring and that she has been taking her diabetes medications daily but agrees that she hasn't been doing much in terms of exercise and Nutrition. A1C 8.3%, Cr 1.0, eGFR>60.
Her Metformin and Glipizide were held on admission due to ALTAGRACIA.
Glucose range 177 to 254.
Will increased NovoLog to 8 units AC and Lantus to 20 units @ HS 04/05, cont moderate corrective insulin with meals.
As patient is requiring increased doses of insulin will not resume glipizide at this time.
Discussed current A1C and implications of uncontrolled blood sugars as it relates to short and half-way diabetes related complications. Emphasized importance of exercise, following a diabetic meal plan, close OP followup with PCP and diabetes
education classes. will consult dietitian for dietary counseling.
Patient for CABG 04/07
Discussed with nurse
Will follow
Diabetes History
- -
Type of Diabetes: 2 requiring insulin
Pre-Admission Diabetes Regimen
Lab Results
Hemoglobin A1c 8.3 % (4.0-5.6) H 04/02/25 08:40
Insulin Pump Settings
IP Diabetes Regimen
04/05/25 04/05/25 04/05/25
13:28 16:50 21:31
POC Glucose 202 H 254 H 189 H
Meal type: Dinner
Meal type: Lunch
Amount consumed: 100%
Amount consumed: 100%
Patient Education
[2025-04-06] MEDS: FLUSH (NSS) 2 FLUSH IV (09:23)
[2025-04-06] MEDS: SENOKOT 17.2 MG PO ×2 (09:24→20:34)
[2025-04-06] MEDS: PROTONIX IV 40 MG IV (09:24)
[2025-04-06] MEDS: MAGNESIUM OXIDE 500 MG PO (09:24)
[2025-04-06] MEDS: NSS (PRESERVATIVE FREE) 10 ML IV (09:24)
[2025-04-06] MEDS: COLACE 100 MG PO ×2 (09:24→20:34)
[2025-04-06] MEDS: ANUSOL HC RECTAL ×2 (09:25→21:38)
[2025-04-06] MEDS: TYLENOL 325 MG PO ×2 (09:32→13:42)
[2025-04-06] MEDS: XANAX 2 MG PO ×3 (09:32→22:32)
[2025-04-06] MEDS: ROXICODONE 10 MG PO ×2 (09:32→13:42)
--- NOTE | 2025-04-06 10:03 | W.PN.CARDCBS ---
Addendum entered and electronically signed by Amanda Ca MD 04/06/25 10:22:
I saw and examined the patient.
The Geotechnician's note was reviewed and I agree with the note.
Comment:
General: Well developed, well nourished in NAD.
Heart: Non displaced PMI, RRR, no murmurs, No S3, S4, no rubs.
Lungs: Clear to auscultation bilaterally, no wheeze, rhonchi, rubs bilaterally,
Extremities: No clubbing, cyanosis or edema bilaterally.
Neuro: Grossly nonfocal, awake, alert
She presents with chest pain and non-Q wave myocardial infarction (peak troponin 0.355). She underwent cardiac catheterization with multivessel coronary disease. Normal overall left ventricular ejection fraction however wall motion abnormality
noted. She has multiple risk factors including diabetes. She has prior history of CVA/TIA. Carotid ultrasound 04/05/2025 reviewed by me with soft plaque but no stenosis noted. Telemetry independently reviewed by me remained stable with sinus
rhythm sinus tachycardia. Creatinine has been stable and have reviewed trends. LFTs noted to be mildly elevated yesterday.
-Reassess blood work today
-Continue guideline directed treatment for non-Q wave myocardial infarction.
-Continue to encourage incentive spirometry
-Plan for CABG this week per CT surgery.
Discussed at length with the patient.
Original Note:
Today's Communication / Plan
-
CABG
continue asa, IV heparin, statin, toprol, norvasc. cozaar and hydralazine on hold preop
diabetic mgmt
Impression / Plan
-
PCP: Donald Plaza
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
Impression:
Chest pain
NSTEMI
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
Type 2 diabetes mellitus
Hyperlipidemia, intolerant of multiple statin
Hypertensive urgency
History of CVA/TIA
Multiple sclerosis, not on medication
Trigeminal neuralgia, not active
Chronic lumbar pain on chronic oral opiates
Anxiety
Obesity
sleep apnea
Nephrolithiasis
Echo 04/02/2025: TDS, EF 55%, mild anterolateral wall hypokinesis, increased RV wall thickness, trivial MR, PASP 18 mmHg, prominent anterior fat pad with thickened pericardium, no effusion
Plan:
-54-year-old female with multiple cardiac risk factors presenting with chest pain consistent with non-ST elevation myocardial infarct in the setting of hypertensive urgency.
-peak trop 0.355
-remains chest pain free
-echo with preserved EF, mild anterolateral wall hypokinesis
-Brisk diuresis following Lasix 40 mg IV x 1 with bump in Cr to 1.3, now normalized. No further diuresis at this time
-Continue aspirin, IV heparin gtt. plavix washout (was on chronically for history of remote TIA), last dose 04/01.
-CT surgical eval ongoing, for CABG 04/07. she is concerned about post op pain mgmt as is chronically on oxycodone. follows with pain mgmt as OP
-CUS with <50% B/L carotid stenosis
-continue HTN mgmt. currently on regimen of norvasc 10mg HS, hydralazine 25mg BID, cozaar 100mg HS, toprol 50mg BID. BPs have improved from admission. cozaar and hydralazine now on hold with upcoming surgery
-hgbA1c 8.3%. discussed need for strict diabetic control moving forward. appreciate diabetic mgmt. SGLT2 inhibitor affordable to patient, would consider initiation post op as well as possible GLP-1
-Patient has history of 'statin intolerance' however given presentation will retrial on lipitor 80mg HS. Can consider PCSK9 inhibitor as an outpatient. Goal LDL less than 70 mg/dL, goal triglycerides less than 150 mg/dL
-Probable sleep apnea with no recent testing, briefly discussed outpatient evaluation which can be arranged at time of discharge
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
Subjective
Date of Service: April 06, 2025
resting comfortably
Objective
Labs:
04/05/25 02:30
04/05/25 02:30
Labs
Hgb 11.4 g/dL (12.0-16.0) L 04/05/25 02:30
Hct 34.5 % (37.0-47.0) L 04/05/25 02:30
Plt Count 255 10^3/uL (130-400) 04/05/25 02:30
PT 13.6 Sec (11.4-14.6) 04/05/25 02:30
INR 0.99 04/05/25 02:30
APTT 117.3 Sec (23.4-35.0) H 04/06/25 05:41
Sodium 137 mmol/L (135-145) 04/05/25 02:30
Potassium 4.2 mmol/L (3.5-5.1) 04/05/25 02:30
BUN 20 mg/dl (7-17) H 04/05/25 02:30
Creatinine 0.9 mg/dL (0.6-1.0) 04/05/25 02:30
Glucose 179 mg/dl (70-99) H 04/05/25 02:30
Vital Signs and I&O:
Vital Signs
Temp Pulse Resp BP Pulse Ox
98.3 F 88 20 118/69 94
04/06/25 07:52 04/06/25 08:00 04/06/25 07:52 04/06/25 07:52 04/06/25 07:52
Vital Signs
Temp Pulse Resp BP Pulse Ox
98.3 F 88 20 118/69 94
04/06/25 07:52 04/06/25 08:00 04/06/25 07:52 04/06/25 07:52 04/06/25 07:52
Intake & Output
04/04/25 04/05/25 04/06/25 04/07/25
07:59 07:59 07:59 07:59
Intake Total 1646 / 1646 550 / 550 1020 / 1020
Output Total 1450 / 1450 1350 / 1350 1999 / 1999 400 / 400
Balance 196 / 196 -800 / -800 -980 / -980 -400 / -400
Physical Exam
Physical Exam
GEN: No distress, resting comfortably
HEENT: supple, mmm
LUNGS: CTA B/L anterolaterally, no wheezes
CV: Reg, S1/S2, no murmur
ABD: soft, BS+, NT/ND
EXT: No cyanosis, clubbing, edema
NEURO: Gross non-focal
SKIN: Warm, pink, dry. No rash
[2025-04-06 10:27] LABS: Glucose - Point of Care 180 mg/dl (70-99)
[2025-04-06] MEDS: NOVOLOG FLEXPEN 8 UNITS SC ×3 (10:30→17:38)
[2025-04-06] MEDS: NOVOLOG FLEXPEN-MODERATE RESISTANCE 1 UNITS SC ×2 (10:30→13:36)
[2025-04-06 12:52] LABS: APTT 38.8 Sec (23.4-35.0)
[2025-04-06 13:01] LABS: ALT (SGPT) 59 U/L (0-35); AST (SGOT) 56 U/L (14-36); Albumin 4.1 g/dl (3.5-5.0); Alkaline Phosphatase 101 U/L (38-126); Blood Urea Nitrogen 19 mg/dl (7-17); Calcium 9.7 mg/dl (8.4-10.2); Carbon Dioxide 25 mmol/L (22-30); Chloride 103 mmol/L (98-107); Estimated Creatinine Clearance 89 ml/min; Glucose 226 mg/dl (70-99); Potassium 4.4 mmol/L (3.5-5.1); Sodium 136 mmol/L (135-145); Total Bilirubin 0.5 mg/dl (0.2-1.3); Total Protein 6.9 g/dl (6.3-8.2); eGFR > 60.00
--- NOTE | 2025-04-06 13:23 | PTCARENOTE ---
Addendum entered by Salome Rowan RN 04/06/25 13:28:
Found her IV occluded and flushed IV. Heparin restarted.
Original Note:
Ptt came back at 38.8, found her heparin gtt on standby. Gtt was running last time I was in her room at 1220. Restarted the heparin gtt 2300 units/hr per protocol.
[2025-04-06 13:34] LABS: Glucose - Point of Care 183 mg/dl (70-99)
[2025-04-06] MEDS: HEPARIN 25000 UNITS/250 ML IV (13:45)
--- NOTE | 2025-04-06 14:23 | W.PN.UPDATE ---
Update Note
Progress Note Update
Consent obtained. Tentative surgery date 04/07/25
--- NOTE | 2025-04-06 14:55 | W.PN.HOSP.TC ---
Today's Communication/Plan
-
Awaiting CABG
Assessment / Plan
Assessment / Plan
54-year-old female with chest pain for the past couple of days waxes and wanes
CTA chest-no aneurysm or dissection. Calcified coronary atherosclerosis
Echo 04/02/2025-technically difficult study. Normal LV size mild concentric LVH. EF 55%. Normal RV size and systolic function with increased RV wall thickness. Thickened mitral valve with trivial MR. Trace TR. Pulmonary artery pressure 18 mmHg.
Prominent anterior fat pad with thickened pericardium. No pericardial effusion.
Denies any chest pain or shortness of breath
Cardiovascular system S1-S2 appreciated
Chest clear to auscultation
Abdomen soft and nontender
No pedal edema
Aphthous ulcer mouth
# Non-STEMI/ACS
Coronary atherosclerosis on CT
EKG with nonspecific ST-T changes
Intermittent chest pain in the ER
Continue IV heparin
Continue aspirin. Holding Plavix.
Hold metoprolol, Hold Losartan
Troponin peaked at 0.35
Cardiac cath 04/04/25 with multivessel disease.
Echo as above
Plan for CABG after Plavix wash out tomorrow 04/06/25
Holding Plavix since admission
CTS consulted.
# ALTAGRACIA- Hold off on further Lasix. Hold fluctuation in blood pressure. Creatinine improved
# Hypertensive emergency on admission
Multidrug-resistant hypertension
Initially BP was 205/115 mmHg on admission.
Was on amlodipine, hydralazine, losartan, metoprolol as outpatient
Hold all antihypertensives because of hypotension
Off nitroglycerin drip
# Diabetes hemoglobin A1c- 8.3
Continue Lantus insulin 15 units, Novolog Accu-Cheks and sliding scale coverage
Hold glipizide .
Lantus increased to 20 units and NovoLog to 8 units now
# History of CVA-continue aspirin, Holding Plavix since admission
She saw a supply aide at [place] x 1 and wore a Holter monitor but did not follow-up and unsure of result.
Intolerant of multiple statins causing myalgias. She is not sure which ones were tried
She is willing to try a statin which has not been tried in the past
Started on Lipitor 80 mg
# Abnormal urinalysis-has a lot of squamous cells but she has increased frequency and cultures and started ceftriaxone. Stopped as Cx Neg.
# Aphthous ulcer in the mouth-lidocaine oral gel
# Multiple sclerosis/Optic neuritis- Not on treatment. No active symptoms
# Psoriatic arthritis/ankylosing spondylitis-Follows with rheumatology ( ) was due to start biologic ( Cosentyx) - Never started as she had Sepsis in the past and afraid.
# Anxiety and Depression-Continue duloxetine, alprazolam, trazodone
# History of iron deficiency anemia, she follows up with Dr. Bauman
# History of GI bleed
Diverticulosis
GERD- Takes PPI HS not on med list add it
EGD 11/28/2018-normal duodenum, antral erythema, no lesions in the esophagus. Biopsies moderate chronic inactive gastritis negative for H. pylori.
Colonoscopy 04/23/2022-diverticulosis in the sigmoid colon and ascending colon. Internal hemorrhoids.
Had some bright red blood on Friday-possibly hemorrhoidal-add Anusol suppository and watch while on heparin
Follows up with Dr. Justino Hu as OP ( [facility])
She is not sure if she has had another colonoscopy there since 2021.
# Trigeminal neuralgia/chronic pain opiate dependent-Follows up with Dr. Mccray for pain management-continue as needed Percocet
# History of nephrolithiasis with stent placement in the past
# H/O Uveitis- Not active now.
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 Patient made aware
# Cholelithiasis
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 States that she is not on any PAP machines
# Obesity with a BMI 42-was on Ozempic as outpatient,did not work. She was advised to start Mounjaro but she never started-Weight loss recommended.
# DVT Prophylaxis- Heparin
# Full Code
D/W RN
Dr. Ty discussed details with the patient as well as her family. She states they do not have any more questions.
Part of this note was created using voice recognition system. Occasional wrong word or��sound alike� substitutions may have inadvertently occurred due to the inherent limitations of voice recognition software. If noted kindly bring it to my
attention for correction.
Anticipated Discharge: > 48 hours
Subjective/Interval History
-
Date of Service: April 06, 2025
Objective Data
-
Labs:
Laboratory Results
04/06/25 04/06/25 04/06/25
05:41 12:31 19:20
APTT 117.3 H 38.8 H Pending
Sodium 136
Potassium 4.4
Chloride 103
Carbon Dioxide 25
BUN 19 H
Creatinine 0.9
Glucose 226 H
Calcium 9.7
Total Bilirubin 0.5
AST 56 H
ALT 59 H
Alkaline Phosphatase 101
Vital Signs:
Vital Signs
Temp Pulse Resp BP Pulse Ox
98.6 F 84 16 110/74 93
04/06/25 12:20 04/06/25 12:32 04/06/25 12:20 04/06/25 12:32 04/06/25 12:20
I&O
04/05/25 04/06/25 04/07/25
06:59 06:59 06:59
Intake Total 550 / 550 1020 / 1020 480 / 480
Output Total 1350 / 1350 2000 / 1999 650 / 650
Balance -800 / -800 -980 / -980 -170 / -170
--- NOTE | 2025-04-06 16:56 | CM ---
spoke with to pt in room, we discussed preop CABG teaching including sternal and driving restrictions. she is prev indep, lives with her teenaged daughters in a 2 story home with 1 step to enter. she is agreeable to a f/u visit from the ct
transitional care nurses after dc. she has the ct surgery educ book. plan is for CABG tomorrow. cm role explained and all questions answered.
[2025-04-06 17:05] LABS: Glucose - Point of Care 211 mg/dl (70-99)
[2025-04-06] MEDS: NOVOLOG FLEXPEN-MODERATE RESISTANCE 3 UNITS SC (17:39)
[2025-04-06] MEDS: LIPITOR 80 MG PO (17:39)
--- NOTE | 2025-04-06 17:50 | PTCARENOTE ---
The patient is aaox4, vital signs remained stable throughout the shift. NSR with PVCs has been noted on the monitor. She has been anxious about her upcoming CABG tomorrow and needed 2 doses of Xanax during my shift.
--- NOTE | 2025-04-06 18:11 | W.PN.UPDATE ---
Update Note
Progress Note Update
STS Risk:
Procedure Type:�Isolated CABG
Perioperative Outcome Estimate %
Operative Mortality 1.27%
Morbidity & Mortality 9.54%
Stroke 1.92%
Renal Failure 1.72%
Reoperation 1.25%
Prolonged Ventilation 5.07%
Deep Sternal Wound Infection 1.19%
Long Hospital Stay (>14 days) 4.44%
Short Hospital Stay (<6 days)* 37.7%
Clinical Summary
Planned Surgery: Isolated CABG, Elective, First cardiovascular surgery
Demographics: 54 year old, female, 112kg, 163cm, BMI: 42.2 kg/m�
Lab Values: Creatinine: 0.9 mg/dL, Hematocrit: 34.5%, WBC Count: 11.3 10�/�L, Platelet Count: 068661 cells/�L
PreOp Medications: Insulin diabetes control
Substance Abuse: Never smoker
Risk Factors / Comorbidities: Insulin-dependent Diabetes Mellitus, Hypertension
Pulmonary RF: Sleep Apnea
Vascular RF: Cerebrovascular Disease: CVA > 30 days
Cardiac Status: Ejection Fraction = 55%
Coronary Artery Disease: 3 vessels diseased, Non-ST Elevation [place], [place]: 1 to 7 Days
Valve Disease: Trivial/Trace MR, Trivial/Trace TR
--- NOTE | 2025-04-06 20:00 | PTCARENOTE ---
Patient received from RN @1900. Patient sitting in chair OOB w/ call jim in reach. AOx3 Anxious and tearful. NSR BP 123/71 HR 100. Heart sounds audible. Radial and pedal pulses present. No edema. Lungs clear but diminished in bases. POX 94%
RA. Bowel sounds present. Voiding clear yellow urine. Right wrist PIV patent and intact. Heparin running per protocol.
[2025-04-06 20:02] LABS: APTT 73.4 Sec (23.4-35.0)
--- NOTE | 2025-04-06 21:00 | PTCARENOTE ---
4% CHG shower completed. Questions encouraged and answered.
[2025-04-06] MEDS: ASPIR LOW (ENTERIC COATED) 81 MG PO (22:32)
[2025-04-06] MEDS: DESYREL 300 MG PO (22:32)
[2025-04-06] MEDS: CYMBALTA DELAYED RELEASE 60 MG PO (22:32)
--- NOTE | 2025-04-06 22:32 | PTCARENOTE ---
Patient extremely anxious and tearful. Complaining she wants all of her anxiety and pain medications together. CT SABRINA Ortiz notified. Provider JOLANTA Ortiz at bedside, agreed to give Xanax and scheduled trazodone. Providing comfort measures
and education.
[2025-04-06] MEDS: LANTUS 0.2 UNITS SC (22:45)
[2025-04-06 22:46] LABS: Glucose - Point of Care 217 mg/dl (70-99)
--- NOTE | 2025-04-06 23:46 | PTCARENOTE ---
Patient SPO2 87%. 2L NC placed on patient SPO2 returned to 93%.
[2025-04-07] VITALS (14 sets, daily range): BP systolic 84–131; BP diastolic 60–88; BMI 42.4
[2025-04-07] MEDS: HEPARIN 25000 UNITS/250 ML IV (00:18)
--- NOTE | 2025-04-07 00:49 | PTCARENOTE ---
Patient reassessed. NSR VSS POX 92% 2L NC.
[2025-04-07 02:53] LABS: Hematocrit 34.8 % (37.0-47.0); Hemoglobin 11.6 g/dL (12.0-16.0); Mean Corp Hgb Conc. 33.3 g/dL (33.0-37.0); Mean Corpuscular Hgb 27.4 pg (27.0-31.0); Mean Corpuscular Volume 82.3 fL (81.0-99.0); Platelet Count 248 10^3/uL (130-400); Red Blood Cell Count 4.23 10^6/uL (4.20-5.40); White Blood Cell Count 13.1 10^3/uL (4.8-10.8)
[2025-04-07 03:24] LABS: Blood Urea Nitrogen 22 mg/dl (7-17); Calcium 9.6 mg/dl (8.4-10.2); Carbon Dioxide 25 mmol/L (22-30); Chloride 106 mmol/L (98-107); Estimated Creatinine Clearance 100 ml/min; Glucose 209 mg/dl (70-99); Potassium 4.6 mmol/L (3.5-5.1); Sodium 137 mmol/L (135-145); eGFR > 60.00
--- NOTE | 2025-04-07 03:52 | PTCARENOTE ---
Patient assessment unchanged. NSR, VSS. Labs drawn
[2025-04-07] MEDS: LOPRESSOR 25 MG PO (05:38)
[2025-04-07] MEDS: BACTROBAN 2% OINTMENT 1 APPLIC NASAL ×2 (05:38→19:53)
[2025-04-07] MEDS: MAGNESIUM OXIDE 500 MG PO (05:38)
[2025-04-07] MEDS: PROTONIX 40 MG PO (05:38)
--- NOTE | 2025-04-07 06:00 | PTCARENOTE ---
Patient prepped for CVOR. Medication reconciliation performed. Pre-op checklist completed. Patient clipped and CHG cloth bath performed. Question encouraged.
--- NOTE | 2025-04-07 06:08 | W.CVOR.SURPR ---
CVOR Surgeon Immed Pre Op
-
I have examined this patient prior to performance of the scheduled procedure.
The patient's condition is unchanged from the time of the dictated/written History and
Physical and the patient is able to undergo the scheduled procedure.
[2025-04-07 07:37] LABS: ACT+ - POC 107 Seconds (82-134)
[2025-04-07 08:23] LABS: Urine Albumin Negative (Neg - Trace); Urine Bilirubin Negative (Negative); Urine Character Clear (Clear); Urine Color Yellow; Urine Glucose Negative (Negative); Urine Ketone Negative (Negative); Urine Leukocyte Negative (Negative); Urine Nitrite Negative (Negative); Urine Occult Blood Negative (Negative); Urine Urobilinogen Negative (Neg - 1+)
--- NOTE | 2025-04-07 08:25 | PN.DE.MGMTRT ---
Insulin Management
- -
04/07/2025: Diabetes Management Consult Follow up
Patient admitted 04/01 with chest pain--> NSTEMI/ACS. PMH: HTN, T2DM, chronic pain syndrome. Was taking Metformin 1000 mg BID, Glipizide 10 mg BID and Lantus 15 units @ HS prior to admission. A1C 8.3%, Cr 1.0, eGFR>60.
Pt is in OR at the time of my visit.
To begin Glycemic protocol insulin infusion s/p OR
Discussed with nurse
Will follow
Tried taking Ozempic but states it didn't work so she stopped taking it. Was also taking Jardiance, also stopped taking due to recurrent UTIs and yeast infections. States she is now using a CGM- Candice for Glucose monitoring and that she has been
taking her diabetes medications daily but agrees that she hasn't been doing much in terms of exercise and Nutrition.
Diabetes History
- -
Type of Diabetes: 2 requiring insulin
Pre-Admission Diabetes Regimen
04/06/25 04/07/25
12:31 02:44
Creatinine 0.9 0.8
Lab Results
Hemoglobin A1c 8.3 % (4.0-5.6) H 04/02/25 08:40
Insulin Pump Settings
IP Diabetes Regimen
04/06/25 04/06/25 04/06/25
10:25 12:31 13:33
Glucose 226 H
POC Glucose 180 H 183 H
04/06/25 04/06/25 04/07/25
17:04 22:45 02:44
Glucose 209 H
POC Glucose 211 H 217 H
Meal type: Lunch
Meal type: Breakfast
Amount consumed: 100%
Amount consumed: 100%
Patient Education
--- NOTE | 2025-04-07 08:32 | CM ---
Reviewed chart.. Mrs. Quiñonez is in the operating home today. Prior to admission she resides in a two story home with her two daughters with one step to enter. Prior to admission she was independent in [facility]. Medical work-up in progress. The
discharge plan is to return home with her daughters and a home visit by the Transitional Care Nurse when medically stable.
[2025-04-07 09:46] LABS: B.E. - POC -0.2 mmol/L; Glucose - POC 181 mg/dl (70-99); HCO3 - POC 25 mmol/L (21-28); Hematocrit - POC 32 % PCV (37-47); Hemodilution- POC No; Hemoglobin Calculated - POC 10.8; Ionized Calcium - POC 1.17 mmol/L (1.15-1.33); Lactate - POC 1.11 mmol/L (0.36-0.75); O2 Saturation %Calculated-POC 99.5 % (94-98); PCO2 - POC 45 mmHg (35-48); PO2 - POC 174 mmHg (83-108); Sodium - POC 141 mmol/L (136-145); Specimen Type - POC Arterial; pH - POC 7.36 (7.35-7.45)
[2025-04-07 09:53] LABS: ACT+ - POC 405 Seconds (82-134)
[2025-04-07 10:02] LABS: ACT+ - POC 419 Seconds (82-134)
[2025-04-07 10:15] LABS: ACT+ - POC 517 Seconds (82-134)
[2025-04-07 10:17] LABS: B.E. - POC -0.5 mmol/L; Glucose - POC 227 mg/dl (70-99); HCO3 - POC 25 mmol/L (21-28); Hematocrit - POC 29 % PCV (37-47); Hemodilution- POC No; Hemoglobin Calculated - POC 9.7; Ionized Calcium - POC 1.14 mmol/L (1.15-1.33); Lactate - POC 0.92 mmol/L (0.36-0.75); O2 Saturation %Calculated-POC 96.5 % (94-98); PCO2 - POC 45 mmHg (35-48); PO2 - POC 90 mmHg (83-108); Potassium - POC 4.2 mmol/L (3.5-5.1); Sodium - POC 141 mmol/L (136-145); Specimen Type - POC Arterial; pH - POC 7.36 (7.35-7.45)
[2025-04-07 10:25] LABS: ACT+ - POC 486 Seconds (82-134)
[2025-04-07 10:40] LABS: ACT+ - POC 485 Seconds (82-134)
[2025-04-07 10:45] LABS: B.E. - POC 8.6 mmol/L; Glucose - POC 220 mg/dl (70-99); HCO3 - POC 34 mmol/L (21-28); Hematocrit - POC 29 % PCV (37-47); Hemodilution- POC Yes; Hemoglobin Calculated - POC 9.8; Ionized Calcium - POC 1.11 mmol/L (1.15-1.33); Lactate - POC 0.56 mmol/L (0.36-0.75); O2 Saturation %Calculated-POC 99.9 % (94-98); PCO2 - POC 48 mmHg (35-48); PO2 - POC 326 mmHg (83-108); POC Comment CPB; Potassium - POC 4.4 mmol/L (3.5-5.1); Sodium - POC 142 mmol/L (136-145); Specimen Type - POC Arterial; pH - POC 7.45 (7.35-7.45)
[2025-04-07 10:55] LABS: ACT+ - POC 456 Seconds (82-134)
[2025-04-07 11:12] LABS: ACT+ - POC 580 Seconds (82-134)
[2025-04-07 11:13] LABS: B.E. - POC 2.9 mmol/L; Glucose - POC 202 mg/dl (70-99); HCO3 - POC 28 mmol/L (21-28); Hematocrit - POC 29 % PCV (37-47); Hemodilution- POC Yes; Ionized Calcium - POC 1.11 mmol/L (1.15-1.33); Lactate - POC 1.16 mmol/L (0.36-0.75); O2 Saturation %Calculated-POC 99.9 % (94-98); PCO2 - POC 43 mmHg (35-48); PO2 - POC 333 mmHg (83-108); POC Comment CPB; Potassium - POC 4.1 mmol/L (3.5-5.1); Sodium - POC 141 mmol/L (136-145); Specimen Type - POC Arterial; pH - POC 7.42 (7.35-7.45)
[2025-04-07 11:23] LABS: ACT+ - POC 574 Seconds (82-134)
[2025-04-07 11:41] LABS: B.E. - POC 2.2 mmol/L; Glucose - POC 202 mg/dl (70-99); HCO3 - POC 28 mmol/L (21-28); Hematocrit - POC 29 % PCV (37-47); Hemodilution- POC Yes; Hemoglobin Calculated - POC 9.9; Ionized Calcium - POC 1.11 mmol/L (1.15-1.33); Lactate - POC 1.64 mmol/L (0.36-0.75); O2 Saturation %Calculated-POC 99.9 % (94-98); PCO2 - POC 48 mmHg (35-48); PO2 - POC 273 mmHg (83-108); POC Comment CPB; Sodium - POC 143 mmol/L (136-145); Specimen Type - POC Arterial; pH - POC 7.37 (7.35-7.45)
[2025-04-07 11:49] LABS: ACT+ - POC 569 Seconds (82-134)
--- NOTE | 2025-04-07 11:56 | W.PN.UPDATE ---
Update Note
Progress Note Update
Pt in OR for CABG
D/W CV PA. Ok to sign off.
Pt will be transferred to CTS service
[2025-04-07 12:10] LABS: ACT+ - POC 569 Seconds (82-134)
[2025-04-07 12:10] LABS: Glucose - POC 187 mg/dl (70-99); HCO3 - POC 26 mmol/L (21-28); Hematocrit - POC 30 % PCV (37-47); Hemodilution- POC Yes; Hemoglobin Calculated - POC 10.1; Ionized Calcium - POC 1.08 mmol/L (1.15-1.33); Lactate - POC 2.52 mmol/L (0.36-0.75); O2 Saturation %Calculated-POC 99.6 % (94-98); PCO2 - POC 41 mmHg (35-48); PO2 - POC 184 mmHg (83-108); POC Comment WARM; Potassium - POC 4.6 mmol/L (3.5-5.1); Sodium - POC 143 mmol/L (136-145); Specimen Type - POC Arterial; pH - POC 7.41 (7.35-7.45)
[2025-04-07] MEDS: NOVOLOG FLEXPEN-MODERATE RESISTANCE SC ×2 (12:16)
[2025-04-07] MEDS: NOVOLOG FLEXPEN SC ×4 (12:16→15:55)
[2025-04-07] MEDS: PROTONIX IV IV (12:17)
[2025-04-07] MEDS: ANUSOL HC RECTAL (12:17)
[2025-04-07] MEDS: SENOKOT PO (12:17)
[2025-04-07] MEDS: MAGNESIUM OXIDE PO (12:17)
[2025-04-07] MEDS: MIRALAX PO (12:17)
[2025-04-07] MEDS: COLACE PO ×2 (12:17→19:54)
[2025-04-07] MEDS: NSS (PRESERVATIVE FREE) IV (12:17)
[2025-04-07 12:19] LABS: ACT+ - POC 525 Seconds (82-134)
[2025-04-07 12:27] LABS: B.E. - POC 0.6 mmol/L; Glucose - POC 166 mg/dl (70-99); HCO3 - POC 26 mmol/L (21-28); Hematocrit - POC 30 % PCV (37-47); Hemodilution- POC Yes; Hemoglobin Calculated - POC 10.1; Ionized Calcium - POC 1.09 mmol/L (1.15-1.33); Lactate - POC 2.87 mmol/L (0.36-0.75); O2 Saturation %Calculated-POC 99.3 % (94-98); PCO2 - POC 41 mmHg (35-48); PO2 - POC 147 mmHg (83-108); POC Comment WARM; Potassium - POC 4.3 mmol/L (3.5-5.1); Sodium - POC 143 mmol/L (136-145); Specimen Type - POC Arterial
[2025-04-07 12:35] LABS: ACT+ - POC 514 Seconds (82-134)
[2025-04-07 13:07] LABS: B.E. - POC 1.3 mmol/L; Glucose - POC 147 mg/dl (70-99); HCO3 - POC 26 mmol/L (21-28); Hematocrit - POC 30 % PCV (37-47); Hemodilution- POC Yes; Ionized Calcium - POC 1.11 mmol/L (1.15-1.33); Lactate - POC 2.98 mmol/L (0.36-0.75); O2 Saturation %Calculated-POC 99.7 % (94-98); PCO2 - POC 40 mmHg (35-48); PO2 - POC 204 mmHg (83-108); POC Comment WARM; Potassium - POC 4.3 mmol/L (3.5-5.1); Sodium - POC 143 mmol/L (136-145); Specimen Type - POC Arterial; pH - POC 7.42 (7.35-7.45)
[2025-04-07 13:11] LABS: ACT+ - POC 107 Seconds (82-134)
--- NOTE | 2025-04-07 13:43 | W.IMMPOSTOP ---
Addendum entered and electronically signed by Georges Ty MD 04/07/25 16:58:
[id number]
Original Note:
Surgical Immed Post Op Note
-
CARDIAC SURGERY OPERATIVE NOTE:
Preoperative Dx:
MVCAD w/ NSTEMI
Prior CVA (on plavix)
Anxiety
HTN
DM II
Morbid obesity (BMI 42.4)
Postoperative Dx:
Same
Procedures:
1) Median sternotomy
2) Takedown of DOMINIC (narrow pedicle)
3) Endoscopic harvest/prep of LLE GSV
4) CABG x 4 (DOMINIC to LAD, GSV to D1, GSV to OM1, GSV to RPDA)
5) ELAA (35mm AtriClip)
Surgeon:
Georges Ty M.D.
Assistants:
Geoffrey Benoit P.A.-C.; endoscopic harvest/prep of RLE GSV; or first assist registered nurse throughout
Akshat Blanc P.A.-C.; [id number] sternotomy closure
Anesthesia:
Ari Busch C.R.N.A. and John Contreras M.D.
Perfusion:
Denia Baptiste CAparnaC.P.; XC: 87min, CPB 154min
Findings:
DOMINIC was healthy vessel w/ very brisk blood flow; ELD 2.75mm
GSV was reasonable conduit w/ area of varicosity at its midpoint that was able to be excluded. ELD 3.0-4.0mm
LAD was visible on the epicardial surface, moderate scattered calcifications; ELD 3.75mm
D1 was visible on the epicardial surface, moderate dense calcifications; ELD 2.25mm
OM1 was visible on the epicardial surface, scant scattered calcifications; ELD 3.0mm
RPDA was visible on the epicardial surface, very dense calcifications throughout, thickened, atheromatous martinez, ELD 2.0
Small, windsock morphology NANI controlled at base w/ 35mm AtriClip
RPDA graft/proximal was slightly too tight at initial location resulting in flattening of the graft. Proximal re-done in a more inferior and lateral location to allow for tension-free path
Good flow in all grafts on intraoperative transit-time U/S flow probe assessment
LVEF normal w/o RWMA, NANI confirmed excluded
Implants:
CT x 4 (B/L pleural, inferior mediastinal, superior mediastinal)
Sternal wires x 8
Sternal 'X' plate w/ 8 - 12mm screws
Complications:
None
Transfusions:
None
Condition:
78 sinus (-0.7/-0.3); 119/71, CVP 20. 100%
GTTS: levophed 2, precedex 0.5, insulin 0.5
Stable/guarded to CVICU
[2025-04-07] MEDS: TYLENOL PO (13:56)
[2025-04-07 14:18] LABS: Glucose - Point of Care 185 mg/dl (70-99)
--- NOTE | 2025-04-07 14:20 | W.PN.CARDCBS ---
Addendum entered and electronically signed by Remigio Reed DO 04/07/25 17:45:
I saw and examined the patient.
The Rn Mobile's note was reviewed and I agree with the note.
Comment:
Plan:
Cont post op care
Extubated late this afternoon
Monitor bps as were labile during the case
Retrial statin
HbA1c was >8, needs tighter glucose control as outpt
Original Note:
Today's Communication / Plan
-
follow BPs
continue post op care
Impression / Plan
-
PCP: Donald Plaza
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
Impression:
Chest pain
NSTEMI
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
Type 2 diabetes mellitus
Hyperlipidemia, intolerant of multiple statin
Hypertensive urgency
History of CVA/TIA
Multiple sclerosis, not on medication
Trigeminal neuralgia, not active
Chronic lumbar pain on chronic oral opiates
Anxiety
Obesity
sleep apnea
Nephrolithiasis
Echo 04/02/2025: TDS, EF 55%, mild anterolateral wall hypokinesis, increased RV wall thickness, trivial MR, PASP 18 mmHg, prominent anterior fat pad with thickened pericardium, no effusion
Plan:
-54-year-old female with multiple cardiac risk factors presenting with chest pain consistent with non-ST elevation myocardial infarct in the setting of hypertensive urgency.
-peak trop 0.355
-cardiac cath with MV CAD
-s/p CABG x4 DOMINIC to LAD, GSV to D1, GSV to OM1, GSV to RPDA, NANI clip 04/07/25
-remains intubated, sedated
-BP was labile during case, on and off levo, on and off cardene. all currently off. follow BPs. preop she required regimen of norvasc 10mg HS, hydralazine 25mg BID, cozaar 100mg HS, toprol 50mg BID
-she is concerned about post op pain mgmt as is chronically on oxycodone. follows with pain mgmt as OP
-EKG SR with prolonged QTc and anterolateral T wave inversion, follow
-continue post op care
-hgbA1c 8.3%. discussed need for strict diabetic control moving forward. appreciate diabetic mgmt. SGLT2 inhibitor affordable to patient, would consider initiation post op as well as possible GLP-1
-Patient has history of 'statin intolerance' however given presentation will retrial on lipitor 80mg HS. Can consider PCSK9 inhibitor as an outpatient. Goal LDL less than 70 mg/dL, goal triglycerides less than 150 mg/dL
-Probable sleep apnea with no recent testing, briefly discussed outpatient evaluation which can be arranged at time of discharge
-d/w nursing
Progress Note - General Warehouse Worker
Subjective
Date of Service: April 07, 2025
intubated, sedated
Objective
Labs:
Labs
Hgb 11.6 g/dL (12.0-16.0) L 04/07/25 02:44
Hct 34.8 % (37.0-47.0) L 04/07/25 02:44
Plt Count 248 10^3/uL (130-400) 04/07/25 02:44
PT 13.6 Sec (11.4-14.6) 04/05/25 02:30
INR 0.99 04/05/25 02:30
APTT 93.0 Sec (23.4-35.0) H 04/07/25 02:44
Sodium 137 mmol/L (135-145) 04/07/25 02:44
Potassium 4.6 mmol/L (3.5-5.1) 04/07/25 02:44
BUN 22 mg/dl (7-17) H 04/07/25 02:44
Creatinine 0.8 mg/dL (0.6-1.0) 04/07/25 02:44
Glucose 209 mg/dl (70-99) H 04/07/25 02:44
Vital Signs and I&O:
Vital Signs
Temp Pulse Resp BP Pulse Ox
97.7 F 89 17 131/88 92
04/07/25 05:25 04/07/25 05:26 04/07/25 05:25 04/07/25 05:38 04/07/25 05:25
Vital Signs
Temp Pulse Resp BP Pulse Ox
97.7 F 89 17 131/88 92
04/07/25 05:25 04/07/25 05:26 04/07/25 05:25 04/07/25 05:38 04/07/25 05:25
Intake & Output
04/05/25 04/06/25 04/07/25 04/08/25
07:59 07:59 07:59 07:59
Intake Total 550 / 550 1020 / 1020 480 / 480 0 / 0
Output Total 1350 / 1350 2000 / 2000 1200 / 1200 0 / 0
Balance -800 / -800 -980 / -980 -720 / -720 0 / 0
Physical Exam
Physical Exam
GEN: No distress, intubated, sedated
HEENT: supple, anicteric, mmm
LUNGS: CTA B/L, no wheezes/rales
CV: Reg, S1/S2, no murmur
ABD: soft, BS+, NT/ND, pannus
EXT: No cyanosis, clubbing, edema
NEURO: sedated
SKIN: Warm, pink, dry. No rash. Sternotomy dressing c/d/i
[2025-04-07 14:27] LABS: B.E. -2.3 mmol/L; HCO3 23.2 mmol/L (21-28); Ionized Calcium 1.23 mMOL/L (1.15-1.33); PCO2 42 mmHg (32-35); PO2 120 mmHg (83-108); Sodium 136 mMOL/L (136-145); pH 7.35 (7.35-7.45)
[2025-04-07 14:31] LABS: Hemoglobin 9.3 g/dL (12.0-16.0); Platelet Count 235 10^3/uL (130-400)
[2025-04-07 14:48] LABS: PT 15.7 Sec (11.4-14.6)
[2025-04-07 15:01] LABS: Blood Urea Nitrogen 19 mg/dl (7-17); Estimated Creatinine Clearance 89 ml/min; Glucose 177 mg/dl (70-99); Magnesium 2.9 mg/dl (1.6-2.3)
[2025-04-07 15:02] LABS: Glucose - Point of Care 178 mg/dl (70-99)
[2025-04-07] MEDS: NSS 500 IV (15:08)
--- NOTE | 2025-04-07 15:10 | PTCARENOTE ---
Patient received from [facility]OR at 1410; Sedated and intubated; SR with prolonged QT rhythm on monitor; VSS; +1 DP and +2 radial pulses present; Lungs diminished throughout with rhonchi; ETT size 8 positioned and secured at 22 cm right lip; Ventilator
settings SIMV 16/600/8/5 FiO2 40%; CTx4 to -20 cm wall suction draining bloody drainage - no air leak, tidaling, or crepitus noted; Hypoactive BS; Hsu catheter in place draining clear, yellow urine; Sternal midline incision covered with Aquacel
dressing with scant amount of bloody drainage, left groin puncture site glued and approximated - CDI, LLE wrapped in LUDA wrap with scant amount of bloody drainage; Left radial A-line in place, SLIC present in RIJ Cordis - all lines zeroed and
leveled; PIVx2 - #20 right wrist and #22 left forearm; Levo, insulin, and precedex infusing - see nursing flowsheets for further details; see nursing documentation for further details.
--- NOTE | 2025-04-07 15:19 | W.PN.UPDATE ---
Update Note
Progress Note Update
Crystalloid:� 1200 mL
U.O.:� 700
Blood:� none
Wires:� none
Pressors:� Levophed (2)
Sedatives:� Precedex (0.5)
�
NEURO: sedated on Precedex, pupils +2 mm B/L
RESP: #8 ETT @8 cm> 600/40%/16/8. Lungs clear B/L. 2 mediastinal (0 cc on arrival) and R/L pleural (50 cc on arrival) chest tubes to -20cm suction. Sanguineous drainage
CV: RRR +S1, S2, no S3, no�rub, no murmur. Aquacel Ag to median sternotomy. RIJ w/ cordis.
ABD: round, soft, no BS
EXT: no edema, +2/4 DP pulses B/L, no femoral bruit, LLE LUDA wrap intact; radial A-line intact
: Hsu with clear yellow urine
�
A/P: POD #0 s/p CAB x 4 (EUCEDA - LAD, SVG to D1, SVG to OM1, SVG to RPDA) with NANI clip (35 mm)
TIARA: EF�55-60%
- wean and extubate
�
# acute surgical blood loss anemia-expected
- trend CBC
�
# T2DM (A1C 8.3%)
- insulin infusion x 48h
- Diabetic DEPARTMENT HELPER consulted, recommendations appreciated
�
# Hyperlipidemia
- resume�high-dose statin therapy
# Anxiety
- resume home regiment
# Prior CVA
- on Plavix 75 mg as outpatient, will resume tomorrow
[2025-04-07] MEDS: NEURONTIN PO ×2 (15:55→23:19)
--- NOTE | 2025-04-07 16:00 | PTCARENOTE ---
RT in room and patient placed on CPAP trial. ABG's due at 1630
[2025-04-07 16:04] LABS: Glucose - Point of Care 194 mg/dl (70-99)
--- NOTE | 2025-04-07 16:27 | CON.INTV ---
Consultation
Consultation Request
Date/Time Consultation Requested: 04/07/2025
Date/Time Consultation Performed: 04/07/2025
Requesting Provider: Karson Su
Performing Provider: Rohan Ng
Reason for Consultation: CABG
Medical History
-
Chief Complaint: Chest pain
History of Present Illness:
Patient is a 54-year-old female who presented to the hospital on 04/02/2025 with chest pain. She was admitted to the hospitalist service noted to have positive troponin and was treated with anticoagulation and antiplatelet therapy. Subsequently
cardiology consult was requested. Patient had echocardiogram followed by cardiac catheterization which was suggestive of multivessel disease. Patient was subsequently seen by cardiothoracic surgery and was taken for elective coronary artery bypass
graft today. Postsurgery patient was admitted to CVICU and chha service was consulted for further input.
Past Medical History
Past Medical History: Reports Other
Additional Past Medical History:
Nephrolithiasis
Chronic lumbar pain on chronic oral opiates
Multiple sclerosis
Trigeminal neuralgia
Hepatic steatosis, hepatomegaly
Hypertension
Obesity
DM-II
ASCVD / CVA x 2
Anxiety
Optic neuritis / Uveitis
Ankylosing spondylitis
Past Surgical History: Reports Other
Additional Past Surgical History:
History of renal calculi with removals
Neuroma to foot removal
Tonsillectomy adenoidectomy
Social History
Tobacco: Non-smoker
Alcohol: None
Drug: None
Personal: Single
Living: With Family (Children)
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
Family History
Family History: Not pertinent
Allergies / Home Medications
Allergies / Home Medications
Allergies
Allergy/AdvReac Type Severity Reaction Status Date / Time
phenytoin [From Dilantin] Allergy blood Verified 08/07/24 10:59
clots;pt
states 'i
can get it
but it has
to be
diluted
Quinolones Allergy Hives Verified 08/07/24 10:59
Home Medications
�Medication �Instructions �Recorded �Confirmed �Last Taken �Type
metoprolol succinate 100 mg 100 mg PO BID Blood pressure ##0 10/26/16 04/07/25 04/01/25 08:00 History
tablet,extended release 24 hr
duloxetine 60 mg capsule,delayed 60 mg PO HS Mental Health/Anxiety 11/27/18 04/07/25 04/06/25 22:00 History
release
amlodipine 10 mg tablet 10 mg PO HS Blood Pressure 03/07/22 04/07/25 03/31/25 18:00 History
clopidogrel 75 mg tablet 75 mg PO HS Blood Clot 03/07/22 04/07/25 03/31/25 18:00 History
Prevention/Tx
albuterol sulfate 2.5 mg/3 mL 2.5 mg inhalation R Q4HPRN PRN 08/07/24 04/07/25 Unknown History
(0.083 %) solution for nebulization sob/wheezing
aspirin 81 mg tablet,delayed 81 mg PO HS Blood Clot 08/07/24 04/07/25 04/06/25 22:00 History
release Prevention/Tx
docusate sodium 100 mg capsule 100 mg PO BID Constipation 08/07/24 04/07/25 04/06/25 20:00 History
(Stool Softener)
glipizide 10 mg tablet 10 mg PO BID Diabetes 08/07/24 04/07/25 03/31/25 18:00 History
losartan 100 mg tablet 100 mg PO HS Blood Pressure 08/07/24 04/07/25 03/31/25 18:00 History
oxycodone-acetaminophen 10 mg-325 1 tab PO Q6HPRN PRN moderate pain 08/07/24 04/07/25 Unknown History
mg tablet
polyethylene glycol 3350 17 gram 17 g PO DAILY PRN Constipation 08/07/24 04/07/25 09/10/24 History
oral powder packet (Miralax)
hydralazine 25 mg tablet 25 mg PO BID Blood Pressure 08/15/24 04/07/25 03/31/25 18:00 History
glucagon 1 mg/0.2 mL subcutaneous 1 mg SC PRN PRN low blood sugar 09/10/24 04/01/25 Unknown History
auto-injector (Gvoke HypoPen
2-Pack)
insulin glargine 100 unit/mL (3 15 unit SC HS Diabetes 09/10/24 04/07/25 04/06/25 22:00 History
mL) subcutaneous pen (Lantus
Solostar U-100 Insulin)
trazodone 150 mg tablet 300 mg PO HS Mental Health/Anxiety 09/10/24 04/07/25 04/06/25 22:00 History
alprazolam 1 mg tablet 1 mg PO TID PRN anxiety 04/02/25 04/07/25 03/31/25 22:00 History
oxycodone-acetaminophen 10 mg-325 1 tab PO Q4H PRN back pain 04/02/25 04/02/25 04/01/25 10:00 History
mg tablet
Review of Systems
-
Unable to Obtain full review of systems at this time due to: Patient Intubation
Vitals / Labs / Diagnostic Testing
Vital Signs
Temp Pulse Resp BP Pulse Ox
99.1 F 88 16 84/65 95
04/07/25 16:00 04/07/25 16:00 04/07/25 16:00 04/07/25 16:00 04/07/25 16:00
Lab Data
04/07/25 14:16
Laboratory Results
04/06/25 04/07/25 04/07/25
19:39 02:44 14:16
PT 15.7 H
INR 1.20
APTT 73.4 H 93.0 H 35.0
pH 7.35
pCO2 42 H
pO2 120 H
HCO3 23.2
O2 Delivery Level
Diagnostic Testing:
Physical Exam
-
HEENT: Normocephalic
Cardiovascular: S1/S2
Respiratory: Clear and Non-Labored Respirations
GI: Soft and Non Distended
Neurology: Other (Currently intubated, tolerating pressure support, waking up and able to respond to simple commands)
Skin: Warm
General: Comfortable
Assessment
-
S/p coronary artery bypass graft and left atrial appendage exclusion POD # o
Titrate off pressors per protocol, currently down to Levophed at 0.5
ECHO reviewed with normal function
MAP around 79, CVP 17. 97% on vent at 40% FiO2.
Management of chest tubes per primary service
Intubated/light sedation with Precedex at 0.5. Tolerating pressure support well 5 x 8, 40% FiO2, breathing at about 15 minutes and pulling close to 600 mL of tidal volume. No tachypnea or tachycardia noted
Pain control
RASS goal of 0 to -1
Current vent settings: PSV 5/8, 40%/5.
ABG(s) reviewed: 7.35, 42, 120
CXR with no obvious opacities/infiltrates
Anticipate extubation shortly
Maintain supplement oxygen as needed
No prior history of pulmonary disease, no reported history of smoking
Prior PFTs reviewed
Can add nebulizers if needed
Aspiration precautions
Encouraged incentive spirometry, OOB/ambulation/early mobility
Advance diet as tolerated following extubation
GI prophylaxis: Pantoprazole
Monitor critical I/O's
Hsu/chest tube output
Hb/platelets postoperatively stable
Trend CBC for now
Can transfuse if indicated for Hb <7, plt <50 in surgical patients
DVT prophylaxis including SCDs
Insulin protocol initiated and ongoing
Transition to SQ/off as indicated per team
Other medical diagnoses:
-RML nodule. 4 mm size. Out patient follow up
-HTN & HLD
-DM
-h/o CVA
-h/o MS/Optic neuritis
-Anxiety and depression
-Diverticulosis with h/o GI bleed
-?EARL
Critical Care time 49 min -- The patient is admitted for acute critical illness for the treatment of vital organ failure and/or prevention of further life-threatening conditions. Total care includes time spent in review of history, physical exam,
medications, hemodynamic/ventilator parameters, laboratory data, imaging and discussion with house staff, pharmacy, respiratory therapy, preparation room worker, and nursing.
Data:
TIARA 03/2025: Normal left ventricular size and systolic function, mild LVH, stage I diastolic dysfunction.
Normal right ventricular function.
The aorta has atheroma less than 5 mm and mild calcifications.
Mild TR.
Cardiac Cath 03/2025: 1. Multivessel coronary artery disease as described above. The LAD has a long 50-60% stenosis beyond the first diagonal branch and focal 70% stenosis in the mid distal vessel. The large first obtuse marginal branch is
occluded and fills via left to left collaterals. There is an 80% stenosis at the ostium of the dominant right coronary artery and 70% stenosis at the the origin of the PDA. The posterolateral branch is 100% occluded filling via faint right to
right collaterals.
2. Preserved LV systolic function with anterolateral hypokinesis
ECHO 03/2025: Normal left ventricular size with moderate concentric left ventricular hypertrophy
Normal left ventricular systolic function visually estimated 55% with possible
mild anterolateral wall hypokinesis
Normal RV size and systolic function with increased RV wall thickness
Thickened mitral valve with trivial mitral regurgitation
[place] structurally normal aortic valve
Trace tricuspid regurgitation
Estimated pulmonary artery pressure of 18 mmHg assuming a right atrial pressure
of 3 mmHg.
Prominent anterior fat pad with thickened pericardium. No significant
pericardial effusion
No prior study available for comparison
CT Angio 03/2025: 1. Negative for aortic dissection.
2. No specific findings to explain pain. No acute abnormality identified.
3. At least moderate coronary atherosclerosis.
4. Unchanged benign right middle lobe 4 mm nodule.
5. Hepatic fatty infiltration. Splenomegaly.
[2025-04-07 16:38] LABS: B.E. -2.3 mmol/L; HCO3 23.2 mmol/L (21-28); Ionized Calcium 1.22 mMOL/L (1.15-1.33); O2 Saturation % 96.6 % (94-98); PCO2 42 mmHg (32-35); PO2 77 mmHg (83-108); Potassium 4.9 mMOL/L (3.5-5.1); Sodium 136 mMOL/L (136-145); pH 7.35 (7.35-7.45)
--- NOTE | 2025-04-07 16:53 | PTCARENOTE ---
ABG's reviewed with GIAN Barbosa; RT at bedside; Patient extubated at 1650 placed on 6L NC; IS 500 ml
--- NOTE | 2025-04-07 16:55 | RESPNOTE ---
pt extubated at 1650 to 6 lpm nasal cannula. sats of 94% noted
[2025-04-07 17:02] LABS: Glucose - Point of Care 163 mg/dl (70-99)
[2025-04-07] MEDS: OFIRMEV 100 IV (17:09)
[2025-04-07] MEDS: LOW STRENGTH ASPIRIN 81 MG PO (17:40)
[2025-04-07] MEDS: DILAUDID 0.5 MG IV (17:41)
[2025-04-07] MEDS: LIPITOR PO (17:42)
[2025-04-07 18:08] LABS: Glucose - Point of Care 176 mg/dl (70-99)
[2025-04-07 18:16] LABS: Hematocrit 29.4 % (37.0-47.0); Hemoglobin 9.6 g/dL (12.0-16.0); Platelet Count 250 10^3/uL (130-400)
[2025-04-07] MEDS: DILAUDID 0.25 MG IV (18:36)
[2025-04-07 19:02] LABS: Glucose - Point of Care 185 mg/dl (70-99)
[2025-04-07] MEDS: ANCEF 5 IV (19:53)
[2025-04-07] MEDS: SENOKOT-S PO (19:54)
[2025-04-07 20:00] LABS: Glucose - Point of Care 161 mg/dl (70-99)
--- NOTE | 2025-04-07 20:00 | PTCARENOTE ---
Assumed care of the patient at 1900. SR to ST with long QT rhythm on monitor, pulses palpable throughout, distant heart tones, trace lower extremity edema. Lungs dim on 4LNC--->6LNC, for SpO2 89-90%, CTx4 to -20 cm wall suction, drainage
sanguineous, no air leak, tidaling, or crepitus noted. BS hypoactive, abdomen obese, nontender. Hsu catheter in place draining clear, yellow urine. All surgical sites stable. L radial radha, JACKELINE Cordis with slic, PIVx2, all applicable lines
leveled and zeroed. On insulin. See work list for additional intervention and titration details. Assessment of needs ongoing.
[2025-04-07] MEDS: DILAUDID 1 MG IV (20:40)
[2025-04-07] MEDS: CYMBALTA DELAYED RELEASE PO (21:24)
[2025-04-07] MEDS: DESYREL PO (21:24)
[2025-04-07] MEDS: NITROGLYCERIN PREMIX 250 IV (21:54)
[2025-04-07] MEDS: COMPAZINE 10 MG IV (22:03)
[2025-04-07 22:08] LABS: Glucose - Point of Care 172 mg/dl (70-99)
[2025-04-07 23:02] LABS: Glucose - Point of Care 169 mg/dl (70-99)
[2025-04-07] MEDS: TORADOL 15 MG IV (23:17)
[2025-04-08] VITALS (21 sets, daily range): BP systolic 91–148; BP diastolic 54–98; PULSE 89; O2SAT 93–94; BMI 42.6
--- NOTE | 2025-04-08 | PTCARENOTE ---
Patient states, 'I want to give up,' and 'Is there anything I can take that is for a mercy killing?' Patient denies a plan to end her own life, CVPA made aware. Best level safely possible for pain management at this time, PRN pain medication
continued as able. Therapeutic communication utilized. On 8L midflow for desatting to 88-89% on 6LNC.
Nitro gtt started approx ~2200 for borderline systolic BP 130-135, BP improved
Pt c/o CP, EKG performed, no changes
Compazine for nausea, improved
--- NOTE | 2025-04-08 | PTCARENOTE ---
Addendum entered by Buffy Soto RN 04/08/25 03:30:
Nitro gtt started approx ~2200 for borderline systolic BP 130-135, BP improved
Original Note:
Patient states, 'I want to give up,' and 'Is there anything I can take that is for a mercy killing?' Patient denies a plan to end her own life, CVPA made aware. Best level safely possible for pain management at this time, PRN pain medication
continued as able. Therapeutic communication utilized. On 8L midflow for desatting to 88-89% on 6LNC. See work list.
[2025-04-08] MEDS: CYMBALTA DELAYED RELEASE 60 MG PO ×2 (00:05→22:04)
[2025-04-08] MEDS: TYLENOL 1000 MG PO ×4 (00:05→22:04)
[2025-04-08] MEDS: ROXICODONE 10 MG PO ×6 (00:05→23:16)
[2025-04-08 00:13] LABS: Glucose - Point of Care 161 mg/dl (70-99)
[2025-04-08] MEDS: NOVOLIN R INSULIN INFUSION 100 IV ×3 (00:30→22:24)
[2025-04-08 00:56] LABS: Glucose - Point of Care 148 mg/dl (70-99)
[2025-04-08 02:04] LABS: Glucose - Point of Care 138 mg/dl (70-99)
[2025-04-08] MEDS: DILAUDID 1 MG IV ×4 (02:11→20:37)
--- NOTE | 2025-04-08 04:00 | PTCARENOTE ---
Pain more adequately controlled, patient sleeping between care. 8L midflow continued, PRN pain medications continued, nitro titrated per protocol, assessment of needs ongoing.
[2025-04-08] MEDS: ANCEF 5 IV ×2 (04:25→12:10)
[2025-04-08 04:54] LABS: Hematocrit 27.6 % (37.0-47.0); Hemoglobin 9.1 g/dL (12.0-16.0); Mean Corpuscular Hgb 27.7 pg (27.0-31.0); Mean Corpuscular Volume 84.1 fL (81.0-99.0); Mean Platelet Volume 10.4 fL (7.4-10.4); Platelet Count 256 10^3/uL (130-400); Red Blood Cell Count 3.28 10^6/uL (4.20-5.40); Red Cell Dist. Width 14.2 % (11.5-14.5); White Blood Cell Count 21.1 10^3/uL (4.8-10.8)
[2025-04-08] MEDS: LOPRESSOR 12.5 MG PO ×3 (05:20→10:18)
[2025-04-08 05:22] LABS: Blood Urea Nitrogen 23 mg/dl (7-17); Calcium 8.9 mg/dl (8.4-10.2); Carbon Dioxide 24 mmol/L (22-30); Chloride 110 mmol/L (98-107); Estimated Creatinine Clearance 80 ml/min; Glucose 155 mg/dl (70-99); Magnesium 2.6 mg/dl (1.6-2.3); Potassium 4.9 mmol/L (3.5-5.1); Sodium 139 mmol/L (135-145); eGFR > 60.00
[2025-04-08 06:05] LABS: B.E. - POC 0.4 mmol/L; Glucose - POC 119 mg/dl (70-99); HCO3 - POC 26 mmol/L (21-28); Hematocrit - POC 26 % PCV (37-47); Hemodilution- POC Yes; Hemoglobin Calculated - POC 8.8; Ionized Calcium - POC 1.29 mmol/L (1.15-1.33); Lactate - POC 2.45 mmol/L (0.36-0.75); O2 Saturation %Calculated-POC 99.4 % (94-98); PCO2 - POC 43 mmHg (35-48); PO2 - POC 157 mmHg (83-108); Potassium - POC 4.3 mmol/L (3.5-5.1); Sodium - POC 144 mmol/L (136-145); Specimen Type - POC Arterial; pH - POC 7.39 (7.35-7.45)
--- NOTE | 2025-04-08 06:43 | W.PN.CT ---
Today's Communication / Plan
-
-pod #1
-no issues overnight
-CT outputs: 2 meds 70/190, 2 pleur 100/225 in 12/24 hrs
-drips: Nitro 40, Insulin
-delined
-gave po Lopressor at 5 am for HTN
-wean off O2 as tolerated
-diurese
-held Trazodone d/t long Qt postop
-encourage IS, OOB
Assessment / Plan
-
- MVCAD w/ NSTEMI- s/p CABG x 4 (DOMINIC to LAD, GSV to D1, GSV to OM1, GSV to RPDA); ELAA (35mm AtriClip) on 04/07/25, pod #1
- LVEF normal w/o RWMA, NANI confirmed excluded
- Prior CVA (on plavix)
- Anxiety
- HTN
- DM II
- Class 3 obesity (BMI 42.4)
- EARL
- Trigeminal neuralgia
- Ankylosing spondylitis
- Inflammatory arthritis
- Heparic steatosis
- Multiple sclerosis
- Nonsmoker
- Acute postop blood loss anemia
- Acute postop atelectasis
- Acute postop hypovolemia with subsequent hypervolemia
- Acute postop pulmonary insufficiency d/t pain/splinting
Discussed patient care with: Nursing and Care Team
Subjective
-
Date of Service: April 08, 2025
Objective Data
-
Lab Results
04/08/25 04:22
04/08/25 04:22
PT 15.7 Sec (11.4-14.6) H 04/07/25 14:16
INR 1.20 04/07/25 14:16
APTT 35.0 Sec (23.4-35.0) 04/07/25 14:16
Vital Signs
Vital Signs
Temp Pulse Resp BP Pulse Ox
99 F 91 15 123/72 92
04/08/25 06:00 04/08/25 06:20 04/08/25 06:10 04/08/25 06:10 04/08/25 06:10
CT Intake/Output/Weight
04/07/25 04/07/25 04/08/25
06:59 18:59 06:59
Intake Total 290.8 / 762.0 471.2 / 762.0
Output Total 300 / 1200 580 / 1210 630 / 1210
Balance -300 / -720 -289.2 / -448.0 -158.8 / -448.0
SaO2: 92
Physical Exam
-
General: Awake and AOx3
Cardiovascular: Regular rate & rhythm, No Murmurs and No Rub
Respiratory: Decreased Breath Sounds
Sternum: Stable
Incision: Clean, Dry and Intact
Extremities: Other (trace edema b/l)
Abdomen: soft, nontender, nondistended, + decreased bowel sounds
Data Reviewed
-
Lab Results: Results Reviewed
Medications: Active Meds Reviewed
Chest X-Ray: Report Reviewed and Image Reviewed
ECG: Report Reviewed and Image Reviewed
[2025-04-08 06:51] LABS: Glucose - Point of Care 191 mg/dl (70-99)
[2025-04-08 06:51] LABS: Glucose - Point of Care 146 mg/dl (70-99)
[2025-04-08 06:51] LABS: Glucose - Point of Care 182 mg/dl (70-99)
--- NOTE | 2025-04-08 06:53 | PTCARENOTE ---
Patient delined per order; no acute issues, OOB to chair without symptoms, nitro titrated per protocol to off.
--- NOTE | 2025-04-08 07:30 | PTCARENOTE ---
Assumed care of patient from car shifter RN. AAO x 3. Sitting up in the chair. C/o 07/27 sternal pain. Pt requesting 'all the meds she can have'. Post op pain expectations discussed and PRN medications administered. SR on monitor. 6 L NC 92%,
IS to 250. Proper technique demonstrated. Chest tubes x 4 to - 20 cm suction. No air leak or crepitus noted. Abdomen obese with positive bowel sounds, Denies nausea. Due to void. Surgical sites c,d,i. Pulses palpable.
[2025-04-08] MEDS: BACTROBAN 2% OINTMENT 1 APPLIC NASAL ×2 (07:39→20:21)
[2025-04-08] MEDS: LOW STRENGTH ASPIRIN 81 MG PO (07:41)
[2025-04-08] MEDS: PROTONIX 40 MG PO (07:41)
[2025-04-08] MEDS: COLACE 100 MG PO ×2 (07:41→20:21)
[2025-04-08] MEDS: SENOKOT-S 1 TABLET PO ×2 (07:41→20:21)
[2025-04-08] MEDS: MAGNESIUM OXIDE 500 MG PO (07:41)
[2025-04-08] MEDS: PLAVIX 75 MG PO (07:41)
[2025-04-08] MEDS: NORVASC 2.5 MG PO (07:41)
[2025-04-08] MEDS: FLEXERIL 5 MG PO (07:41)
[2025-04-08] MEDS: NEURONTIN 100 MG PO ×3 (07:41→22:04)
[2025-04-08 08:05] LABS: Glucose - Point of Care 223 mg/dl (70-99)
[2025-04-08] MEDS: TORADOL 15 MG IV ×2 (08:39→16:00)
--- NOTE | 2025-04-08 09:00 | PTCARENOTE ---
Continues to complain about unrelieved surgical pain. Requesting narcotics, states the Dilaudid only works for 5 minutes. Safely medicated as able.
[2025-04-08 09:35] LABS: Glucose - Point of Care 223 mg/dl (70-99)
[2025-04-08] MEDS: NOVOLOG FLEXPEN 4 UNITS SC ×2 (09:35→12:12)
--- NOTE | 2025-04-08 09:56 | W.PN.CARDCBS ---
Addendum entered and electronically signed by Zuleima Garcia DO 04/08/25 10:20:
I saw and examined the patient.
The Vehicle Assembler's note was reviewed and I agree with the note.
Comment: Patient was seen and examined. Chart/telemetry reviewed. Sitting out of bed to chair complaining of full body pain.
GEN: No distress, awake, alert, oriented x3. sitting in chair.
HEENT: mmm
LUNGS: Decreased effort but clear.
CV: Regular. Positive S1-S2. No murmur.
ext: No lower extremity edema
Plan:
-54-year-old female with multiple cardiac risk factors presenting with chest pain consistent with non-ST elevation myocardial infarct in the setting of hypertensive urgency. peak trop 0.355. cardiac cath with MV CAD
-s/p CABG x4 DOMINIC to LAD, GSV to D1, GSV to OM1, GSV to RPDA, NANI clip 04/07/25
-pain control major issue at this time. chronic opioid use as OP, follows with pain mgmt
-follow QTc, improving by EKG 04/08
-wean supp O2. diurese
-follow BP trends. was labile intraop. on IV nitro, wean as able. also currently on norvasc 2.5mg daily and lopressor 25mg Q12H. preop she required regimen of norvasc 10mg HS, hydralazine 25mg BID, cozaar 100mg HS, toprol 50mg BID
-continue post op care
-hgbA1c 8.3%. discussed need for strict diabetic control moving forward. appreciate diabetic mgmt. SGLT2 inhibitor affordable to patient, would consider initiation post op as well as possible GLP-1
-Patient has history of 'statin intolerance' however given presentation will retrial on lipitor 80mg HS. Can consider PCSK9 inhibitor as an outpatient. Goal LDL less than 70 mg/dL, goal triglycerides less than 150 mg/dL
-Probable sleep apnea with no recent testing, briefly discussed outpatient evaluation which can be arranged at time of discharge
-d/w nursing, CT surgery
Original Note:
Today's Communication / Plan
-
continue pain mgmt, post op care
BP control
Impression / Plan
-
PCP: Donald Plaza
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
Impression:
Chest pain
NSTEMI
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
Type 2 diabetes mellitus
Hyperlipidemia, intolerant of multiple statin
Hypertensive urgency
History of CVA/TIA
Multiple sclerosis, not on medication
Trigeminal neuralgia, not active
Chronic lumbar pain on chronic oral opiates
Anxiety
Obesity
sleep apnea
Nephrolithiasis
Echo 04/02/2025: TDS, EF 55%, mild anterolateral wall hypokinesis, increased RV wall thickness, trivial MR, PASP 18 mmHg, prominent anterior fat pad with thickened pericardium, no effusion
Plan:
-54-year-old female with multiple cardiac risk factors presenting with chest pain consistent with non-ST elevation myocardial infarct in the setting of hypertensive urgency. peak trop 0.355. cardiac cath with MV CAD
-s/p CABG x4 DOMINIC to LAD, GSV to D1, GSV to OM1, GSV to RPDA, NANI clip 04/07/25
-pain control major issue at this time. chronic opioid use as OP, follows with pain mgmt
-follow QTc, improving by EKG 04/08
-wean supp O2. diurese
-follow BP trends. was labile intraop. on IV nitro, wean as able. also currently on norvasc 2.5mg daily and lopressor 25mg Q12H. preop she required regimen of norvasc 10mg HS, hydralazine 25mg BID, cozaar 100mg HS, toprol 50mg BID
-continue post op care
-hgbA1c 8.3%. discussed need for strict diabetic control moving forward. appreciate diabetic mgmt. SGLT2 inhibitor affordable to patient, would consider initiation post op as well as possible GLP-1
-Patient has history of 'statin intolerance' however given presentation will retrial on lipitor 80mg HS. Can consider PCSK9 inhibitor as an outpatient. Goal LDL less than 70 mg/dL, goal triglycerides less than 150 mg/dL
-Probable sleep apnea with no recent testing, briefly discussed outpatient evaluation which can be arranged at time of discharge
-d/w nursing, CT surgery
Progress Note - Briquette Molder
Subjective
Date of Service: April 08, 2025
c/o pain
Objective
Labs:
04/08/25 04:22
04/08/25 04:22
Labs
Hgb 9.1 g/dL (12.0-16.0) L 04/08/25 04:22
Hct 27.6 % (37.0-47.0) L 04/08/25 04:22
Plt Count 256 10^3/uL (130-400) 04/08/25 04:22
PT 15.7 Sec (11.4-14.6) H 04/07/25 14:16
INR 1.20 04/07/25 14:16
APTT 35.0 Sec (23.4-35.0) 04/07/25 14:16
Sodium 139 mmol/L (135-145) 04/08/25 04:22
Potassium 4.9 mmol/L (3.5-5.1) 04/08/25 04:22
BUN 23 mg/dl (7-17) H 04/08/25 04:22
Creatinine 1.0 mg/dL (0.6-1.0) 04/08/25 04:22
Glucose 155 mg/dl (70-99) H 04/08/25 04:22
Vital Signs and I&O:
Vital Signs
Temp Pulse Resp BP Pulse Ox
97.7 F 89 20 140/98 94
04/08/25 07:45 04/08/25 08:00 04/08/25 07:45 04/08/25 08:00 04/08/25 08:00
Vital Signs
Temp Pulse Resp BP Pulse Ox
97.7 F 89 20 140/98 94
04/08/25 07:45 04/08/25 08:00 04/08/25 07:45 04/08/25 08:00 04/08/25 08:00
Intake & Output
04/06/25 04/07/25 04/08/25 04/09/25
07:59 07:59 07:59 07:59
Intake Total 1020 / 1020 480 / 480 916.0 / 916.0
Output Total 1999 / 1999 1200 / 1200 1265 / 1265
Balance -980 / -980 -720 / -720 -349.0 / -349.0
Physical Exam
Physical Exam
GEN: No distress, awake, alert, oriented x3. sitting in chair.
HEENT: supple, anicteric, mmm, eomi
LUNGS: no audible wheezes
CV: Reg on tele
NEURO: Gross non-focal
SKIN: warm, pink, dry. No rash
[2025-04-08] MEDS: LOPRESSOR PO (09:57)
[2025-04-08] MEDS: XANAX 2 MG PO ×2 (10:18→20:37)
--- NOTE | 2025-04-08 10:21 | PN.DE.MGMTRT ---
Insulin Management
- -
04/08/2025: Diabetes Management Follow up
Patient admitted 04/01 with chest pain--> NSTEMI/ACS. PMH: HTN, T2DM, chronic pain syndrome.
Pt is awake, A/O x3, resting in bed, very emotional and anxious about upcoming procedure, able to discuss diabetes mgt.
Was taking Metformin 1000 mg BID, Glipizide 10 mg BID and Lantus 15 units @ HS prior to admission. A1C 8.3%, Cr 1.0, eGFR>60.
Her Metformin and Glipizide were held on admission due to ALTAGRACIA.
Pt awake, alert, oriented, siting up in bed, offers no complaints, able to discuss diabetes care plan. Parents at bedside, very supportive
POD #1 s/p CABG x4, doing well. Remains on glycemic protocol, glucose 138 to 223, requiring 4.5 to 18 units of insulin/hr
Will cont current treatment plan. Plan to transition off drip to SQ insulin tomorrow.
Was requiring NovoLog 8 units AC and Lantus to 20 units @ HS with moderate corrective insulin prior to OR but is now requiring up to 10 units of insulin/hr
Please consider resuming Lantus 20 units @ HS and NovoLog 10 units AC.
Will not resume glipizide at this time SINCE patient is requiring increased doses of insulin
04/04 Per Pt, she tried taking Ozempic but states it didn't work so she stopped taking it. Was also taking Jardiance, also stopped taking due to recurrent UTIs and yeast infections. States she is now using a CGM- Candice for Glucose monitoring and that
she has been taking her diabetes medications daily but agrees that she hasn't been doing much in terms of exercise and Nutrition.
Diabetes History
- -
Type of Diabetes: 2 requiring insulin
Pre-Admission Diabetes Regimen
04/07/25 04/08/25
14:16 04:22
Creatinine 0.9 1.0
Lab Results
Hemoglobin A1c 8.3 % (4.0-5.6) H 04/02/25 08:40
Insulin Pump Settings
IP Diabetes Regimen
04/07/25 04/07/25 04/07/25
14:16 15:00 15:57
Glucose 177 H
POC Glucose 185 H 178 H 194 H
04/07/25 04/07/25 04/07/25
17:00 18:01 19:00
Glucose
POC Glucose 163 H 176 H 185 H
04/07/25 04/07/25 04/07/25
19:58 22:07 23:00
Glucose
POC Glucose 161 H 172 H 169 H
04/08/25 04/08/25 04/08/25
00:11 00:55 02:03
Glucose
POC Glucose 161 H 148 H 138 H
04/08/25 04/08/25 04/08/25
04:22 06:06 06:48
Glucose 155 H
POC Glucose 146 H 182 H 191 H
04/08/25 04/08/25
08:03 09:34
Glucose
POC Glucose 223 H 223 H
Meal type: Lunch
Patient Education
[2025-04-08 10:28] LABS: Glucose - Point of Care 192 mg/dl (70-99)
--- NOTE | 2025-04-08 12:00 | PTCARENOTE ---
Continued sternal discomfort. States medications dont work, when questioned further pt states she doesnt want 'any pain'.Expectations reviewed again.. Pulse ox 87-88 % on 6 L. respiratory therapist in to assess oxygen and increased to 10 L
midflow. pulse ox 92%. Assist x 1 to ambulate in hallway. Gait steady, IRIZARRY noted and quickly resolved with rest. VSS. Assessment otherwise unchanged from prior.
[2025-04-08 12:01] LABS: Glucose - Point of Care 119 mg/dl (70-99)
--- NOTE | 2025-04-08 12:25 | W.PN.ANS.POP ---
Anesthesia Post Operative
- Anesthesia Post Op Note
Vital Signs Stable-See Nursing Note: Yes
Airway Patent: Yes
Adequate Pain Control: Yes
Change in Mental Status: No
Current Postoperative Nausea & Vomiting: No
Anesthesia Complications: No
General Anesthetic Recall: No
Unplanned Admission: No
Post Op Hydration Adequate: Yes
--- NOTE | 2025-04-08 12:30 | PTCARENOTE ---
Unable to void. States she feels urge. Bladder scanned for 35 ml/ Discussed with CT BLUE LINE HANGER.
[2025-04-08 13:28] LABS: Glucose - Point of Care 115 mg/dl (70-99)
[2025-04-08] MEDS: NSS IV (13:29)
[2025-04-08 14:41] LABS: Glucose - Point of Care 114 mg/dl (70-99)
--- NOTE | 2025-04-08 15:37 | W.PN.INTV ---
Today's Communication / Plan
Recommendations
- Incentive spirometry
- Increase activity as tolerated, sit in chair as tolerated
- Outpatient sleep study
Assessment
-
Patient is a 54-year-old female who presented to the hospital on 04/02/2025 with chest pain. She was admitted to the hospitalist service noted to have positive troponin and was treated with anticoagulation and antiplatelet therapy. Subsequently
cardiology consult was requested. Patient had echocardiogram followed by cardiac catheterization which was suggestive of multivessel disease. Patient was subsequently seen by cardiothoracic surgery and was taken for elective coronary artery bypass
graft today. Postsurgery patient was admitted to CVICU and curing room worker service was consulted for further input.
S/p coronary artery bypass graft and left atrial appendage exclusion POD # 1
Titrated off pressors per protocol
ECHO reviewed with normal function
Blood pressure normal, saturating low 90s at about 10 L
Management of chest tubes per primary service
Extubated, 04/07
ABG(s) reviewed: 7.35, 42, 77
CXR with no obvious opacities/infiltrates, but appeared to be hypoventilatory film
Maintain supplement oxygen as needed
Encouraged to use incentive spirometry every hour, sit up in chair as tolerated, activity as tolerated.
No prior history of pulmonary disease, no reported history of smoking
Can add nebulizers if needed
Aspiration precautions
Encouraged incentive spirometry, OOB/ambulation/early mobility
Advance diet as tolerated following extubation
GI prophylaxis: Pantoprazole
Monitor critical I/O's
Hsu/chest tube output
Hb/platelets postoperatively mild drift noted
Trend CBC for now
Can transfuse if indicated for Hb <7, plt <50 in surgical patients
DVT prophylaxis including SCDs
Insulin protocol initiated and ongoing
Transition to SQ/off as indicated per team
Other medical diagnoses:
-RML nodule. 4 mm size. Out patient follow up
-HTN & HLD
-DM
-h/o CVA
-h/o MS/Optic neuritis
-Anxiety and depression
-Diverticulosis with h/o GI bleed
-?EARL. Further workup as outpatient
Critical Care time 42 min -- The patient is admitted for acute critical illness for the treatment of vital organ failure and/or prevention of further life-threatening conditions. Total care includes time spent in review of history, physical exam,
medications, hemodynamic/ventilator parameters, laboratory data, imaging and discussion with house staff, pharmacy, respiratory therapy, epic cadence analyst, and nursing.
Data:
TIARA 03/2025: Normal left ventricular size and systolic function, mild LVH, stage I diastolic dysfunction.
Normal right ventricular function.
The aorta has atheroma less than 5 mm and mild calcifications.
Mild TR.
Cardiac Cath 03/2025: 1. Multivessel coronary artery disease as described above. The LAD has a long 50-60% stenosis beyond the first diagonal branch and focal 70% stenosis in the mid distal vessel. The large first obtuse marginal branch is
occluded and fills via left to left collaterals. There is an 80% stenosis at the ostium of the dominant right coronary artery and 70% stenosis at the the origin of the PDA. The posterolateral branch is 100% occluded filling via faint right to
right collaterals.
2. Preserved LV systolic function with anterolateral hypokinesis
ECHO 03/2025: Normal left ventricular size with moderate concentric left ventricular hypertrophy
Normal left ventricular systolic function visually estimated 55% with possible
mild anterolateral wall hypokinesis
Normal RV size and systolic function with increased RV wall thickness
Thickened mitral valve with trivial mitral regurgitation
[place] structurally normal aortic valve
Trace tricuspid regurgitation
Estimated pulmonary artery pressure of 18 mmHg assuming a right atrial pressure
of 3 mmHg.
Prominent anterior fat pad with thickened pericardium. No significant
pericardial effusion
No prior study available for comparison
CT Angio 03/2025: 1. Negative for aortic dissection.
2. No specific findings to explain pain. No acute abnormality identified.
3. At least moderate coronary atherosclerosis.
4. Unchanged benign right middle lobe 4 mm nodule.
5. Hepatic fatty infiltration. Splenomegaly.
Subjective Dataa
Subjective Data
Date of Service:
Date of Service: April 08, 2025
Subjective:
Patient sitting in chair, in no acute distress.
Review of Systems
Genitourinary: Other (Reports overall pain, fatigue. No other new symptoms)
Objective Data
Data Reviewed
Vital Signs / I&O / Oxygen:
Vital Signs
Temp Pulse Resp BP Pulse Ox
98.0 F 90 18 121/62 88
04/08/25 12:41 04/08/25 10:20 04/08/25 12:41 04/08/25 10:10 04/08/25 12:41
Intake and Output
04/07/25 04/08/25 04/09/25
06:59 06:59 06:59
Intake Total 480 / 480 762.0 / 779.0 952 / 952
Output Total 1200 / 1200 1210 / 1255 165 / 165
Balance -720 / -720 -448.0 / -476.0 787 / 787
SaO2 [CPAP/PSV] 95
SaO2 [SIMV] 96
SaO2 88
Nasal Cannula flow liters per 6
minute
Physical Exam
General: Comfortable
HEENT: Normocephalic
Cardiovascular: S1-S2
Respiratory: Clear, Non-Labored Respirations and Other (Decreased air entry bilaterally)
GI: Soft and Non Distended
Neurology: Awake and Alert
Skin: Warm
Labs/Micro/Reports
Lab Data
04/08/25 04:22
04/08/25 04:22
Laboratory Results
04/07/25
16:31
pH 7.35
pCO2 42 H
pO2 77 L
HCO3 23.2
O2 Delivery Level
[2025-04-08] MEDS: LIPITOR 80 MG PO (16:00)
--- NOTE | 2025-04-08 16:26 | CM ---
Reviewed chart. Met with Mrs. Quiñonez to review discharge plans. She states she is feeling ok. She states prior to admission she resides with her two daughters in a two story home with two steps to enter. She states she has a full flight of
steps to get to bedroom/full bathroom. She states she has a powder room on the first floor. She states prior to admission she was independent with ambulation and adls. She states she does not have any DME in the home. She states she has a
prescription plan with [facility]. We reviewed a home visit by the Transitional Care Nurse. She is agreeable to a home visit. Medical work-up in progress. The discharge plan is to return home with her daughters and a home visit by the Transitional
Care Nurse when medically stable.
[2025-04-08 17:08] LABS: Glucose - Point of Care 107 mg/dl (70-99)
[2025-04-08] MEDS: NOVOLOG FLEXPEN 8 UNITS SC (17:09)
--- NOTE | 2025-04-08 17:36 | PTCARENOTE ---
Chest tubes x 4 removed per order. PT tolerated surprisingly well. Laying in bed after. However, pt pleading with RN for more narcotics stating that the other ones are wearing off. States pain is 100/100. Dangers of over sedation reviewed. Pt
medicated with Toradol with good results. Pt still continues to complain of pain after . Assessment otherwise unchanged from prior.
[2025-04-08 18:34] LABS: Glucose - Point of Care 105 mg/dl (70-99)
[2025-04-08] MEDS: MAGNESIUM OXIDE PO (20:21)
[2025-04-08] MEDS: LOPRESSOR 25 MG PO (20:21)
[2025-04-08 21:00] LABS: Glucose - Point of Care 194 mg/dl (70-99)
--- NOTE | 2025-04-08 21:00 | PTCARENOTE ---
Assumed care of pt from dayshift RN. Walking rounds completed. Pt AAOx3. Anxious/tearful. Overwhelmed with post-op recovery. Emotional support provided. Pt is SR on the tele monitor. HR 80-90s. BP stable. Palpable pulses throughout. Trace LE edema.
Pt is 95% on 10 L midflow. Lung sounds diminished throughout. Deep breathing and IS encouraged. Occasional cough. Abdomen round. +BS. No BM. Pt voided kamron urine in commode - see worklist. All surgical sites intact. Surgical bra in place. Right IJ
cordis and PIV x2 intact. Glycemic protocol followed. Pt assisted from the chair to the bed w/ assist x2. See MAR for pain medication administration. See worklist for full nursing assessment and interventions. Call jim within reach.
[2025-04-08] MEDS: DESYREL 300 MG PO (22:04)
[2025-04-08 22:10] LABS: Glucose - Point of Care 170 mg/dl (70-99)
[2025-04-09] VITALS (22 sets, daily range): BP systolic 85–133; BP diastolic 34–76; PULSE 83; O2SAT 94; BMI 43.7
[2025-04-09 00:03] LABS: Glucose - Point of Care 94 mg/dl (70-99)
--- NOTE | 2025-04-09 00:11 | PTCARENOTE ---
No acute change in assessment. Pt is SR on the tele monitor. HR 80s. BP stable. Pt is 93-94% on 10 L midflow. Afebrile. All surgical sites stable. See MAR for pain medication administration. Pt repositioned in bed. Call jim within reach.
[2025-04-09 02:04] LABS: Glucose - Point of Care 147 mg/dl (70-99)
[2025-04-09 03:51] LABS: Glucose - Point of Care 86 mg/dl (70-99)
[2025-04-09] MEDS: ROXICODONE 10 MG PO ×4 (03:56→19:40)
[2025-04-09 04:22] LABS: Hematocrit 24.7 % (37.0-47.0); Hemoglobin 7.8 g/dL (12.0-16.0); Mean Corp Hgb Conc. 31.6 g/dL (33.0-37.0); Mean Corpuscular Hgb 27.3 pg (27.0-31.0); Mean Corpuscular Volume 86.4 fL (81.0-99.0); Mean Platelet Volume 10.6 fL (7.4-10.4); Platelet Count 222 10^3/uL (130-400); Red Blood Cell Count 2.86 10^6/uL (4.20-5.40); Red Cell Dist. Width 14.6 % (11.5-14.5); White Blood Cell Count 17.9 10^3/uL (4.8-10.8)
--- NOTE | 2025-04-09 04:27 | PTCARENOTE ---
No acute change in assessment. Pt is SR on the tele monitor. HR 80-90s. BP stable. Pt is 94% on 10 L midflow. All surgical sites stable. Labs drawn and sent. Pt assisted OOB to void on the commode then repositioned back into bed. See MAR for pain
medication administration. Glycemic protocol followed. Call jim within reach.
[2025-04-09 04:42] LABS: Blood Urea Nitrogen 26 mg/dl (7-17); Calcium 8.7 mg/dl (8.4-10.2); Carbon Dioxide 28 mmol/L (22-30); Chloride 107 mmol/L (98-107); Estimated Creatinine Clearance 90 ml/min; Glucose 85 mg/dl (70-99); Magnesium 2.6 mg/dl (1.6-2.3); Potassium 4.7 mmol/L (3.5-5.1); Sodium 137 mmol/L (135-145); eGFR > 60.00
[2025-04-09] MEDS: XANAX 2 MG PO ×2 (04:47→14:09)
[2025-04-09] MEDS: NSS 500 IV (04:51)
[2025-04-09 06:41] LABS: Glucose - Point of Care 161 mg/dl (70-99)
[2025-04-09] MEDS: TYLENOL 1000 MG PO ×3 (06:42→21:26)
--- NOTE | 2025-04-09 07:08 | W.PN.CT ---
Addendum entered and electronically signed by Georges Ty MD 04/09/25 09:55:
I saw and examined the patient.
The PA's note was reviewed and I agree with the note.
Comment:
Diuresis today, follow Hgb
OOB/IS/ambulate
Wean narcotics
Original Note:
Today's Communication / Plan
-
Plan:
-No major issues overnight. Hemodynamically and neurologically intact
-On Insulin gtt per protocol, will wean off and transition to home insulin and oral diabetic meds. A1C 8.3 diabetes management/education following
-H/H 7.8/24.3 today, down from 9.1/27.6. Likely hemodilutional from fluid overload as her wt is noted to up 10 lbs
-Diuresis today
-Chest tubes were d/c'd yesterday 04/08
-Encourage use of IS
-Wean off O2
-OOB into chair/Ambulate
-Home in 1-2 days
Assessment / Plan
-
- MVCAD w/ NSTEMI- s/p CABG x 4 (DOMINIC to LAD, GSV to D1, GSV to OM1, GSV to RPDA); ELAA (35mm AtriClip) on 04/07/25, pod #2
- LVEF normal w/o RWMA, NANI confirmed excluded
- Prior CVA (on plavix)
- Anxiety
- HTN
- DM II
- Class 3 obesity (BMI 42.4)
- EARL
- Trigeminal neuralgia
- Ankylosing spondylitis
- Inflammatory arthritis
- Heparic steatosis
- Multiple sclerosis
- Nonsmoker
- Acute postop blood loss anemia
- Acute postop atelectasis
- Acute postop hypovolemia with subsequent hypervolemia
- Acute postop pulmonary insufficiency d/t pain/splinting
Discussed patient care with: Cardiology, Nursing, Respiratory Therapy, Pharmacy and Care Team
Subjective
-
Date of Service: April 09, 2025
C/O mild incisional pain, otherwise feels well
Objective Data
-
Lab Results
04/09/25 03:51
04/09/25 03:51
PT 15.7 Sec (11.4-14.6) H 04/07/25 14:16
INR 1.20 04/07/25 14:16
APTT 35.0 Sec (23.4-35.0) 04/07/25 14:16
Vital Signs
Vital Signs
Temp Pulse Resp BP Pulse Ox
98 F 84 20 104/60 95
04/09/25 04:00 04/09/25 06:20 04/09/25 04:00 04/09/25 06:00 04/09/25 06:20
CT Intake/Output/Weight
04/08/25 04/09/25 04/09/25
18:59 06:59 18:59
Intake Total 962 / 1171.6 209.6 / 1171.6
Output Total 290 / 615 325 / 615
Balance 672 / 556.6 -115.4 / 556.6
SaO2: 95 (RA)
Physical Exam
-
General: Awake, Oriented and AOx3
Cardiovascular: Regular rate & rhythm, No Murmurs, No Rub and No Gallop
Respiratory: Decreased Breath Sounds (at bases, otherwise clear)
Sternum: Stable
Incision: Clean, Dry, Intact and Dressing Intact
Extremities: Other (+trace edema)
Data Reviewed
-
Lab Results: Results Reviewed
Medications: Active Meds Reviewed
Chest X-Ray: Report Reviewed and Image Reviewed
ECG: Report Reviewed and Image Reviewed
[2025-04-09 08:08] LABS: Glucose - Point of Care 142 mg/dl (70-99)
[2025-04-09] MEDS: LOPRESSOR 25 MG PO ×2 (08:12→19:40)
[2025-04-09] MEDS: FARXIGA 10 MG PO (08:13)
[2025-04-09] MEDS: PROTONIX 40 MG PO (08:13)
[2025-04-09] MEDS: LASIX 40 MG IV (08:13)
[2025-04-09] MEDS: SENOKOT-S 1 TABLET PO ×2 (08:13→19:39)
[2025-04-09] MEDS: NEURONTIN 100 MG PO ×3 (08:14→21:26)
[2025-04-09] MEDS: COLACE 100 MG PO ×2 (08:14→19:40)
[2025-04-09] MEDS: PLAVIX 75 MG PO (08:14)
[2025-04-09] MEDS: LOW STRENGTH ASPIRIN 81 MG PO (08:14)
[2025-04-09] MEDS: NORVASC 2.5 MG PO (08:14)
[2025-04-09] MEDS: BACTROBAN 2% OINTMENT 1 APPLIC NASAL ×2 (08:15→19:41)
--- NOTE | 2025-04-09 08:25 | PTCARENOTE ---
Received patient for 7a-7p shift. Patient AAOx3, complains of 9/10 sternal pain. NSR on monitor technician, VSS. Blood glucose 142, insulin gtt adjusted per protocol. Medications administered as ordered, patient medicated for pain. 95% 5L O2 via nasal
cannula, occasional productive cough, [place] sputum. IS encouraged, tolerated. RIJ cordis infusing without complications, Insulin gtt infusing via PIC R wrist without complications. Pt voiding without issues. Ambulatory in room with 1 person assist.
Instructed patient on fall precautions, call jim in reach, patient verbalized understanding.
[2025-04-09] MEDS: NOVOLOG FLEXPEN 8 UNITS SC (08:31)
[2025-04-09 10:07] LABS: Glucose - Point of Care 205 mg/dl (70-99)
[2025-04-09] MEDS: NOVOLIN R INSULIN INFUSION 100 IV (10:34)
[2025-04-09 10:43] LABS: Glucose - Point of Care 239 mg/dl (70-99)
[2025-04-09] MEDS: ZOFRAN 4 MG IV (11:01)
--- NOTE | 2025-04-09 11:19 | W.PN.INTV ---
Addendum entered and electronically signed by Rohan Ng MD 04/09/25 12:22:
- Patient transferring out of ICU
- Bisque Grader service will sign off, please call as needed
Original Note:
Today's Communication / Plan
Recommendations
- Incentive spirometry
- Increase activity as tolerated
- Wean O2 to keep saturation above 90%
- Outpatient pulmonary/sleep follow-up
Assessment
-
Patient is a 54-year-old female who presented to the hospital on 04/02/2025 with chest pain. She was admitted to the hospitalist service noted to have positive troponin and was treated with anticoagulation and antiplatelet therapy. Subsequently
cardiology consult was requested. Patient had echocardiogram followed by cardiac catheterization which was suggestive of multivessel disease. Patient was subsequently seen by cardiothoracic surgery and was taken for elective coronary artery bypass
graft today. Postsurgery patient was admitted to CVICU and student development coordinator service was consulted for further input.
S/p coronary artery bypass graft and left atrial appendage exclusion POD # 2
Titrated off pressors per protocol
ECHO reviewed with normal function
Blood pressure normal, saturating low 97% on 3 ltr, improving.
Extubated, 04/07
ABG(s) reviewed: 7.35, 42, 77
CXR with no obvious opacities/infiltrates, but appeared to be hypoventilatory film
Maintain supplement oxygen as needed
Encouraged to use incentive spirometry every hour, sit up in chair as tolerated, activity as tolerated.
No prior history of pulmonary disease, no reported history of smoking
Can add nebulizers if needed
Aspiration precautions
Encouraged incentive spirometry, OOB/ambulation/early mobility
Advance diet as tolerated following extubation
GI prophylaxis: Pantoprazole
Monitor critical I/O's
Hsu/chest tube output
Hb/platelets postoperatively mild drift noted
Trend CBC for now
Can transfuse if indicated for Hb <7, plt <50 in surgical patients
DVT prophylaxis including SCDs
Insulin protocol initiated and ongoing
Transition to SQ/off as indicated per team, anticipate later today.
Other medical diagnoses:
-RML nodule. 4 mm size. Out patient follow up
-HTN & HLD
-DM
-h/o CVA
-h/o MS/Optic neuritis
-Anxiety and depression
-Diverticulosis with h/o GI bleed
-?EARL. Further workup as outpatient
Critical Care time 38 min -- The patient is admitted for acute critical illness for the treatment of vital organ failure and/or prevention of further life-threatening conditions. Total care includes time spent in review of history, physical exam,
medications, hemodynamic/ventilator parameters, laboratory data, imaging and discussion with house staff, pharmacy, respiratory therapy, home therapy clinician, and nursing.
Data:
TIARA 03/2025: Normal left ventricular size and systolic function, mild LVH, stage I diastolic dysfunction.
Normal right ventricular function.
The aorta has atheroma less than 5 mm and mild calcifications.
Mild TR.
Cardiac Cath 03/2025: 1. Multivessel coronary artery disease as described above. The LAD has a long 50-60% stenosis beyond the first diagonal branch and focal 70% stenosis in the mid distal vessel. The large first obtuse marginal branch is
occluded and fills via left to left collaterals. There is an 80% stenosis at the ostium of the dominant right coronary artery and 70% stenosis at the the origin of the PDA. The posterolateral branch is 100% occluded filling via faint right to
right collaterals.
2. Preserved LV systolic function with anterolateral hypokinesis
ECHO 03/2025: Normal left ventricular size with moderate concentric left ventricular hypertrophy
Normal left ventricular systolic function visually estimated 55% with possible
mild anterolateral wall hypokinesis
Normal RV size and systolic function with increased RV wall thickness
Thickened mitral valve with trivial mitral regurgitation
Trileaflet structurally normal aortic valve
Trace tricuspid regurgitation
Estimated pulmonary artery pressure of 18 mmHg assuming a right atrial pressure
of 3 mmHg.
Prominent anterior fat pad with thickened pericardium. No significant
pericardial effusion
No prior study available for comparison
CT Angio 03/2025: 1. Negative for aortic dissection.
2. No specific findings to explain pain. No acute abnormality identified.
3. At least moderate coronary atherosclerosis.
4. Unchanged benign right middle lobe 4 mm nodule.
5. Hepatic fatty infiltration. Splenomegaly.
Subjective Dataa
Subjective Data
Date of Service:
Date of Service: April 09, 2025
Subjective:
Patient comfortably walking in the hallway with assistance, on supplemental oxygen
Review of Systems
Genitourinary: Other (No new symptoms reported. Expected postoperative pain.)
Objective Data
Data Reviewed
Vital Signs / I&O / Oxygen:
Vital Signs
Temp Pulse Resp BP Pulse Ox
98.2 F 86 20 125/63 97
04/09/25 07:42 04/09/25 10:25 04/09/25 07:42 04/09/25 10:25 04/09/25 10:32
Intake and Output
04/08/25 04/09/25 04/10/25
06:59 06:59 06:59
Intake Total 762.0 / 779.0 1171.6 / 1171.6 68 / 68
Output Total 1210 / 1255 615 / 615 720 / 720
Balance -448.0 / -476.0 556.6 / 556.6 -652 / -652
SaO2 [CPAP/PSV] 95
SaO2 [SIMV] 96
SaO2 97
Nasal Cannula flow liters per 3
minute
Physical Exam
General: Comfortable
HEENT: Normocephalic
Cardiovascular: S1-S2
Respiratory: Clear, Non-Labored Respirations and Other (Decreased air entry bilaterally)
GI: Soft and Non Distended
Neurology: Awake and Alert
Skin: Warm
Labs/Micro/Reports
Lab Data
04/09/25 03:51
04/09/25 03:51
[2025-04-09] MEDS: NOVOLIN N vial 0.15 UNITS SC (12:19)
[2025-04-09 12:23] LABS: Glucose - Point of Care 97 mg/dl (70-99)
--- NOTE | 2025-04-09 12:44 | PTCARENOTE ---
Patient ambulated in neely x 2 with assistance, tolerated. VSS, NSR on playground monitor, pox 92-94% on room air. IS up to 1000, encouraged, tolerated. Patient medicated for pain. Blood glucose at 1200 97, insulin gtt off, NPH 15 units administered as
ordered. Pt voiding sufficiently. Will continue to monitor.
[2025-04-09] MEDS: NOVOLOG FLEXPEN SC (12:49)
--- NOTE | 2025-04-09 12:52 | W.PN.CARDCBS ---
Addendum entered and electronically signed by Remigio Reed DO 04/09/25 13:39:
I saw and examined the patient.
The Typing Section Chief's note was reviewed and I agree with the note.
Comment:
HPI: 54-year-old female with multiple cardiac risk factors presenting with chest pain consistent with non-ST elevation myocardial infarct in the setting of hypertensive urgency. peak trop 0.355. cardiac cath with MV CAD
-s/p CABG x4 DOMINIC to LAD, GSV to D1, GSV to OM1, GSV to RPDA, NANI clip 04/07/25
Cont post op care
Pain control continues to be major issue at this time. chronic opioid use as OP, follows with pain mgmt
Remains in Sinus
Wt is up 8 since surgery. Gentle diuresis. lasix 40 mg IV X 1 April 09.
Monitor H/H. Patient has not required transfusion thus far
wean o2 as able, still requiring 3 units of oxygen via nasal cannula.
HR and bp stable, continue Norvasc 2.5mg daily and lopressor 25mg Q12H. {Preop she required regimen of norvasc 10mg HS, hydralazine 25mg BID, cozaar 100mg HS, toprol 50mg BID}
HgbA1c 8.3%. discussed need for strict diabetic control moving forward. Farxiga started 04/09/2025. Appreciate diabetic mgmt.
Prestatin lipids TC 255, HDL 61, LDL 140, triglycerides 270. Patient has history of 'statin intolerance.' Retrial on lipitor 80mg HS. Can consider PCSK9 inhibitor as an outpatient. Goal LDL less than 70 mg/dL, goal triglycerides less than 150
mg/dL
Probable sleep apnea with no recent testing, recommended outpatient evaluation which can be arranged at time of discharge
Original Note:
Today's Communication / Plan
-
IV Lasix 40 mg x 1 today
Monitor and assess response to diuresis
Continue metoprolol, amlodipine and atorvastatin
Encourage incentive spirometry
Impression / Plan
-
PCP: Donald Plaza
no previous advanced nursing professor
Impression:
Chest pain
NSTEMI
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
Type 2 diabetes mellitus
Hyperlipidemia, intolerant of multiple statin
Hypertensive urgency
History of CVA/TIA
Multiple sclerosis, not on medication
Trigeminal neuralgia, not active
Chronic lumbar pain on chronic oral opiates
Anxiety
Obesity
sleep apnea
Nephrolithiasis
Echo 04/02/2025: TDS, EF 55%, mild anterolateral wall hypokinesis, increased RV wall thickness, trivial MR, PASP 18 mmHg, prominent anterior fat pad with thickened pericardium, no effusion
Plan:
-54-year-old female with multiple cardiac risk factors presenting with chest pain consistent with non-ST elevation myocardial infarct in the setting of hypertensive urgency. peak trop 0.355. cardiac cath with MV CAD
-s/p CABG x4 DOMINIC to LAD, GSV to D1, GSV to OM1, GSV to RPDA, NANI clip 04/07/25
-pain control continues to be major issue at this time. chronic opioid use as OP, follows with pain mgmt
-Per review of telemetry patient maintaining sinus rhythm
-Weight is up 8 pounds since surgery. Evidence of volume overload. Agree with diuresis patient given 40 mg IV Lasix 04/09/2025. Monitor and assess response
-Renal function and electrolytes stable
-Slight drop of hemoglobin overnight from 9.1-7.8. Possibly hemodilutional as patient has evidence of volume overload and weight is up. Continue to monitor and trend. Patient has not required transfusion thus far
-Still requiring 3 units of oxygen via nasal cannula. Hopefully oxygenation will improve with diuresis. Wean as able
- Blood pressure relatively stable. Continue Norvasc 2.5mg daily and lopressor 25mg Q12H. {Preop she required regimen of norvasc 10mg HS, hydralazine 25mg BID, cozaar 100mg HS, toprol 50mg BID}
-continue post op care, pulmonary toilet, incentive spirometry
-hgbA1c 8.3%. discussed need for strict diabetic control moving forward. Jad started 04/09/2025. Appreciate diabetic mgmt.
-Prestatin lipids TC 255, HDL 61, LDL 140, triglycerides 270. Patient has history of 'statin intolerance.' Retrial on lipitor 80mg HS. Can consider PCSK9 inhibitor as an outpatient. Goal LDL less than 70 mg/dL, goal triglycerides less than 150
mg/dL
-Probable sleep apnea with no recent testing, recommended outpatient evaluation which can be arranged at time of discharge
-d/w nursing, CT surgery
Progress Note - Blue Leather Sorter
Subjective
Date of Service: April 09, 2025
Patient seen and examined. Patient sitting up in chair. Notes some mild sternal incisional pain otherwise feels well
Objective
Labs:
04/09/25 03:51
04/09/25 03:51
Labs
Hgb 7.8 g/dL (12.0-16.0) L 04/09/25 03:51
Hct 24.7 % (37.0-47.0) L 04/09/25 03:51
Plt Count 222 10^3/uL (130-400) 04/09/25 03:51
PT 15.7 Sec (11.4-14.6) H 04/07/25 14:16
INR 1.20 04/07/25 14:16
APTT 35.0 Sec (23.4-35.0) 04/07/25 14:16
Sodium 137 mmol/L (135-145) 04/09/25 03:51
Potassium 4.7 mmol/L (3.5-5.1) 04/09/25 03:51
BUN 26 mg/dl (7-17) H 04/09/25 03:51
Creatinine 0.9 mg/dL (0.6-1.0) 04/09/25 03:51
Glucose 85 mg/dl (70-99) 04/09/25 03:51
Vital Signs and I&O:
Vital Signs
Temp Pulse Resp BP Pulse Ox
98.0 F 89 22 109/62 93
04/09/25 12:29 04/09/25 12:40 04/09/25 12:29 04/09/25 12:29 04/09/25 12:40
Vital Signs
Temp Pulse Resp BP Pulse Ox
98.0 F 89 22 109/62 93
04/09/25 12:29 04/09/25 12:40 04/09/25 12:29 04/09/25 12:29 04/09/25 12:40
Intake & Output
04/07/25 04/08/25 04/09/25 04/10/25
06:59 06:59 06:59 06:59
Intake Total 480 / 480 762.0 / 779.0 1171.6 / 1171.6 98 / 98
Output Total 1200 / 1200 1210 / 1255 615 / 615 720 / 720
Balance -720 / -720 -448.0 / -476.0 556.6 / 556.6 -622 / -622
Physical Exam
Physical Exam
GEN: No distress, awake, Ox3, sitting in chair
HEENT: supple, anicteric, mmm
LUNGS: Faint crackles at bases CTA, no wheezes/rales
Chest: Sternotomy stable without rocking or clicking
CV: Reg, S1/S2,no murmur, rub or gallop
ABD: soft, BS+, NT/ND
EXT: Trace edema bilaterally no clubbing or cyanosis
NEURO: Gross non-focal
SKIN: No rash, warm, dry,
[2025-04-09] MEDS: FLEXERIL 5 MG PO (14:03)
[2025-04-09 14:37] LABS: Glucose - Point of Care 218 mg/dl (70-99)
--- NOTE | 2025-04-09 15:00 | PTCARENOTE ---
Patient lying in bed, complaining of 'feeling clammy.' BP 118/64, hr 89. pox 93% 3 L n/c, blood glucose 218. Patient recently given Xanax 2 mg and Flexeril 5 mg as ordered. Patient drowsy, but arousable, having appropriate conversation. Family at
bedside. ERICA Rome aware, no new orders given. Will monitor patient closely. Advised patient not to get out of bed without assistance, patient verbalized understanding.
[2025-04-09] MEDS: LIPITOR 80 MG PO (17:07)
[2025-04-09] MEDS: MAGIC OR MIRACLE MOUTHWASH 10 ML PO (17:07)
--- NOTE | 2025-04-09 17:30 | PTCARENOTE ---
Patient AAOx3, without complaints. VSS, NSR on nurses' association counselor, OOB in chair. Pt ambulatory in room with 1 person assist. Maintained on 3 L o2 via n/c, 94% +IRIZARRY, IS up to 1500. Will continue to monitor.
[2025-04-09 17:55] LABS: Glucose - Point of Care 241 mg/dl (70-99)
[2025-04-09] MEDS: NOVOLOG FLEXPEN-MODERATE RESISTANCE 3 UNITS SC (18:04)
[2025-04-09] MEDS: NOVOLOG FLEXPEN 10 UNITS SC (18:05)
--- NOTE | 2025-04-09 20:00 | PTCARENOTE ---
Resumed care of pt sitting up in bed AAOx3 with daughters at bedside. Pt reports 10/10 Sternal pain. Pt anxious and tearful at this time. Medications administered as ordered. Hr in the 80's in NSR on the monitor. Sternal surgical dressing intact,
sternal precautions maintained. Previous chest tube sites with dressing intact, surgical bra present. POX 94% on 3 LO2 Midflow NC. Lungs dec T/O with some scattered rhonchi. Moist productive cough. +bowel, round obese abd. Pt ambulating to bathroom
with assistance when needed. Left groin site open to air, left knee incision open to air with surgical adhesive present. KNee high seq in place. Right IJ cordis with NSS@10ml/hr. Right wrist int capped. Left wrist int capped. emotional support
provided. Will continue to monitor.
[2025-04-09 21:20] LABS: Glucose - Point of Care 279 mg/dl (70-99)
[2025-04-09] MEDS: DESYREL 300 MG PO (21:26)
[2025-04-09] MEDS: LANTUS 0.2 UNITS SC (21:26)
[2025-04-09] MEDS: CYMBALTA DELAYED RELEASE 60 MG PO (21:26)
--- NOTE | 2025-04-09 22:00 | PTCARENOTE ---
Pt complaining of sternal pain. Pt reports zero pain relief from Roxicodone. Pt requesting Dilaudid. Pt tearful and anxious stating she has chronic pain and we are not managing her pain. Ed CVICU PA in to speak with pt. Medications ordered and
administered as ordered. Pt called parents stressed out. Pt parents called this RN to discuss discharge plans and pain medication management. All questions answered. Parents requesting call from Dr. Ty to discuss further in am. Emotional
support provided to Pt. Will continue to monitor.
[2025-04-09] MEDS: XANAX 1 MG PO (22:20)
[2025-04-09] MEDS: DILAUDID 0.5 MG IV (22:21)
--- NOTE | 2025-04-09 23:39 | PTCARENOTE ---
Pt sound a sleep post pain medication administration. Ed cardiac PA notified of drop in BP while sleeping. HR in the 80's in NSR. POX 94% on 3LO2 MidFlow NC. No other changes in assessment noted at this time. Will continue to monitor.
[2025-04-10] VITALS (13 sets, daily range): BP systolic 87–145; BP diastolic 51–88; BMI 42.9
--- NOTE | 2025-04-10 04:00 | PTCARENOTE ---
Pt ambulatory to bathroom without oxygen. POX upon returning to bed 89% on RA, but recovered quickly to 91%, 3 LO2 NC Reapplied, POX back up to 94%. Pt continues with moist cough. Pt complaining of 9/10 sternal pain, PRN pain medication administered
as ordered. Lab work obtained. Pt on standing scale. Pt denies getting to chair at this time. No other changes in assessment noted at this time. Call jim in reach. Will continue to monitor.
[2025-04-10] MEDS: ROXICODONE 10 MG PO (04:16)
[2025-04-10 04:52] LABS: Hematocrit 25.5 % (37.0-47.0); Mean Corp Hgb Conc. 31.4 g/dL (33.0-37.0); Mean Corpuscular Hgb 27.5 pg (27.0-31.0); Mean Corpuscular Volume 87.6 fL (81.0-99.0); Mean Platelet Volume 10.5 fL (7.4-10.4); Platelet Count 280 10^3/uL (130-400); Red Blood Cell Count 2.91 10^6/uL (4.20-5.40); Red Cell Dist. Width 14.9 % (11.5-14.5); White Blood Cell Count 22.1 10^3/uL (4.8-10.8)
[2025-04-10] MEDS: TYLENOL 1000 MG PO (05:01)
[2025-04-10] MEDS: XANAX 0.5 MG PO (05:01)
--- NOTE | 2025-04-10 05:10 | W.PN.CT ---
Addendum entered and electronically signed by Georges Ty MD 04/10/25 09:21:
I saw and examined the patient.
The PA's note was reviewed and I agree with the note.
Comment:
Continue diuresis
Limit pain medication
D/C cordis
Home tomorrow
Original Note:
Today's Communication / Plan
-
Plan:
-No major issues overnight. Hemodynamically and neurologically intact
-Off all drips
-Transitioned off insulin gtt and on home insulin and oral diabetic meds. A1C 8.3 diabetes management/education following
-Minimize IV narcotics in preparation for home
-H/H 7.8/24.3 yesterday, improved to 8/25.5 following diuresis, wt still up 5 lbs from preop, but down 2kg from yesterday
-Cont. Diuresis today
-D/C cordis
-Encourage use of IS
-Wean off O2, currently on 3L
-OOB into chair/Ambulate
-Home likely tomorrow
Assessment / Plan
-
- MVCAD w/ NSTEMI- s/p CABG x 4 (DOMINIC to LAD, GSV to D1, GSV to OM1, GSV to RPDA); ELAA (35mm AtriClip) on 04/07/25, pod #2
- LVEF normal w/o RWMA, NANI confirmed excluded
- Prior CVA (on plavix)
- Anxiety
- HTN
- DM II
- Class 3 obesity (BMI 42.4)
- EARL
- Trigeminal neuralgia
- Ankylosing spondylitis
- Inflammatory arthritis
- Heparic steatosis
- Multiple sclerosis
- Nonsmoker
- Acute postop blood loss anemia
- Acute postop atelectasis
- Acute pulmonary insufficiency
- Acute postop hypovolemia with subsequent hypervolemia
- Acute postop pulmonary insufficiency d/t pain/splinting
Discussed patient care with: Cardiology, Nursing, Respiratory Therapy, Pharmacy and Care Team
Subjective
-
Date of Service: April 10, 2025
Pt c/o incisional pain, needs encouragement to move around
Objective Data
-
Lab Results
04/10/25 04:06
PT 15.7 Sec (11.4-14.6) H 04/07/25 14:16
INR 1.20 04/07/25 14:16
APTT 35.0 Sec (23.4-35.0) 04/07/25 14:16
Vital Signs
Vital Signs
Temp Pulse Resp BP Pulse Ox
97.7 F 92 24 145/81 94
04/10/25 04:15 04/10/25 04:40 04/10/25 04:15 04/10/25 04:03 04/10/25 04:40
CT Intake/Output/Weight
04/09/25 04/09/25 04/10/25
06:59 18:59 06:59
Intake Total 209.6 / 1171.6 98 / 698 600 / 698
Output Total 325 / 615 720 / 720
Balance -115.4 / 556.6 -622 / -22 600 / -22
SaO2: 94 (3L)
Physical Exam
-
General: Awake, Oriented, AOx3 and Other (constantly seeking narcotics/sedatives when awake)
Cardiovascular: Regular rate & rhythm, No Rub and No Gallop
Respiratory: Decreased Breath Sounds (at bases, otherwise clear)
Sternum: Stable
Incision: Clean, Dry, Intact and Dressing Intact
Extremities: Other (+trace edema)
Data Reviewed
-
Lab Results: Results Reviewed
Medications: Active Meds Reviewed
Chest X-Ray: Report Reviewed and Image Reviewed
ECG: Report Reviewed and Image Reviewed
[2025-04-10 05:13] LABS: Blood Urea Nitrogen 28 mg/dl (7-17); Carbon Dioxide 28 mmol/L (22-30); Chloride 104 mmol/L (98-107); Estimated Creatinine Clearance 89 ml/min; Glucose 182 mg/dl (70-99); Magnesium 2.5 mg/dl (1.6-2.3); Sodium 138 mmol/L (135-145); eGFR > 60.00
--- NOTE | 2025-04-10 07:30 | PTCARENOTE ---
Assumed care of patient from shift stacker RN. Drowsy and tearful but follows commands and is appropriate this am. Continued anxiety. SR on monitor. 3 L NC 94%. IS to 1000. Coughing up thick [place] sputum. Abdomen obese, positive bowel sounds.
Voiding w/o issue. Surgical sites well approximated. Pulses palpable. Plan for day discussed.
[2025-04-10] MEDS: NOVOLOG FLEXPEN 10 UNITS SC ×2 (08:42→12:44)
[2025-04-10] MEDS: LASIX 40 MG IV (08:43)
[2025-04-10] MEDS: NOVOLOG FLEXPEN-MODERATE RESISTANCE 3 UNITS SC ×2 (08:43→18:03)
[2025-04-10] MEDS: FLEXERIL 5 MG PO (08:43)
[2025-04-10] MEDS: BACTROBAN 2% OINTMENT 1 APPLIC NASAL ×2 (08:43→20:12)
[2025-04-10 08:44] LABS: Glucose - Point of Care 220 mg/dl (70-99)
[2025-04-10] MEDS: LOW STRENGTH ASPIRIN 81 MG PO (08:44)
[2025-04-10] MEDS: NORVASC 2.5 MG PO (08:44)
[2025-04-10] MEDS: PLAVIX 75 MG PO (08:44)
[2025-04-10] MEDS: FARXIGA 10 MG PO (08:44)
[2025-04-10] MEDS: NSS IV (08:44)
[2025-04-10] MEDS: LOPRESSOR 25 MG PO ×2 (08:44→20:11)
[2025-04-10] MEDS: SENOKOT-S 1 TABLET PO ×2 (08:44→20:11)
[2025-04-10] MEDS: NEURONTIN 100 MG PO ×3 (08:44→21:30)
[2025-04-10] MEDS: COLACE 100 MG PO ×2 (08:44→20:11)
[2025-04-10] MEDS: PROTONIX 40 MG PO (08:44)
[2025-04-10] MEDS: MAGIC OR MIRACLE MOUTHWASH 10 ML PO (09:03)
[2025-04-10] MEDS: DULCOLAX 10 MG PO (12:02)
[2025-04-10] MEDS: PERCOCET 5/325 2 TABLET PO ×3 (12:09→20:35)
--- NOTE | 2025-04-10 12:30 | PTCARENOTE ---
Pt ambulated in hallway with RN and able to climb and descend full stair case, Tolerated well, Pts mother observed. Requesting pain medication and also states that she hasnt had a bm since admission. Order obtained for dulcolax po and
administered. Pt to announce. VSS. Assessment otherwise unchanged from prior
[2025-04-10 12:42] LABS: Glucose - Point of Care 188 mg/dl (70-99)
[2025-04-10] MEDS: NOVOLOG FLEXPEN-MODERATE RESISTANCE 1 UNITS SC (12:44)
--- NOTE | 2025-04-10 15:00 | W.PN.CARDCBS ---
Today's Communication / Plan
-
Continue postop care
Continue pain control
Gentle diuresis
Impression / Plan
-
.
PCP: Donald Plaza
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
Impression:
NSTEMI
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
Type 2 diabetes mellitus
Hyperlipidemia, intolerant of multiple statin
Hypertensive urgency
History of CVA/TIA
Multiple sclerosis, not on medication
Trigeminal neuralgia, not active
Chronic lumbar pain on chronic oral opiates
Anxiety
Obesity
sleep apnea
Nephrolithiasis
Echo 04/02/2025: TDS, EF 55%, mild anterolateral wall hypokinesis, increased RV wall thickness, trivial MR, PASP 18 mmHg, prominent anterior fat pad with thickened pericardium, no effusion
Plan:
HPI: 54-year-old female with multiple cardiac risk factors presenting with chest pain consistent with non-ST elevation myocardial infarct in the setting of hypertensive urgency. peak trop 0.355. cardiac cath with MV CAD
-s/p CABG x4 DOMINIC to LAD, GSV to D1, GSV to OM1, GSV to RPDA, NANI clip 04/07/25
Cont post op care
Cont pain control. hx of chronic opioid use as OP, follows with pain mgmt
Remains in sinus
Wt is up since surgery. Gentle diuresis. lasix 40 mg IV X 1 April 09 and
Monitor H/H. Patient has not required transfusion thus far
HR and bp stable, continue Norvasc 2.5mg daily and lopressor 25mg Q12H. Preop she required regimen of norvasc 10mg HS, hydralazine 25mg BID, cozaar 100mg HS, toprol 50mg BID
HgbA1c 8.3%. Need for strict diabetic control moving forward has been discussed. Farxiga started 04/09/2025. Appreciate diabetic mgmt.
Prestatin lipids TC 255, HDL 61, LDL 140, triglycerides 270. Patient has history of 'statin intolerance.'
Retrial on lipitor 80mg HS.
Can consider PCSK9 inhibitor as an outpatient.
Goal LDL less than 70
Probable sleep apnea with no recent testing, recommended outpatient evaluation which can be arranged at time of discharge
Discussed with nursing and family at bedside.
Progress Note - Tower Technician
Subjective
Date of Service: April 10, 2025
Pt seen and examined. No complaints. No chest pain or shortness of breath.
Objective
Labs:
04/10/25 04:06
04/10/25 04:06
Labs
Hgb 8.0 g/dL (12.0-16.0) L 04/10/25 04:06
Hct 25.5 % (37.0-47.0) L 04/10/25 04:06
Plt Count 280 10^3/uL (130-400) D 04/10/25 04:06
PT 15.7 Sec (11.4-14.6) H 04/07/25 14:16
INR 1.20 04/07/25 14:16
APTT 35.0 Sec (23.4-35.0) 04/07/25 14:16
Sodium 138 mmol/L (135-145) 04/10/25 04:06
Potassium 5.0 mmol/L (3.5-5.1) 04/10/25 04:06
BUN 28 mg/dl (7-17) H 04/10/25 04:06
Creatinine 0.9 mg/dL (0.6-1.0) 04/10/25 04:06
Glucose 182 mg/dl (70-99) H 04/10/25 04:06
Vital Signs and I&O:
Vital Signs
Temp Pulse Resp BP Pulse Ox
97.9 F 88 18 127/68 93
04/10/25 12:04 04/10/25 12:20 04/10/25 12:04 04/10/25 12:03 04/10/25 12:04
Vital Signs
Temp Pulse Resp BP Pulse Ox
97.9 F 88 18 127/68 93
04/10/25 12:04 04/10/25 12:20 04/10/25 12:04 04/10/25 12:03 04/10/25 12:04
Intake & Output
04/08/25 04/09/25 04/10/25 04/11/25
06:59 06:59 06:59 06:59
Intake Total 762.0 / 779.0 1171.6 / 1171.6 698 / 698 250 / 250
Output Total 1210 / 1255 615 / 615 720 / 720 900 / 900
Balance -448.0 / -476.0 556.6 / 556.6 -22 / -22 -650 / -650
Physical Exam
Physical Exam
General: No acute distress, AAOX3
Neck: Negative JVD
Heart: Regular, Negative S3 positive S1/S2, Negative S4, No murmur
Lungs: CTA b/l, negative wheezes/rales/rhonchi
Abd: Positive BS, NT/ND, neg rebound/rigidity/guarding
Ext: Negative cyanosis/clubbing/edema
Neuro: nonfocal
[2025-04-10] MEDS: MAGIC OR MIRACLE MOUTHWASH PO (15:51)
--- NOTE | 2025-04-10 16:00 | PTCARENOTE ---
Pt and pts parents concerned that patient 'hasnt had any pain medication all day', RN clarified that pt has in fact received pain medication today. Pt then states that she is not receiving the correct dosage that she takes at home. Pt assured that
she was and the CT DIRECT SELLING COUNSELOR was in to review regimen with patient. Pts mother concerned that pt isnt using a walker in hospital , Pt asked if she uses one at home and replied 'no', pt has been steady with gait and not in need of assisted devices at
present. This was all explained to patients mother. They then had multiple concerns with possible medication lists once she goes home, reassurance and explanation of discharge process reviewed. Questions answered to the best of my ability.
[2025-04-10] MEDS: TORADOL 15 MG IV ×2 (16:35→21:39)
[2025-04-10] MEDS: MILK OF MAGNESIA 30 ML PO (17:01)
--- NOTE | 2025-04-10 17:17 | PTCARENOTE ---
Pt rang call jim , crying and very emotional stating that 'I should just go home now, because everyone is mad at me', Pt continued to tell RN that she wasnt faking her pain and that she didnt know she needed to tell us she was having pain in
order to get medication. Continued to cry uncontrollably. Pt instructed to look at RN, instructed to take deep breaths. Long therapeutic discussion about expectations and safe practice of administering and providing narcotics. Along with the
possible side effects of over medication. After a while pt calmed down. Resting in bed. Will continue to provide therapeutic environment and emotional support.
[2025-04-10 18:01] LABS: Glucose - Point of Care 231 mg/dl (70-99)
[2025-04-10] MEDS: NOVOLOG FLEXPEN 12 UNITS SC (18:03)
[2025-04-10] MEDS: LIPITOR 80 MG PO (18:03)
[2025-04-10] MEDS: NOVOLOG FLEXPEN SC (18:06)
--- NOTE | 2025-04-10 18:12 | W.PN.UPDATE ---
Update Note
Progress Note Update
POC glucose readings >200 with exception of midnight readings of 88 (04/08) and 94 (04/09). Discussed with DMNP and will increase mealtime aspart insulin from 10 to 12 units and reduce Lantus from 20 to 16 units. RN will assist patient with self
injection technique. Chronic pain meds reviewed via PDMP (#[id number]): Percocet 10-325mg q4h prn 120 tabs last filled 03/17/25 and Alprazolam 1mg TID prn 90 tabs last filled 03/30/25. Toradol added for improved pain control. Dr. Ty and myself
reiterated importance of returning to home dosing and need to ask for the medications as they are ordered on a prn basis.
--- NOTE | 2025-04-10 20:00 | PTCARENOTE ---
Resumed care of pt sitting in chair AAOx3 with daughters at bedside. Pt asking for pain medication, Pt instructed Percocet is ordered every 4 hours and is due in 20 minutes. Pt then asked for Xanax until she gets her pain medication. Pt instructed
on medication administration. Pt tearful stating 'you people dont care, you dont understand chronic pain, I dont understand why I cant get pain medication when I ask'. Pt instructed on changes in pain medication regimen in order to better
accommodate pt pain levels. Pt continues to be tearful and not listening to explanations when given. Emotional support attempted without positive effect. HR in the 90's in NSR on the monitor. POX 91-94% on RA. Lungs dec T/O. Pt encouraged to take
deep breaths. Occasional prod cough. + bowel, round obese abd. Pt ambulating to bathroom with assistance when needed. Pt ambulatory in hallway with daughters. Palpable peripheral pulses present. Sternal aquacell dressing intact. Chest tube sites
assessed and intact. Left left incision with surg glue open to air. Previous right IJ cordis site dressing intact. B/L wrist int capped. Pt assisted back to bed per comfort. Will continue to monitor.
[2025-04-10 21:25] LABS: Glucose - Point of Care 216 mg/dl (70-99)
[2025-04-10] MEDS: DESYREL 300 MG PO (21:31)
[2025-04-10] MEDS: CYMBALTA DELAYED RELEASE 60 MG PO (21:31)
[2025-04-10] MEDS: LANTUS 0.16 UNITS SC (21:32)
[2025-04-10] MEDS: XANAX 1 MG PO (21:45)
--- NOTE | 2025-04-10 23:00 | PTCARENOTE ---
POX sustaining 88% on RA. 2LO2 NC applied HS. POX now 94%. No other changes in assessment noted. Will continue to monitor.
[2025-04-11] MEDS: PERCOCET 5/325 2 TABLET PO ×2 (01:27→07:57)
[2025-04-11 04:22] VITALS: BP 114/70
[2025-04-11] MEDS: TORADOL 15 MG IV (04:30)
[2025-04-11 04:46] VITALS: BMI 42.7
--- NOTE | 2025-04-11 04:48 | W.PN.CT ---
Addendum entered and electronically signed by Georges Ty MD 04/11/25 09:25:
I saw and examined the patient.
The PA's note was reviewed and I agree with the note.
Comment:
Check 2V CXR - done - clear
Outpatient CBC to monitor Hgb and WBC on
Continue diuresis
D/C home today
Original Note:
Today's Communication / Plan
-
Plan:
-No major issues overnight. Hemodynamically and neurologically intact
-Off all drips
-Transitioned off insulin gtt and on home insulin and oral diabetic meds. A1C 8.3 diabetes management/education following
-Minimize IV narcotics in preparation for home
-H/H 7.8/24.3 yesterday, improved to 8/25.5 following diuresis, wt still up 5 lbs from preop, but down 2kg from yesterday
-Cont. Diuresis today
-F/U 2-view cxr
-Encourage use of IS
-Wean off O2 yesterday, O2 sats 92% on RA
-OOB into chair/Ambulate
-Likely home today
Assessment / Plan
-
- MVCAD w/ NSTEMI- s/p CABG x 4 (DOMINIC to LAD, GSV to D1, GSV to OM1, GSV to RPDA); ELAA (35mm AtriClip) on 04/07/25, pod #4
- LVEF normal w/o RWMA, NANI confirmed excluded
- Prior CVA (on plavix)
- Anxiety
- HTN
- DM II
- Class 3 obesity (BMI 42.4)
- EARL
- Trigeminal neuralgia
- Ankylosing spondylitis
- Inflammatory arthritis
- Heparic steatosis
- Multiple sclerosis
- Nonsmoker
- Acute postop blood loss anemia
- Acute postop atelectasis
- Acute pulmonary insufficiency
- Acute postop hypovolemia with subsequent hypervolemia
- Acute postop pulmonary insufficiency d/t pain/splinting
Discussed patient care with: Cardiology, Nursing, Respiratory Therapy, Pharmacy and Care Team
Subjective
-
Date of Service: April 11, 2025
C/o incisional pain, frequent request for narcotics and anxiolytics
Objective Data
-
PT 15.7 Sec (11.4-14.6) H 04/07/25 14:16
INR 1.20 04/07/25 14:16
APTT 35.0 Sec (23.4-35.0) 04/07/25 14:16
Vital Signs
Vital Signs
Temp Pulse Resp BP Pulse Ox
97.9 F 80 24 114/70 96
04/11/25 04:15 04/11/25 04:40 04/11/25 04:15 04/11/25 04:22 04/11/25 04:15
CT Intake/Output/Weight
04/10/25 04/10/25 04/11/25
06:59 18:59 06:59
Intake Total 600 / 698 490 / 490
Output Total 1300 / 1300
Balance 600 / -22 -810 / -810
SaO2: 92 (RA)
Physical Exam
-
General: Awake, Oriented and AOx3
Cardiovascular: Regular rate & rhythm, No Murmurs, No Rub and No Gallop
Respiratory: Decreased Breath Sounds (at bases, otherwise clear)
Sternum: Stable
Incision: Clean, Dry, Intact and Dressing Intact
Extremities: Other (+trace edema)
Data Reviewed
-
Lab Results: Results Reviewed
Medications: Active Meds Reviewed
Chest X-Ray: Report Reviewed and Image Reviewed
ECG: Report Reviewed and Image Reviewed
[2025-04-11 04:59] LABS: Hematocrit 28.8 % (37.0-47.0); Hemoglobin 9.1 g/dL (12.0-16.0); Mean Corp Hgb Conc. 31.6 g/dL (33.0-37.0); Mean Corpuscular Hgb 27.3 pg (27.0-31.0); Mean Corpuscular Volume 86.5 fL (81.0-99.0); Mean Platelet Volume 10.3 fL (7.4-10.4); Platelet Count 369 10^3/uL (130-400); Red Blood Cell Count 3.33 10^6/uL (4.20-5.40); White Blood Cell Count 20.8 10^3/uL (4.8-10.8)
[2025-04-11] MEDS: XANAX 0.5 MG PO (05:19)
[2025-04-11 05:26] LABS: Blood Urea Nitrogen 36 mg/dl (7-17); Calcium 9.3 mg/dl (8.4-10.2); Carbon Dioxide 29 mmol/L (22-30); Chloride 101 mmol/L (98-107); Estimated Creatinine Clearance 89 ml/min; Glucose 179 mg/dl (70-99); Magnesium 2.7 mg/dl (1.6-2.3); Potassium 4.6 mmol/L (3.5-5.1); Sodium 139 mmol/L (135-145); eGFR > 60.00
--- NOTE | 2025-04-11 06:10 | PTCARENOTE ---
Pt awake intermittently t/o the night. Pt requiring Multiple conversations regarding medication administration and pain management. Emotional support attempted. Pt frustrated with current plan of care. This RN instructed Pt to discuss further with
. Will continue to montior.
--- NOTE | 2025-04-11 07:30 | PTCARENOTE ---
Assumed care of patient from mail processor RN. DAILYO x 3, Continues to be easily upset and tearful at times. States she wants to go home today but is very overwhelmed with her health troubles. She is concerned she isnt educated enough on her diabetes
management. Education provided repeatedly by RN. Pt able to reiterate education but then continues to ask the same question again. SR on monitor. Room air 93%, occasional cough with thick mucus. Abdomen obese with positive bowel sounds.
Passing flatus. Sternal Aquacel c,d,i. CT sites KOFI, Lt SVG site well approximated. Pulses palpable. Plan for day discussed.
[2025-04-11 07:42] VITALS: BP 117/70
[2025-04-11 07:54] LABS: Glucose - Point of Care 177 mg/dl (70-99)
[2025-04-11] MEDS: NEURONTIN 100 MG PO (07:56)
[2025-04-11] MEDS: FARXIGA 10 MG PO (07:56)
[2025-04-11] MEDS: LOW STRENGTH ASPIRIN 81 MG PO (07:56)
[2025-04-11] MEDS: PROTONIX 40 MG PO (07:56)
[2025-04-11] MEDS: COLACE 100 MG PO (07:56)
[2025-04-11] MEDS: PLAVIX 75 MG PO (07:56)
[2025-04-11] MEDS: LOPRESSOR 25 MG PO (07:57)
[2025-04-11] MEDS: NOVOLOG FLEXPEN-MODERATE RESISTANCE 1 UNITS SC (07:57)
[2025-04-11] MEDS: SENOKOT-S 1 TABLET PO (07:57)
[2025-04-11] MEDS: NORVASC 2.5 MG PO (07:57)
[2025-04-11] MEDS: NOVOLOG FLEXPEN 12 UNITS SC (07:57)
[2025-04-11] MEDS: MAGIC OR MIRACLE MOUTHWASH 10 ML PO (07:58)
[2025-04-11] MEDS: BACTROBAN 2% OINTMENT 1 APPLIC NASAL (07:58)
[2025-04-11 08:23] LABS: % Basophils 0.3 % (0-2); % Eosinophils 1.4 % (0-6); % Immature Granulocytes 2.9 % (0-0.5); % Lymphocytes 31.7 % (20.5-51.1); % Monocytes 7.1 % (1.7-9.3); % Neutrophils 56.6 % (42.2-75.2); Absolute Basophils 0.1 10^3/uL (0-0.2); Absolute Eosinophils 0.3 10^3/uL (0-0.7); Absolute Immature Granulocytes 0.6 10^3/uL (0-0.05); Absolute Lymphocytes 6.4 10^3/uL (1.2-3.4); Absolute Monocytes 1.4 10^3/uL (0.1-0.6); Absolute Neutrophils 11.3 10^3/uL (1.4-6.5); Nucleated Red Blood Cells % 0.2 %
--- NOTE | 2025-04-11 09:02 | W.PN.UPDATE ---
Update Note
Progress Note Update
Patient states was taking MFM 100mg BID, Mounjaro 7.5 weekly (received 2 doses pre hospital), Glipizide 10mg BID and glargine at home. Confirmed discharge diabetes regime with diabetic [employer] Douse. Plan to stop glipizide altogether, continue MFM 100mg
BID, Mounjaro 7.5mg weekly, Aspart 12u with meals, Glargine 16 units HS, Farxiga 10mg daily.
[2025-04-11] MEDS: GLUCOPHAGE 1000 MG PO (09:37)
--- NOTE | 2025-04-11 10:45 | PTCARENOTE ---
Sternal Dressing removed, incision well approximated. Pt then showered using CHG wash. Tolerated w/o issue. Dressed in own street clothes. Resting in chair after.
--- NOTE | 2025-04-11 10:56 | W.DCSUMMARY ---
Discharge Summary
Discharge Data
Date of Admission: 04/02/25
Date of Discharge: 04/11/25
-
Pending Results: No
Hospital Course
Primary care physician: Donald Plaza
Outpatient cap coverer: Zuleima Garcia
Inpatient consultants: [facility], pulmonary unemployment examiner, diabetes TELEPHONE SERVICE ADVISER
Procedures:
1. CABG and left atrial appendage clip
Primary Diagnosis:
1. NSTEMI, coronary artery disease
Secondary Diagnoses:
1. Type 2 Diabetes (A1C 8.3)
2. HTN
3. HLD/hypertriglyceridemia
4. Remote CVA on Plavix
5. Class III obesity (BMI 42.6)
6. Hx ankylosing spondylitis with chronic pain syndrome
7. Hx trigeminal neuralgia
8. Hx hepatic steatosis
9. Acute postop blood loss anemia
10. Acute postop atelectasis
11. Acute pulmonary insufficiency
12. Acute postop hypovolemia with subsequent hypervolemia
13. Acute postop pulmonary insufficiency d/t pain/splinting
HPI: 54 y/o female with PMHx of anxiety, CVA on plavix, HTN, DM II-uncontrolled, chronic back pain, and Class III obesity was admitted to [facility] ER on 04/02/25 for chest pain associated with SOB and nausea which worsened over 2 days prior to
admission.
Hospital course: Upon admission, patient was found to be hypertensive SBP 190s. She ruled in for NSTEMI (troponin max 0.33) and was started on NTG gtt which controlled the CP and BP. TTE completed on 04/02 and reported an EF 55% without valvular
pathology. Left heart catheterization was performed on 04/04 and confirmed triple vessel coronary disease. CT surgery was consulted for surgical evaluation. Diagnostic work up reported normal carotids and incomplete palmar arch, precluding radial
harvest. Patient was taken to the operating room on 04/07/25 and underwent CABG x 4 (DOMINIC to LAD, GSV to D1, GSV to OM1, GSV to RPDA) and ELAA (35mm AtriClip) by Dr. Georges Ty. Patient required no intraoperative blood products and returned to
CVICU on Levophed, insulin, and Precedex. Patient was extubated at 1700 on day of surgery. On postoperative day 1, two mediastinal and 2 pleural chest drains were removed due to intractable pain. Aspirin and Plavix were initiated. Patient was
evaluated by the diabetic nurse practitioner and Farxiga initiated. Aspart and glargine doses were adjusted. Patient was diuresed for expected post-op weight gain. PDMP was reviewed and patient was weaned to her usual chronic pain medication
regimen of Percocet and Xanax on postoperative day #3 as patient noted to be somnolent with Xanax 2 mg 3 times daily and use of Dilaudid IV. Patient was educated on expectation of postop pain and use of multi modal pain regime. Glucose remained
resistant as patient noted to be eating food brought from outside the hospital. Patient educated on importance of adhering to a diabetic diet to control sugars. On postoperative day #4, patient states she was taking Mounjaro and metformin at home,
although there was no record of this in her home med rec. Medication reconciliation was updated. Spoke with diabetic TELEPHONE SERVICE ADVISER for home recommendations which will include Mounjaro 7.5 mg weekly, metformin 1000 mg twice daily, aspart 12 units 3 times
daily with meals, glargine 16 units at bedtime and Farxiga 10 mg daily. A coupon was given to patient for 30-day free trial. WBC remained elevated postop without evidence of pulmonary or sternal issues. Patient denied urinary symptoms. No
significant lower extremity edema was noted. WBC on day of discharge was 20.8 and transitional nurses notified of need for repeat CBC on 04/14/2025. Patient ambulated in halls without difficulty and deemed stable for discharge to home.
Home medication changes:
Toprol XL 100 mg twice daily reduced to 50 mg daily
Amlodipine 10 mg reduced to 2.5 mg daily
Glipizide discontinued
Losartan discontinued
Hydralazine discontinued
Glargine 15 units increased to 16 units at bedtime
New meds as listed below
Discharge Plan
-
Patient Disposition: Home (Routine Discharge)
Discharge Diagnosis/Procedures: CABG x 4
Condition: Good
Diet: Low Cholesterol, Low Sodium and Diabetic, Carb Controlled
Activity: No strenuous activity
Driving Restrictions: Not until seen by your Dr
Bathing Restrictions: OK to Shower
Blood Work: CBC on 04/14/25
Other Services: Cardiac Rehab
Specialty Instructions: Weigh Daily- Call MD for wt gain/loss 3 lbs overnight/5 lbs in 1 week
Referrals:
CT Transitional Care Nurse [Outside] - in one to two days
(
The Cardiothoracic Transitional Care Nurse will call you to set up a visit in 1-2 days.)
Rohan Ng MD [Active] - in one to two months
Donald Plaza DO [Community] - in four to six weeks (Please make an appointment in four to six weeks.)
Lorena Chau CRNP [Specified Professional Personl] - 05/16/25 1:40 pm
Georges Ty MD [Active] - 05/03/25 2:30 pm
Prescriptions:
New
atorvastatin 80 mg Tablet
80 mg PO QPM Qty: 30 1RF
amlodipine 2.5 mg Tablet
2.5 mg PO DAILY Qty: 30 1RF
metoprolol succinate [Toprol XL] 50 mg tablet extended release 24 hr
50 mg PO DAILY Qty: 30 1RF
pantoprazole 40 mg Tablet,Delayed Release (Dr/Ec)
40 mg PO DAILY Qty: 30 1RF
gabapentin 100 mg Capsule
100 mg PO TID Qty: 30 0RF
insulin glargine [Lantus Solostar U-100 Insulin] 100 unit/mL (3 mL) insulin pen
16 unit SC QPM Qty: 15 1RF
dapagliflozin propanediol 10 mg Tablet
10 mg PO DAILY Qty: 30 1RF
insulin aspart U-100 [Novolog FlexPen U-100 Insulin] 100 unit/mL (3 mL) insulin pen
12 unit SC TID Qty: 15 1RF
(DME) pen needle, diabetic [Novofine 32] 32 gauge x 1/4' needle
See Rx Instructions .Route Qty: 100 1RF
Rx Instructions:
As directed
naloxone [Narcan] 4 mg/actuation spray,non-aerosol
4 mg intranasal Q2M PRN (Reason: opioid overdose) Qty: 2 1RF
Continued
duloxetine 60 MG capsule,delayed release(DR/EC)
60 mg PO HS
clopidogrel 75 MG tablet
75 mg PO HS
polyethylene glycol 3350 [Miralax] 17 gram Powder In Packet
17 g PO DAILY PRN (Reason: Constipation)
aspirin 81 mg Tablet,Delayed Release (Dr/Ec)
81 mg PO HS
docusate sodium [Stool Softener] 100 mg Capsule
100 mg PO BID
albuterol sulfate 2.5 mg /3 mL (0.083 %) solution for nebulization
2.5 mg inhalation R Q4HPRN PRN (Reason: sob/wheezing)
Gvoke HypoPen 2-Pack 1 mg/0.2 mL auto-injector
1 mg SC PRN PRN (Reason: low blood sugar)
trazodone 150 MG tablet
300 mg PO HS
alprazolam 1 mg Tablet
1 mg PO TID PRN (Reason: anxiety)
oxycodone-acetaminophen 10-325 mg Tablet
1 tab PO Q4H PRN (Reason: back pain)
metformin 1,000 mg Tablet
1,000 mg PO BID Qty: 0 0RF
Mounjaro 7.5 mg/0.5 mL Pen Injector
7.5 mg SC QWEEK Qty: 0 0RF
Discontinued
metoprolol succinate 100 MG tablet extended release 24 hr
100 mg PO BID Qty: 0
amlodipine 10 MG tablet
10 mg PO HS
glipizide 10 mg tablet
10 mg PO BID
oxycodone-acetaminophen 10-325 mg tablet
1 tab PO Q6HPRN PRN (Reason: moderate pain)
Patient Comments:
09/10/2024: last filled 08/23/24, 120 tabs for 30 days from [facility]
losartan 100 mg tablet
100 mg PO HS
hydralazine 25 mg Tablet
25 mg PO BID
insulin glargine [Lantus Solostar U-100 Insulin] 100 unit/mL (3 mL) insulin pen
15 unit SC HS
Discharge Orders:
Discharge Patient (As Directed); Ordered 04/11/25
Ordered By: Latricia Delacruz
Care Plan Goals
Care Plan Goals:
Problem: Readiness for enhanced knowledge related to diagnosis and treatment plan
Goal: Understand your diagnosis and treatment plan needs, including medications if applicable.
Instructions: Know your diagnosis, underlying causes and treatment plan options, including medications if applicable. Consult with your health care team to learn about your diagnosis and treatment plan, including medications if applicable.
Discharge Date and Time
Print Language: FRENCH
[2025-04-11 11:54] VITALS: BP 125/64
--- NOTE | 2025-04-11 12:40 | PTCARENOTE ---
Discharge instructions reviewed with patient and her parents after extensive conversation with CT HOG CUTTER regarding diabetes and pain management. Using the teach back method pt seems to have adequate understanding. Home medications retrieved by this RN
from pharmacy and delivered back to patient. INT removed, telemetry pack removed and once ready pt wheeled to car by RN.
== END 2025-04-11 13:42 | disposition home or self-care (01) | DRG 233 ==
LOC: CVICU 01:55
PROVIDERS: Anesthesiology; Clinical Nurse Specialist Acute Care; Hospitalist; Internal Medicine Cardiovascular Disease; Nurse Practitioner; Physician Assistant; Student in an Organized Health Care Education/Training Program; Thoracic Surgery (Cardiothoracic Vascular Surgery); ADMITTING PHYSICIAN Hospitalist; ATTENDING PHYSICIAN Thoracic Surgery (Cardiothoracic Vascular Surgery); CONSULT PHYSICIAN Internal Medicine; EMERGENCY PHYSICIAN Emergency Medicine; OTHER PHYSICIAN Internal Medicine Cardiovascular Disease
PROC: B2111ZZ Fluoroscopy of Multiple Coronary Arteries using Low Osmolar Contrast (ICD-10-PCS; 2025-04-04)
PROC: B2151ZZ Fluoroscopy of Left Heart using Low Osmolar Contrast (ICD-10-PCS; 2025-04-04)
PROC: 4A023N7 Measurement of Cardiac Sampling and Pressure, Left Heart, Percutaneous Approach (ICD-10-PCS; 2025-04-04)
PROC: 021209W Bypass Coronary Artery, Three Arteries from Aorta with Autologous Venous Tissue, Open Approach (ICD-10-PCS; 2025-04-07)
PROC: 06BQ4ZZ Excision of Left Saphenous Vein, Percutaneous Endoscopic Approach (ICD-10-PCS; 2025-04-07)
PROC: B24BZZ4 Ultrasonography of Heart with Aorta, Transesophageal (ICD-10-PCS; 2025-04-07)
PROC: 5A1221Z Performance of Cardiac Output, Continuous (ICD-10-PCS; 2025-04-07)
PROC: 02L70CK Occlusion of Left Atrial Appendage with Extraluminal Device, Open Approach (ICD-10-PCS; 2025-04-07)
PROC: 02100ZC Bypass Coronary Artery, One Artery from Thoracic Artery, Open Approach (ICD-10-PCS; 2025-04-07)
DX: I21.4 Non-ST elevation (NSTEMI) myocardial infarction (principal); J95.2 Acute pulmonary insufficiency following nonthoracic surgery; D62 Acute posthemorrhagic anemia; F11.20 Opioid dependence, uncomplicated; I16.1 Hypertensive emergency; Z68.41 Body mass index [BMI] 40.0-44.9, adult; J98.11 Atelectasis; E66.813 Obesity, class 3; E11.65 Type 2 diabetes mellitus with hyperglycemia; I10 Essential (primary) hypertension; M54.50 Low back pain, unspecified; G89.4 Chronic pain syndrome; M45.9 Ankylosing spondylitis of unspecified sites in spine; F41.9 Anxiety disorder, unspecified; I25.10 Atherosclerotic heart disease of native coronary artery without angina pectoris; K76.0 Fatty (change of) liver, not elsewhere classified; G35 Multiple sclerosis; E78.2 Mixed hyperlipidemia; M06.4 Inflammatory polyarthropathy; F32.A Depression, unspecified; E86.1 Hypovolemia; E87.70 Fluid overload, unspecified; Y83.2 Surgical operation with anastomosis, bypass or graft as the cause of abnormal reaction of the patient, or of later complication, without mention of misadventure at the time of the procedure; R91.1 Solitary pulmonary nodule; L40.50 Arthropathic psoriasis, unspecified; G47.33 Obstructive sleep apnea (adult) (pediatric); K21.9 Gastro-esophageal reflux disease without esophagitis; Z79.02 Long term (current) use of antithrombotics/antiplatelets; Z79.4 Long term (current) use of insulin; Z79.82 Long term (current) use of aspirin; Z79.899 Other long term (current) drug therapy; Z86.73 Personal history of transient ischemic attack (TIA), and cerebral infarction without residual deficits; Z87.442 Personal history of urinary calculi; Z82.49 Family history of ischemic heart disease and other diseases of the circulatory system
CPT/HCPCS: 36600; 71045; 71046; 71275; 80048; 80053; 80061; 81003; 81015; 82248; 82330; 82565; 82805; 82947; 82962; 83036; 83735; 83880; 84132; 84302; 84484; 84520; 85014; 85018; 85025; 85027; 85049; 85347; 85610; 85730; 86850; 86900; 86901; 86920; 87086; 93005; 93306; 93312; 93320; 93325; 93458; 93880; 93923; 93931; 94002; 94760; 96365; 96375; 99152; 99153; 99285; C1894; J7197; P9047; Q9967

== ENCOUNTER → 2025-04-27 13:47 | Outpatient (REF) | payer OTHER, SELFPAY ==
--- NOTE | 2025-04-28 08:46 | PN.DIAED06 ---
Meal Plans - Regular
- Meal Plan
Diabetic Meal Plan Name: 2000 calories
Breakfast - Total Carbohydrate (grams): 45
Breakfast - Starch Carbohydrate: 0
Breakfast - Fruit Carbohydrate: 0
Breakfast - Milk Carbohydrate: 0
Breakfast - Nonstarchy Vegetables: Yes
Breakfast - Meat/Protein: 1
Breakfast - Fat: 2
Morning Snack - Total Carbohydrate (grams): 30
Morning Snack - Starch Carbohydrate: 0
Morning Snack - Fruit Carbohydrate: 0
Morning Snack - Milk Carbohydrate: 0
Morning Snack - Nonstarchy Vegetables: Yes
Morning Snack - Meat/Protein: 0.5
Morning Snack - Fat: 0
Lunch - Total Carbohydrate (grams): 45
Lunch - Starch Carbohydrate: 0
Lunch - Fruit Carbohydrate: 0
Lunch - Milk Carbohydrate: 0
Lunch - Nonstarchy Vegetables: Yes
Lunch - Meat/Protein: 3
Lunch - Fat: 1
Afternoon Snack - Total Carbohydrate (grams): 30
Afternoon Snack - Starch Carbohydrate: 0
Afternoon Snack - Fruit Carbohydrate: 0
Afternoon Snack - Milk Carbohydrate: 0
Afternoon Snack - Nonstarchy Vegetables: Yes
Afternoon Snack - Meat/Protein: 0.5
Afternoon Snack - Fat: 0
Dinner - Total Carbohydrate (grams): 45
Dinner - Starch Carbohydrate: 0
Dinner - Fruit Carbohydrate: 0
Dinner - Milk Carbohydrate: 0
Dinner - Nonstarchy Vegetables: Yes
Dinner - Meat/Protein: 4
Dinner - Fat: 2
Evening Snack - Total Carbohydrate (grams): 15
Evening Snack - Starch Carbohydrate: 0
Evening Snack - Fruit Carbohydrate: 0
Evening Snack - Milk Carbohydrate: 0
Evening Snack - Nonstarchy Vegetables: Yes
Evening Snack - Meat/Protein: 0
Evening Snack - Fat: 0
--- NOTE | 2025-04-28 08:55 | PN.DIAED02 ---
Referral
Referred For: Diabetes Self-Management Training, Medical Nutrition Therapy, Self-Blood Glucose Monitoring, Long-Term Complication Instruction, Accute Complication Instruction, Continuous Glucose Monitoring, Medication management, Disease Management
PHI Release Authorization Form Signed: Yes
Demographic
Patient's primary language-: Greenlandic
Care Plan
- Education Needs
Patient Education Needs: Diabetes disease process
Recommended Diabetes Training Program based on assessment: Individual Appointment
- Plan of Care
Plan of Care:
04/27/2025 DSME INDIVIDUAL MEETING
I met with Elena and her daughter as a holdover patient, she wants DSME training but cannot attend class in July.
She was recently inpatient with diagnosis CABG s/p NSTEMI. Her HbA1c at inpatient stay was 8.3% had her first appointment with Wine Bottle Inspector this week. She takes Farxiga 10 mg QD, Mounjaro 7.5 mg once weekly, Novolog 12 units before meals and
Lantus 16 units QD. She is using the [employer] Style Candice CGM, had difficulty with sensors functioning, working with Wine Bottle Inspector to update to Candice 3+.
She just placed a new sensor on 04/26/2025, as of today her average glucose is 126 and 100% Time in Range. She has back up manual testing supplies. Her next appointment with Wine Bottle Inspector is in July.
We reviewed proper insulin storage and administration. She is giving Novolog directly with meals. Explained this is to be taken 15 minutes prior to meals.
Reviewed complication of uncontrolled DM. Reviewed mechanism of action and side effects of each medication, drink plently of fluids with Farxiga. She has Gvoke pen, showed demonstration to patient and daughter. Reviewed signs and symptoms of
hypoglycemia, reviewed hypoglycemia protocol.
Reviewed 2000 calorie meal plan, written material provided.
Discussed benefits of physical activity, she starts cardiac rehab next week. Provided education to check glucose prior to exercise and eat snack if glucose is
< 100 mg/dL because exercise will reduce glucose.
She verbalized understanding. She will contact [employer] to discuss copay for meeting. She is interested in another DMSE individual meeting with myself and RD. She stated that the cost is not an issue. She will contact us this week
after calling insurance company, and proceed with scheduling future appointments.
== END ==
LOC: DES 13:47
PROVIDERS: ATTENDING PHYSICIAN Family Medicine
DX: E11.42 Type 2 diabetes mellitus with diabetic polyneuropathy (principal)
CPT/HCPCS: 99078

== ENCOUNTER 2025-11-10 00:21 | Observation (INO) | payer OTHER, SELFPAY ==
[2025-11-09] VITALS (8 sets, daily range): BP systolic 152–216; BP diastolic 76–107
[2025-11-09 21:40] LABS: Hematocrit 37.1 % (37.0-47.0); Hemoglobin 11.4 g/dL (12.0-16.0); Mean Corp Hgb Conc. 30.7 g/dL (33.0-37.0); Mean Corpuscular Volume 68.7 fL (81.0-99.0); Nucleated Red Blood Cells % 0 %; Platelet Count 439 10^3/uL (130-400); Red Cell Dist. Width 16.8 % (11.5-14.5)
[2025-11-09 21:50] LABS: HCG, Serum Qualitative Screen Negative
[2025-11-09 21:55] LABS: ALT (SGPT) 15 U/L (0-35); AST (SGOT) 19 U/L (14-36); Albumin 4.6 g/dl (3.5-5.0); Alkaline Phosphatase 137 U/L (38-126); Blood Urea Nitrogen 21 mg/dl (7-17); Calcium 9.8 mg/dl (8.4-10.2); Carbon Dioxide 25 mmol/L (22-30); Chloride 101 mmol/L (98-107); Glucose 161 mg/dl (70-99); Potassium 3.5 mmol/L (3.5-5.1); Sodium 136 mmol/L (135-145); Total Protein 7.9 g/dl (6.3-8.2); eGFR > 60.00
[2025-11-09 22:02] LABS: Troponin I < 0.012 ng/ml
--- NOTE | 2025-11-09 22:04 | ED.GENMED ---
History of Present Illness
General
Chief Complaint: Chest Pain
Time Seen by Provider: 11/09/25 21:53
History of Present Illness
History of Present Illness:
Patient is a 55-year-old woman with history of prior NSTEMI presenting to the emergency department with chest pain. Patient states that a few hours ago she was under a lot of stress when her daughters were arguing. She developed left-sided chest
pressure that went down her arm and upper jaw. States is very similar to her prior heart attack. No shortness of breath. No nausea no vomiting. No numbness tingling. The pain does not radiate to her back. She denies any exertional chest pain
prior to this event. She follows with Dr. Foley. Per chart review patient was here early this year for an NSTEMI. She did have CABG x 4. Patient does state that she checked her blood pressure although started as elevated. She took an extra
of her metoprolol as well as the Xanax. She does have some mild chest pain currently
Past History
Past History
ED Past Medical History: CVA (X 2), GERD, HTN, IDDM, Psychiatric (Anxiety, Depression), Other (MS, optic neuritis, uveitis, GI bleeding, UTI, Chronic pain, chronic abd pain, Trigeminal Neuralgia, Sleep apnea, Hemorrhoids, Renal calculus,) and Other
(Alkalosic spondylitis with HlA B27 positive, Achilles tendinitis, positive JOHN)
ED Past Surgical History: Tonsilectomy and Urological (Lithotripsy with stent and then removal right ureter)
Social History
Tobacco: Non-smoker
Alcohol: None
Drug: None
Personal:
Living: with family
Employment: Employed
Family History
Family History: Other (reviewed and non-contributory)
Phy Exam
Physical Exam
Physical Exam:
GENERAL: in no acute distress
HEENT: normocephalic, extraocular movements intact, moist oral mucosa
NECK: normal inspection
RESPIRATORY: no respiratory distress, clear to auscultation bilaterally
CARDIOVASCULAR: regular rate and rhythm, 2+ radial pulses bilaterally
ABDOMEN/: soft, non-distended, non-tender to palpation, no rebound or guarding
EXTREMITIES: non-tender, no edema/swelling
NEUROLOGIC: awake and alert, moves all extremities
SKIN: warm
Scores
Heart Score for Chest Pain Patients
STEMI patient?: No
History: Moderately Suspicious
ECG: Nonspecific Repolarization
Age: >45 - <65 years
Risk Factors: >/= 3 Risk Factors or History of CAD
Troponin: </= Normal Limit
Heart Score for Chest Pain Patients: 5
Heart Score Risk: 20.3% MACE over next 6 weeks
Course
Orders/Labs/Results
Orders:
Orders
11/09/25 21:15
EKG [Electrocardiogram (*1)] Urgent
Reason for Study: Chest Pain
11/09/25 21:16
EKG- Treatment ONCE
11/09/25 21:17
Electrocardiogram (*1) Urgent
Reason for Study: Chest Pain
EKG- Treatment ONCE
Test Result ONCE
11/09/25 21:31
Complete Blood Count/With Diff Urgent
Comprehensive Metabolic Panel Urgent
HCG, Serum Qualitative Screen Urgent
Comment: Notify provider if positive test present
Troponin I Urgent
11/09/25 22:01
Aspirin 325 mg PO NOW STA
Nitroglycerin Sublingual [Nitrostat (Sublingual)] 0.4 mg SL [id number] PRN
11/09/25 22:03
EKG- Treatment ONCE
11/09/25 22:07
CR Chest - 2 Views Urgent
Comment:
Reason For Exam: chest pain
11/09/25 22:08
Acetaminophen [Tylenol] 650 mg .ROUTE .STK-MED ONE
11/09/25 23:11
Ondansetron HCl [Zofran] 4 mg .ROUTE .STK-MED ONE
11/09/25 23:12
Ondansetron HCl [Zofran] 4 mg PO NOW STA
11/09/25 23:50
Alprazolam [Xanax] 1 mg PO ONCE ONE
11/10/25 00:30
Electrocardiogram (*1) Urgent
Reason for Study: Chest Pain
Troponin I Urgent
Abnormal Lab Results
11/09/25
21:31
WBC 13.8 H 10^3/uL
(4.8-10.8)
Hgb 11.4 L g/dL
(12.0-16.0)
MCV 68.7 L fL
(81.0-99.0)
MCH 21.1 L pg
(27.0-31.0)
MCHC 30.7 L g/dL
(33.0-37.0)
RDW 16.8 H %
(11.5-14.5)
Plt Count 439 H 10^3/uL
(130-400)
Abs Immat Gran (auto) 0.1 H 10^3/uL
(0-0.05)
Absolute Neuts (auto) 7.7 H 10^3/uL
(1.4-6.5)
Absolute Lymphs (auto) 4.4 H 10^3/uL
(1.2-3.4)
Absolute Monos (auto) 1.2 H 10^3/uL
(0.1-0.6)
Immature Gran % 0.7 H %
(0-0.5)
BUN 21 H mg/dl
(7-17)
Glucose 161 H mg/dl
(70-99)
Alkaline Phosphatase 137 H U/L
(38-126)
11/09/25 21:31
12/24/25 21:31
Vital Signs
Initial and Last Documented VS:
Initial Vital Signs
Temp Pulse Resp BP Pulse Ox
98.2 F 77 16 206/96 98
11/09/25 21:18 11/09/25 21:18 11/09/25 21:18 11/09/25 21:18 11/09/25 21:18
Last Documented Vital Signs
Temp Pulse Resp BP Pulse Ox
98.2 F 75 12 152/84 97
11/09/25 21:18 11/09/25 22:45 11/09/25 22:45 11/09/25 22:22 11/09/25 22:45
MDM/Problems Addressed
Differential Diagnosis Includes:
Patient is a 55-year-old woman with history of prior NSTEMI, diabetes, hypertension, hyperlipidemia presenting to the emergency department with chest pain. On arrival patient initially was hypertensive to 200 valuation was in the 160s. Her exam is
otherwise reassuring. Concern for ACS versus hypertensive emergency. History and exam not consistent with PE or dissection. Blood work obtained prior to evaluation does show leukocytosis of 13.8. Initial troponin is normal. EKG per my
interpretation with no ST elevation. Will give aspirin as well as nitroglycerin. Will obtain a chest x-ray. Given patient's history story and elevated heart score patient will benefit from admission.
*Pulse Oximetry
SaO2: 96
Oxygen Mode of Delivery: Room air
Patient hypoxic: no
*Critical Care Note
Total Time (30-74mins, 75-104mins- exclusive of procedures): Not Applicable
Update Note
Update Note:
On reevaluation pain has improved. She did develop a headache after the nitroglycerin. Will treat with Tylenol.
Patient does note that she feels slightly nauseous. She denies any chest pain or pressure. Given patient's risk factors, high heart score and intermittent hypertension patient will benefit from admission. Discussed with hospitalist who excepted
patient to their service with delta troponin pending. Patient also states that she is having significant anxiety secondary to all this. Will give her her home Xanax.
ED Attending Note
-
Portions of this chart may have been created with voice recognition software.� Occasional wrong word or��sound alike� substitutions may have occurred due to the inherent limitations of voice recognition software.
Discharge Plan
Departure
Patient Disposition: Admit
Date of Disposition: 11/09/25
Time of Disposition: 23:53
Presentation/result/management discussed w/ accepting MD/DO: Hospitalist
Discharge Problem:
Chest pain
Prescriptions:
No Action
duloxetine 60 MG capsule,delayed release(DR/EC)
60 mg PO HS
clopidogrel 75 MG tablet
75 mg PO HS
polyethylene glycol 3350 [Miralax] 17 gram Powder In Packet
17 g PO DAILY PRN (Reason: Constipation)
aspirin 81 mg Tablet,Delayed Release (Dr/Ec)
81 mg PO HS
docusate sodium [Stool Softener] 100 mg Capsule
100 mg PO BID
albuterol sulfate 2.5 mg /3 mL (0.083 %) solution for nebulization
2.5 mg inhalation R Q4HPRN PRN (Reason: sob/wheezing)
Gvoke HypoPen 2-Pack 1 mg/0.2 mL auto-injector
1 mg SC PRN PRN (Reason: low blood sugar)
trazodone 150 MG tablet
300 mg PO HS
alprazolam 1 mg Tablet
1 mg PO TID PRN (Reason: anxiety)
oxycodone-acetaminophen 10-325 mg Tablet
1 tab PO Q4H PRN (Reason: back pain)
atorvastatin 80 mg Tablet
80 mg PO QPM Qty: 30 1RF
amlodipine 2.5 mg Tablet
2.5 mg PO DAILY Qty: 30 1RF
metoprolol succinate [Toprol XL] 50 mg tablet extended release 24 hr
50 mg PO DAILY Qty: 30 1RF
pantoprazole 40 mg Tablet,Delayed Release (Dr/Ec)
40 mg PO DAILY Qty: 30 1RF
gabapentin 100 mg Capsule
100 mg PO TID Qty: 30 0RF
insulin glargine [Lantus Solostar U-100 Insulin] 100 unit/mL (3 mL) insulin pen
16 unit SC QPM Qty: 15 1RF
dapagliflozin propanediol 10 mg Tablet
10 mg PO DAILY Qty: 30 1RF
insulin aspart U-100 [Novolog FlexPen U-100 Insulin] 100 unit/mL (3 mL) insulin pen
12 unit SC TID Qty: 15 1RF
metformin 1,000 mg Tablet
1,000 mg PO BID Qty: 0 0RF
Mounjaro 7.5 mg/0.5 mL Pen Injector
7.5 mg SC QWEEK Qty: 0 0RF
(DME) pen needle, diabetic [Novofine 32] 32 gauge x 1/4' needle
See Rx Instructions .Route Qty: 100 1RF
Rx Instructions:
As directed
naloxone [Narcan] 4 mg/actuation spray,non-aerosol
4 mg intranasal Q2M PRN (Reason: opioid overdose) Qty: 2 1RF
Referrals:
Donald Plaza DO [Family Provider, Family Practice]
Interventions
Interventions:
*Neglect/Abuse Screening Last Done: 11/09/25 21:18
*Risk Screen - Suicide (C-SSRS) Last Done: 11/09/25 21:18
Discharge Date and Time
Print Language: MOHAWK
[2025-11-09] MEDS: ASPIRIN 325 MG PO (22:10)
[2025-11-09] MEDS: NITROSTAT (SUBLINGUAL) 0.4 MG SL (22:10)
[2025-11-09] MEDS: ZOFRAN 4 MG PO (23:13)
--- NOTE | 2025-11-09 23:54 | HPS.HSE ---
Family Physician
-
Family Physician: Donald Plaza
Chief Complaint
-
Chest pain
History of Present Illness
Patient is a 55-year-old with past medical history significant for NSTEMI status post CABG x 4 in March of this year, abg-brmokra-jkyuboyvo diabetes, EARL, multiple sclerosis, chronic pain requiring opioids, trigeminal neuralgia who presents to the
emergency department with chest pain.
Patient reported that she had gone to walk earlier in the day and when she returned she started having some dizziness as well as pain localized to her left chest but also radiating to her left arm. She felt palpitations. She reported that she had
soreness behind her left breast which is reminiscent of the pain she had when she had a NSTEMI several months ago. She reports that after nitroglycerin pain is resolved but she still feels off. She has some nausea. She also reports no cough
fevers or chills. She denies any vomiting. Denies any diarrhea. She reports urinary frequency but no urgency or incontinence. She denies any flank pain. She checked her blood pressure at home when it was markedly elevated.
In the emergency department patient had a blood pressure of 155/84 with a pulse of 75 and oxygen saturation of 97% on room air. ECG shows a normal sinus rhythm at rate of 71, no acute ST or T wave changes. Initial troponin was 0.012. As white
count was 13.8 otherwise hemoglobin and platelets were normal. Electrolytes were unremarkable. BUN and creatinine were normal. Glucose was 161. Chest x-ray shows no acute infiltrates.
Medical History
Past Medical History
Past Medical History: Reports Other
Additional Past Medical History:
Nephrolithiasis
Chronic lumbar pain on chronic oral opiates
Multiple sclerosis
Trigeminal neuralgia
Hepatic steatosis, hepatomegaly
Hypertension
Obesity
DM-II
ASCVD / CVA x 2
Anxiety
Optic neuritis / Uveitis
Ankylosing spondylitis
Past Surgical History: Reports Other
Additional Past Surgical History:
History of renal calculi with removals
Neuroma to foot removal
Tonsillectomy adenoidectomy
Social History
Tobacco: Non-smoker
Alcohol: None
Drug: None
Personal: Single
Living: With Family (Children)
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
Family History
Family History: Not pertinent
Allergies / Home Medications
Allergies reflects when Allergies were last updated in [employer].
Home Medications with original date entered in [employer]
Allergy/Medication List:
Allergies
Allergy/AdvReac Type Severity Reaction Status Date / Time
phenytoin [From Dilantin] Allergy blood Verified 08/07/24 10:59
clots;pt
states 'i
can get it
but it has
to be
diluted
Quinolones Allergy Hives Verified 08/07/24 10:59
Home Medications
metoprolol succinate 100 mg tablet,extended release 24 hr 100 mg PO BID Blood pressure ##0 10/26/16
duloxetine 60 mg capsule,delayed release 60 mg PO HS Mental Health/Anxiety 11/27/18
amlodipine 10 mg tablet 10 mg PO HS Blood Pressure 03/07/22
clopidogrel 75 mg tablet 75 mg PO HS Blood Clot Prevention/Tx 03/07/22
albuterol sulfate 2.5 mg/3 mL (0.083 %) solution for nebulization 2.5 mg inhalation R Q4HPRN PRN sob/wheezing 08/07/24
aspirin 81 mg tablet,delayed release 81 mg PO HS Blood Clot Prevention/Tx 08/07/24
docusate sodium 100 mg capsule (Stool Softener) 100 mg PO BID Constipation 08/07/24
glipizide 10 mg tablet 10 mg PO BID Diabetes 08/07/24
losartan 100 mg tablet 100 mg PO HS Blood Pressure 08/07/24
oxycodone-acetaminophen 10 mg-325 mg tablet 1 tab PO Q6HPRN PRN moderate pain 08/07/24
polyethylene glycol 3350 17 gram oral powder packet (Miralax) 17 g PO DAILY PRN Constipation 08/07/24
hydralazine 25 mg tablet 25 mg PO BID Blood Pressure 08/15/24
alprazolam 1 mg tablet 0.5 mg (1/2 x 1 mg) PO HS Mental Health/Anxiety #0 tabs 08/20/24
glucagon 1 mg/0.2 mL subcutaneous auto-injector (Gvoke HypoPen 2-Pack) 1 mg SC PRN PRN low blood sugar 09/10/24
insulin glargine 100 unit/mL (3 mL) subcutaneous pen (Lantus Solostar U-100 Insulin) 15 unit SC HS Diabetes 09/10/24
trazodone 150 mg tablet 300 mg PO HS Mental Health/Anxiety 09/10/24
Review of Systems
-
History Source: Patient
Constitutional: Reports No Symptoms
EENT: Reports No Symptoms
Respiratory: Reports No Symptoms
Cardiac: Reports Chest Pain
Abdomen/GI: Reports Nausea
: Reports Dysuria and Frequency
Musculoskeletal: Reports No Symptoms
Skin: Reports No Symptoms
Neurological: Reports No Symptoms
Endocrine: Reports No Symptoms
Hematologic/Lymphatic: Reports No Symptoms
Psych: Reports No Symptoms
Physical Exam
Vital Signs
Vital Signs
Temp Pulse Resp BP Pulse Ox
98.2 F 75 12 152/84 97
11/09/25 21:18 11/09/25 22:45 11/09/25 22:45 11/09/25 22:22 11/09/25 22:45
Physical Exam
General: Well Developed and Well Nourished
HEENT: NormoCephalic, Anicteric, Atraumatic, PERRLA and [place] Conjunctivae
Respiratory: Clear
Cardiac: S1/S2 and Regular Rhythm
Breast: Deferred by me
GI: Soft, Non Tender, Non Distended and Normal Bowel Sounds
Rectal: Deferred by Provider
Genito-urinary: Clear Urine
Musculoskeletal: No Clubbing, No Cyanosis and No Edema
Skin: Warm
Neuro: AO x 3
Hematologic/Lymphatic: No Lymphadenopathy
Psych: Calm
Laboratory Results
-
11/09/25 21:
11/09/25 21:
Laboratory Results
Total Bilirubin 0.4 mg/dl (0.2-1.3) 11/09/25:
AST 19 U/L (14-36) 11/09/25:
ALT 15 U/L (0-35) 11/09/25:
Alkaline Phosphatase 137 U/L (38-126) H 11/09/25:
Troponin I < 0.012 ng/ml 11/09/25:
Data Reviewed
-
Diagnostic Radiology: Image Personally Visualized and interpreted
Medical Tests (Nuc Med, Echo, EKG etc): Image Personally Visualized and interpreted
Lab Data: Labs Reviewed by me
Old Records: Reviewed
Impression/Plan
-
IMPRESSION:
55-year-old with past medical history significant for CAD status post CABG x 4 in March of this year on dual antiplatelet therapy, hypertension, hyperlipidemia and rtg-[id number]-guojomcvr diabetes who also has a history of autoimmune disorder with
multiple sclerosis and chronic pain requiring opioid use presenting to the emergency department with episode of chest pain and hypertension.
PLAN:
Chest pain�chest pain associated with hypertension, and nausea but not vomiting. ECG is nonischemic. Troponin initially was negative. Pain improved after meclizine and aspirin. Concern is for acute coronary syndrome at this time. Cannot rule
out pancreatitis completely.
� Admit to telemetry observation
� Repeat troponin and trend every 3 hours
� Continue with nitroglycerin topical to keep SBP less than 160 and keep patient pain-free
� Continue patient's aspirin and Plavix for now
� Continue metoprolol
� She is on Repatha and statin
- cardiology consult
CAD - CAD s/p CABG
- management as above
DM II
- hold metformin
- continue farxiga
- sliding scale insulin
Chronic pain
- continue oxycodone 10mg prn
- continue duloxetine hs
DVT PPX - scd for now
Code status -Full Code
[2025-11-10] VITALS (7 sets, daily range): BP systolic 122–179; BP diastolic 62–92; BMI 34.0
[2025-11-10] MEDS: XANAX 1 MG PO ×2 (00:10→13:22)
[2025-11-10] MEDS: NITRO-BID 1 INCH TOPICAL (00:34)
[2025-11-10 00:42] LABS: Lipase 56 U/L (23-300)
[2025-11-10 01:01] LABS: Urine Character Slightly Cloudy (Clear)
[2025-11-10 01:12] LABS: Troponin I < 0.012 ng/ml
[2025-11-10 01:31] LABS: Urine Squamous Cell >30 /LPF (Few)
[2025-11-10 01:32] LABS: Urine White Cell >100 /HPF (0-5)
[2025-11-10] MEDS: ROXICODONE 10 MG PO ×2 (02:32→10:39)
--- NOTE | 2025-11-10 02:50 | W.PN.UPDATE ---
Update Note
Progress Note Update
Pt c/o frequency and burning with urination, UA possible contamination, >30 squamous Epith cells. Since patient is symptomatic, started on Keflex 500 mg PO BID, can re-evaluate when final cx results. Ordered repeat UA reflex to cx.
[2025-11-10] MEDS: CYMBALTA DELAYED RELEASE 60 MG PO (03:02)
[2025-11-10] MEDS: DESYREL 300 MG PO (03:02)
[2025-11-10] MEDS: PLAVIX 75 MG PO (03:03)
[2025-11-10] MEDS: LIPITOR 80 MG PO (03:03)
[2025-11-10] MEDS: ZOFRAN 4 MG IV (03:07)
--- NOTE | 2025-11-10 03:24 | PTCARENOTE ---
Pt arrived to unit from ED via stretcher. Ambulated to bed from stretcher. A&Ox3, anxious and tearful. Pt reporting concerns to this RN about receiving usual nighttime medications, results of urinalysis, symptoms of frequency, burning with
urination, 8/10 R flank pain, and nausea. PRN 10mg oxycodone administered for back pain (see MAR). GERMAIN Dodson notified of pt's concerns. Pt ordered nighttime meds, PRN zofran, and scheduled Keflex BID for UTI. Plan of care ongoing.
[2025-11-10 04:30] LABS: Troponin I < 0.012 ng/ml
[2025-11-10 06:46] LABS: Urine Character Clear (Clear)
[2025-11-10 07:52] LABS: Glucose - Point of Care 114 mg/dl (70-99)
[2025-11-10] MEDS: NORVASC 5 MG PO (07:58)
[2025-11-10 07:59] LABS: Urine Red Blood Cell 0-2 /HPF (0-2); Urine Urothelial Cell 0-2 /LPF (FEW)
[2025-11-10] MEDS: PROTONIX 40 MG PO (07:59)
[2025-11-10] MEDS: KEFLEX 500 MG PO ×2 (07:59→16:22)
[2025-11-10] MEDS: FARXIGA 10 MG PO (07:59)
[2025-11-10] MEDS: COLACE 100 MG PO (08:01)
--- NOTE | 2025-11-10 09:55 | CON.CAR ---
Consultation
Consultation Request
Date/Time Consultation Requested: 11/10/2025 7: 00
Date/Time Consultation Performed: 11/10/2025 9: 30
Requesting Provider: Estelita
Performing Provider: Simone
Reason for Consultation: chest pain
Medical History
-
Chief Complaint: Chest pain
History of Present Illness:
Laila has past medical history of hypertension, type 2 diabetes, hyperlipidemia, CVA/TIA x 2, sleep apnea, obesity, UTIs, multiple sclerosis, trigeminal neuralgia, ankylosing spondylitis, chronic pain syndrome, CAD status four-vessel CABG with EUCEDA to
LAD, vein graft to diagonal 1, vein graft to OM1, and vein graft to PDA in March 2025.
She has been exercising 3 to 4 days a week including elliptical and weights without difficulty. She exercise yesterday. She had a lot of stress at home as her daughters were fighting. She became dizzy and then developed a sharp left chest pain.
This pain persisted. She took her blood pressure which was 200/100. The pain lasted for hours. She came to the ER was admitted. This pain was different than what she had prior to her CABG in March 2025. Of note she gets no chest pain when she
does her workouts 4 times a week.
PMH:
CAD status four-vessel CABG in March 2025
Hypertension
Obesity
DM-II
ASCVD / CVA x 2
Anxiety
Optic neuritis / Uveitis
Ankylosing spondylitis
Nephrolithiasis
Chronic lumbar pain on chronic oral opiates
Multiple sclerosis
Trigeminal neuralgia
Hepatic steatosis
hepatomegaly
Past Medical History
Past Medical History: Other (as above)
Past Surgical History: Other (Renal calculi with stone removal, tonsillectomy, adenectomy, neuroma to foot removal)
Social History
Tobacco: Non-Smoker
Alcohol: None
Personal: Single (Single mom with 3 teenage girls)
Living: With Family
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
Allergies / Home Medications
Allergy/AdvReac Type Severity Reaction Status Date / Time
phenytoin (From Dilantin) Allergy blood Verified 11/09/25 21:16
clots;pt
states 'i
can get it
but it has
to be
diluted
Quinolones Allergy Hives Verified 11/09/25 21:16
�Medication �Instructions �Recorded �Confirmed �Type
duloxetine 60 mg capsule,delayed 60 mg PO HS Mental Health/Anxiety 11/27/18 11/10/25 History
release
clopidogrel 75 mg tablet 75 mg PO HS Blood Clot 03/07/22 11/10/25 History
Prevention/Tx
albuterol sulfate 2.5 mg/3 mL 2.5 mg inhalation R Q4HPRN PRN 08/07/24 11/10/25 History
(0.083 %) solution for nebulization sob/wheezing
aspirin 81 mg tablet,delayed 81 mg PO HS Blood Clot 08/07/24 11/10/25 History
release Prevention/Tx
docusate sodium 100 mg capsule 100 mg PO BID Constipation 08/07/24 11/10/25 History
(Stool Softener)
polyethylene glycol 3350 17 gram 17 g PO DAILY PRN Constipation 08/07/24 11/10/25 History
oral powder packet (Miralax)
glucagon 1 mg/0.2 mL subcutaneous 1 mg SC PRN PRN low blood sugar 09/10/24 04/01/25 History
auto-injector (Gvoke HypoPen
2-Pack)
trazodone 150 mg tablet 300 mg PO HS Mental Health/Anxiety 09/10/24 11/10/25 History
alprazolam 1 mg tablet 1 mg PO TID PRN anxiety 04/02/25 11/10/25 History
oxycodone-acetaminophen 10 mg-325 1 tab PO Q4H PRN back pain 04/02/25 11/10/25 History
mg tablet
amlodipine 2.5 mg tablet 2.5 mg PO DAILY Blood pressure #30 04/11/25 11/10/25 Rx
tabs
atorvastatin 80 mg tablet 80 mg PO QPM High cholesterol #30 04/11/25 Rx
tabs
dapagliflozin propanediol 10 mg 10 mg PO DAILY Diabetes #30 tabs 04/11/25 11/10/25 Rx
tablet
gabapentin 100 mg capsule 100 mg PO TID post-op nerve pain 04/11/25 Rx
#30 caps
insulin aspart U-100 100 unit/mL 12 unit (0.12 mL) SC TID Diabetes 04/11/25 Rx
(3 mL) subcutaneous pen (Novolog #15 mL
FlexPen U-100 Insulin aspart)
insulin glargine 100 unit/mL (3 16 unit (0.16 mL) SC QPM Diabetes 04/11/25 Rx
mL) subcutaneous pen (Lantus #15 mL
Solostar U-100 Insulin)
metformin 1,000 mg tablet 1,000 mg PO BID Diabetes #0 tabs 04/11/25 11/10/25 Rx
metoprolol succinate 50 mg 50 mg PO DAILY Heart 04/11/25 11/10/25 Rx
tablet,extended release 24 hr disease/condition #30 tabs
(Toprol XL)
naloxone 4 mg/actuation nasal 4 mg intranasal Q2M PRN opioid 04/11/25 Rx
spray (Narcan) overdose #2 ea
pantoprazole 40 mg tablet,delayed 40 mg PO DAILY GI prophylaxis 04/11/25 11/10/25 Rx
release while on Plavix (Clopidigrel) #30
tabs
pen needle, diabetic 32 gauge x #100 ea 04/11/25 Rx
1/4' (Novofine 32)
tirzepatide 7.5 mg/0.5 mL 7.5 mg (0.5 mL) SC QWEEK diabetes 04/11/25 11/10/25 Rx
subcutaneous pen injector #0 mL
(Ousmane)
Review of Systems
-
History Source: Patient
All other systems: Negative unless noted
Constitutional: No Symptoms
EENT: No Symptoms
Respiratory: No Symptoms
Cardiac: Chest Pain
Abdomen/GI: No Symptoms
: No Symptoms
Musculoskeletal: No Symptoms
Skin: No Symptoms
Neurological: No Symptoms
Endocrine: No Symptoms
Hematologic/Lymphatic: No Symptoms
Physical Exam
Vital Signs
Temp Pulse Resp BP Pulse Ox
97.8 F 70 18 136/68 92
11/10/25 07:56 11/10/25 07:56 11/10/25 07:56 11/10/25 07:56 11/10/25 07:56
General: Well developed, well nourished in NAD.
Neck: Supple, no JVD, HJR, carotids +2 B/L, no bruits bilaterally.
Heart: Non displaced PMI, RRR, no murmurs, No S3, S4, no rubs.
Lungs: Clear to auscultation bilaterally, no wheeze, rhonchi, rubs bilaterally,
normal expiratory phase.
Skin: Sternotomy scar well-healed
Abdomen: Normal bowel sounds, soft, non-tender, non-distended.
Extremities: No clubbing, cyanosis or edema bilaterally.
Neuro: Grossly nonfocal, awake, alert and oriented x3.
Lab Results
Troponin I < 0.012 ng/ml 11/10/25 03:26
Impression / Plan
-
.
PCP: Donald Plaza
[employer]ounds Superintendent: Zuleima Garcia
Impression:
status post four-vessel CABG in March 2025
History of non-STEMI March 2025 left
Type 2 diabetes mellitus
Hyperlipidemia, intolerant of multiple statin
Hypertensive urgency
History of CVA/TIA
Multiple sclerosis, not on medication
Trigeminal neuralgia, not active
Chronic lumbar pain on chronic oral opiates
Anxiety
Obesity
sleep apnea
Nephrolithiasis
Echo 04/02/2025: TDS, EF 55%, mild anterolateral wall hypokinesis, increased RV wall thickness, trivial MR, PASP 18 mmHg, prominent anterior fat pad with thickened pericardium, no effusion
Plan:
Chest pain is noncardiac
She has serially undetectable troponins with stable ECG
Her blood pressure is much improved.
Stable cardiology status for discharge
Discussed with nursing and primary service
She already has follow-up in our office.
Data Reviewed
-
EKG: Tracing Personally Visualized and interpreted
Medical Tests (Nuc Med, Echo etc): Report Reviewed by me
Labs: Labs Reviewed by me
Old Records: Reviewed
[2025-11-10 10:24] LABS: Hematocrit 33.0 % (37.0-47.0); Hemoglobin 10.3 g/dL (12.0-16.0); Mean Corp Hgb Conc. 31.2 g/dL (33.0-37.0); Mean Corpuscular Volume 68.2 fL (81.0-99.0); Platelet Count 385 10^3/uL (130-400); Red Cell Dist. Width 16.8 % (11.5-14.5)
[2025-11-10 10:36] LABS: Blood Urea Nitrogen 17 mg/dl (7-17); Calcium 9.6 mg/dl (8.4-10.2); Carbon Dioxide 23 mmol/L (22-30); Chloride 103 mmol/L (98-107); Estimated Creatinine Clearance > 125 ml/min; Glucose 107 mg/dl (70-99); HDL Cholesterol 55 mg/dl; LDL Cholesterol, Calculated 46 mg/dl; Potassium 3.9 mmol/L (3.5-5.1); Sodium 136 mmol/L (135-145); Very Low Density Lipoprotein 23 mg/dl (0-30); eGFR > 60.00
[2025-11-10 10:45] LABS: Troponin I < 0.012 ng/ml
--- NOTE | 2025-11-10 10:50 | W.PN.HOSP.TC ---
Today's Communication/Plan
-
see A/P
Assessment / Plan
Assessment / Plan
HPI: 55-year-old with past medical history significant for NSTEMI status post CABG x 4 in March of this year, [id number]-[id number] diabetes, EARL, multiple sclerosis, chronic pain requiring opioids, trigeminal neuralgia, hypertension, hyperlipidemia;
p/w chest pain and hypertension.
Patient reported that she had gone to walk earlier in the day and when she returned she started having some dizziness as well as pain localized to her left chest but also radiating to her left arm. She felt palpitations. She reported that she had
soreness behind her left breast which is reminiscent of the pain she had when she had a NSTEMI several months ago. She reports that after nitroglycerin pain is resolved but she still feels off.
A/P:
# Chest pain associated with hypertension and nausea but not vomiting.
ECG is nonischemic.
Troponin negative x4
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
Continue metoprolol
She is on Repatha and statin
Cardiology on board, ruled out ACS, cleared for discharge
# Dysuria with likely UTI
Pt was started with Keflex, can cont for 3 days total
dysuria has improved
Urine culture was sent, follow up with PCP outpt
# CAD - CAD s/p CABG
management as above
# DM II
hold metformin while in the hospital
continue farxiga
sliding scale insulin
# Chronic pain
continue oxycodone 10mg prn
continue duloxetine hs
DVT PPX - scd for now
Code status -Full Code
DW Card Dr Nichols
ROBERT RN
Anticipated Discharge: Today
Subjective/Interval History
-
Date of Service: November 10, 2025
Objective Data
-
Labs:
Laboratory Results
11/10/25
09:47
WBC 11.6 H
Hgb 10.3 L
Hct 33.0 L
Plt Count 385
Sodium 136
Potassium 3.9
Chloride 103
Carbon Dioxide 23
BUN 17
Creatinine 0.6
Glucose 107 H
Calcium 9.6
Vital Signs:
Vital Signs
Temp Pulse Resp BP Pulse Ox
36.6 C 70 18 136/68 92
11/10/25 07:56 11/10/25 07:56 11/10/25 07:56 11/10/25 07:56 11/10/25 07:56
I&O
11/09/25 11/10/25 11/11/25
06:59 06:59 06:59
Intake Total 480 / 480
Balance 480 / 480
Review of Systems
-
History Source: Patient
All other systems: Reviewed and negative
Cardiac: Denies Chest Pain (resolved)
Genitourinary: Reports Dysuria (improved )
Physical Exam
-
General: Well Developed, Well Nourished, No Apparent Distress, Comfortable and Conversant; Negative Respiratory Distress
HEENT: Normocephalic, Atraumatic, Nose Appears Normal and Ears Appear Normal; Negative Oxygen
Respiratory: Clear to Auscultation and Non Labored Respirations; Negative Accessory Resp Muscle Use
Cardiac: Regular Rhythm and S1/S2
GI: Soft, Nontender, Nondistended and Normal Bowel Sounds
Skin: Warm and Dry
Neuro: Awake, Alert, Oriented and AO x 3
Psych: Calm and Intact Judgement/Insight
Data Reviewed
-
Labs: Labs Reviewed by me
[2025-11-10 12:12] LABS: Glucose - Point of Care 139 mg/dl (70-99)
--- NOTE | 2025-11-10 12:16 | W.DCSUMMARY ---
Discharge Summary
Discharge Data
Date of Admission: 11/10/25
Date of Discharge: 11/10/25
Total time spent discharging patient (in min): 40
-
Pending Results: No
Hospital Course
Principal Diagnosis:
Resolved chest pain, ruled out acute chest syndrome per cardiology
Dysuria likely due to urinary tract infection
Chronic Diagnoses:�
CAD s/p CABG
[id number] diabetes,
EARL,
multiple sclerosis,
chronic pain requiring opioids,
trigeminal neuralgia,
hypertension,
hyperlipidemia
Consultations:�
Cardiology
Procedures:�
None
Clinical course:�
This is a 55-year-old female with past medical history as stated above, who presented with chest pain when he went out for a walk. Chest pain was localized to the left chest area, which resolved after she took nitroglycerin. Patient also
complained of dysuria.
Problem 1:
Localized chest pain, resolved after nitroglycerin.
ECG is nonischemic.
Troponin negative x4.
Ruled out acute chest syndrome per cardiology.
Continue [employer] aspirin and Plavix.
Continue metoprolol.
Problem 2:
Dysuria with likely UTI.
Pt was started with Keflex with improvement of her dysuria. She can continue Keflex for 3 days total.
Urine culture was sent, she can follow-up the results outpatient with her PCP.
As for the rest of her medical problems, they were stable during her hospital stay.
Discharge Plan
-
Patient Disposition: Home (Routine Discharge)
Discharge Diagnosis/Procedures: Resolved chest pain,
Dysuria likely due to UTI
Condition: Fair
Diet: As tolerated
Activity: As tolerated
Driving Restrictions: As prior to admission
Activity Restrictions/Additional Instructions:
You can follow up your urine culture result with your PCP
Referrals:
Lisgar,Donald N., DO [Family Provider, Family Practice] - in less than 1 week
Additional Discharge Medication Instructions: Continue Keflex for 3 days
Prescriptions:
New
cephalexin 500 mg Capsule
500 mg PO BID 3 Days Qty: 6 0RF
Continued
duloxetine 60 MG capsule,delayed release(DR/EC)
60 mg PO HS
clopidogrel 75 MG tablet
75 mg PO HS
polyethylene glycol 3350 [Miralax] 17 gram Powder In Packet
17 g PO DAILY PRN (Reason: Constipation)
aspirin 81 mg Tablet,Delayed Release (Dr/Ec)
81 mg PO HS
docusate sodium [Stool Softener] 100 mg Capsule
100 mg PO BID
albuterol sulfate 2.5 mg /3 mL (0.083 %) solution for nebulization
2.5 mg inhalation R Q4HPRN PRN (Reason: sob/wheezing)
Gvoke HypoPen 2-Pack 1 mg/0.2 mL auto-injector
1 mg SC PRN PRN (Reason: low blood sugar)
trazodone 150 MG tablet
300 mg PO HS
alprazolam 1 mg Tablet
1 mg PO TID PRN (Reason: anxiety)
oxycodone-acetaminophen 10-325 mg Tablet
1 tab PO Q4H PRN (Reason: back pain)
atorvastatin 80 mg Tablet
80 mg PO QPM Qty: 30 1RF
amlodipine 2.5 mg Tablet
2.5 mg PO DAILY Qty: 30 1RF
metoprolol succinate [Toprol XL] 50 mg tablet extended release 24 hr
50 mg PO DAILY Qty: 30 1RF
pantoprazole 40 mg Tablet,Delayed Release (Dr/Ec)
40 mg PO DAILY Qty: 30 1RF
gabapentin 100 mg Capsule
100 mg PO TID Qty: 30 0RF
insulin glargine [Lantus Solostar U-100 Insulin] 100 unit/mL (3 mL) insulin pen
16 unit SC QPM Qty: 15 1RF
dapagliflozin propanediol 10 mg Tablet
10 mg PO DAILY Qty: 30 1RF
insulin aspart U-100 [Novolog FlexPen U-100 Insulin] 100 unit/mL (3 mL) insulin pen
12 unit SC TID Qty: 15 1RF
metformin 1,000 mg Tablet
1,000 mg PO BID Qty: 0 0RF
Mounjaro 7.5 mg/0.5 mL Pen Injector
7.5 mg SC QWEEK Qty: 0 0RF
(DME) pen needle, diabetic [Novofine 32] 32 gauge x 1/4' needle
See Rx Instructions .Route Qty: 100 1RF
Rx Instructions:
As directed
naloxone [Narcan] 4 mg/actuation spray,non-aerosol
4 mg intranasal Q2M PRN (Reason: opioid overdose) Qty: 2 1RF
Discharge Orders:
Discharge Patient (As Directed); Ordered 11/10/25
Ordered By: Nidhi Capone
Discharge Date and Time
Print Language: MOROCCAN
[2025-11-10 13:17] LABS: Glycohemoglobin (HgbA1c) 6.7 % (4.0-5.9)
--- NOTE | 2025-11-10 13:18 | CM ---
Patient seen at bedside
IA completed
discharge today
OBS status - form explained & signed. In chart
lives with daughter 2 story home, [address], flight to bed bath
PLOF: Independent
DME: walker
had VN in past, denies rehab
PCP: Donald Plaza
Pharmacy: [facility]
PLAN: Home, no needs
dtr or parents to transport
== END 2025-11-10 18:01 | disposition home or self-care (01) ==
LOC: 3 WEST ACU 00:21
PROVIDERS: Emergency Medicine; Nurse Practitioner Family; ADMITTING PHYSICIAN Internal Medicine; ATTENDING PHYSICIAN Internal Medicine; CONSULT PHYSICIAN Internal Medicine Cardiovascular Disease; EMERGENCY PHYSICIAN Student in an Organized Health Care Education/Training Program; FAMILY PHYSICIAN Family Medicine
DX: R07.89 Other chest pain (principal); R30.0 Dysuria; I25.2 Old myocardial infarction; Z95.1 Presence of aortocoronary bypass graft; Z87.440 Personal history of urinary (tract) infections; E11.9 Type 2 diabetes mellitus without complications; E66.9 Obesity, unspecified; Z68.33 Body mass index [BMI] 33.0-33.9, adult; F32.A Depression, unspecified; F41.9 Anxiety disorder, unspecified; G35.D Multiple sclerosis, unspecified; G47.33 Obstructive sleep apnea (adult) (pediatric); G50.0 Trigeminal neuralgia; Z79.899 Other long term (current) drug therapy; I10 Essential (primary) hypertension; I25.10 Atherosclerotic heart disease of native coronary artery without angina pectoris; Z79.02 Long term (current) use of antithrombotics/antiplatelets; Z79.4 Long term (current) use of insulin; Z79.82 Long term (current) use of aspirin; Z79.891 Long term (current) use of opiate analgesic; Z87.442 Personal history of urinary calculi
CPT/HCPCS: 71046; 80048; 80053; 80061; 81003; 81015; 82962; 83036; 83690; 84484; 84703; 85025; 85027; 87086; 93005; 99285; G0378